=== PATIENT | female | born 1945 | race Caucasian/White ===

== ENCOUNTER → 2016-05-30 | Outpatient (CLI) | payer MEDICARE ==
[2016-05-30 12:15] LABS: Cholesterol 173 mg/dL (<200); HDL Cholesterol 32 mg/dL (40-60); Triglycerides 313 mg/dL (<150)
[2016-06-01 04:10] LABS: Microalbum/Creatinine Ratio,Ur 63 (<30)
[2016-06-03 07:50] LABS: Cortisol, Urine Free by LC-MS 6.3 ug/L
== END | disposition home or self-care (01) ==
LOC: LABWHC1 09:55
PROVIDERS: ATTEND Internal Medicine Endocrinology, Diabetes & Metabolism
DX: E11.65 Type 2 diabetes mellitus with hyperglycemia (principal); E24.0 Pituitary-dependent Cushing's disease; D35.2 Benign neoplasm of pituitary gland
CPT/HCPCS: 36415; 80061; 82043; 82530

== ENCOUNTER 2016-06-26 17:05 | Emergency (ER) | payer MEDICARE ==
[2016-06-26] MEDS ORDERED: SODIUM CHLORIDE 0.9% 500 ML IV STA (17:32)
[2016-06-26] MEDS ORDERED: RX INFO: IV CONTRAST WAS GIVEN 1 EACH MISC MISCELLANE PRN (17:32)
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
[2016-06-26 18:13] LABS: Basophils # (A) 0.1 k/uL (0-0.2); Basophils % (A) 1 %; CH 28.8; CHCM 31.9; Eosinophils # (A) 0.1 k/uL (0-0.7); Eosinophils % (A) 1 %; HCT 40.1 % (34.0-46.0); HDW 2.84; HGB 12.9 gm/dL (11.4-16.0); Luc # (Auto) 0.17; Luc % (Auto) 3; Lymphocytes # (A) 1.4 k/uL (1.0-4.8); Lymphocytes % (A) 23 %; MCH 29.3 pg (25.0-35.0); MCHC 32.2 g/dL (31.0-37.0); MCV 90.8 fL (80.0-100.0); Mean Platelet Volume 8.2; Monocytes # (A) 0.5 k/uL (0-1.0); Monocytes % (A) 7 %; Neutrophils # (A) 4.1 k/uL (1.3-7.7); Neutrophils % (A) 65 %; RBC 4.41 m/uL (3.80-5.40); RDW 15.2 % (11.5-15.5); WBC 6.2 k/uL (3.8-10.6); WBC (Perox) 6.14
[2016-06-26 18:21] LABS: Partial Thromboplastin Time 25.3 sec (22.0-30.0); Prothrombin Time 10.2 sec (9.0-12.0)
[2016-06-26 18:36] LABS: ALT 28 U/L (9-52); AST 20 U/L (14-36); Alkaline Phosphatase 116 U/L (38-126); Amylase <30 U/L (30-110); Anion Gap 12 mmol/L; Blood Urea Nitrogen 22 mg/dL (7-17); Calcium 9.6 mg/dL (8.4-10.2); Carbon Dioxide 23 mmol/L (22-30); Chloride 104 mmol/L (98-107); Glucose 201 mg/dL (74-99); Non-African American GFR(MDRD) >60 (>60 ml/min/1.73 sqM); Potassium 4.6 mmol/L (3.5-5.1); Sodium 139 mmol/L (137-145); Total Bilirubin 0.4 mg/dL (0.2-1.3); Total Protein 7.1 g/dL (6.3-8.2)
[2016-06-26 19:08] LABS: Appearance,Urine Clear (Clear); Bilirubin,Urine Negative (Negative); Glucose,Urine (UA) Negative (Negative); Ketones,Urine Negative (Negative); Leukocyte Esterase,Urine Negative (Negative); Nitrite,Urine Negative (Negative); PH, Urine 5.5 (5.0-8.0); Protein,Urine Negative (Negative); Specific Gravity,Urine 1.008 (1.001-1.035); UA Billing (MACRO vs. MICRO) CHEM; Urobilinogen,Urine <2.0 mg/dL (<2.0)
--- NOTE | 2016-06-26 19:23 | CT ---
EXAMINATION TYPE: CT abdomen pelvis w con DATE OF EXAM: 06/26/2016 7:15 PM COMPARISON: NONE HISTORY: Pt states of abdominal pain near umbilical area. Hx of umbilical hernia. CT DLP: 1667.3 mGycm Automated exposure control for dose reduction was used. TECHNIQUE: Helical acquisition of images was performed from the lung bases through the pelvis. CONTRAST: Performed without Oral Contrast and with IV Contrast, patient injected with 100 mL of Omnipaque 300. FINDINGS: There is mild linear density at the left lung base consistent with subsegmental atelectasis. There is no pleural effusion. Liver spleen pancreas appear normal. Bile ducts are not dilated. Cholecystectomy is noted. There is a 2 cm soft tissue density on the left adrenal gland. The right adrenal gland appears normal . Kidneys show satisfactory contrast opacification. There is no hydronephrosis. There is no retroperi toneal adenopathy. There is no ascites. There is some mild subcutaneous density on the anterior mid a bdominal wall consistent with previous surgery. I see no hernia. There is no intestinal wall thickeni ng. There are no dilated loops. Bladder distends smoothly. There is no sign of a pelvic mass. Appendi x is not seen. Abdominal aorta is atheromatous. I see no bony destructive process. IMPRESSION: MILD SCARRING AND SUBSEGMENTAL ATELECTASIS AT THE POSTERIOR LATERAL LEFT LUNG BASE. THERE IS CLEARING OF THE SOFT TISSUE AIR OUTSIDE OF THE BONY THORAX ON THE LEFT SIDE COMPARED TO OLD CT SCAN. NO SIGN OF ACUTE ABDOMEN AND PELVIS. POSTSURGICAL CHANGES AT THE UMBILICUS ARE STABLE COMPARED TO OLD CT SCAN . NO EVIDENCE OF RECURRENT HERNIA. HIATAL HERNIA IS NOTED. THIS IS UNCHANGED COMPARED TO OLD EXAM.
[2016-06-26 20:02] VITALS: BP 168/72; PULSE 58; RESP 20; TEMP 99.2
== END 2016-06-26 20:00 | disposition home or self-care (01) ==
LOC: EC 17:05
DX: R10.9 Unspecified abdominal pain (principal); I48.91 Unspecified atrial fibrillation; E11.9 Type 2 diabetes mellitus without complications; K21.9 Gastro-esophageal reflux disease without esophagitis; I10 Essential (primary) hypertension; G35 Multiple sclerosis; E07.9 Disorder of thyroid, unspecified; E11.319 Type 2 diabetes mellitus with unspecified diabetic retinopathy without macular edema; E11.29 Type 2 diabetes mellitus with other diabetic kidney complication; N28.9 Disorder of kidney and ureter, unspecified; Z98.61 Coronary angioplasty status; Z79.899 Other long term (current) drug therapy; Z91.048 Other nonmedicinal substance allergy status; Z79.4 Long term (current) use of insulin; Z88.5 Allergy status to narcotic agent; Z92.3 Personal history of irradiation; Z88.8 Allergy status to other drugs, medicaments and biological substances; H40.9 Unspecified glaucoma; Z85.42 Personal history of malignant neoplasm of other parts of uterus; Z85.118 Personal history of other malignant neoplasm of bronchus and lung
CPT/HCPCS: 36415; 80053; 82150; 83605; 83690; 85025; 85610; 85730; 81003; 74177; 99284; Q9967

== ENCOUNTER → 2016-08-18 | Outpatient (CLI) | payer MEDICARE ==
[2016-08-18 16:09] LABS: % Iron Saturation 22.8 % (20-50)
[2016-08-18 16:32] LABS: Appearance,Urine Clear (Clear); Bilirubin,Urine Negative (Negative); Glucose,Urine (UA) Negative (Negative); Ketones,Urine Negative (Negative); Leukocyte Esterase,Urine Negative (Negative); Nitrite,Urine Negative (Negative); Protein,Urine Negative (Negative); Specific Gravity,Urine 1.008 (1.001-1.035); UA Billing (MACRO vs. MICRO) CHEM; Urobilinogen,Urine <2.0 mg/dL (<2.0)
== END | disposition home or self-care (01) ==
LOC: LABWHC1 15:17
PROVIDERS: ATTEND Nurse Practitioner Family
DX: N18.2 Chronic kidney disease, stage 2 (mild) (principal); E61.1 Iron deficiency
CPT/HCPCS: 36415; 81003; 82728; 83540; 83550

== ENCOUNTER → 2016-08-19 | Outpatient (CLI) | payer MEDICARE ==
--- NOTE | 2016-08-19 11:08 | US ---
EXAMINATION TYPE: US kidneys/renal and bladder DATE OF EXAM: 08/19/2016 10:53 AM COMPARISON: November 07, 2013 CLINICAL HISTORY: N18.2 Chronic Kidney Disease Stage 2. CKD stage 2, elevated creatinine, obese eugenio ent EXAM MEASUREMENTS: Right Kidney: 12.1 x 5.7 x 6.0 cm Left Kidney: 12.0 x 6.6 x 5.6 cm Technically difficult and limited study due to patient's body habitus Right Kidney: visualized portions wnl, inferior pole limited by overlying bowel gas Left Kidney: visualized portions wnl, limited by rib shadowing and overlying bowel gas Bladder: wnl Bilateral Jets seen: left jet not seen There is no evidence for hydronephrosis at this point in time. No nephrolithiasis is seen. No williams s are identified. The urinary bladder is anechoic. Bilateral ureteral jets are seen. IMPRESSION: Limited examination on physical no distinct abnormality is seen.
== END | disposition home or self-care (01) ==
LOC: RADUSWWP 10:28
PROVIDERS: ATTEND Internal Medicine Nephrology
DX: N18.2 Chronic kidney disease, stage 2 (mild) (principal)
CPT/HCPCS: 76770

== ENCOUNTER 2017-02-22 02:01 | Observation (INO) | payer MEDICARE ==
[2017-02-22] MEDS ORDERED: IPRATROPIUM 0.5 MG/2.5 ML NEBU INHALATION STA (02:22)
[2017-02-22] MEDS ORDERED: ALBUTEROL NEBULIZED 2.5 MG/3 ML INHALATION STA ×2 (02:22→02:53)
[2017-02-22] MEDS ORDERED: SODIUM CHLORIDE 0.9% 1,000 ML IV STA (02:22)
[2017-02-22] MEDS ORDERED: EPINEPHrine 1 MG/ML 1 ML AMP SQ STA (02:22)
[2017-02-22] MEDS ORDERED: DEXAMETHASONE SOD PHOSPHATE 10 MG/ML 1 ML VIAL IV STA (02:24)
[2017-02-22] MEDS ORDERED: EPINEPHrine (Auto Inject) 0.3 MG/0.3 ML SYRINGE IM STA (02:27)
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
[2017-02-22] MEDS ORDERED: KETAMINE 10 MG/ML 20 ML VIAL IV ONE (02:33)
[2017-02-22] MEDS ORDERED: RACEPINEPHRINE 2.25% NEB 0.5 ML NEBU INHALATION STA (02:34)
[2017-02-22] MEDS ORDERED: EPINEPHrine 1 MG/ML 1 ML AMP IM STA (02:39)
[2017-02-22] MEDS ORDERED: IPRATROPIUM-ALBUTEROL 3 ML NEB INHALATION STA (02:53)
[2017-02-22 02:54] LABS: Basophils # (A) 0.1 k/uL (0-0.2); Basophils % (A) 1 %; CH 30.8; CHCM 32.3; Eosinophils # (A) 0.1 k/uL (0-0.7); Eosinophils % (A) 2 %; HCT 40.2 % (34.0-46.0); HDW 2.81; HGB 12.6 gm/dL (11.4-16.0); Luc % (Auto) 1; Lymphocytes # (A) 1.9 k/uL (1.0-4.8); Lymphocytes % (A) 26 %; MCH 29.9 pg (25.0-35.0); MCHC 31.3 g/dL (31.0-37.0); MCV 95.6 fL (80.0-100.0); Mean Platelet Volume 8.3; Monocytes # (A) 0.6 k/uL (0-1.0); Monocytes % (A) 9 %; Neutrophils # (A) 4.4 k/uL (1.3-7.7); Neutrophils % (A) 61 %; RDW 13.9 % (11.5-15.5); WBC 7.2 k/uL (3.8-10.6); WBC (Perox) 6.57
[2017-02-22 03:07] LABS: Calcium 9.6 mg/dL (8.4-10.2); Potassium 4.4 mmol/L (3.5-5.1); Total Bilirubin 0.3 mg/dL (0.2-1.3); Total Protein 7.2 g/dL (6.3-8.2)
[2017-02-22 03:12] LABS: INR 1.3 (<1.2); Partial Thromboplastin Time 30.7 sec (22.0-30.0); Prothrombin Time 13.2 sec (9.0-12.0)
[2017-02-22 03:16] LABS: VBG PH 7.28 (7.31-7.41)
[2017-02-22 03:25] LABS: Creatine Kinase 68 U/L (30-135)
[2017-02-22 03:39] LABS: Creatine Kinase MB 1.3 ng/mL (0.0-2.4); Troponin I <0.012 ng/mL (0.000-0.034)
--- NOTE | 2017-02-22 04:47 | XR ---
EXAM: XR Chest, 2 Views CLINICAL HISTORY: Reason: difficulty breathing TECHNIQUE: Frontal and lateral views of the chest. COMPARISON: 10/28/15. FINDINGS: Lungs: Mild basilar opacities, possible atelectasis. Pleural space: Unremarkable. No pneumothorax. Heart: Stable cardiomediastinal silhouette. Mediastinum: See above. Bones/joints: Postsurgical changes in the left proximal humerus again noted. IMPRESSION: Mild basilar opacities, possible atelectasis.
--- NOTE | 2017-02-22 04:50 | XR ---
EXAM: XR Soft Tissue Neck CLINICAL HISTORY: Reason: Pain TECHNIQUE: Frontal and lateral views of the soft tissues of the neck. COMPARISON: 10/28/15. FINDINGS: Airway: Unremarkable. Bones/joints: No acute fracture. Soft tissues: Unremarkable epiglottis. Other findings: Similar appearing presumed calcific opacities in the neck. IMPRESSION: No definite acute findings. No significant interval change. If there is persistent concern, CT may be considered.
[2017-02-22] MEDS ORDERED: PROPAFENONE 150 MG TAB PO PRN (05:20)
[2017-02-22] MEDS ORDERED: FUROSEMIDE 40 MG TAB PO PRN (05:20)
[2017-02-22] MEDS ORDERED: POTASSIUM CHLORIDE ER 20 MEQ TAB.ER PO PRN (05:20)
[2017-02-22] MEDS ORDERED: HYDROcodone/APAP 7.5-325MG 1 EACH TAB PO PRN (05:20)
[2017-02-22 05:42] VITALS: TEMP 98
[2017-02-22] MEDS ORDERED: LEVOTHYROXINE 125 MCG TAB PO SCH (06:30)
[2017-02-22 07:54] VITALS: BP 169/70; RESP 16
[2017-02-22] MEDS ORDERED: BUDESONIDE 0.5 MG/2 ML NEBU INHALATION SCH (08:00)
[2017-02-22 08:43] LABS: Glucose,Whole Blood 268 mg/dL (75-99)
[2017-02-22] MEDS: IPRATROPIUM-ALBUTEROL 3 ML NEB INHALATION PRN ×2 (08:46→14:18)
[2017-02-22] MEDS ORDERED: BRIMONIDINE TARTRATE 0.2% DROPS 5 ML BTL BOTH EYES SCH (09:00)
[2017-02-22] MEDS ORDERED: LUBIPROSTONE 8 MCG PO SCH (09:00)
[2017-02-22] MEDS ORDERED: DORZOLAMIDE HCL 2% DROPS 10 ML BTL BOTH EYES SCH (09:00)
[2017-02-22] MEDS ORDERED: ASCORBIC ACID 500 MG TAB PO SCH (09:00)
[2017-02-22] MEDS ORDERED: ATENOLOL 50 MG TAB PO SCH (09:00)
[2017-02-22] MEDS ORDERED: TIMOLOL 0.5% OPHTH DROPS 5 ML BTL BOTH EYES SCH (09:00)
[2017-02-22] MEDS ORDERED: AMOXIC-POT CLAV 500-125 MG 1 EACH TAB PO SCH (09:00)
[2017-02-22] MEDS ORDERED: LISINOPRIL 5 MG TAB PO SCH (09:00)
[2017-02-22] MEDS: METHAZOLAMIDE 25 MG PO SCH ×2 (09:27→13:13)
[2017-02-22] MEDS: ERGOCALCIFEROL 50,000 UNIT CAP PO SCH ×2 (09:28→10:57)
[2017-02-22] MEDS: methylPREDNISolone SOD SUCCI 125 MG/2 ML VIAL IV SCH ×3 (09:29→11:24)
[2017-02-22] MEDS ORDERED: PROPAFENONE 150 MG TAB PO SCH (10:00)
[2017-02-22 10:42] LABS: Hemoglobin A1C 7.1 % (4.2-6.1)
[2017-02-22] MEDS ORDERED: NYSTATIN 100,000 UNIT/GM POWD 15 GM TOPICAL PRN (10:52)
[2017-02-22] MEDS ORDERED: AZITHROMYCIN 500 MG TAB PO STA (10:52)
[2017-02-22] MEDS ORDERED: INSULIN GLARGINE 100 UNIT/ML 10 ML VIAL SQ SCH ×2 (11:02→21:00)
[2017-02-22 11:04] LABS: Glucose,Whole Blood 356 mg/dL (75-99)
[2017-02-22] MEDS ORDERED: INSULIN LISPRO (humaLOG) 300 UNIT/3 ML VIAL SQ SCH ×2 (12:30)
--- NOTE | 2017-02-22 13:53 | P.CNPUL ---
History of Present Illness Consult date: 02/22/17 Reason for consult: dyspnea, cough, hypoxemia Chief complaint: Shortness of breath History of present illness: Consult dated 02/22/2017 72-year-old female who presented to the emergency department with difficulty breathing. The patient states that she develops frequent episodes of tracheitis or tracheobronchitis. She apparently states that this was told that he was a croup infection. Anyway the patient drove herself in to the hospital from [place]. About 7 minutes here. Apparently when she got here she was improved profound distress in the axillary even considering it and consider intubating the patient. They decided to treat her with steroids and racemic epinephrine and they did not have to intubate her. She's almost feeling back to baseline and does feel back to baseline and would like to be discharged home. I told her she could be discharged home with some oral prednisone. To me, it sounds like she's got adult croup. This is typically a viral infection typically caused by parainfluenza virus. It behaves as a laryngeal tracheal bronchitis or LTB. It is usually treated with breathing treatment steroids racemic epinephrine aerosolized lidocaine. Occasionally, patients have to be intubated and mechanically ventilated. Another treatment option for these patients would be heliox, 70% helium and 30% oxygen. Review of Systems A 12 point review of system is positive for profound shortness of breath high- pitched cough. Although his complaints have completely gone away she feels pretty much back to baseline at this time. Past Medical History Past Medical History: Atrial Fibrillation, Asthma, Cancer, Heart Failure, Diabetes Mellitus, Deep Vein Thrombosis (DVT), Eye Disorder, GERD/Reflux, Hyperlipidemia, Hypertension, Memory Impairment, Musculoskeletal Disorder, Osteoarthritis (OA), Renal Disease, Thyroid Disorder Additional Past Medical History / Comment(s): Uterine cancer with mets to vagina , L breast, and L lung-all tx surgically, some also with radiation/ brachitherapy and pt is on chemotherapy, IDDM type II, bilateral retinalopathy, bilateral glaucoma with surgery, gastroparesis, hiatal hernia, gastritis, dysphagia at times, neuropathy bilateral hands/feet, chronic low back pain, limited ROM to L arm r/t trauma/fractures, cushings, hypothyroid, multiple sclerosis, memory issues with MS flare-ups, bilateral tinnitis, chronic renal disease stage II, anemia, CHF once after brain surgery, DVT in leg after childbirth. History of Any Multi-Drug Resistant Organisms: MRSA Date of last positivie culture/infection: 4-5 months ago-treated by Dr. Evelyn KINSEY Source:: R forearm Past Surgical History: Appendectomy, Cholecystectomy, Heart Catheterization, Hernia Repair, Hysterectomy, Joint Replacement, Orthopedic Surgery, Tonsillectomy Additional Past Surgical History / Comment(s): brain surgery for benign pituary gland tumors, lt lung resection-2011, total hysterectomy/lymph node removals, LT ELIZABETH, ESOPHAGEAL NODULES REMOVED, multiple breast LIPOMA'S removed with biopsies, LT VITRECTOMY, laser surgery for glaucoma, bilateral cataract removals , several hernia surgeries, L ANKLE repair SX, PLATE & SCREWS TO LT HUMERUS, EGD/colonoscopies with benign polypectomies. Past Anesthesia/Blood Transfusion Reactions: Motion Sickness, Postoperative Nausea & Vomiting (PONV) Smoking Status: Never smoker - Past Family History Father Family Medical History: COPD, Myocardial Infarction ([place]) Additional Family Medical History / Comment(s): Father at the age of 63 yrs from a massive [place]. He had emphysema and was a smoker. Mother Family Medical History: Cancer, Congestive Heart Failure (CHF) Additional Family Medical History / Comment(s): Skin and oral cancer. Mother of CHF at the age of 74yrs. Sister(s) Family Medical History: Cancer Additional Family Medical History / Comment(s): Breast cancer. Medications and Allergies Home Medications Medication Instructions Recorded Confirmed Type Atenolol [Tenormin] 50 mg PO QAM 09/13/13 02/22/17 History Insulin Glargine [Lantus] 49 units SQ BID 09/13/13 02/22/17 History Latanoprost Ophth [Xalatan 0.005%] 1 drops BOTH EYES HS 09/13/13 02/22/17 History Rivaroxaban [Xarelto] 20 mg PO AC-SUPPER 09/13/13 02/22/17 History Methazolamide [Neptazane] 25 mg PO DAILY 10/25/13 02/22/17 History Propafenone [Rythmol] 150 mg PO DAILY PRN 10/25/13 02/22/17 History Betaxolol HCl [Betoptic S 0.5% 1 drop BOTH EYES BID 05/28/14 02/22/17 History Ophth Soln] Ergocalciferol (Vitamin D2) 50,000 units PO MOWEFR 05/28/14 02/22/17 History [Drisdol] Lubiprostone [Amitiza] 8 mcg PO BID 10/28/15 02/22/17 History Albuterol Nebulized [Ventolin 2.5 mg INHALATION RT-Q4H PRN 06/26/16 02/22/17 History Nebulized] Brimonidine Tartrate [Alphagan P 1 drops BOTH EYES TID 06/26/16 02/22/17 History 0.2% Ophth Soln] HYDROcodone/APAP 7.5-325MG [[place] 1 tab PO TID PRN 06/26/16 02/22/17 History 7.5-325] Levothyroxine Sodium [Synthroid] 125 mcg PO DAILY 06/26/16 02/22/17 History Lisinopril [Prinivil] 5 mg PO DAILY 06/26/16 02/22/17 History Brinzolamide [Azopt 1% Ophth Susp] 1 drop BOTH EYES TID 08/19/16 02/22/17 History Acetaminophen Tab [Tylenol Tab] 500 mg PO Q6H PRN 02/22/17 02/22/17 History Atenolol [Tenormin] 25 mg PO DAILY PRN 02/22/17 02/22/17 History Insulin Aspart [NovoLOG] 11 unit SQ AC-TID 02/22/17 02/22/17 History Lansoprazole [Lansoprazole] 30 mg PO PC-SUPPER 02/22/17 02/22/17 History Nystatin [Nystop] 1 applic TOPICAL BID PRN 02/22/17 02/22/17 History Propafenone [Rythmol] 150 mg PO BID 02/22/17 02/22/17 History Allergies Allergy/AdvReac Type Severity Reaction Status Date / Time adhesive Allergy Rash/Hives Verified 02/22/17 07:33 diltiazem HCl [From Cardizem] Allergy Rash/Hives Verified 02/22/17 07:33 diphenhydramine HCl Allergy Unknown Verified 02/22/17 07:33 [From Benadryl] Echinacea Allergy Rapid Verified 02/22/17 07:33 Heart Rate codeine AdvReac Nausea & Verified 02/22/17 07:33 Vomiting guaifenesin AdvReac Nausea & Verified 02/22/17 07:33 Vomiting meperidine AdvReac Nausea & Verified 02/22/17 07:33 Vomiting morphine AdvReac Nausea & Verified 02/22/17 07:33 Vomiting opiates AdvReac Nausea & Uncoded 02/22/17 07:33 Vomiting stadol AdvReac Hallucinati Uncoded 02/12/17 15:07 ons Physical Exam Osteopathic Statement: *. No significant issues noted on an osteopathic structural exam other than those noted in the History and Physical/Consult. Vitals: Vital Signs Temp Pulse Pulse Resp BP BP Pulse Ox 02/22/17 09:00 72 02/22/17 08:47 68 02/22/17 08:00 66 16 02/22/17 07:00 98.0 F 66 16 169/70 95 02/22/17 05:41 98.0 F 67 18 179/73 97 02/22/17 03:52 67 18 171/72 98 02/22/17 03:21 76 02/22/17 03:01 66 18 100 02/22/17 03:00 64 28 H 02/22/17 02:50 64 02/22/17 02:35 76 02/22/17 02:02 99.2 F 68 30 H 204/91 96 Intake and Output 02/21/17 02/22/17 02/22/17 22:59 06:59 14:59 Intake Total 1680 Balance 1680 Intake: Intake, IV Titration 600 Amount Sodium Chloride 0.9% 1, 600 000 ml @ 100 mls/hr IV . Q10H STA Rx#:[id number] Oral 1080 Other: Voiding Method Toilet # Voids 4 Weight 98.883 kg No acute distress, oriented 3. HEENT examination is grossly unremarkable. Mucous membranes are moist. No oral lesions. Neck supple. Full range of motion. No adenopathy or thyromegaly. Neck veins are flat. No obvious stridor noted. Cardiovascular examination reveals regular rhythm rate. S1-S2 normal. No S3- S4 or murmur. Lungs reveal clear breath sounds. No wheezes rhonchi or crackles. Abdomen soft bowel sounds are heard. No masses or tenderness. Extremities are intact no cyanosis clubbing or edema. Skin without rash. Neurologic examination is nonfocal. Results - Laboratory Findings CBC and BMP: 02/22/17 02:33 02/22/17 02:33 PT/INR, D-dimer PT 13.2 sec (9.0-12.0) H 02/22/17 02:33 INR 1.3 (<1.2) H 02/22/17 02:33 Abnormal lab findings: Abnormal Labs 02/22/17 02/22/17 02/22/17 02:33 02:33 02:33 PT 13.2 H INR 1.3 H APTT 30.7 H VBG pH 7.28 L VBG pCO2 54 H BUN 20 H Creatinine 1.20 H Glucose 182 H POC Glucose (mg/dL) Hemoglobin A1c 02/22/17 02/22/17 02/22/17 02:33 08:40 11:02 PT INR APTT VBG pH VBG pCO2 BUN Creatinine Glucose POC Glucose (mg/dL) 268 H 356 H Hemoglobin A1c 7.1 H - Diagnostic Findings Chest x-ray: image reviewed (X-rays labs medications and soft tissue of the neck revealed) Assessment and Plan (1) Epiglottitis Current Visit: Yes Status: Acute Code(s): J05.10 - ACUTE EPIGLOTTITIS WITHOUT OBSTRUCTION SNOMED Code(s): 37102410 (2) Croup due to viral infection Current Visit: Yes Status: Acute Code(s): J05.0 - ACUTE OBSTRUCTIVE LARYNGITIS [CROUP]; B97.89 - OTH VIRAL AGENTS THE CAUSE OF DISEASES [facility] SNOMED Code(s): 92796529 (3) Signs and symptoms of severe respiratory distress Current Visit: Yes Status: Acute Code(s): R06.00 - DYSPNEA, UNSPECIFIED SNOMED Code(s): 421898631 Plan: Plan dated 02/22/2017 The patient could be discharged home. We discharged her home on some oral prednisone AB 30 mg for 4 days 20 for 4 days 10 for 4 days and stop. She really does not need any oral antibiotic. This is likely not a bacterial infection. Additional recommendations and suggestions are forthcoming. I be happy to see in the office if you feel that would be important. Time with Patient: Greater than 30
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
[2017-02-22 15:42] VITALS: PULSE 66
[2017-02-22] MEDS ORDERED: PANTOPRAZOLE 40 MG TABLET PO SCH ×2 (17:30→18:30)
[2017-02-22] MEDS ORDERED: RIVAROXABAN 15 MG TAB PO SCH (17:30)
[2017-02-22] MEDS ORDERED: RIVAROXABAN 10 MG TAB PO SCH (17:30)
[2017-02-22] MEDS ORDERED: LATANOPROST 0.005% OPHTH DROPS 2.5 ML BTL BOTH EYES SCH (21:00)
[2017-02-23] MEDS ORDERED: AZITHROMYCIN 250 MG TAB PO SCH (09:00)
== END 2017-02-22 16:00 | disposition home or self-care (01) ==
LOC: EC 02:01 → 5MS5E 05:09
PROVIDERS: ADMIT Family Medicine; ATTEND Family Medicine
DX: J05.10 Acute epiglottitis without obstruction (principal); R06.03 Acute respiratory distress; J05.0 Acute obstructive laryngitis [croup]; B34.9 Viral infection, unspecified; J45.30 Mild persistent asthma, uncomplicated; I48.0 Paroxysmal atrial fibrillation; I13.0 Hypertensive heart and chronic kidney disease with heart failure and stage 1 through stage 4 chronic kidney disease, or unspecified chronic kidney disease; I50.9 Heart failure, unspecified; N18.2 Chronic kidney disease, stage 2 (mild); E03.9 Hypothyroidism, unspecified; K21.9 Gastro-esophageal reflux disease without esophagitis; E78.5 Hyperlipidemia, unspecified; G35 Multiple sclerosis; H40.9 Unspecified glaucoma; M54.5 Low back pain; G89.29 Other chronic pain; R09.02 Hypoxemia; R63.4 Abnormal weight loss; E24.9 Cushing's syndrome, unspecified; E11.319 Type 2 diabetes mellitus with unspecified diabetic retinopathy without macular edema; E11.43 Type 2 diabetes mellitus with diabetic autonomic (poly)neuropathy; E11.22 Type 2 diabetes mellitus with diabetic chronic kidney disease; K31.84 Gastroparesis; M19.90 Unspecified osteoarthritis, unspecified site; E66.01 Morbid (severe) obesity due to excess calories; Z68.39 Body mass index [BMI] 39.0-39.9, adult; Z91.048 Other nonmedicinal substance allergy status; Z79.899 Other long term (current) drug therapy; Z88.5 Allergy status to narcotic agent; Z79.4 Long term (current) use of insulin; Z79.02 Long term (current) use of antithrombotics/antiplatelets; Z86.14 Personal history of Methicillin resistant Staphylococcus aureus infection; Z85.42 Personal history of malignant neoplasm of other parts of uterus; Z85.118 Personal history of other malignant neoplasm of bronchus and lung; Z92.3 Personal history of irradiation; Z85.3 Personal history of malignant neoplasm of breast; Z92.21 Personal history of antineoplastic chemotherapy; Z86.718 Personal history of other venous thrombosis and embolism
CPT/HCPCS: 99291; 96372; 96374; 96361 ×4; 96375; 36415; 94640 ×2; 93005; 80053; 83036; 82550; 82553; 82803; 84484; 85025; 85610; 85730; 70360; 71020; G0378; J0171; J1100; J2930

== ENCOUNTER 2017-05-16 15:47 | Emergency (ER) | payer MEDICARE ==
[2017-05-16] MEDS ORDERED: methylPREDNISolone SOD SUCCI 125 MG/2 ML VIAL IV STA (16:12)
[2017-05-16] MEDS ORDERED: IPRATROPIUM-ALBUTEROL 3 ML NEB INHALATION STA (16:12)
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
[2017-05-16 16:45] LABS: Basophils # (A) 0.1 k/uL (0-0.2); Basophils % (A) 1 %; Eosinophils # (A) 0.1 k/uL (0-0.7); Eosinophils % (A) 2 %; HCT 39.1 % (34.0-46.0); HGB 12.6 gm/dL (11.4-16.0); Lymphocytes # (A) 1.5 k/uL (1.0-4.8); Lymphocytes % (A) 31 %; MCH 30.1 pg (25.0-35.0); MCHC 32.3 g/dL (31.0-37.0); MCV 93.1 fL (80.0-100.0); Mean Platelet Volume 8.6; Monocytes # (A) 0.4 k/uL (0-1.0); Monocytes % (A) 9 %; Neutrophils # (A) 2.6 k/uL (1.3-7.7); Neutrophils % (A) 54 %; Platelet Count 248 k/uL (150-450); RBC 4.21 m/uL (3.80-5.40); RDW 15.2 % (11.5-15.5); WBC 4.9 k/uL (3.8-10.6)
[2017-05-16 16:53] LABS: Partial Thromboplastin Time 26.1 sec (22.0-30.0); Prothrombin Time 10.1 sec (9.0-12.0)
[2017-05-16 17:08] LABS: Creatine Kinase 61 U/L (30-135)
--- NOTE | 2017-05-16 17:09 | XR ---
EXAMINATION TYPE: XR chest 2V DATE OF EXAM: 05/16/2017 COMPARISON: 04/17/2017 HISTORY: Shortness of breath, cough and wheezing. TECHNIQUE: Frontal and lateral views of the chest are obtained. FINDINGS: There is no focal air space opacity, pleural effusion, or pneumothorax seen. The cardiac silhouette size is upper limits of normal. The osseous structures are intact. Chronic linear scarri ng is seen within the left midlung fixation plate of the left proximal humerus is noted IMPRESSION: No acute cardiopulmonary process.
[2017-05-16 17:10] LABS: ALT 31 U/L (9-52); AST 18 U/L (14-36); Albumin 3.6 g/dL (3.5-5.0); Alkaline Phosphatase 108 U/L (38-126); Anion Gap 11 mmol/L; Blood Urea Nitrogen 23 mg/dL (7-17); Calcium 9.8 mg/dL (8.4-10.2); Carbon Dioxide 23 mmol/L (22-30); Chloride 106 mmol/L (98-107); Glucose 255 mg/dL (74-99); Potassium 4.1 mmol/L (3.5-5.1); Sodium 140 mmol/L (137-145); Total Bilirubin 0.3 mg/dL (0.2-1.3); Total Protein 6.6 g/dL (6.3-8.2)
[2017-05-16 17:20] LABS: Creatine Kinase MB 0.9 ng/mL (0.0-2.4); Troponin I <0.012 ng/mL (0.000-0.034)
[2017-05-16 18:24] VITALS: BP 140/65; PULSE 66; RESP 18; TEMP 97.8
== END 2017-05-16 18:35 | disposition home or self-care (01) ==
LOC: EC 15:47
DX: J06.9 Acute upper respiratory infection, unspecified (principal); I44.7 Left bundle-branch block, unspecified; J45.909 Unspecified asthma, uncomplicated; K21.9 Gastro-esophageal reflux disease without esophagitis; E07.9 Disorder of thyroid, unspecified; I48.91 Unspecified atrial fibrillation; E11.22 Type 2 diabetes mellitus with diabetic chronic kidney disease; I12.9 Hypertensive chronic kidney disease with stage 1 through stage 4 chronic kidney disease, or unspecified chronic kidney disease; N18.2 Chronic kidney disease, stage 2 (mild); E11.319 Type 2 diabetes mellitus with unspecified diabetic retinopathy without macular edema; Z85.42 Personal history of malignant neoplasm of other parts of uterus; Z85.118 Personal history of other malignant neoplasm of bronchus and lung; Z86.14 Personal history of Methicillin resistant Staphylococcus aureus infection; Z85.3 Personal history of malignant neoplasm of breast; Z88.5 Allergy status to narcotic agent; Z88.8 Allergy status to other drugs, medicaments and biological substances; Z91.048 Other nonmedicinal substance allergy status; Z79.4 Long term (current) use of insulin; Z79.01 Long term (current) use of anticoagulants; Z79.899 Other long term (current) drug therapy
CPT/HCPCS: 36415; 94640; 93005; 83880; 80053; 82550; 82553; 84484; 85025; 85610; 85730; 87502; 71046; 99284; 96374; J2930

== ENCOUNTER → 2017-05-21 | Outpatient (CLI) | payer MEDICARE ==
[2017-05-21 16:22] LABS: Basophils # (A) 0.1 k/uL (0-0.2); Basophils % (A) 0 %; Eosinophils % (A) 0 %; HCT 39.7 % (34.0-46.0); HGB 12.8 gm/dL (11.4-16.0); Lymphocytes # (A) 2.4 k/uL (1.0-4.8); Lymphocytes % (A) 18 %; MCH 30.2 pg (25.0-35.0); MCHC 32.3 g/dL (31.0-37.0); MCV 93.3 fL (80.0-100.0); Mean Platelet Volume 9.2; Monocytes # (A) 0.9 k/uL (0-1.0); Monocytes % (A) 7 %; Neutrophils # (A) 9.8 k/uL (1.3-7.7); Neutrophils % (A) 73 %; Platelet Count 279 k/uL (150-450); RBC 4.26 m/uL (3.80-5.40); RDW 15.3 % (11.5-15.5); WBC 13.4 k/uL (3.8-10.6)
[2017-05-21 16:36] LABS: Appearance,Urine Clear (Clear); Bilirubin,Urine Negative (Negative); Blood,Urine Negative (Negative); Color,Urine Light Yellow; Glucose,Urine (UA) Negative (Negative); Ketones,Urine Negative (Negative); Leukocyte Esterase,Urine Negative (Negative); Nitrite,Urine Negative (Negative); PH, Urine 6.5 (5.0-8.0); Protein,Urine Negative (Negative); Specific Gravity,Urine 1.015 (1.001-1.035); Urobilinogen,Urine <2.0 mg/dL (<2.0)
[2017-05-21 16:51] LABS: Anion Gap 11 mmol/L; Blood Urea Nitrogen 30 mg/dL (7-17); Calcium 10.3 mg/dL (8.4-10.2); Carbon Dioxide 26 mmol/L (22-30); Chloride 104 mmol/L (98-107); Glucose 138 mg/dL (74-99); Magnesium 2.3 mg/dL (1.6-2.3); Phosphorous 3.8 mg/dL (2.5-4.5); Potassium 4.6 mmol/L (3.5-5.1); Sodium 141 mmol/L (137-145); Uric Acid 5.9 mg/dL (3.7-7.4)
[2017-05-22 00:32] LABS: Iron Saturation 23.69 (12.00-45.00)
[2017-05-22 00:41] LABS: Vitamin D 25 Hydroxy 36.4 ng/mL (30.0-100.0)
[2017-05-22 00:49] LABS: Parathyroid Hormone Intact 93.3 pg/mL (14.0-72.0)
== END | disposition home or self-care (01) ==
LOC: LABWHC1 15:58
PROVIDERS: ATTEND Internal Medicine Nephrology
DX: E55.9 Vitamin D deficiency, unspecified (principal); D63.1 Anemia in chronic kidney disease; M10.9 Gout, unspecified; N39.0 Urinary tract infection, site not specified; N18.2 Chronic kidney disease, stage 2 (mild)
CPT/HCPCS: 36415; 80048; 81003; 82306; 82728; 83540; 83550; 83735; 83970; 84100; 84550; 85025

== ENCOUNTER → 2017-05-31 | Outpatient (CLI) | payer MEDICARE ==
--- NOTE | 2017-05-31 20:02 | NM ---
EXAMINATION TYPE: NM parathyroid DATE OF EXAM: 05/31/2017 COMPARISON: CT soft tissue neck dated 11/13/2015 HISTORY: Hyperparathyroidism, E 21.3 TECHNIQUE: Following administration of 26.2 mCi Tc99m Sestamibi. Anterior projection images of the neck and ches t were obtained 10 minutes and 3.25 hours post injection FINDINGS: Thyroid tracer washout: Delayed images demonstrate near-complete tracer washout from the thyroid. Parathyroid uptake: None. The two-hour delayed images do not demonstrate any focal abnormal persisten t uptake in the region of the parathyroid glands to suggest parathyroid adenoma. Normal uptake: There is physiological tracer uptake in the salivary glands and thyroid gland. IMPRESSION: Normal parathyroid imaging study. No evidence for mediastinal uptake to suggest mediastinal parathyro id adenoma
== END | disposition home or self-care (01) ==
LOC: RADNMMAIN 11:40
PROVIDERS: ATTEND Family Medicine
DX: E21.3 Hyperparathyroidism, unspecified (principal)
CPT/HCPCS: 78070; A9500

== ENCOUNTER → 2017-06-02 | Outpatient (CLI) | payer MEDICARE ==
--- NOTE | 2017-06-02 16:23 | BD ---
EXAMINATION TYPE: MG DEXA axial skeleton. DATE OF EXAM: 06/02/2017 COMPARISON: NONE CLINICAL HISTORY: 72-year-old female disorder of bone Height: 5 FT 2 1/2 IN Weight: 225 FRAX RISK QUESTIONS: Alcohol (3 or more units per day): NO Family History (Parent hip fracture): NO Glucocorticoids (More than 3mos): NO (Ex: prednisone, prednisolone, methylprednisolone, dexamethasone, and hydrocortisone). History of Fracture in Adulthood: YES Secondary Osteoporosis: 1. Type 1 Diabetes: NO 2. Hyperthyroidism: NO 3. Menopause before 45: NO 4. Malnutrition: NO 5. Chronic liver disease: FATTY Rheumatoid Arthritis: NO Current Tobacco Use: NO RISK FACTORS HISTORY OF: Surgery to Spine/Hip(right/left)/Wrist (right/left): LT HIP REPLACEMENT When: AGE 61 Family History of Osteoporosis: YES Active: YES Postmenopausal woman: AGE 48 TOTAL HYST AGE 61 Lost more than 2 inches in height since high school: YES MEDICATIONS: Thyroid Medications: YES Which medication: LEVOTHYROXINE How Lon YEARS Additional Medications: ARIMEDEX, HEART MEDS, ATTENOLOL, LANTUS, NOVALOG, PRAPAFENONE, LISINOPRIL, NE PTAZONE, AMITIZCO, VIT D 2, XARELTO, LANSAPRAZOLE, ALBUTEROL NEEDED, CARAFATE, DILVADINE, LASIX, L EVOTHYROXINE Additional History: EXAM MEASUREMENTS: Bone mineral densitometry was performed using the [employer] System. Bone mineral density as measured about the Lumbar spine is: ----- L1-L4(G/cm2): 1.276 T Score Values are as follows: ----- L2: 1.1 ----- L3: 1.4 ----- L4: 0.0 ----- L1-L4: 0.8 BASELINE Bone mineral density about the R hip (g/cm2): 0.906 T Score values are as follows: -----R Neck: -1.8 -----R Total: -0.8 BASELINE IMPRESSION: Osteopenia (T Score between -2.5 and -1 as noted by T score values There is slightly increased risk of fracture and the patient may be considered for treatment. Re-Screen 2-5 years. NOTE: T-SCORE=SD OF THE YOUNG ADULT MEAN.
== END | disposition home or self-care (01) ==
LOC: RADBDWWP 09:56
PROVIDERS: ATTEND Internal Medicine Medical Oncology
DX: M85.80 Other specified disorders of bone density and structure, unspecified site (principal); D05.11 Intraductal carcinoma in situ of right breast
CPT/HCPCS: 77080

== ENCOUNTER → 2017-06-10 | Outpatient (CLI) | payer MEDICARE ==
[2017-06-10 17:10] LABS: Basophils % (A) 1 %; Eosinophils # (A) 0.1 k/uL (0-0.7); Eosinophils % (A) 1 %; HGB 11.9 gm/dL (11.4-16.0); Hypochromasia Slight; Lymphocytes # (A) 1.5 k/uL (1.0-4.8); Lymphocytes % (A) 27 %; MCH 30.5 pg (25.0-35.0); MCHC 32.1 g/dL (31.0-37.0); Mean Platelet Volume 8.1; Monocytes # (A) 0.5 k/uL (0-1.0); Monocytes % (A) 9 %; Neutrophils # (A) 3.4 k/uL (1.3-7.7); Neutrophils % (A) 60 %; Platelet Count 254 k/uL (150-450); RBC 3.89 m/uL (3.80-5.40); RDW 14.2 % (11.5-15.5); WBC 5.6 k/uL (3.8-10.6)
[2017-06-10 17:56] LABS: ALT 25 U/L (9-52); AST 19 U/L (14-36); Albumin 3.7 g/dL (3.5-5.0); Alkaline Phosphatase 79 U/L (38-126); Amylase 35 U/L (30-110); Anion Gap 10 mmol/L; Blood Urea Nitrogen 15 mg/dL (7-17); Calcium 9.6 mg/dL (8.4-10.2); Carbon Dioxide 27 mmol/L (22-30); Chloride 106 mmol/L (98-107); Glucose 133 mg/dL (74-99); Lipase 13 U/L (23-300); Potassium 4.8 mmol/L (3.5-5.1); Sodium 143 mmol/L (137-145); Total Bilirubin 0.3 mg/dL (0.2-1.3); Total Protein 6.3 g/dL (6.3-8.2)
[2017-06-11 01:19] LABS: Alpha Fetoprotein, Tumor Mkr <1.3 ng/mL (0.0-7.9)
== END | disposition home or self-care (01) ==
LOC: LABWHC1 16:01
PROVIDERS: ATTEND Family Medicine
DX: R14.0 Abdominal distension (gaseous) (principal); N18.3 Chronic kidney disease, stage 3 (moderate)
CPT/HCPCS: 36415; 80053; 82105; 82150; 82378; 83630; 83690; 85025; 87045; 87046; 87324; 87328; 87329; 89055

== ENCOUNTER → 2017-07-01 | Outpatient (CLI) | payer MEDICARE ==
--- NOTE | 2017-07-01 14:33 | CT ---
EXAMINATION TYPE: CT sinus wo con DATE OF EXAM: 07/01/2017 COMPARISON: NONE HISTORY: Facial pressure and pain for 2-[address] DLP: 570.[address] of the paranasal sinuses was performed in the axial and coronal planes. Bone and soft tissue settings are submitted. The paranasal sinuses demonstrate normal aeration and development. There is mucosal thickening of the sphenoid sinus on the left. The maxillary, ethmoidal and frontal s inuses are well-aerated. The osteal meatal units are patent bilaterally. The nasal septum is midline. No bony destructive changes are seen within the field of view. IMPRESSION: Chronic sinusitis of sphenoid sinus.
== END | disposition home or self-care (01) ==
LOC: RADCTMAIN 13:49
PROVIDERS: ATTEND Family Medicine
DX: J32.3 Chronic sphenoidal sinusitis (principal)
CPT/HCPCS: 70486

== ENCOUNTER → 2017-07-03 | Outpatient (CLI) | payer MEDICARE ==
[2017-07-03 10:16] LABS: Basophils # (A) 0.1 k/uL (0-0.2); Basophils % (A) 1 %; Eosinophils # (A) 0.2 k/uL (0-0.7); Eosinophils % (A) 3 %; HCT 41.4 % (34.0-46.0); HGB 13.1 gm/dL (11.4-16.0); Lymphocytes # (A) 1.6 k/uL (1.0-4.8); Lymphocytes % (A) 29 %; MCH 29.5 pg (25.0-35.0); MCHC 31.7 g/dL (31.0-37.0); Mean Platelet Volume 8.3; Monocytes # (A) 0.6 k/uL (0-1.0); Monocytes % (A) 10 %; Neutrophils # (A) 3.2 k/uL (1.3-7.7); Neutrophils % (A) 55 %; Platelet Count 212 k/uL (150-450); RBC 4.45 m/uL (3.80-5.40); RDW 14.4 % (11.5-15.5); WBC 5.7 k/uL (3.8-10.6)
[2017-07-03 11:14] LABS: ALT 28 U/L (9-52); AST 21 U/L (14-36); Albumin 3.9 g/dL (3.5-5.0); Alkaline Phosphatase 89 U/L (38-126); Anion Gap 8 mmol/L; Blood Urea Nitrogen 19 mg/dL (7-17); C Reactive Protein 13.6 mg/L (<10.0); Carbon Dioxide 28 mmol/L (22-30); Chloride 105 mmol/L (98-107); Glucose 170 mg/dL (74-99); Potassium 4.2 mmol/L (3.5-5.1); Sodium 141 mmol/L (137-145); Total Bilirubin 0.4 mg/dL (0.2-1.3); Total Protein 6.8 g/dL (6.3-8.2); Triglycerides 269 mg/dL (<150); Uric Acid 6.8 mg/dL (3.7-7.4)
[2017-07-03 11:28] LABS: T4, Free (Free Thyroxine) 1.28 ng/dL (0.78-2.19)
[2017-07-03 12:24] LABS: Erythrocyte Sedimentation Rate 28 mm/hr (0-20)
[2017-07-03 17:21] LABS: LDL Cholesterol, Direct 125.7 mg/dL (0.0-129.0)
[2017-07-04 12:51] LABS: Anti-DNA, DS unit <1.0 IU/mL; Cyclic Citrullinated Pep IgG NEGATIVE (NEGATIVE); DNA Double-Stranded NEGATIVE (NEGATIVE)
[2017-07-05 05:34] LABS: Angiotensin-1 Converting Enz. 6 U/L (8-52)
[2017-07-05 15:11] LABS: C-ANCA <1:20 Titer (<1:20); P-ANCA <1:20 Titer (<1:20)
[2017-07-06 12:02] LABS: Albumin 3.78 g/dL (3.80-4.90); Protein, Total 6.6 g/dL (6.2-8.2)
== END | disposition home or self-care (01) ==
LOC: LABWHC1 07-02 12:06
PROVIDERS: ATTEND Family Medicine
DX: E11.43 Type 2 diabetes mellitus with diabetic autonomic (poly)neuropathy (principal); I10 Essential (primary) hypertension; E03.9 Hypothyroidism, unspecified; R63.4 Abnormal weight loss
CPT/HCPCS: 36415; 80053; 82164; 82607; 82784; 82785; 83036; 83721; 84134; 84165; 84439; 84443; 84478; 84550; 85025; 85652; 86038; 86140; 86200; 86225; 86255; 86480

== ENCOUNTER → 2017-07-12 | Outpatient (CLI) | payer MEDICARE | END | disposition home or self-care (01) | LOC: LABWHC1 15:23 | PROVIDERS: ATTEND Internal Medicine Infectious Disease | DX: B99.9 Unspecified infectious disease (principal); R91.8 Other nonspecific abnormal finding of lung field | CPT/HCPCS: 36415; 82533 ==

== ENCOUNTER → 2017-07-19 | Outpatient (CLI) | payer MEDICARE ==
--- NOTE | 2017-07-19 13:47 | FL ---
EXAMINATION TYPE: FL barium swallow w video DATE OF EXAM: 07/19/2017 COMPARISON: NONE HISTORY: Dysphagia. The patient was evaluated in the lateral projection during real-time fluoroscopy, during ingestion of barium mixed with solids and liquids. No aspiration or laryngeal penetration. See report from ronal pathology. 1 minute 7 seconds fluoroscopy time, 0 intraoperative images
== END | disposition home or self-care (01) ==
LOC: RADFLMAIN 11:07
PROVIDERS: ATTEND Family Medicine
DX: R13.10 Dysphagia, unspecified (principal)
CPT/HCPCS: 74230

== ENCOUNTER 2017-08-09 02:51 | Emergency (ER) | payer MEDICARE ==
[2017-08-09] MEDS ORDERED: METOCLOPRAMIDE 5 MG/ML 2 ML VIAL IVP STA ×2 (03:15→05:21)
[2017-08-09] MEDS ORDERED: SODIUM CHLORIDE 0.9% 1,000 ML IV STA (03:15)
[2017-08-09] MEDS ORDERED: ACETAMINOPHEN TAB 325 MG TAB PO STA (03:24)
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
[2017-08-09 03:39] LABS: Basophils % (A) 0 %; Eosinophils # (A) 0.1 k/uL (0-0.7); Eosinophils % (A) 2 %; HCT 42.4 % (34.0-46.0); HGB 13.9 gm/dL (11.4-16.0); Lymphocytes # (A) 0.5 k/uL (1.0-4.8); Lymphocytes % (A) 7 %; MCH 29.3 pg (25.0-35.0); MCHC 32.8 g/dL (31.0-37.0); MCV 89.2 fL (80.0-100.0); Mean Platelet Volume 8.7; Monocytes # (A) 0.5 k/uL (0-1.0); Monocytes % (A) 7 %; Neutrophils # (A) 6.5 k/uL (1.3-7.7); Neutrophils % (A) 84 %; Platelet Count 212 k/uL (150-450); RBC 4.75 m/uL (3.80-5.40); RDW 14.7 % (11.5-15.5); WBC 7.7 k/uL (3.8-10.6)
[2017-08-09 03:59] LABS: Calcium 10.2 mg/dL (8.4-10.2); Potassium 4.4 mmol/L (3.5-5.1); Total Bilirubin 0.5 mg/dL (0.2-1.3); Total Protein 7.4 g/dL (6.3-8.2)
--- NOTE | 2017-08-09 04:04 | XR ---
EXAM: XR Abdomen, 1 View CLINICAL HISTORY: ITS.REASON XR Reason: pain TECHNIQUE: Frontal supine view of the abdomen. COMPARISON: No relevant prior studies available. FINDINGS: Limitations: Please note the pelvis is not included in the field-of- view. Gastrointestinal tract: Nonspecific bowel gas pattern. Bones/joints:. Osseous degenerative changes. IMPRESSION: Nonspecific bowel gas pattern.
[2017-08-09 04:07] LABS: Appearance,Urine Clear (Clear); Bacteria,Urine Many /hpf; Bilirubin,Urine Negative (Negative); Blood,Urine Negative (Negative); Color,Urine Yellow; Glucose,Urine (UA) Negative (Negative); Ketones,Urine Negative (Negative); Leukocyte Esterase,Urine Small (Negative); Nitrite,Urine Positive (Negative); PH, Urine 5.5 (5.0-8.0); Protein,Urine Negative (Negative); Specific Gravity,Urine 1.016 (1.001-1.035); Urobilinogen,Urine <2.0 mg/dL (<2.0); WBC,Urine 8 /hpf (0-5)
--- NOTE | 2017-08-09 04:07 | XR ---
EXAM: XR Chest, 2 Views CLINICAL HISTORY: ITS.REASON XR Reason: pain TECHNIQUE: Frontal and lateral views of the chest. COMPARISON: 05/16/17. FINDINGS: Lungs: Mild lower lung opacities, possible atelectasis. Pleural space: Unremarkable. No pneumothorax. Heart: Stable cardiomediastinal silhouette. Mediastinum: See above. Bones/joints: Stable. IMPRESSION: No evidence of acute cardiopulmonary disease.
[2017-08-09] MEDS ORDERED: SODIUM CHLORIDE 0.9% 500 ML IV STA (05:21)
[2017-08-09 06:55] LABS: Glucose,Whole Blood 152 mg/dL (75-99)
[2017-08-09 07:40] VITALS: BP 154/78; PULSE 82; RESP 17; TEMP 99.3
== END 2017-08-09 07:39 | disposition home or self-care (01) ==
LOC: EC 02:51
DX: R11.2 Nausea with vomiting, unspecified (principal); I48.91 Unspecified atrial fibrillation; K21.9 Gastro-esophageal reflux disease without esophagitis; E78.5 Hyperlipidemia, unspecified; E07.9 Disorder of thyroid, unspecified; G35 Multiple sclerosis; E11.22 Type 2 diabetes mellitus with diabetic chronic kidney disease; I12.9 Hypertensive chronic kidney disease with stage 1 through stage 4 chronic kidney disease, or unspecified chronic kidney disease; N18.2 Chronic kidney disease, stage 2 (mild); Z86.14 Personal history of Methicillin resistant Staphylococcus aureus infection; Z85.41 Personal history of malignant neoplasm of cervix uteri; Z85.3 Personal history of malignant neoplasm of breast; Z85.118 Personal history of other malignant neoplasm of bronchus and lung; Z98.890 Other specified postprocedural states; Z79.01 Long term (current) use of anticoagulants; Z79.4 Long term (current) use of insulin; Z79.899 Other long term (current) drug therapy; Z88.5 Allergy status to narcotic agent; Z88.8 Allergy status to other drugs, medicaments and biological substances; Z91.048 Other nonmedicinal substance allergy status
CPT/HCPCS: 36415; 93005; 80053; 82150; 83605; 83690; 85025; 81001; 87040; 87502; 71046; 74018; 99284; 96374; 96376; 96361 ×4; J2765

== ENCOUNTER → 2017-08-11 | Outpatient (CLI) | payer MEDICARE ==
[2017-08-11 17:54] LABS: Basophils % (A) 0 %; Eosinophils # (A) 0.2 k/uL (0-0.7); Eosinophils % (A) 4 %; HCT 35.1 % (34.0-46.0); HGB 11.9 gm/dL (11.4-16.0); Lymphocytes # (A) 1.4 k/uL (1.0-4.8); Lymphocytes % (A) 27 %; MCH 30.2 pg (25.0-35.0); MCHC 33.8 g/dL (31.0-37.0); MCV 89.3 fL (80.0-100.0); Mean Platelet Volume 8.5; Monocytes # (A) 0.4 k/uL (0-1.0); Monocytes % (A) 9 %; Neutrophils # (A) 2.9 k/uL (1.3-7.7); Neutrophils % (A) 56 %; Platelet Count 198 k/uL (150-450); RBC 3.93 m/uL (3.80-5.40); RDW 14.3 % (11.5-15.5); WBC 5.1 k/uL (3.8-10.6)
[2017-08-11 18:20] LABS: Albumin 3.4 g/dL (3.5-5.0); C Reactive Protein 36.5 mg/L (<10.0); Calcium 9.4 mg/dL (8.4-10.2); Potassium 4.1 mmol/L (3.5-5.1); Total Bilirubin 0.2 mg/dL (0.2-1.3); Total Protein 6.3 g/dL (6.3-8.2)
[2017-08-11 21:53] LABS: Erythrocyte Sedimentation Rate 20 mm/hr (0-20)
[2017-08-12 01:15] LABS: Gliadin AB IgA, Unit 0.3 U/mL
== END | disposition home or self-care (01) ==
LOC: LABWHC1 17:02
PROVIDERS: ATTEND Family Medicine
DX: R50.9 Fever, unspecified (principal); R14.0 Abdominal distension (gaseous)
CPT/HCPCS: 36415; 80053; 83516; 83615; 85025; 85652; 86038; 86140

== ENCOUNTER 2017-11-21 15:33 | Emergency (ER) | payer MEDICARE ==
[2017-11-21 15:46] VITALS: RESP 18; TEMP 99.6
[2017-11-21] MEDS ORDERED: SODIUM CHLORIDE 0.9% 500 ML IV STA (16:04)
[2017-11-21] MEDS ORDERED: ONDANSETRON 4 MG/2 ML VIAL IVP STA (16:04)
[2017-11-21 16:33] LABS: Basophils % (A) 0 %; Eosinophils # (A) 0.1 k/uL (0-0.7); Eosinophils % (A) 1 %; HCT 40.1 % (34.0-46.0); HGB 13.1 gm/dL (11.4-16.0); Lymphocytes # (A) 1.8 k/uL (1.0-4.8); Lymphocytes % (A) 30 %; MCH 29.7 pg (25.0-35.0); MCHC 32.6 g/dL (31.0-37.0); MCV 91.2 fL (80.0-100.0); Mean Platelet Volume 7.6; Monocytes # (A) 0.5 k/uL (0-1.0); Monocytes % (A) 9 %; Neutrophils # (A) 3.6 k/uL (1.3-7.7); Neutrophils % (A) 58 %; Platelet Count 212 k/uL (150-450); RDW 15.1 % (11.5-15.5); WBC 6.2 k/uL (3.8-10.6)
[2017-11-21 16:43] LABS: INR 1.1 (<1.2); Partial Thromboplastin Time 24.9 sec (22.0-30.0); Prothrombin Time 10.3 sec (9.0-12.0)
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
[2017-11-21 16:57] LABS: ALT 29 U/L (9-52); AST 23 U/L (14-36); Albumin 4.1 g/dL (3.5-5.0); Alkaline Phosphatase 95 U/L (38-126); Amylase 37 U/L (30-110); Anion Gap 8 mmol/L; Blood Urea Nitrogen 20 mg/dL (7-17); Calcium 9.4 mg/dL (8.4-10.2); Carbon Dioxide 23 mmol/L (22-30); Chloride 105 mmol/L (98-107); Glucose 137 mg/dL (74-99); Lipase <10 U/L (23-300); Potassium 4.4 mmol/L (3.5-5.1); Sodium 136 mmol/L (137-145); Total Bilirubin 0.6 mg/dL (0.2-1.3); Total Protein 6.9 g/dL (6.3-8.2)
[2017-11-21 16:59] LABS: Appearance,Urine Clear (Clear); Bilirubin,Urine Negative (Negative); Blood,Urine Negative (Negative); Color,Urine Yellow; Glucose,Urine (UA) Negative (Negative); Ketones,Urine Negative (Negative); Leukocyte Esterase,Urine Negative (Negative); Nitrite,Urine Negative (Negative); PH, Urine 7.5 (5.0-8.0); Protein,Urine Negative (Negative); Specific Gravity,Urine 1.014 (1.001-1.035); Urobilinogen,Urine <2.0 mg/dL (<2.0)
[2017-11-21 17:12] LABS: Creatine Kinase 45 U/L (30-135)
[2017-11-21 17:24] LABS: Creatine Kinase MB 0.5 ng/mL (0.0-2.4); Troponin I <0.012 ng/mL (0.000-0.034)
[2017-11-21] MEDS ORDERED: SODIUM CHLORIDE 0.9% 500 ML IV ONE (17:43)
--- NOTE | 2017-11-21 18:21 | CT ---
EXAMINATION TYPE: CT brain wo con DATE OF EXAM: 11/21/2017 COMPARISON: 07/23/2015 HISTORY: Patient complains of headache and nausea. CT DLP: 808.9 mGycm Automated exposure control for dose reduction was used. FINDINGS: Ventricles have normal size. There is no mass effect nor midline shift. There is no sign of intracran ial hemorrhage. The calvarium is intact. IMPRESSION: NEGATIVE CT SCAN OF THE BRAIN. NO CHANGE.
[2017-11-21] MEDS ORDERED: KETOROLAC 30 MG/ML 1 ML VIAL IVP STA (18:23)
[2017-11-21 18:42] VITALS: BP 174/74; PULSE 68
[2017-11-21] MEDS ORDERED: traMADol 50 MG STARTER PACK 3 TAB BTL PO STA (19:23)
== END 2017-11-21 19:57 | disposition home or self-care (01) ==
LOC: EC 15:33
DX: R51 Headache (principal); R11.0 Nausea; R53.81 Other malaise; I48.91 Unspecified atrial fibrillation; J45.909 Unspecified asthma, uncomplicated; K21.9 Gastro-esophageal reflux disease without esophagitis; E07.9 Disorder of thyroid, unspecified; E11.319 Type 2 diabetes mellitus with unspecified diabetic retinopathy without macular edema; E11.22 Type 2 diabetes mellitus with diabetic chronic kidney disease; I12.9 Hypertensive chronic kidney disease with stage 1 through stage 4 chronic kidney disease, or unspecified chronic kidney disease; N18.2 Chronic kidney disease, stage 2 (mild); H40.9 Unspecified glaucoma; Z85.42 Personal history of malignant neoplasm of other parts of uterus; Z85.3 Personal history of malignant neoplasm of breast; Z86.14 Personal history of Methicillin resistant Staphylococcus aureus infection; Z79.4 Long term (current) use of insulin; Z79.01 Long term (current) use of anticoagulants; Z79.899 Other long term (current) drug therapy; Z91.048 Other nonmedicinal substance allergy status; Z88.8 Allergy status to other drugs, medicaments and biological substances; Z88.5 Allergy status to narcotic agent; Z95.818 Presence of other cardiac implants and grafts
CPT/HCPCS: 36415; 93005; 80053; 82150; 82550; 82553; 83605; 83690; 84484; 85025; 85610; 85730; 81003; 87040; 87086; 70450; 99284; 96374; 96375; 96361 ×2; J2405; J1885

== ENCOUNTER 2017-11-22 03:29 | Emergency (ER) | payer MEDICARE ==
[2017-11-22 03:36] VITALS: PULSE 68; TEMP 99.6
[2017-11-22] MEDS ORDERED: ONDANSETRON 4 MG/2 ML VIAL IVP STA (04:07)
[2017-11-22] MEDS ORDERED: SODIUM CHLORIDE 0.9% 1,000 ML IV STA (04:07)
[2017-11-22] MEDS ORDERED: SODIUM CHLORIDE 0.9% 500 ML IV STA (04:07)
[2017-11-22] MEDS ORDERED: FAMOTIDINE 20 MG/2 ML VIAL IV STA (04:10)
[2017-11-22 04:42] LABS: Basophils % (A) 0 %; Eosinophils # (A) 0.1 k/uL (0-0.7); Eosinophils % (A) 1 %; HCT 40.1 % (34.0-46.0); HGB 13.1 gm/dL (11.4-16.0); Lymphocytes # (A) 1.8 k/uL (1.0-4.8); Lymphocytes % (A) 25 %; MCH 29.8 pg (25.0-35.0); MCHC 32.6 g/dL (31.0-37.0); MCV 91.3 fL (80.0-100.0); Mean Platelet Volume 7.6; Monocytes # (A) 0.6 k/uL (0-1.0); Monocytes % (A) 9 %; Neutrophils # (A) 4.4 k/uL (1.3-7.7); Neutrophils % (A) 62 %; Platelet Count 222 k/uL (150-450); RBC 4.39 m/uL (3.80-5.40); WBC 7.1 k/uL (3.8-10.6)
[2017-11-22 04:51] LABS: Albumin 3.9 g/dL (3.5-5.0); Calcium 9.2 mg/dL (8.4-10.2); Potassium 4.6 mmol/L (3.5-5.1); Total Bilirubin 0.4 mg/dL (0.2-1.3); Total Protein 6.7 g/dL (6.3-8.2)
--- NOTE | 2017-11-22 05:09 | XR ---
EXAMINATION TYPE: XR sinus DATE OF EXAM: 11/22/2017 COMPARISON: NONE HISTORY: Nausea TECHNIQUE: 3 views FINDINGS: Orbital margins are intact. Maxilla is intact. There is normal aeration of the paranasal si nuses. Sella turcica appears normal. IMPRESSION: Negative paranasal sinuses exam.
--- NOTE | 2017-11-22 05:11 | XR ---
EXAMINATION TYPE: XR KUB DATE OF EXAM: 11/22/2017 COMPARISON: 08/09/2017 HISTORY: Nausea. TECHNIQUE: 2 supine views FINDINGS: There is no sign of intestinal obstruction or pneumoperitoneum. There are surgical clips ov er the pelvis. There is no evidence of a mass. There are no pathologic calcifications over the kidney s. Fecal pattern is normal. IMPRESSION: Nonacute abdomen. There is clearing of the distended loops of bowel in the left side of t he abdomen compared to old exam.
[2017-11-22] MEDS ORDERED: METOCLOPRAMIDE 5 MG/ML 2 ML VIAL IVP STA (05:26)
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
[2017-11-22 06:10] VITALS: BP 180/79; RESP 16
== END 2017-11-22 06:35 | disposition home or self-care (01) ==
LOC: EC 03:29
DX: R11.2 Nausea with vomiting, unspecified (principal); R51 Headache; R19.7 Diarrhea, unspecified; I48.91 Unspecified atrial fibrillation; K21.9 Gastro-esophageal reflux disease without esophagitis; J45.909 Unspecified asthma, uncomplicated; E11.319 Type 2 diabetes mellitus with unspecified diabetic retinopathy without macular edema; I10 Essential (primary) hypertension; M19.90 Unspecified osteoarthritis, unspecified site; H40.9 Unspecified glaucoma; Z79.4 Long term (current) use of insulin; Z79.01 Long term (current) use of anticoagulants; Z79.899 Other long term (current) drug therapy; Z91.048 Other nonmedicinal substance allergy status; Z88.5 Allergy status to narcotic agent; Z88.8 Allergy status to other drugs, medicaments and biological substances; Z85.3 Personal history of malignant neoplasm of breast; Z85.42 Personal history of malignant neoplasm of other parts of uterus; Z95.5 Presence of coronary angioplasty implant and graft
CPT/HCPCS: 99284; 96374; 96375 ×2; 36415; 93005; 80053; 82150; 83690; 84484; 85025; 70220; 74018; J2765; J2405

== ENCOUNTER → 2017-12-04 | Outpatient (CLI) | payer MEDICARE ==
[2017-12-04 11:11] LABS: Basophils # (A) 0.1 k/uL (0-0.2); Basophils % (A) 1 %; Eosinophils # (A) 0.1 k/uL (0-0.7); Eosinophils % (A) 1 %; HCT 37.2 % (34.0-46.0); HGB 11.5 gm/dL (11.4-16.0); Hypochromasia Slight; Lymphocytes # (A) 1.4 k/uL (1.0-4.8); Lymphocytes % (A) 25 %; MCH 28.7 pg (25.0-35.0); MCHC 30.8 g/dL (31.0-37.0); MCV 93.1 fL (80.0-100.0); Mean Platelet Volume 7.8; Monocytes # (A) 0.4 k/uL (0-1.0); Monocytes % (A) 8 %; Neutrophils # (A) 3.5 k/uL (1.3-7.7); Neutrophils % (A) 63 %; Platelet Count 246 k/uL (150-450); RBC 3.99 m/uL (3.80-5.40); RDW 14.9 % (11.5-15.5); WBC 5.5 k/uL (3.8-10.6)
[2017-12-04 11:24] LABS: Calcium 9.4 mg/dL (8.4-10.2); Magnesium 1.8 mg/dL (1.6-2.3); Phosphorus 3.5 mg/dL (2.5-4.5); Potassium 4.1 mmol/L (3.5-5.1); Uric Acid 6.7 mg/dL (3.7-7.4)
[2017-12-04 16:38] LABS: Parathyroid Hormone Intact 56.2 pg/mL (14.0-72.0)
[2017-12-04 16:48] LABS: Iron Saturation 28.06 (12.00-45.00)
== END | disposition home or self-care (01) ==
LOC: LABWHC1 10:14
PROVIDERS: ATTEND Nurse Practitioner Family
DX: E55.9 Vitamin D deficiency, unspecified (principal); E11.22 Type 2 diabetes mellitus with diabetic chronic kidney disease; N18.2 Chronic kidney disease, stage 2 (mild); E21.3 Hyperparathyroidism, unspecified
CPT/HCPCS: 36415; 80048; 82164; 82306; 82728; 83036; 83540; 83550; 83735; 83883; 83970; 84100; 84550; 85025; 86334

== ENCOUNTER → 2017-12-24 | Outpatient (CLI) | payer MEDICARE ==
--- NOTE | 2017-12-24 14:33 | XR ---
Lumbar spine HISTORY: Back pain 3 views of the lumbar spine There is a dextroscoliosis centered at L2. Bone mineralization is reduced. Lumbar vertebral bodies sh ow preserved height. Minimal anterolisthesis grade 1 L4-5. Loss of disc height present at the interve rtebral levels. There are vascular calcifications. Multiple surgical clips noted incidentally. Multil evel spondylosis is present. Lumbar vertebral bodies show preserved height. Patient is post hip arthr oplasty. IMPRESSION: Degenerative disc disease, osteopenia, scoliosis, facet arthropathy and additional findin gs above.
== END | disposition home or self-care (01) ==
LOC: RADXRMAIN 11:20
PROVIDERS: ATTEND Family Medicine
DX: M43.16 Spondylolisthesis, lumbar region (principal); M51.36 Other intervertebral disc degeneration, lumbar region; M47.816 Spondylosis without myelopathy or radiculopathy, lumbar region; M46.96 Unspecified inflammatory spondylopathy, lumbar region; M41.86 Other forms of scoliosis, lumbar region; M85.88 Other specified disorders of bone density and structure, other site
CPT/HCPCS: 72100

== ENCOUNTER 2018-03-08 03:22 | Inpatient (IN) | payer MEDICARE ==
[2018-03-08] MEDS ORDERED: ONDANSETRON 4 MG/2 ML VIAL IVP STA ×2 (03:41→06:54)
[2018-03-08] MEDS ORDERED: SODIUM CHLORIDE 0.9% 500 ML 500 ML IV STA (03:41)
[2018-03-08 03:55] LABS: Basophils # (A) 0.1 k/uL (0-0.2); Basophils % (A) 0 %; Eosinophils # (A) 0.1 k/uL (0-0.7); Eosinophils % (A) 1 %; HCT 39.3 % (34.0-46.0); HGB 12.7 gm/dL (11.4-16.0); Lymphocytes # (A) 0.9 k/uL (1.0-4.8); Lymphocytes % (A) 6 %; MCH 29.6 pg (25.0-35.0); MCHC 32.3 g/dL (31.0-37.0); MCV 91.8 fL (80.0-100.0); Mean Platelet Volume 7.7; Monocytes # (A) 1.1 k/uL (0-1.0); Monocytes % (A) 7 %; Neutrophils # (A) 12.9 k/uL (1.3-7.7); Neutrophils % (A) 84 %; Platelet Count 222 k/uL (150-450); RBC 4.28 m/uL (3.80-5.40); RDW 15.2 % (11.5-15.5); WBC 15.3 k/uL (3.8-10.6)
[2018-03-08 04:04] LABS: Calcium 9.6 mg/dL (8.4-10.2); Potassium 4.3 mmol/L (3.5-5.1); Total Bilirubin 0.5 mg/dL (0.2-1.3); Total Protein 7.2 g/dL (6.3-8.2)
--- NOTE | 2018-03-08 04:23 | XR ---
EXAMINATION TYPE: XR KUB DATE OF EXAM: 03/08/2018 COMPARISON: 11/22/2017 HISTORY: Abdominal pain TECHNIQUE: 2 views FINDINGS: There is no sign of intestinal obstruction or pneumoperitoneum. Fecal pattern is normal. Th ere are no pathologic calcifications over the kidneys. There is left hip prosthesis. There are surgic al clips in the pelvis. Lung bases are clear of consolidation. There is probably some atelectasis in the left lower lobe. IMPRESSION: Nonacute abdomen. There is probably some atelectasis at the left lung base.
[2018-03-08 05:11] LABS: Appearance,Urine Cloudy (Clear); Bacteria,Urine Moderate /hpf; Bilirubin,Urine Negative (Negative); Blood,Urine Small (Negative); Color,Urine Yellow; Glucose,Urine (UA) Negative (Negative); Ketones,Urine Negative (Negative); Leukocyte Esterase,Urine Moderate (Negative); Mucus,Urine Rare /hpf; Nitrite,Urine Positive (Negative); PH, Urine 5.5 (5.0-8.0); Protein,Urine Trace (Negative); RBC,Urine 14 /hpf (0-5); Specific Gravity,Urine 1.013 (1.001-1.035); Squamous Epithelial Cell,Urine 2 /hpf (0-4); Urobilinogen,Urine <2.0 mg/dL (<2.0); WBC,Urine 44 /hpf (0-5)
[2018-03-08] MEDS ORDERED: LEVOFLOXACIN 750MG-D5W PMX 750 MG in DEXTROSE/WATER 1 150ML.BAG IVPB STA ×2 (07:13→09:30)
[2018-03-08] MEDS ORDERED: ACETAMINOPHEN TAB 325 MG TAB PO STA (07:20)
[2018-03-08 07:25] VITALS: RESP 18
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
--- NOTE | 2018-03-08 08:08 | CT ---
EXAMINATION TYPE: CT abdomen pelvis wo con DATE OF EXAM: 03/08/2018 HISTORY: Pt complaining of vomiting, abdomen pain. CT DLP: 909.3 mGycm. Automated Exposure Control for Dose Reduction was Utilized. TECHNIQUE: CT scan of the abdomen and pelvis is performed without oral or IV contrast. COMPARISON: CT abdomen and pelvis June 26, 2016 and older CTs. FINDINGS: Within the limitations of a non-contrast study, the following observations are made. LUNG BASES: Calcification at level of aortic root and mitral valve is redemonstrated. There is persis tent posterior lateral left basilar scarring. Dystrophic calcifications in the right breast are noted . LIVER/GB: Liver is heterogeneously hypodense relative to spleen consistent with diffuse fatty infiltr ation. Gallbladder is not seen and presumed surgically absent. PANCREAS: Mild to moderate fat replaced atrophy of pancreas is redemonstrated. SPLEEN: No significant abnormality is seen. ADRENALS: Redemonstration of 2.1 x 2.0 cm left adrenal mass has Hounsfield units averaging 27. Overal l stable in size from prior study. Lesion not significantly changed in size from 2010 CT. Lesion pres umed benign given interval stability KIDNEYS: Some cortical thinning is present bilaterally. No renal calculi or hydronephrosis is seen BOWEL: No significant abnormality is seen. GENITAL ORGANS: Uterus is surgically absent. LYMPH NODES: No greater than 1cm abdominal or pelvic lymph nodes are appreciated. OSSEOUS STRUCTURES: Metallic hardware from left hip arthroplasty is redemonstrated causing streak art ifact limiting evaluation of pelvic structures. Moderate degenerative change right hip with joint spa ce loss and spurring is present. Vacuum disc phenomenon with mild disc space narrowing L2-L3 and L3-L 4 levels is seen. OTHER: Vertical scar overlies anterior abdominal wall from umbilicus extending into pelvis. Numerous coils ventral wall hernia repair surgery are seen over the anterior abdomen. No definitive recurrent ventral wall hernia is present. IMPRESSION: No bowel obstruction. No suspicious new or acute finding seen to account for patient's sy mptoms.
--- NOTE | 2018-03-08 08:20 | XR ---
EXAMINATION TYPE: XR chest 2V DATE OF EXAM: 03/08/2018 COMPARISON: Prior chest x-ray 08/09/[address] abdomen pelvis 06/26/2016, 03/08/2018. HISTORY: Fever TECHNIQUE: Frontal and lateral views of the chest are obtained. FINDINGS: There is no focal air space opacity, pleural effusion, or pneumothorax seen. Minimal basil ar scarring on the left is noted. The cardiac silhouette size is stable. The osseous structures are intact. Postop change noted to the proximal left humerus. IMPRESSION: No acute cardiopulmonary process. Left lower lobe scarring.
[2018-03-08] MEDS ORDERED: SODIUM CHLORIDE 0.9% 500 ML 500 ML IV ONE (08:32)
[2018-03-08] MEDS ORDERED: SODIUM CHLORIDE 0.9% 1,000 ML IV SCH (09:30)
[2018-03-08] MEDS ORDERED: NALOXONE 0.4 MG/ML 1 ML VIAL IV PRN (09:31)
[2018-03-08] MEDS ORDERED: ACETAMINOPHEN TAB 325 MG TAB PO PRN (09:31)
[2018-03-08] MEDS ORDERED: PROPAFENONE 150 MG TAB PO SCH (10:45)
[2018-03-08] MEDS ORDERED: ATENOLOL 50 MG TAB PO SCH ×2 (10:45→21:00)
[2018-03-08] MEDS ORDERED: Acetaminophen-Codeine 300-30mg TAB PO PRN (11:37)
[2018-03-08] MEDS ORDERED: ONDANSETRON 4 MG TAB PO PRN (11:37)
[2018-03-08] MEDS ORDERED: CYCLOBENZAPRINE 10 MG TAB PO PRN (11:37)
[2018-03-08] MEDS ORDERED: traMADol 50 MG TAB PO PRN (11:37)
[2018-03-08] MEDS ORDERED: ONDANSETRON 4 MG/2 ML VIAL IVP PRN (11:43)
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
[2018-03-08] MEDS ORDERED: cefTRIAXone 2,000 MG in SODIUM CHLORIDE 0.9% 100 ML IVPB SCH (12:00)
[2018-03-08] MEDS: INSULIN ASPART 100 UNIT/ML 1 ML 10 ML VIAL SQ SCH ×2 (12:30→17:27)
[2018-03-08] MEDS: PROPAFENONE 150 MG TAB PO SCH ×2 (15:03→15:12)
[2018-03-08] MEDS ORDERED: LEVOTHYROXINE 125 MCG TAB PO SCH (16:00)
[2018-03-08] MEDS ORDERED: ANASTROZOLE 1 MG TAB PO SCH (16:00)
[2018-03-08] MEDS ORDERED: METHAZOLAMIDE 25 MG PO SCH (16:00)
[2018-03-08] MEDS ORDERED: BRIMONIDINE TARTRATE 0.2% DROPS 5 ML BTL BOTH EYES SCH (16:00)
[2018-03-08] MEDS ORDERED: DORZOLAMIDE HCL 2% DROPS 10 ML BTL BOTH EYES SCH (16:00)
[2018-03-08] MEDS ORDERED: LISINOPRIL 5 MG TAB PO SCH (16:00)
[2018-03-08 17:18] LABS: Glucose,Whole Blood 101 mg/dL (75-99)
[2018-03-08] MEDS ORDERED: RIVAROXABAN 20 MG TAB PO SCH (17:30)
[2018-03-08 17:46] VITALS: BP 116/55; PULSE 76; TEMP 98
[2018-03-08] MEDS ORDERED: PANTOPRAZOLE 40 MG TABLET PO SCH (18:30)
[2018-03-08] MEDS ORDERED: LATANOPROST 0.005% OPHTH DROPS 2.5 ML BTL BOTH EYES SCH (21:00)
[2018-03-08] MEDS ORDERED: INSULIN DETEMIR 100 UNIT/ML 10 ML VIAL SQ SCH (21:00)
[2018-03-08] MEDS ORDERED: MONTELUKAST 10 MG TAB PO SCH (21:00)
[2018-03-08] MEDS ORDERED: TIMOLOL 0.5% OPHTH DROPS 5 ML BTL BOTH EYES SCH (21:00)
[2018-03-08 22:46] LABS: Hemoglobin A1C 7.4 % (4.0-6.0)
[2018-03-09] MEDS ORDERED: FLUTICASONE 50MCG/SPRAY NASAL 16GM EA NOSTRIL SCH (09:00)
[2018-03-09] MEDS ORDERED: METHAZOLAMIDE 25 MG PO SCH (09:00)
[2018-03-09] MEDS ORDERED: ERGOCALCIFEROL 50,000 UNIT CAP PO SCH (09:00)
== END 2018-03-08 19:53 | disposition left against medical advice (07) | DRG 872 ==
LOC: EC 03:22 → 4SSUR 09:31 → 4MS4W 13:06
PROVIDERS: ADMIT Internal Medicine Geriatric Medicine; ATTEND Internal Medicine Geriatric Medicine
DX: A41.9 Sepsis, unspecified organism (principal); N39.0 Urinary tract infection, site not specified; C78.02 Secondary malignant neoplasm of left lung; E86.0 Dehydration; E03.9 Hypothyroidism, unspecified; J45.30 Mild persistent asthma, uncomplicated; E11.319 Type 2 diabetes mellitus with unspecified diabetic retinopathy without macular edema; E11.40 Type 2 diabetes mellitus with diabetic neuropathy, unspecified; I48.0 Paroxysmal atrial fibrillation; H40.9 Unspecified glaucoma; G35 Multiple sclerosis; I12.9 Hypertensive chronic kidney disease with stage 1 through stage 4 chronic kidney disease, or unspecified chronic kidney disease; E11.22 Type 2 diabetes mellitus with diabetic chronic kidney disease; N18.2 Chronic kidney disease, stage 2 (mild); M54.5 Low back pain; G89.29 Other chronic pain; E78.5 Hyperlipidemia, unspecified; K21.9 Gastro-esophageal reflux disease without esophagitis; Z79.4 Long term (current) use of insulin; Z79.01 Long term (current) use of anticoagulants; Z79.899 Other long term (current) drug therapy; Z79.890 Hormone replacement therapy; Z85.42 Personal history of malignant neoplasm of other parts of uterus; Z92.3 Personal history of irradiation; Z86.14 Personal history of Methicillin resistant Staphylococcus aureus infection; Z79.811 Long term (current) use of aromatase inhibitors; Z82.49 Family history of ischemic heart disease and other diseases of the circulatory system; Z80.3 Family history of malignant neoplasm of breast; Z82.5 Family history of asthma and other chronic lower respiratory diseases; Z85.3 Personal history of malignant neoplasm of breast; Z90.710 Acquired absence of both cervix and uterus; Z98.42 Cataract extraction status, left eye; Z98.41 Cataract extraction status, right eye
CPT/HCPCS: 36415; 71046; 74018; 74176; 80053; 81001; 82150; 83036; 83605; 83690; 85025; 87040; 87077; 87086; 87186; 87324; 96361; 96365; 96367; 96375; 96376; 99285

== ENCOUNTER → 2018-03-25 | Outpatient (CLI) | payer MEDICARE ==
--- NOTE | 2018-03-25 09:43 | CT ---
EXAMINATION TYPE: CT sinus wo con DATE OF EXAM: 03/25/2018 COMPARISON: 07/01/2017 HISTORY: Patient complains of sinus drainage. CT DLP: 662.9 mGycm. Automated Exposure Control for Dose Reduction was Utilized. TECHNIQUE: CT scan of the sinuses is performed without contrast, axial images are obtained, coronal r eformatted images are also reviewed. FINDINGS: There is an acute on chronic moderate mucoperiosteal thickening involving the sphenoid sinu s. Degree of mucosal thickening is similar to the prior of 07/01/2017 Minimal mucosal thickening is see n within the ethmoid sinuses. The maxillary sinuses and frontal sinuses are well aerated as are the m astoid air cells. No middle ear cavity fluid is seen. Cerumen is incidentally noted within the statue maker al auditory canals. The ostiomeatal complexes are patent bilaterally. No Marciano cells or margaret bullosa. No significant m ucosal hypertrophy of the nasal turbinates. There is very mild leftward nasal septal deviation with a small leftward nasal septal spur. Exam is not optimized for evaluation of intracranial structures however mild age-related volume loss is present. Optic lenses appear surgically absent. Globes and extraocular muscles are symmetric. IMPRESSION: Similar degree of acute on chronic sinusitis within the sphenoid sinus in comparison to and mild mucosal thickening of the ethmoid sinuses.
== END ==
LOC: RADCTMAIN 08:23
PROVIDERS: ATTEND Otolaryngology
DX: J01.90 Acute sinusitis, unspecified (principal)
CPT/HCPCS: 70486

== ENCOUNTER → 2018-05-06 | Outpatient (CLI) | payer MEDICARE ==
[2018-05-06 16:10] LABS: Albumin 3.9 g/dL (3.80-4.90); Albumin/Globulin Ratio 1.95 (1.20-2.10); Anion Gap 7.7 mmol/L (4.00-12.00); Calcium 9.1 mg/dL (8.7-10.3); Carbon Dioxide 25.3 mmol/L (21.6-31.8); LDL Cholesterol,Calculated 83.8 mg/dL (0.0-131.0); Potassium 4.5 mmol/L (3.5-5.5); Total Bilirubin 0.3 mg/dL (0.3-1.2); Total Protein 5.9 g/dL (6.2-8.2); VLDL Calculation 75.2 mg/dL (5.00-40.00)
[2018-05-06 18:45] LABS: Hemoglobin A1C 8.2 % (4.0-6.0)
== END | disposition home or self-care (01) ==
LOC: LABWHC1 09:43
PROVIDERS: ATTEND Internal Medicine Endocrinology, Diabetes & Metabolism
DX: E55.9 Vitamin D deficiency, unspecified (principal); E21.3 Hyperparathyroidism, unspecified; E11.65 Type 2 diabetes mellitus with hyperglycemia; E11.22 Type 2 diabetes mellitus with diabetic chronic kidney disease; N18.2 Chronic kidney disease, stage 2 (mild); D63.1 Anemia in chronic kidney disease; M10.9 Gout, unspecified; N39.0 Urinary tract infection, site not specified
CPT/HCPCS: 36415; 80053; 80061; 83036

== ENCOUNTER → 2018-05-13 | Outpatient (CLI) | payer MEDICARE ==
[2018-05-13 11:35] LABS: Basophils % (A) 1 %; Eosinophils # (A) 0.1 k/uL (0-0.7); Eosinophils % (A) 2 %; HGB 11.7 gm/dL (11.4-16.0); Lymphocytes # (A) 1.5 k/uL (1.0-4.8); Lymphocytes % (A) 25 %; MCH 30.3 pg (25.0-35.0); MCHC 33.5 g/dL (31.0-37.0); MCV 90.4 fL (80.0-100.0); Mean Platelet Volume 8.3; Monocytes # (A) 0.4 k/uL (0-1.0); Monocytes % (A) 7 %; Neutrophils # (A) 3.8 k/uL (1.3-7.7); Neutrophils % (A) 63 %; Platelet Count 202 k/uL (150-450); RBC 3.87 m/uL (3.80-5.40); WBC 6.1 k/uL (3.8-10.6)
[2018-05-13 11:48] LABS: Appearance,Urine Cloudy (Clear); Bacteria,Urine Moderate /hpf; Bilirubin,Urine Negative (Negative); Blood,Urine Negative (Negative); Color,Urine Yellow; Glucose,Urine (UA) Negative (Negative); Ketones,Urine Negative (Negative); Leukocyte Esterase,Urine Large (Negative); Mucus,Urine Rare /hpf; Nitrite,Urine Positive (Negative); PH, Urine 5.5 (5.0-8.0); Protein,Urine Negative (Negative); RBC,Urine 2 /hpf (0-5); Specific Gravity,Urine 1.015 (1.001-1.035); Urobilinogen,Urine <2.0 mg/dL (<2.0); WBC,Urine >182 /hpf (0-5)
[2018-05-13 17:00] LABS: Iron Saturation 18.84 (12.00-45.00)
[2018-05-13 17:08] LABS: Vitamin D 25 Hydroxy 78.2 ng/mL (30.0-100.0)
[2018-05-13 17:26] LABS: Parathyroid Hormone Intact 59.9 pg/mL (14.0-72.0)
[2018-05-13 17:55] LABS: Albumin/Globulin Ratio 2.11 (1.20-2.10); Globulin 1.9 g/dL (1.6-3.3); LDL Cholesterol,Calculated 77.4 mg/dL (0.0-131.0); Phosphorus 3.6 mg/dL (2.4-5.1); Potassium 4.4 mmol/L (3.5-5.5); Total Bilirubin 0.3 mg/dL (0.3-1.2); Total Protein 5.9 g/dL (6.2-8.2); Uric Acid 6.8 mg/dL (2.9-7.7); VLDL Calculation 63.6 mg/dL (5.00-40.00)
[2018-05-13 18:31] LABS: Calcium 24 Hour,Urine 117.3 mg/24Hr (100.0-250.0)
[2018-05-13 18:37] LABS: Creatinine 24 Hour,Urine 1.05 g/24Hr (0.80-1.80)
[2018-05-14 05:28] LABS: Angiotensin-1 Converting Enz. 11 U/L (8-52)
[2018-05-16 11:14] LABS: Hemoglobin A1C 8.3 % (4.0-6.0)
== END | disposition home or self-care (01) ==
LOC: LABWHC1 10:26
PROVIDERS: ATTEND Internal Medicine Endocrinology, Diabetes & Metabolism
DX: E11.65 Type 2 diabetes mellitus with hyperglycemia (principal); E53.8 Deficiency of other specified B group vitamins; K59.01 Slow transit constipation; D75.1 Secondary polycythemia; E55.9 Vitamin D deficiency, unspecified; E11.22 Type 2 diabetes mellitus with diabetic chronic kidney disease; N18.2 Chronic kidney disease, stage 2 (mild); D63.1 Anemia in chronic kidney disease; M10.9 Gout, unspecified; N39.0 Urinary tract infection, site not specified
CPT/HCPCS: 36415; 80053; 80061; 81001; 81050; 82043; 82164; 82306; 82340; 82570; 82607; 82728; 82747; 83036; 83540; 83550; 83690; 83735; 83883; 83970; 84100; 84166; 84439; 84443; 84550; 85025; 86334

== ENCOUNTER → 2018-05-25 | Outpatient (CLI) | payer MEDICARE ==
--- NOTE | 2018-06-01 08:22 | MM ---
Reason for exam: additional evaluation requested from prior study. Last mammogram was performed 2 years and 2 months ago. History: Patient is postmenopausal, has history of breast cancer at age 70, has history of high-risk lesion on a previous biopsy at age 67, and history of other cancer. Family history of breast cancer in sister at age 50. Excisional biopsy of the right breast, 2015. Lumpectomy of the right breast, 2015. Radiation therapy of the left breast, 2015. Took antineoplastic for 1 year 6 months beginning at age 70. Physical Findings: Nurse did not find any significant physical abnormalities on exam. MG 3D Diag Mammo W/Cad CHAMP Bilateral CC and MLO view(s) were taken. Prior study comparison: March 30, 2016, bilateral MG 3d diag mammo w/cad CHAMP. August 21, 2015, mammogram. April 09, 2015, mammogram. September 11, 2014, mammogram. October 24, 2012, mammogram. The breast tissue is heterogeneously dense. This may lower the sensitivity of mammography. Finding #1: There are clips and skin thickening in the right breast. Architectural distortion in the right breast consistent with known lumpectomy changes. Finding #2: There are typically benign round calcifications in both breasts. There is no discrete abnormality. These results were verbally communicated with the patient on 05/31/18. ASSESSMENT: Benign, BI-RAD 2 RECOMMENDATION: Follow-up diagnostic mammogram of both breasts in 1 year.
== END | disposition home or self-care (01) ==
LOC: RADMAMWWP 12:55
PROVIDERS: ATTEND Internal Medicine Medical Oncology
DX: C50.911 Malignant neoplasm of unspecified site of right female breast (principal); Z17.0 Estrogen receptor positive status [ER+]
CPT/HCPCS: 77066; G0279; 77062

== ENCOUNTER → 2018-06-10 | Outpatient (CLI) | payer MEDICARE ==
--- NOTE | 2018-06-13 09:23 | BD ---
EXAMINATION TYPE: Axial Bone Density DATE OF EXAM: 06/10/2018 COMPARISON: 06/02/2017 CLINICAL HISTORY: Height: 62 IN Weight: 213 LBS RISK FACTORS HISTORY OF: Surgery to Hip(left): YES When: AGE 61 Family History of Osteoporosis: YES Active: MODERATE Diet low in dairy products/other sources of calcium: YES Postmenopausal woman: AGE 52 Lost more than 2 inches in height since high school: YES 62" Adrenal Insufficiency: YES HAD MILD ADRENAL PROBLEMS 7 YEARS AGO MEDICATIONS: Thyroid Medications: Which medication: Synthroid How Lon+ YEARS Additional Medications: ARIMIDEX, VIT D, SYNTHROID, HEART MEDS, ATENOLOL, SINGULAIR, LISINOPRIL, FLON ASE Additional History: BREAST CANCER WITH RADIATION EXAM MEASUREMENTS: Bone mineral densitometry was performed using the Showpad System. Bone mineral density as measured about the Lumbar spine is: ----- L1-L4(G/cm2): 1.294 T Score Values are as follows: ----- L2: 1.6 ----- L3: 1.2 ----- L4: 0.5 ----- L1-L4: 1.0 Bone mineral density has: Increased 2.2% since study of: 06/02/2017 Bone mineral density about the R hip (g/cm2): 0.856 T Score values are as follows: -----R Neck: -1.3 -----R Total: -1.0 Bone mineral density has: Decreased -1.4% since study of: 06/02/2017 IMPRESSION: Osteopenia (T Score between -2.5 and -1). There is slightly increased risk of fracture and the patient may be considered for treatment. Re-Screen 2-5 years. NOTE: T-SCORE=SD OF THE YOUNG ADULT MEAN.
== END | disposition home or self-care (01) ==
LOC: RADBDWWP 14:10
PROVIDERS: ATTEND Internal Medicine Medical Oncology
DX: M85.80 Other specified disorders of bone density and structure, unspecified site (principal); D05.11 Intraductal carcinoma in situ of right breast
CPT/HCPCS: 77080

== ENCOUNTER → 2018-10-31 | Outpatient (CLI) | payer MEDICARE ==
[~2018-10-31] MED LIST: REGADENOSON 0.4 MG/5 ML SYRINGE IV ONE
--- NOTE | 2018-10-31 13:00 | EST ---
EXERCISE STRESS INDICATIONS: Chest pain. BASELINE HEART RATE: 72 BASELINE BLOOD PRESSURE: 178/78 MAXIMUM HEART RATE: 70 MAXIMUM BLOOD PRESSURE: 147/63 CLINICAL INFORMATION: Lexiscan nuclear study was performed. Peak heart rate of 70, was achieved. Maximum blood pressure of 147/63 mmHg was noted. Resting EKG shows normal sinus rhythm with a QRS morphology suggestive for left bundle branch block pattern was noted. No significant change from the baseline was noted. FINAL IMPRESSION: This EKG is inconclusive to diagnose ischemia because of the underlying left bundle branch block. The results of the nuclear study will follow. 1. MMODL / IJN: [id number] /
--- NOTE | 2018-10-31 14:42 | NM ---
EXAMINATION TYPE: NM stress lexiscan cardiolite DATE OF EXAM: 10/31/2018 COMPARISON: NONE HISTORY: Chest pain TECHNIQUE: After the intravenous administration of 10.1 mCi Tc 99m Sestamibi - Cardiolite resting SP ECT images acquired 57 minutes post injection. The patient received 0.4mg Lexiscan, 25.3 mCi Tc 99m Sestamibi - Stress images obtained [address] injection FINDINGS: Review of stress and rest SPECT images demonstrates decreased uptake along the anteroseptal left vent ricle towards the cardiac apex on stress and rest images however along the anteroseptal left ventricl e towards the base of the heart there is decreased uptake on stress as compared to rest images. Montverde d analysis shows normal wall motion with an estimated left ventricular ejection fraction of 58 %. 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 Report relayed to the office of Dr. Grewal telephonically at the time of interpre tation.
== END | disposition home or self-care (01) ==
LOC: RADNMMAIN 08:05
PROVIDERS: ATTEND Internal Medicine Cardiovascular Disease
DX: R07.9 Chest pain, unspecified (principal)
CPT/HCPCS: 93017; 78452; A9500; J2785

== ENCOUNTER 2018-12-28 13:40 | Emergency (ER) | payer MEDICARE ==
[2018-12-28 13:49] VITALS: TEMP 98.2
[2018-12-28] MEDS ORDERED: SODIUM CHLORIDE 0.9% 1,000 ML IV STA ×2 (14:21→15:14)
--- NOTE | 2018-12-28 14:23 | ED ---
Weakness HPI - General Chief complaint: Headache Stated complaint: weakness, head pain Time Seen by Provider: 12/28/18 13:54 Source: patient, RN notes reviewed, old records reviewed Mode of arrival: ambulatory Limitations: no limitations - History of Present Illness Initial comments: This is a 73-year-old female the ER for evaluation not feeling well. She did have headache a few days ago and is now resolved. She was having some blood pressure issues and changing multiple different blood pressure medications as of late, patient also been battling urinary tract infection is on now recurrent third antibiotic. Patient admits to normal appetite eating and drinking appropriately. Taking medications as prescribed. Denies chest pain with this does feel weak, no shortness of breath. No recent travel history or sick contacts does admit to some chills but no direct fever. MD Complaint: generalized weakness, lack of energy -: week(s) Location: generalized Severity: moderate Severity scale (1-10): 4 Quality: other (Not feeling well) Consistency: constant Improves with: none Worsens with: none Context: new medication, recent illness, history of similar Associated Symptoms: dysuria, fever/chills, headaches, loss of appetite - Related Data Home Medications Medication Instructions Recorded Confirmed Insulin Glargine [Lantus] 50 units SQ BID 09/13/13 12/28/18 Rivaroxaban [Xarelto] 20 mg PO AC-SUPPER 09/13/13 12/28/18 Methazolamide [Neptazane] 25 mg PO DAILY 10/25/13 12/28/18 Levothyroxine Sodium [Synthroid] 125 mcg PO DAILY 06/26/16 12/28/18 Anastrozole [Arimidex] 1 mg PO DAILY 04/17/17 12/28/18 INSULIN ASPART (NovoLOG) [NovoLOG See Protocol SQ AC-TID PRN 04/17/17 12/28/18 (formulary)] Propafenone [Rythmol] 150 mg PO BID 05/16/17 12/28/18 Acetaminophen-Codeine 300-30mg 1 tab PO Q6H PRN 03/08/18 12/28/18 [Tylenol w/codeine #3] Montelukast [Singulair] 10 mg PO HS 03/08/18 12/28/18 Ondansetron HCl [Zofran] 4 mg PO BID 03/08/18 12/28/18 Amoxic-Pot Clav 500-125 mg 1 tab PO Q12HR 12/28/18 12/28/18 [Augmentin 500-125 mg] Atenolol [Tenormin] 12.5 mg PO BID 12/28/18 12/28/18 Benzonatate [Tessalon Perles] 100 mg PO TID PRN 12/28/18 12/28/18 Isosorbide Mononitrate ER [Imdur] 30 mg PO DAILY 12/28/18 12/28/18 Lisinopril [Zestril] 10 mg PO BID 12/28/18 12/28/18 Allergies Allergy/AdvReac Type Severity Reaction Status Date / Time adhesive Allergy Rash/Hives Verified 12/28/18 14:13 diltiazem HCl [From Cardizem] Allergy Rash/Hives Verified 12/28/18 14:13 diphenhydramine HCl Allergy Unknown Verified 12/28/18 14:13 [From Benadryl] Echinacea Allergy Rapid Verified 12/28/18 14:13 Heart Rate codeine AdvReac Nausea & Verified 12/28/18 14:13 Vomiting guaifenesin AdvReac Nausea & Verified 12/28/18 14:13 Vomiting meperidine AdvReac Nausea & Verified 12/28/18 14:13 Vomiting morphine AdvReac Nausea & Verified 12/28/18 14:13 Vomiting opiates AdvReac Nausea & Uncoded 12/28/18 13:50 Vomiting stadol AdvReac Hallucinati Uncoded 12/28/18 13:50 ons Review of Systems ROS Statement: Those systems with pertinent positive or pertinent negative responses have been documented in the HPI. ROS Other: All systems not noted in ROS Statement are negative. Past Medical History Past Medical History: Atrial Fibrillation, Asthma, Cancer, Diabetes Mellitus, Eye Disorder, GERD/Reflux, Hyperlipidemia, Hypertension, Memory Impairment, Musculoskeletal Disorder, Osteoarthritis (OA), Renal Disease, Thyroid Disorder Additional Past Medical History / Comment(s): hx of multiple sclerosis , tinnitus alyssa ears/[place]. uterine cancer-2006 WITH RADIATION. METS TO LT LUNG 2010 glaucoma. glaucoma. Breast Cancer. DIABETIC RETINOPATHY. STAGE 2 KIDNEY DISEASE. CHRONIC LOWER BACK PAIN, ddd. sciatic nerve pain, tinnitus. History of Any Multi-Drug Resistant Organisms: MRSA Date of last positivie culture/infection: 2016 MDRO Source:: R forearm Past Surgical History: Appendectomy, Cholecystectomy, Heart Catheterization, Hernia Repair, Hysterectomy, Joint Replacement, Orthopedic Surgery Additional Past Surgical History / Comment(s): brain surgery for pituary gland tumors, benign growth removed chest. lt lung resection-2010 left eye cataracts removed -lens implants. LT ELIZABETH. ESOPHAGEAL NODULES REMOVED. LIPOMA'S REMOVED. LT VITRECTOMY. MULTIPLE BREAST BIOPSIES. LT ANKLE SX. PLATE & SCREWS TO LT HUMEROUS. BILAT CATARACTS REMOVED. LASER SURGERY ON EYES FOR GLAUCOMA Past Anesthesia/Blood Transfusion Reactions: Motion Sickness, Postoperative Nausea & Vomiting (PONV) Additional Past Anesthesia/Blood Transfusion Reaction / Comment(s): "has never recieved any blood" Past Psychological History: No Psychological Hx Reported Smoking Status: Never smoker Past Alcohol Use History: None Reported Past Drug Use History: None Reported - Past Family History Father Family Medical History: COPD, Myocardial Infarction ([place]) Additional Family Medical History / Comment(s): Father at the age of 63 yrs from a massive [place]. He had emphysema and was a smoker. Son(s) Additional Family Medical History / Comment(s): Patient has 2 sons and one has history of asthma. Patient is one daughter with kidney problems. Mother Family Medical History: Cancer Additional Family Medical History / Comment(s): Mother at age 74 from heart failure with history of melanoma. Sister(s) Family Medical History: Cancer Additional Family Medical History / Comment(s): Patient has one sister with history of coronary artery disease and a rare form of breast cancer. Patient does not have any brothers. General Exam Limitations: no limitations General appearance: alert, in no apparent distress Head exam: Present: atraumatic, normocephalic, normal inspection Eye exam: Present: normal appearance, PERRL, EOMI. Absent: scleral icterus, conjunctival injection, periorbital swelling ENT exam: Present: normal exam, mucous membranes moist Neck exam: Present: normal inspection. Absent: tenderness, meningismus, lymphad enopathy Respiratory exam: Present: normal lung sounds bilaterally. Absent: respiratory distress, wheezes, rales, rhonchi, stridor Cardiovascular Exam: Present: regular rate, normal rhythm, normal heart sounds. Absent: systolic murmur, diastolic murmur, rubs, gallop, clicks GI/Abdominal exam: Present: soft, normal bowel sounds. Absent: distended, tenderness, guarding, rebound, rigid Extremities exam: Present: normal inspection, full ROM, normal capillary refill. Absent: tenderness, pedal edema, joint swelling, calf tenderness Back exam: Present: normal inspection Neurological exam: Present: alert, oriented X3, CN II-XII intact Psychiatric exam: Present: normal affect, normal mood Skin exam: Present: warm, dry, intact, normal color. Absent: rash Course Vital Signs 12/28/18 13:45 Temperature 98.2 F Pulse Rate 66 Respiratory 18 Rate Blood Pressure 169/74 O2 Sat by Pulse 100 Oximetry - Reevaluation(s) Reevaluation #1: 12/28/18 14:23 Medical records reviewed Reevaluation #2: 12/28/18 15:44 Patient still feels same as arrival, mildly improved with hydration. 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 Multiple nonspecific complaints, occasional headache, not feeling well. Weakness and chills. Patient's symptoms are nonspecific vital signs are normal and stable here in the ER, labwork is normal. X-rays CT brain negative for acute disease. Patient can be discharged home - Lab Data Result diagrams: 12/28/18 14:40 12/28/18 14:40 Lab Results 12/28/18 12/28/18 12/28/18 Range/Units 14:40 14:40 14:40 WBC 6.5 (3.8-10.6) k/uL RBC 4.27 (3.80-5.40) m/uL Hgb 12.8 (11.4-16.0) gm/dL Hct 39.6 (34.0-46.0) % MCV 92.7 (80.0-100.0) fL MCH 29.8 (25.0-35.0) pg MCHC 32.2 (31.0-37.0) g/dL RDW 15.7 H (11.5-15.5) % Plt Count 237 (150-450) k/uL Neutrophils % 58 % Lymphocytes % 27 % Monocytes % 9 % Eosinophils % 3 % Basophils % 1 % Neutrophils # 3.8 (1.3-7.7) k/uL Lymphocytes # 1.7 (1.0-4.8) k/uL Monocytes # 0.6 (0-1.0) k/uL Eosinophils # 0.2 (0-0.7) k/uL Basophils # 0.1 (0-0.2) k/uL PT (9.0-12.0) sec INR (<1.2) APTT (22.0-30.0) sec Sodium 138 (137-145) mmol/L Potassium 4.6 (3.5-5.1) mmol/L Chloride 103 (98-107) mmol/L Carbon Dioxide 26 (22-30) mmol/L Anion Gap 9 mmol/L BUN 20 H (7-17) mg/dL Creatinine 0.95 (0.52-1.04) mg/dL Est GFR (CKD-EPI)AfAm 69 (>60 ml/min/1.73 sqM) Est GFR (CKD-EPI)NonAf 60 (>60 ml/min/1.73 sqM) Glucose 324 H (74-99) mg/dL Calcium 9.5 (8.4-10.2) mg/dL Phosphorus 4.0 (2.5-4.5) mg/dL Magnesium 2.0 (1.6-2.3) mg/dL Total Bilirubin 0.3 (0.2-1.3) mg/dL AST 23 (14-36) U/L ALT 29 (9-52) U/L Alkaline Phosphatase 127 H (38-126) U/L Creatine Kinase 53 (30-135) U/L Troponin I (0.000-0.034) ng/mL NT-Pro-B Natriuret Pep 215 pg/mL Total Protein 7.2 (6.3-8.2) g/dL Albumin 4.0 (3.5-5.0) g/dL Urine Color Urine Appearance (Clear) Urine pH (5.0-8.0) Ur Specific [place] (1.001-1.035) Urine Protein (Negative) Urine Glucose (UA) (Negative) Urine Ketones (Negative) Urine Blood (Negative) Urine Nitrite (Negative) Urine Bilirubin (Negative) Urine Urobilinogen (<2.0) mg/dL Ur Leukocyte Esterase (Negative) Urine RBC (0-5) /hpf Urine WBC (0-5) /hpf Ur Squamous Epith Cells (0-4) /hpf 12/28/18 12/28/18 12/28/18 Range/Units 14:40 14:40 14:40 WBC (3.8-10.6) k/uL RBC (3.80-5.40) m/uL Hgb (11.4-16.0) gm/dL Hct (34.0-46.0) % MCV (80.0-100.0) fL MCH (25.0-35.0) pg MCHC (31.0-37.0) g/dL RDW (11.5-15.5) % Plt Count (150-450) k/uL Neutrophils % % Lymphocytes % % Monocytes % % Eosinophils % % Basophils % % Neutrophils # (1.3-7.7) k/uL Lymphocytes # (1.0-4.8) k/uL Monocytes # (0-1.0) k/uL Eosinophils # (0-0.7) k/uL Basophils # (0-0.2) k/uL PT 10.4 (9.0-12.0) sec INR 1.0 (<1.2) APTT 27.1 (22.0-30.0) sec Sodium (137-145) mmol/L Potassium (3.5-5.1) mmol/L Chloride (98-107) mmol/L Carbon Dioxide (22-30) mmol/L Anion Gap mmol/L BUN (7-17) mg/dL Creatinine (0.52-1.04) mg/dL Est GFR (CKD-EPI)AfAm (>60 ml/min/1.73 sqM) Est GFR (CKD-EPI)NonAf (>60 ml/min/1.73 sqM) Glucose (74-99) mg/dL Calcium (8.4-10.2) mg/dL Phosphorus (2.5-4.5) mg/dL Magnesium (1.6-2.3) mg/dL Total Bilirubin (0.2-1.3) mg/dL AST (14-36) U/L ALT (9-52) U/L Alkaline Phosphatase (38-126) U/L Creatine Kinase (30-135) U/L Troponin I <0.012 (0.000-0.034) ng/mL NT-Pro-B Natriuret Pep pg/mL Total Protein (6.3-8.2) g/dL Albumin (3.5-5.0) g/dL Urine Color Light Yellow Urine Appearance Clear (Clear) Urine pH 6.5 (5.0-8.0) Ur Specific [place] 1.012 (1.001-1.035) Urine Protein Negative (Negative) Urine Glucose (UA) 4+ H (Negative) Urine Ketones Negative (Negative) Urine Blood Small H (Negative) Urine Nitrite Negative (Negative) Urine Bilirubin Negative (Negative) Urine Urobilinogen <2.0 (<2.0) mg/dL Ur Leukocyte Esterase Negative (Negative) Urine RBC 18 H (0-5) /hpf Urine WBC 2 (0-5) /hpf Ur Squamous Epith Cells <1 (0-4) /hpf - Radiology Data Radiology results: report reviewed (CT brain chest x-rays negative for acute disease), image reviewed Disposition Clinical Impression: Dehydration, Weakness, Hypertension Disposition: HOME SELF-CARE Condition: Good Instructions (If sedation given, give patient instructions): Weakness (ED), Hypertension (ED) Is patient prescribed a controlled substance at d/c from ED?: No Referrals: Sj Duran MD [Primary Care Provider] - 1-2 days
[2018-12-28 15:04] LABS: Appearance,Urine Clear (Clear); Bilirubin,Urine Negative (Negative); Blood,Urine Small (Negative); Color,Urine Light Yellow; Glucose,Urine (UA) 4+ (Negative); Ketones,Urine Negative (Negative); Leukocyte Esterase,Urine Negative (Negative); Nitrite,Urine Negative (Negative); PH, Urine 6.5 (5.0-8.0); Protein,Urine Negative (Negative); RBC,Urine 18 /hpf (0-5); Specific Gravity,Urine 1.012 (1.001-1.035); Squamous Epithelial Cell,Urine <1 /hpf (0-4); Urobilinogen,Urine <2.0 mg/dL (<2.0); WBC,Urine 2 /hpf (0-5)
[2018-12-28 15:05] LABS: Basophils # (A) 0.1 k/uL (0-0.2); Basophils % (A) 1 %; Eosinophils # (A) 0.2 k/uL (0-0.7); Eosinophils % (A) 3 %; HCT 39.6 % (34.0-46.0); HGB 12.8 gm/dL (11.4-16.0); Lymphocytes # (A) 1.7 k/uL (1.0-4.8); Lymphocytes % (A) 27 %; MCH 29.8 pg (25.0-35.0); MCHC 32.2 g/dL (31.0-37.0); MCV 92.7 fL (80.0-100.0); Mean Platelet Volume 8.9; Monocytes # (A) 0.6 k/uL (0-1.0); Monocytes % (A) 9 %; Neutrophils # (A) 3.8 k/uL (1.3-7.7); Neutrophils % (A) 58 %; Platelet Count 237 k/uL (150-450); RBC 4.27 m/uL (3.80-5.40); RDW 15.7 % (11.5-15.5); WBC 6.5 k/uL (3.8-10.6)
--- NOTE | 2018-12-28 15:05 | XR ---
EXAMINATION TYPE: XR chest 2V DATE OF EXAM: 12/28/2018 COMPARISON: NONE TECHNIQUE: PA and lateral views submitted. HISTORY: Weakness FINDINGS: The lungs are clear and there is no pneumothorax, pleural effusion, or focal pneumonia. Postsurgica l change left humerus. No overt failure. Hypertrophic and degenerative change of the spine. Hyperinfl ation suggests COPD. IMPRESSION: 1. No acute process.
[2018-12-28 15:09] LABS: Partial Thromboplastin Time 27.1 sec (22.0-30.0); Prothrombin Time 10.4 sec (9.0-12.0)
[2018-12-28 15:20] LABS: Calcium 9.5 mg/dL (8.4-10.2); Potassium 4.6 mmol/L (3.5-5.1); Total Bilirubin 0.3 mg/dL (0.2-1.3); Total Protein 7.2 g/dL (6.3-8.2)
--- NOTE | 2018-12-28 15:20 | CT ---
EXAMINATION TYPE: CT brain wo con DATE OF EXAM: 12/28/2018 COMPARISON: 11/21/2017 HISTORY: 73-year-old female Weakness of whole body TECHNIQUE: Examination was done in axial plane without intravenous contrast. Coronal and sagittal r econstructions performed. CT DLP: 1078.4 mGycm Automated exposure control for dose reduction was used. FINDINGS: There is no evidence of acute intracranial hemorrhage, acute ischemic changes, mass, mass-effect, or extra-axial fluid collection. There is no effacement of cerebral sulci or basal subarachnoid cister ns. There is no hydrocephalus. There is no midline shift. Lee-white matter distinction is preserv ed. Mild to moderate cerebral cortical atrophy. Mild atherosclerotic calcifications within the carotid si phons. Paranasal sinuses and mastoid air cells well pneumatized. Orbits and globes are intact. IMPRESSION: Mild to moderate atrophy. No acute intracranial abnormality seen.
[2018-12-28 16:34] VITALS: BP 180/75; PULSE 60; RESP 16
== END 2018-12-28 16:51 | disposition home or self-care (01) ==
LOC: EC 13:40
DX: I12.9 Hypertensive chronic kidney disease with stage 1 through stage 4 chronic kidney disease, or unspecified chronic kidney disease (principal); E86.0 Dehydration; R53.1 Weakness; R30.0 Dysuria; R50.9 Fever, unspecified; R51 Headache; R63.0 Anorexia; N18.2 Chronic kidney disease, stage 2 (mild); E11.22 Type 2 diabetes mellitus with diabetic chronic kidney disease; I48.91 Unspecified atrial fibrillation; J45.909 Unspecified asthma, uncomplicated; M19.90 Unspecified osteoarthritis, unspecified site; E07.9 Disorder of thyroid, unspecified; Z86.14 Personal history of Methicillin resistant Staphylococcus aureus infection; Z85.42 Personal history of malignant neoplasm of other parts of uterus; Z85.3 Personal history of malignant neoplasm of breast; Z96.642 Presence of left artificial hip joint; Z95.818 Presence of other cardiac implants and grafts; Z79.4 Long term (current) use of insulin; Z79.01 Long term (current) use of anticoagulants; Z79.890 Hormone replacement therapy; Z79.899 Other long term (current) drug therapy; Z91.048 Other nonmedicinal substance allergy status; Z88.8 Allergy status to other drugs, medicaments and biological substances; Z88.5 Allergy status to narcotic agent; Z53.29 Procedure and treatment not carried out because of patient's decision for other reasons; Z53.8 Procedure and treatment not carried out for other reasons
CPT/HCPCS: 36415; 70450; 71046; 80053; 81001; 82550; 83735; 83880; 84100; 84484; 85025; 85610; 85730; 87086; 93005; 96360; 99285

== ENCOUNTER → 2019-09-29 | Outpatient (CLI) | payer MEDICARE ==
--- NOTE | 2019-09-29 15:40 | CT ---
EXAMINATION TYPE: CT abdomen pelvis wo con DATE OF EXAM: 09/29/2019 COMPARISON: 03/08/2018 HISTORY: Urinary tract infection, coccygeal fistula CT DLP: 1070.9 mGycm Automated exposure control for dose reduction was used. TECHNIQUE: Helical acquisition of images was performed from the lung bases through the pelvis. FINDINGS: LUNG BASES: Calcifications involving the mitral valve are again noted. Subsegmental consolidation mos t typical of atelectasis and there is a small hiatal hernia. LIVER/GB: Liver is slightly low in attenuation correlate for hepatic steatosis. PANCREAS: Atrophic changes and fatty replacement of the pancreas noted. Single pancreatic calcificati on noted. SPLEEN: No significant abnormality is seen. ADRENALS: There is a nodule in the left adrenal gland measuring 2.1 cm measuring 12 Hounsfield unit i ndeterminate but stable. KIDNEYS: No significant abnormality is seen. ADENOPATHY: None visualized. OSSEOUS STRUCTURES: Hypertrophic and degenerative changes of the spine. Postsurgical change involvin g the hip results in artifact which limits assessment of the pelvis. BOWEL: Bowel gas pattern nonspecific. No evidence of obstruction. Diverticulosis of the colon noted. OTHER: Soft tissue calcifications are noted. Atherosclerotic change aorta and its side branches. No a neurysm. Evidence of previous anterior abdominal wall surgery noted. Mild subcutaneous edema noted. C alcifications in the right breast noted. Soft tissue edema is also noted posteriorly. There is no bony destruction. Edema is adjacent to the c occyx. No diagnostic evidence of fistula. IMPRESSION: #1 subcutaneous edema could been the basis of mild anasarca. Posteriorly near the coccyx and could be postinflammatory or postinfectious. No diagnostic evidence of fistula. 2. Stable left adrenal nodule likely related to incidental adenoma. 3. Hiatal hernia. 4. Left lower lobe atelectasis favored over pneumonia
== END | disposition home or self-care (01) ==
LOC: RADCTMAIN 12:59
PROVIDERS: ATTEND Internal Medicine Infectious Disease
DX: K44.9 Diaphragmatic hernia without obstruction or gangrene (principal); E27.8 Other specified disorders of adrenal gland; Z88.5 Allergy status to narcotic agent; Z88.8 Allergy status to other drugs, medicaments and biological substances; Z91.09 Other allergy status, other than to drugs and biological substances
CPT/HCPCS: 74176

== ENCOUNTER → 2020-10-07 | Outpatient (CLI) | payer MEDICARE ==
[2020-10-07 15:09] LABS: Basophils # (A) 0.1 k/uL (0-0.2); Basophils % (A) 1 %; Eosinophils # (A) 0.1 k/uL (0-0.7); Eosinophils % (A) 2 %; HCT 36.9 % (34.0-46.0); HGB 11.6 gm/dL (11.4-16.0); Hypochromasia Slight; Lymphocytes # (A) 2.2 k/uL (1.0-4.8); Lymphocytes % (A) 34 %; MCH 28.4 pg (25.0-35.0); MCHC 31.4 g/dL (31.0-37.0); MCV 90.3 fL (80.0-100.0); Mean Platelet Volume 8.8; Monocytes # (A) 0.5 k/uL (0-1.0); Monocytes % (A) 7 %; Neutrophils # (A) 3.6 k/uL (1.3-7.7); Neutrophils % (A) 54 %; Platelet Count 196 k/uL (150-450); RBC 4.08 m/uL (3.80-5.40); RDW 15.5 % (11.5-15.5); WBC 6.6 k/uL (3.8-10.6)
[2020-10-07 15:16] LABS: Calcium 9.6 mg/dL (8.4-10.2); Potassium 4.6 mmol/L (3.5-5.1)
== END | disposition home or self-care (01) ==
LOC: LABPAT 14:32
PROVIDERS: ATTEND Urology
DX: Z01.812 Encounter for preprocedural laboratory examination (principal); R31.0 Gross hematuria
CPT/HCPCS: 36415; 80048; 85025

== ENCOUNTER → 2020-10-09 | Day surgery (SDC) | payer MEDICARE | LOC: CATHCVL 12:54 | PROVIDERS: ATTEND Internal Medicine | DX: N39.0 Urinary tract infection, site not specified (principal); Z88.8 Allergy status to other drugs, medicaments and biological substances | CPT/HCPCS: 36410; 76937; C1751 ==

== ENCOUNTER 2020-10-14 07:57 | Day surgery (SDC) | payer MEDICARE ==
[2020-10-11 12:45] VITALS: BMI 34.0
[~2020-10-14 07:57] MED LIST changes: +DEXAMETHASONE SOD PHOSPHATE 4 MG/ML 1 ML VIAL IV ONE; +ERTAPENEM 1 GM in SODIUM CHLORIDE 0.9% 50 ML IVPB PRN; +HYDROmorphone 0.5 MG/0.5 ML SYRINGE IVP PRN; +LACTATED RINGERS 1,000 ML IV SCH; +LIDOCAINE 1% (10MG/ML) FOR IV START INTRADERMA PRN; +ONDANSETRON 4 MG/2 ML VIAL IVP ONE; -REGADENOSON 0.4 MG/5 ML SYRINGE IV ONE
--- NOTE | 2020-10-14 08:30 | P.HPIHPCON ---
History of Present Illness H&P Date: 10/14/20 Chief Complaint: Gross hematuria, recurrent UTIs This is a 75-year-old female with history of cervical cancer, treated with radiation in the past. She has been having issues with recurrent gross hematuria and recurrent UTI. Discussed with her given her return hematuria r ecommend doing a cystoscopy, she refused office cystoscopy due to concern of pain. Discussed with her the option of doing a cystoscopy in the operating room. Discussed we will also plan on doing bilateral retrogrades to evaluate upper tracts. Discussed the potential of doing a bladder biopsy abnormalities visualized. Of note she is currently on IV antibiotics for her UTIs. Discussed the risk which includes but not limited to bleeding, infection, injury to the bladder and ureters. She understood all the risk and agreed to proceed with cystoscopy and bilateral retrogrades Consent for Procedure: I have explained the operation/procedure to the patient, including the risks, benefits, side effects, alternative therapies (including not receiving the proposed treatment or service), the likelihood of the patient achieving his/her goals, and potential recuperation problems for the procedure/sedation/analgesia, as well as any blood products, if indicated. I also explained to the patient the risks, benefits and side effects of the alternatives, as well as the risks related to not receiving the proposed procedure, care, treatment, or services. - Constitutional Constitutional: Denies chills, Denies fever - Cardiovascular Cardiovascular: Denies chest pain, Denies shortness of breath - Respiratory Respiratory: Denies cough, Denies 7 Past Medical History Past Medical History: Atrial Fibrillation, Asthma, Cancer, Diabetes Mellitus, Deep Vein Thrombosis (DVT), Eye Disorder, Fibromyalgia, GERD/Reflux, Hyperlipidemia, Hypertension, Memory Impairment, Musculoskeletal Disorder, Osteoarthritis (OA), Renal Disease, Thyroid Disorder Additional Past Medical History / Comment(s): ?hx of multiple sclerosis , tinnitus alyssa ears/[place],DVT years ago after ,. uterine cancer-2006 WITH RADIATION. METS TO LT LUNG 2011, glaucoma,. Breast Cancer. DIABETIC RETINOPATHY. STAGE 2 KIDNEY DISEASE. CHRONIC LOWER BACK PAIN, ddd. sciatic nerve pain, current daily antibiotic infusion for UTI History of Any Multi-Drug Resistant Organisms: MRSA Date of last positivie culture/infection: 2016 MDRO Source:: R forearm Past Surgical History: Appendectomy, Cholecystectomy, Heart Catheterization, Hernia Repair, Hysterectomy, Joint Replacement, Orthopedic Surgery Additional Past Surgical History / Comment(s): brain surgery for pituary gland tumors, benign growth removed from esophagus,. lt lung resection-2011, left hip replaced,. LIPOMA'S REMOVED. LT VITRECTOMY. MULTIPLE BREAST BIOPSIES. LT ANKLE SX. PLATE & SCREWS TO LT HUMEROUS. BILAT CATARACTS REMOVED. LASER SURGERY ON EYES FOR GLAUCOMA Past Anesthesia/Blood Transfusion Reactions: Motion Sickness, Postoperative Nausea & Vomiting (PONV) Additional Past Anesthesia/Blood Transfusion Reaction / Comment(s): "has never recieved any blood" Smoking Status: Never smoker - Past Family History Father Family Medical History: COPD, Myocardial Infarction ([place]) Additional Family Medical History / Comment(s): Father at the age of 63 yrs from a massive [place]. He had emphysema and was a smoker. Son(s) Additional Family Medical History / Comment(s): Patient has 2 sons and one has history of asthma. Patient is one daughter with kidney problems. Mother Family Medical History: Cancer Additional Family Medical History / Comment(s): Mother at age 74 from heart failure with history of melanoma. Sister(s) Family Medical History: Cancer Additional Family Medical History / Comment(s): Patient has one sister with history of coronary artery disease and a rare form of breast cancer. Patient does not have any brothers. Medications and Allergies Home Medications Medication Instructions Recorded Confirmed Type Insulin Glargine [Lantus] 38 units SQ BID 09/13/13 10/13/20 History Rivaroxaban [Xarelto] 20 mg PO AC-SUPPER 09/13/13 10/13/20 History methazolAMIDE [Neptazane] 25 mg PO DAILY 10/25/13 10/13/20 History Anastrozole [Arimidex] 1 mg PO DAILY 04/17/17 10/13/20 History INSULIN ASPART (NovoLOG) [NovoLOG See Protocol SQ AC-TID PRN 04/17/17 10/13/20 History (formulary)] Propafenone [Rythmol] 150 mg PO BID 05/16/17 10/13/20 History Montelukast [Singulair] 10 mg PO HS 03/08/18 10/13/20 History Ondansetron HCl [Zofran] 4 mg PO BID PRN 03/08/18 10/13/20 History Benzonatate [Tessalon Perles] 100 mg PO TID PRN 12/28/18 10/13/20 History Isosorbide Mononitrate ER [Imdur] 30 mg PO DAILY 12/28/18 10/13/20 History lisinopriL [Zestril] 5 - 20 mg PO BID PRN 12/28/18 10/13/20 History Acetaminophen [Tylenol] 325 mg PO Q4H PRN 10/11/20 10/13/20 History Budesonide [Pulmicort] 0.5 mg INHALATION BID 10/11/20 10/13/20 History Ertapenem [INVanz] 1 gm IVPB Q24H 10/11/20 10/13/20 History Fluticasone Nasal [place] [Flonase 2 spr EA NOSTRIL BID 10/11/20 10/13/20 History Nasal [place]] Furosemide [Lasix] 20 - 40 mg PO DAILY PRN 10/11/20 10/13/20 History Lactulose 10 gm PO DAILY PRN 10/11/20 10/13/20 History Mag Hydrox/Aluminum Hyd/Simeth 0 ml PO DIRECTED PRN 10/11/20 10/13/20 History [Mylanta Maximum Strength Liq] Metoprolol Tartrate [Lopressor] 12.5 mg PO BID 10/11/20 10/13/20 History Omeprazole 20 mg PO DAILY PRN 10/11/20 10/13/20 History Potassium Chloride [Klor-Con 10] 10 meq PO DIRECTED PRN 10/11/20 10/13/20 History Sucralfate [Carafate] 1 gm PO BID PRN 10/11/20 10/13/20 History polyethylene glycoL 3350 [Miralax] 17 gm PO DAILY PRN 10/11/20 10/13/20 History traZODone HCL 50 mg PO HS PRN 10/11/20 10/13/20 History Allergies Allergy/AdvReac Type Severity Reaction Status Date / Time adhesive Allergy Rash/Hives Verified 10/13/20 13:58 diltiazem HCl [From Cardizem] Allergy Rash/Hives Verified 10/13/20 13:58 diphenhydramine HCl Allergy dizzy,light Verified 10/13/20 13:58 [From Benadryl] headed,vomi ting Echinacea Allergy Rapid Verified 10/13/20 13:58 Heart Rate codeine AdvReac Nausea & Verified 10/13/20 13:58 Vomiting guaifenesin AdvReac Nausea & Verified 10/13/20 13:58 Vomiting lorazepam [From Ativan] AdvReac "out of Verified 10/13/20 13:58 it", drowsy meperidine AdvReac Nausea & Verified 10/13/20 13:58 Vomiting morphine AdvReac Nausea & Verified 10/13/20 13:58 Vomiting opiates AdvReac Nausea & Uncoded 10/13/20 13:58 Vomiting stadol AdvReac Hallucinati Uncoded 10/13/20 13:58 ons Surgical - Exam - General no distress, no pain - Eyes PERRL, normal ocular movement - Abdomen Abdomen: soft, non tender - Psychiatric oriented to time, oriented to person, oriented to place Assessment and Plan Assessment: 75-year-old female history of gross hematuria -Or for cystoscopy and bilateral retrogrades
[2020-10-14 08:57] VITALS: TEMP 97.5
[2020-10-14 09:21] LABS: Glucose,Whole Blood 156 mg/dL (75-99)
[2020-10-14] MEDS ORDERED: LIDOCAINE 1% INJ 10MG/ML (20 ML MDV) ONE (09:29)
[2020-10-14] MEDS ORDERED: PROPOFOL 10 MG/ML 20 ML VIAL IV ONE (09:29)
[2020-10-14] MEDS ORDERED: fentaNYL (PF) 50 MCG/ML 2 ML AMP ONE (09:29)
[2020-10-14] MEDS ORDERED: MIDAZOLAM 2 MG/2 ML VIAL ONE (09:29)
[2020-10-14] MEDS ORDERED: IOPAMIDOL-370 50ML BTL MISCELLANE ONE ×3 (09:58)
[2020-10-14 10:17] VITALS: RESP 16
--- NOTE | 2020-10-14 10:42 | P.OP ---
Date of Procedure: 10/14/20 Preoperative Diagnosis: Gross hematuria, recurrent UTIs Postoperative Diagnosis: Same Procedure(s) Performed: Cystoscopy, bilateral retrograde pyelograms Implants: none Anesthesia: other (sedation) Surgeon: Panchito Hernández Estimated Blood Loss (ml): 1 Pathology: none sent Condition: stable Disposition: PACU Indications for Procedure: This is a 75-year-old female with history of cervical cancer, treated with radiation in the past. She has been having issues with recurrent gross hematuria and recurrent UTI. Discussed with her given her return hematuria recommend doing a cystoscopy, she refused office cystoscopy due to concern of pain. Discussed with her the option of doing a cystoscopy in the operating room. Discussed we will also plan on doing bilateral retrogrades to evaluate upper tracts. Discussed the potential of doing a bladder biopsy abnormalities visualized. Of note she is currently on IV antibiotics for her UTIs. Discussed the risk which includes but not limited to bleeding, infection, injury to the bladder and ureters. She understood all the risk and agreed to proceed with cystoscopy and bilateral retrogrades Operative Findings: No tumors or suspicious lesions within the bladder, evidence of radiation cystitis. Bilateral retrograde pyelogram showed no abnormality within the upper tract Description of Procedure: She was brought to the operating room, sedation was induced. She was prepped and draped in sterile fashion and placed in dorsal lithotomy position. A cystoscopy fitted with a 22-German sheath was inserted per urethra, cystoscopy was performed which showed no tumors or suspicious lesion within the bladder, of note there was evidence of radiation cystitis. Attention was then carried to the left ureteral orifice, which was intubated with an open-ended catheter, retrograde Polygram was performed on the left which showed no filling defect or hydronephrosis. Delayed imaging showed adequate drainage of contrast. Attention was then carried to the right ureteral orifice which was intubated with an open-ended catheter, retrograde Polygram was performed on that side which showed no filling defect or hydronephrosis, adequate drainage of contrast was seen on that site to. The bladder was emptied and the case, patient tolerated the procedure well was taken to PACU in stable condition
[2020-10-14] MEDS ORDERED: SODIUM CHLORIDE 0.9% 500 ML 500 ML IV ONE (10:45)
[2020-10-14 10:55] VITALS: BP 136/64; PULSE 65
--- NOTE | 2020-10-14 11:06 | FL ---
EXAMINATION TYPE: FL urography retrograde DATE OF EXAM: 10/14/2020 COMPARISON: NONE HISTORY: Fluoroscopy TECHNIQUE: Fluoroscopy. FINDINGS: Fluoroscopic guidance was provided during procedure of 49 seconds. IMPRESSION: As Above.
[2020-10-14] MEDS ORDERED: ACETAMINOPHEN TAB 500 MG TAB ONE (11:17)
[2020-10-14] MEDS ORDERED: ACETAMINOPHEN TAB 500 MG TAB PO ONE (11:20)
== END 2020-10-14 11:50 | disposition home or self-care (01) ==
LOC: OR 07:57
PROVIDERS: ATTEND Urology
DX: N30.41 Irradiation cystitis with hematuria (principal); Z85.41 Personal history of malignant neoplasm of cervix uteri; Z92.3 Personal history of irradiation; J45.909 Unspecified asthma, uncomplicated; E11.9 Type 2 diabetes mellitus without complications; Z86.718 Personal history of other venous thrombosis and embolism; Z79.01 Long term (current) use of anticoagulants; K21.9 Gastro-esophageal reflux disease without esophagitis; I10 Essential (primary) hypertension; E78.5 Hyperlipidemia, unspecified; R41.3 Other amnesia; E07.9 Disorder of thyroid, unspecified; M19.90 Unspecified osteoarthritis, unspecified site; G89.29 Other chronic pain; Z85.3 Personal history of malignant neoplasm of breast; M79.7 Fibromyalgia; H40.9 Unspecified glaucoma; Z88.5 Allergy status to narcotic agent; Z88.8 Allergy status to other drugs, medicaments and biological substances; Z79.4 Long term (current) use of insulin
CPT/HCPCS: 52005; 74420; C1758; C1769; J2250; J1100; J2405; J2001; J3010; J1335; J2704; Q9967

== ENCOUNTER 2020-11-05 12:33 | Day surgery (SDC) | payer MEDICARE ==
[2020-11-05 13:44] VITALS: BP 178/76; PULSE 64; RESP 16; TEMP 99
== END 2020-11-05 13:37 | disposition home or self-care (01) ==
LOC: CATHCVL 12:33
PROVIDERS: ATTEND Internal Medicine
DX: N39.0 Urinary tract infection, site not specified (principal); I10 Essential (primary) hypertension; E78.2 Mixed hyperlipidemia; I48.0 Paroxysmal atrial fibrillation; K59.00 Constipation, unspecified
CPT/HCPCS: 36410; 76937; C1751

== ENCOUNTER → 2021-08-30 | Outpatient (CLI) | payer MEDICARE ==
--- NOTE | 2021-08-31 22:19 | PE ---
EXAMINATION TYPE: PET CT fusion skull to thigh DATE OF EXAM: 08/30/2021 COMPARISON: CT abdomen and pelvis September 29, 2019 and older CTs HISTORY: Uterine cancer diagnosed 2006 . History of left lung cancer and bilateral breast cancer. TECHNIQUE: Following the intravenous administration of 11.09 mCi of F-18 FDG, whole body images are performed from the skull base to the midthigh. Images are reviewed on the computer in the coronal, a xial, and sagittal planes. Reconstructed rotating images are created on independent workstation and reviewed on the computer. A localization and attenuation correction CT is performed in conjunction with the PET scan. Blood glucose level equals 193. SCAN: Initial Scan FINDINGS: SKULL BASE AND NECK: No areas of abnormal hypermetabolic uptake. CHEST, MEDIASTINUM, AND HILAR REGION: No areas of abnormal hypermetabolic uptake. ABDOMEN AND PELVIS: Normal excretion is present. No adrenal masses are seen. Urine leak inferiorly is noted. OSSEOUS STRUCTURES: No abnormal hypermetabolic uptake. OTHER CT: Moderate calcified plaque bilateral carotid bulb level. Significant surgical change to the left humerus. Cardiomegaly with moderate to severe three-vessel coronary artery calcification. Additional calcifica tion level of the mitral and aortic valves. Focal parenchymal scarring left lung base redemonstrated. Some cortical thinning both kidneys. Coils from ventral hernia repair anterior abdominal wall are not ed. Metallic hardware from left hip arthroplasty causes streak artifact limiting evaluation of pelvic structures. Significant air fluid level in the urinary bladder raises concern for underlying fistula , correlate clinically. Surgical clips in the bilateral pelvis are redemonstrated. Uterus is surgical ly absent. IMPRESSION: No suspicious hypermetabolic uptake to suggest active neoplastic recurrence. Possible fis arturo to bladder, correlate clinically.
== END | disposition home or self-care (01) ==
LOC: RADPETMAIN 11:19
PROVIDERS: ATTEND Internal Medicine Hematology & Oncology
DX: C54.9 Malignant neoplasm of corpus uteri, unspecified (principal)
CPT/HCPCS: 78815; A9552

== ENCOUNTER 2021-09-04 12:43 | Day surgery (SDC) | payer MEDICARE ==
[2021-09-04 17:42] VITALS: BP 146/66; PULSE 72; RESP 16; TEMP 97.8
== END 2021-09-04 14:36 | disposition home or self-care (01) ==
LOC: CATHCVL 12:43
PROVIDERS: ATTEND Internal Medicine
DX: N39.0 Urinary tract infection, site not specified (principal); E78.2 Mixed hyperlipidemia; I48.0 Paroxysmal atrial fibrillation; I25.118 Atherosclerotic heart disease of native coronary artery with other forms of angina pectoris; G35 Multiple sclerosis; E03.9 Hypothyroidism, unspecified; K21.9 Gastro-esophageal reflux disease without esophagitis; E11.22 Type 2 diabetes mellitus with diabetic chronic kidney disease; I12.9 Hypertensive chronic kidney disease with stage 1 through stage 4 chronic kidney disease, or unspecified chronic kidney disease; N18.2 Chronic kidney disease, stage 2 (mild); E11.51 Type 2 diabetes mellitus with diabetic peripheral angiopathy without gangrene; Z90.49 Acquired absence of other specified parts of digestive tract; Z90.710 Acquired absence of both cervix and uterus; Z96.642 Presence of left artificial hip joint; Z98.890 Other specified postprocedural states; Z79.899 Other long term (current) drug therapy; Z79.01 Long term (current) use of anticoagulants; Z88.5 Allergy status to narcotic agent; Z88.8 Allergy status to other drugs, medicaments and biological substances; Z98.42 Cataract extraction status, left eye; Z98.41 Cataract extraction status, right eye; Z83.3 Family history of diabetes mellitus; Z82.49 Family history of ischemic heart disease and other diseases of the circulatory system; Z80.3 Family history of malignant neoplasm of breast; Z82.5 Family history of asthma and other chronic lower respiratory diseases
CPT/HCPCS: 36410; 76937; C1751

== ENCOUNTER 2021-09-05 14:05 | Day surgery (SDC) | payer MEDICARE ==
[2021-09-05 13:14] VITALS: BP 171/70; PULSE 64; RESP 16; TEMP 98.8
== END 2021-09-05 15:36 | disposition home or self-care (01) ==
LOC: CATHCVL 14:05
PROVIDERS: ATTEND Internal Medicine
DX: T82.52 Displacement of other cardiac and vascular devices and implants (principal)

== ENCOUNTER 2021-09-27 21:44 | Inpatient (IN) | payer MEDICARE ==
--- NOTE | 2021-09-27 22:19 | ED ---
Female Urogenital HPI - General Chief complaint: Urogenital Stated complaint: Abd pain/Cant urinate Time Seen by Provider: 09/27/21 22:12 Source: patient, RN notes reviewed, old records reviewed Mode of arrival: ambulatory Limitations: no limitations - History of Present Illness Initial comments: This is a 76-year-old female severe abdominal pain. Patient is presenting today for evaluation regards to severe abdominal pain. Patient has history of hematuria history of uterine cancer she is also on blood thinners. Patient has been unable to urinate for about a day and is having severe abdominal pain currently. Patient did have Bell placed and removed just yesterday. Mild nausea no vomiting no other complaints MD Complaint: dysuria, pelvic pain, other (Hematuria and urinary retention) -: days(s) Location: suprapubic Radiation: suprapubic Severity: severe Severity scale (1-10): 10 Quality: sharp, stabbing Consistency: constant Improves with: none Worsens with: none Patient : No Associated Symptoms: abdominal pain, nausea/vomiting, dysuria, hematuria - Related Data Home Medications Medication Instructions Recorded Confirmed Insulin Glargine [Lantus Vial] 38 units SQ BID 09/13/13 11/13/20 Rivaroxaban [Xarelto] 20 mg PO AC-SUPPER 09/13/13 11/13/20 methazolAMIDE [Neptazane] 25 mg PO DAILY 10/25/13 11/13/20 Anastrozole [Arimidex] 1 mg PO DAILY 04/17/17 11/13/20 INSULIN ASPART (NovoLOG) [NovoLOG See Protocol SQ AC-TID PRN 04/17/17 11/13/20 (formulary)] Propafenone [Rythmol] 150 mg PO BID 05/16/17 11/13/20 Montelukast [Singulair] 10 mg PO HS 03/08/18 11/13/20 ondansetron HCL [Zofran] 4 mg PO BID PRN 03/08/18 11/13/20 Benzonatate [Tessalon Perles] 100 mg PO TID PRN 12/28/18 11/13/20 Isosorbide Mononitrate ER [Imdur] 30 mg PO DAILY 12/28/18 11/13/20 lisinopriL [Zestril] 5 - 20 mg PO BID PRN 12/28/18 11/13/20 Acetaminophen [Tylenol] 325 mg PO Q4H PRN 10/11/20 11/13/20 Budesonide [Pulmicort] 0.5 mg INHALATION BID 10/11/20 11/13/20 Ertapenem [INVanz] 1 gm IVPB Q24H 10/11/20 11/13/20 Fluticasone Nasal [place] [Flonase 2 spr EA NOSTRIL BID 10/11/20 11/13/20 Nasal [place]] Furosemide [Lasix] 20 - 40 mg PO DAILY PRN 10/11/20 11/13/20 Lactulose 10 gm PO DAILY PRN 10/11/20 11/13/20 Mag Hydrox/Aluminum Hyd/Simeth 0 ml PO DIRECTED PRN 10/11/20 11/13/20 [Mylanta Maximum Strength Liq] Metoprolol Tartrate [Lopressor] 12.5 mg PO BID 10/11/20 11/13/20 Omeprazole 20 mg PO DAILY PRN 10/11/20 11/13/20 Potassium Chloride [Klor-Con 10] 10 meq PO DIRECTED PRN 10/11/20 11/13/20 Sucralfate [Carafate] 1 gm PO BID PRN 10/11/20 11/13/20 polyethylene glycoL 3350 [Miralax] 17 gm PO DAILY PRN 10/11/20 11/13/20 traZODone HCL 50 mg PO HS PRN 10/11/20 11/13/20 amLODIPine [Norvasc] 5 mg PO BID 11/06/20 11/13/20 Previous Rx's Medication Instructions Recorded Ibuprofen 600 mg PO Q8H PRN #20 tab 10/14/20 Phenazopyridine HCl [Pyridium] 100 mg PO TID #9 tab 10/14/20 Allergies Allergy/AdvReac Type Severity Reaction Status Date / Time adhesive Allergy Rash/Hives Verified 09/04/21 17:43 diltiazem HCl [From Cardizem] Allergy Rash/Hives Verified 09/04/21 17:43 diphenhydramine HCl Allergy dizzy,light Verified 09/04/21 17:43 [From Benadryl] headed,vomi ting Echinacea Allergy Rapid Verified 09/04/21 17:43 Heart Rate hydromorphone [From Dilaudid] Allergy Unknown Verified 09/27/21 22:01 codeine AdvReac Nausea & Verified 09/04/21 17:43 Vomiting guaifenesin AdvReac Nausea & Verified 09/04/21 17:43 Vomiting lorazepam [From Ativan] AdvReac "out of Verified 09/04/21 17:43 it", drowsy meperidine AdvReac Nausea & Verified 09/04/21 17:43 Vomiting morphine AdvReac Nausea & Verified 09/04/21 17:43 Vomiting opiates AdvReac Nausea & Uncoded 09/04/21 17:43 Vomiting stadol AdvReac Hallucinati Uncoded 09/04/21 17:43 ons Review of Systems ROS Statement: Those systems with pertinent positive or pertinent negative responses have been documented in the HPI. ROS Other: All systems not noted in ROS Statement are negative. Past Medical History Past Medical History: Atrial Fibrillation, Asthma, Cancer, Diabetes Mellitus, Eye Disorder, GERD/Reflux, Hyperlipidemia, Hypertension, Memory Impairment, Musculoskeletal Disorder, Osteoarthritis (OA), Renal Disease, Thyroid Disorder Additional Past Medical History / Comment(s): hx of multiple sclerosis , tinn itus alyssa ears/tanana. uterine cancer-2006 WITH RADIATION. METS TO LT LUNG 2010 glaucoma. glaucoma. Breast Cancer. DIABETIC RETINOPATHY. STAGE 2 KIDNEY DISEASE. CHRONIC LOWER BACK PAIN, ddd. sciatic nerve pain, tinnitus. uti. History of Any Multi-Drug Resistant Organisms: MRSA Date of last positivie culture/infection: 2016 MDRO Source:: R forearm Past Surgical History: Appendectomy, Cholecystectomy, Heart Catheterization, Hernia Repair, Hysterectomy, Joint Replacement, Orthopedic Surgery Additional Past Surgical History / Comment(s): brain surgery for pituary gland tumors, benign growth removed chest. lt lung resection-2010 left eye cataracts removed -lens implants. LT ELIZABETH. ESOPHAGEAL NODULES REMOVED. LIPOMA'S REMOVED. LT VITRECTOMY. MULTIPLE BREAST BIOPSIES. LT ANKLE SX. PLATE & SCREWS TO LT HUMEROUS. BILAT CATARACTS REMOVED. LASER SURGERY ON EYES FOR GLAUCOMA Past Anesthesia/Blood Transfusion Reactions: Motion Sickness, Postoperative Nausea & Vomiting (PONV) Additional Past Anesthesia/Blood Transfusion Reaction / Comment(s): "has never recieved any blood" Past Psychological History: No Psychological Hx Reported Smoking Status: Never smoker Past Alcohol Use History: None Reported Past Drug Use History: None Reported - Past Family History Father Family Medical History: COPD, Myocardial Infarction (PR) Additional Family Medical History / Comment(s): Father at the age of 63 yrs from a massive PR. He had emphysema and was a smoker. Son(s) History Unknown: Yes Additional Family Medical History / Comment(s): Patient has 2 sons and one has history of asthma. Patient is one daughter with kidney problems. Mother Family Medical History: Cancer Additional Family Medical History / Comment(s): Mother at age 74 from heart failure with history of melanoma. Sister(s) Family Medical History: Cancer Additional Family Medical History / Comment(s): Patient has one sister with history of coronary artery disease and a rare form of breast cancer. Patient does not have any brothers. General Exam Limitations: no limitations General appearance: alert, in no apparent distress, anxious Head exam: Present: atraumatic, normocephalic, normal inspection Eye exam: Present: normal appearance, PERRL, EOMI. Absent: scleral icterus, conjunctival injection, periorbital swelling ENT exam: Present: normal exam, mucous membranes moist Neck exam: Present: normal inspection. Absent: tenderness, meningismus, lymphadenopathy Respiratory exam: Present: normal lung sounds bilaterally. Absent: respiratory distress, wheezes, rales, rhonchi, stridor Cardiovascular Exam: Present: regular rate, normal rhythm, normal heart sounds. Absent: systolic murmur, diastolic murmur, rubs, gallop, clicks GI/Abdominal exam: Present: soft, distended, tenderness, guarding, normal bowel sounds. Absent: rebound, rigid Extremities exam: Present: normal inspection, full ROM, normal capillary refill. Absent: tenderness, pedal edema, joint swelling, calf tenderness Back exam: Present: normal inspection Neurological exam: Present: alert, oriented X3, CN II-XII intact Psychiatric exam: Present: normal affect, normal mood Skin exam: Present: warm, dry, intact, normal color. Absent: rash Course Vital Signs 09/27/21 21:59 Temperature 98.6 F Pulse Rate 78 Respiratory 18 Rate Blood Pressure 196/80 O2 Sat by Pulse 100 Oximetry - Reevaluation(s) Reevaluation #1: 09/27/21 23:48 Medical record is reviewed Reevaluation #2: 09/27/21 23:48 Patient does have released with with Bell catheter placement Reevaluation #3: 09/27/21 23:48 Patient informed results and questions answered - Consultations Consultation #1: Spoke with Dr. Corrigan who will admit this patient Consultation #2: Spoke with Dr. Pino who is aware this patient is being consult Medical Decision Making - Medical Decision Making 76 female significant abdominal pain coming in with hematuria and urinary retention. Patient will be admitted for urology to evaluate and treat and further evaluation management Disposition Clinical Impression: UTI (urinary tract infection), Dehydration, Urinary retention, Hematuria Disposition: ADMITTED IP TO THIS HOSP Condition: Good Is patient prescribed a controlled substance at d/c from ED?: No Referrals: Rush Corrigan MD [Primary Care Provider] - 1-2 days
[2021-09-27] MEDS ORDERED: SODIUM CHLORIDE 0.9% 1,000 ML IV STA (22:38)
[2021-09-27] MEDS ORDERED: KETOROLAC 15 MG/ML 1 ML VIAL IVP STA (22:40)
[2021-09-27] MEDS ORDERED: fentaNYL (PF) 50 MCG/ML 2 ML AMP IVP STA (22:40)
[2021-09-27] MEDS ORDERED: NALOXONE 0.4 MG/ML 1 ML VIAL IV PRN (23:46)
[2021-09-27 23:51] LABS: Basophils # (A) 0.1 k/uL (0-0.2); Basophils % (A) 1 %; Eosinophils # (A) 0.2 k/uL (0-0.7); Eosinophils % (A) 3 %; HCT 38.3 % (34.0-46.0); Lymphocytes # (A) 2.1 k/uL (1.0-4.8); Lymphocytes % (A) 30 %; MCH 28.2 pg (25.0-35.0); MCHC 31.3 g/dL (31.0-37.0); Mean Platelet Volume 8.5; Monocytes # (A) 0.6 k/uL (0-1.0); Monocytes % (A) 9 %; Neutrophils # (A) 3.8 k/uL (1.3-7.7); Neutrophils % (A) 55 %; Platelet Count 227 k/uL (150-450); RBC 4.25 m/uL (3.80-5.40); RDW 15.2 % (11.5-15.5); WBC 6.9 k/uL (3.8-10.6)
[2021-09-28 00:02] LABS: Albumin 3.6 g/dL (3.5-5.0); Calcium 9.1 mg/dL (8.4-10.2); Potassium 4.1 mmol/L (3.5-5.1); Total Bilirubin 0.3 mg/dL (0.2-1.3); Total Protein 6.5 g/dL (6.3-8.2)
[2021-09-28 00:17] LABS: Bacteria,Urine Rare /hpf; Mucus,Urine Rare /hpf; RBC,Urine >182 /hpf (0-5); WBC,Urine 45 /hpf (0-5)
[2021-09-28 00:19] LABS: Appearance,Urine Slightly Cloudy (Clear)
[2021-09-28 00:20] LABS: Color,Urine Dark Red
[2021-09-28] MEDS: SODIUM CHLORIDE 0.9% 1,000 ML IV SCH ×2 (01:49→13:33)
[2021-09-28 04:46] VITALS: BP 117/65; PULSE 57; RESP 18; TEMP 98.1
[2021-09-28] MEDS ORDERED: KETOROLAC 15 MG/ML 1 ML VIAL IVP PRN (06:09)
--- NOTE | 2021-09-28 11:19 | P.GSCN ---
History of Present Illness Consult date: 09/28/21 Reason for Consult: Hematuria, urinary retention Requesting physician: Rush Corrigan History of present illness: The patient is a 76-year-old white female well known to Dr. Hernández. She has a history of cervical cancer, treated with radiation therapy. She underwent cystoscopy with retrograde pyelograms in October 2020 for evaluation of gross hematuria, revealing radiation cystitis. She saw Dr. Hernández in the office late last week, experiencing hematuria and difficulty voiding. She was straight catheterized with return of 550 mL, and felt some relief. A urine culture was sent and was negative. However, she experienced increased hematuria and difficulty voiding yesterday and thus presented to the ER. Precipitating factors may have been physically exertional work outside as well as straining to have a bowel movement. A Bell catheter was placed in the ER with return of 800 mL of urine. She currently feels better. Incidentally, she has been treated for recurrent E. coli UTIs. Review of Systems - Constitutional Reports chills, Denies fever - Genitourinary Genitourinary: Reports hematuria Past Medical History Past Medical History: Atrial Fibrillation, Asthma, Cancer, Diabetes Mellitus, Eye Disorder, Fibromyalgia, GERD/Reflux, Hyperlipidemia, Hypertension, Memory Impairment, Musculoskeletal Disorder, Osteoarthritis (OA), Renal Disease, Thyroid Disorder Additional Past Medical History / Comment(s): tinnitus alyssa ears/nikolski. uterine cancer-2006 WITH RADIATION. METS TO LT LUNG 2010. glaucoma. Breast Cancer. DIABETIC RETINOPATHY. STAGE 2 KIDNEY DISEASE. CHRONIC LOWER BACK PAIN, ddd. sciatic nerve pain, tinnitus. uti. History of Any Multi-Drug Resistant Organisms: MRSA Year Discovered:: 2017 MDRO Source:: R forearm Past Surgical History: Appendectomy, Cholecystectomy, Heart Catheterization, Hernia Repair, Hysterectomy, Joint Replacement, Orthopedic Surgery Additional Past Surgical History / Comment(s): brain surgery for pituary gland tumors, benign growth removed chest. lt lung resection-2010 left eye cataracts removed -lens implants. LT ELIZABETH. ESOPHAGEAL NODULES REMOVED. LIPOMA'S REMOVED. LT VITRECTOMY. MULTIPLE BREAST BIOPSIES. LT ANKLE SX. PLATE & SCREWS TO LT HUMEROUS. BILAT CATARACTS REMOVED. LASER SURGERY ON EYES FOR GLAUCOMA Past Anesthesia/Blood Transfusion Reactions: Motion Sickness, Postoperative Nausea & Vomiting (PONV) Additional Past Anesthesia/Blood Transfusion Reaction / Comm: "has never recieved any blood" Past Psychological History: No Psychological Hx Reported Additional Psychological History / Comment(s): Pt resides with her spouse. She ambulates with a rolling/seated walker,bsc, toilet riser,shower chair, nebulizer. She drives. Her home is handicap accessible. She has [employer] assist with house work and has meals on wheels. . Smoking Status: Never smoker Past Alcohol Use History: None Reported Past Drug Use History: None Reported - Past Family History Father Family Medical History: COPD, Myocardial Infarction ([place]) Additional Family Medical History / Comment(s): Father at the age of 63 yrs from a massive DE. He had emphysema and was a smoker. Son(s) History Unknown: Yes Additional Family Medical History / Comment(s): Patient has 2 sons and one has history of asthma. Patient is one daughter with kidney problems. Mother Family Medical History: Cancer Additional Family Medical History / Comment(s): Mother at age 74 from heart failure with history of melanoma. Sister(s) Family Medical History: Cancer Additional Family Medical History / Comment(s): Patient has one sister with history of coronary artery disease and a rare form of breast cancer. Patient does not have any brothers. Medications and Allergies Home Medications Medication Instructions Recorded Confirmed Type Insulin Glargine [Lantus Vial] 38 units SQ BID 09/13/13 11/13/20 History Rivaroxaban [Xarelto] 20 mg PO AC-SUPPER 09/13/13 11/13/20 History methazolAMIDE [Neptazane] 25 mg PO DAILY 10/25/13 11/13/20 History Anastrozole [Arimidex] 1 mg PO DAILY 04/17/17 11/13/20 History INSULIN ASPART (NovoLOG) [NovoLOG See Protocol SQ AC-TID PRN 04/17/17 11/13/20 History (formulary)] Propafenone [Rythmol] 150 mg PO BID 05/16/17 11/13/20 History Montelukast [Singulair] 10 mg PO HS 03/08/18 11/13/20 History ondansetron HCL [Zofran] 4 mg PO BID PRN 03/08/18 11/13/20 History Benzonatate [Tessalon Perles] 100 mg PO TID PRN 12/28/18 11/13/20 History Isosorbide Mononitrate ER [Imdur] 30 mg PO DAILY 12/28/18 11/13/20 History lisinopriL [Zestril] 5 - 20 mg PO BID PRN 12/28/18 11/13/20 History Acetaminophen [Tylenol] 325 mg PO Q4H PRN 10/11/20 11/13/20 History Budesonide [Pulmicort] 0.5 mg INHALATION BID 10/11/20 11/13/20 History Ertapenem [INVanz] 1 gm IVPB Q24H 10/11/20 11/13/20 History Fluticasone Nasal [place] [Flonase 2 spr EA NOSTRIL BID 10/11/20 11/13/20 History Nasal [place]] Furosemide [Lasix] 20 - 40 mg PO DAILY PRN 10/11/20 11/13/20 History Lactulose 10 gm PO DAILY PRN 10/11/20 11/13/20 History Mag Hydrox/Aluminum Hyd/Simeth 0 ml PO DIRECTED PRN 10/11/20 11/13/20 History [Mylanta Maximum Strength Liq] Metoprolol Tartrate [Lopressor] 12.5 mg PO BID 10/11/20 11/13/20 History Omeprazole 20 mg PO DAILY PRN 10/11/20 11/13/20 History Potassium Chloride [Klor-Con 10] 10 meq PO DIRECTED PRN 10/11/20 11/13/20 History Sucralfate [Carafate] 1 gm PO BID PRN 10/11/20 11/13/20 History polyethylene glycoL 3350 [Miralax] 17 gm PO DAILY PRN 10/11/20 11/13/20 History traZODone HCL 50 mg PO HS PRN 10/11/20 11/13/20 History Ibuprofen 600 mg PO Q8H PRN #20 tab 10/14/20 11/13/20 Rx Phenazopyridine HCl [Pyridium] 100 mg PO TID #9 tab 10/14/20 11/13/20 Rx amLODIPine [Norvasc] 5 mg PO BID 11/06/20 11/13/20 History Allergies Allergy/AdvReac Type Severity Reaction Status Date / Time adhesive Allergy Rash/Hives Verified 09/04/21 17:43 diltiazem HCl [From Cardizem] Allergy Rash/Hives Verified 09/04/21 17:43 diphenhydramine HCl Allergy dizzy,light Verified 09/04/21 17:43 [From Benadryl] headed,vomi ting Echinacea Allergy Rapid Verified 09/04/21 17:43 Heart Rate hydromorphone [From Dilaudid] Allergy Unknown Verified 09/27/21 22:01 codeine AdvReac Nausea & Verified 09/04/21 17:43 Vomiting guaifenesin AdvReac Nausea & Verified 09/04/21 17:43 Vomiting lorazepam [From Ativan] AdvReac "out of Verified 09/04/21 17:43 it", drowsy meperidine AdvReac Nausea & Verified 09/04/21 17:43 Vomiting morphine AdvReac Nausea & Verified 09/04/21 17:43 Vomiting opiates AdvReac Nausea & Uncoded 09/04/21 17:43 Vomiting stadol AdvReac Hallucinati Uncoded 09/04/21 17:43 ons Surgical - Exam Vital Signs Temp Pulse Resp BP Pulse Ox 98.6 F 78 18 196/80 100 09/27/21 21:59 09/27/21 21:59 09/27/21 21:59 09/27/21 21:59 09/27/21 21:59 - General well developed, well nourished, no distress - Respiratory normal respiratory effort - Abdomen Abdomen: soft, non tender, no guarding, no rigid, no rebound - Psychiatric oriented to time, oriented to person, oriented to place, speech is normal, memory intact Results - Labs 09/27/21 22:38 09/27/21 22:38 Abnormal Lab Results - Last 24 Hours (Table) 09/27/21 09/27/21 Range/Units 22:38 22:38 Sodium 136 L (137-145) mmol/L Chloride 108 H (98-107) mmol/L Carbon Dioxide 20 L (22-30) mmol/L BUN 26 H (7-17) mg/dL Glucose 150 H (74-99) mg/dL Lipase 14 L (23-300) U/L Urine Appearance Slightly Cloudy H (Clear) Urine RBC >182 H (0-5) /hpf Urine WBC 45 H (0-5) /hpf Urine WBC Clumps Occasional H (None) /hpf Urine Bacteria Rare H (None) /hpf Urine Mucus Rare H (None) /hpf Diabetes panel 09/27/21 Range/Units 22:38 Sodium 136 L (137-145) mmol/L Potassium 4.1 (3.5-5.1) mmol/L Chloride 108 H (98-107) mmol/L Carbon Dioxide 20 L (22-30) mmol/L BUN 26 H (7-17) mg/dL Creatinine 1.03 (0.52-1.04) mg/dL Glucose 150 H (74-99) mg/dL Calcium 9.1 (8.4-10.2) mg/dL AST 22 (14-36) U/L ALT 13 (4-34) U/L Alkaline Phosphatase 97 (38-126) U/L Total Protein 6.5 (6.3-8.2) g/dL Albumin 3.6 (3.5-5.0) g/dL Calcium panel 09/27/21 Range/Units 22:38 Calcium 9.1 (8.4-10.2) mg/dL Albumin 3.6 (3.5-5.0) g/dL Pituitary panel 09/27/21 Range/Units 22:38 Sodium 136 L (137-145) mmol/L Potassium 4.1 (3.5-5.1) mmol/L Chloride 108 H (98-107) mmol/L Carbon Dioxide 20 L (22-30) mmol/L BUN 26 H (7-17) mg/dL Creatinine 1.03 (0.52-1.04) mg/dL Glucose 150 H (74-99) mg/dL Calcium 9.1 (8.4-10.2) mg/dL Adrenal panel 09/27/21 Range/Units 22:38 Sodium 136 L (137-145) mmol/L Potassium 4.1 (3.5-5.1) mmol/L Chloride 108 H (98-107) mmol/L Carbon Dioxide 20 L (22-30) mmol/L BUN 26 H (7-17) mg/dL Creatinine 1.03 (0.52-1.04) mg/dL Glucose 150 H (74-99) mg/dL Calcium 9.1 (8.4-10.2) mg/dL Total Bilirubin 0.3 (0.2-1.3) mg/dL AST 22 (14-36) U/L ALT 13 (4-34) U/L Alkaline Phosphatase 97 (38-126) U/L Total Protein 6.5 (6.3-8.2) g/dL Albumin 3.6 (3.5-5.0) g/dL Assessment and Plan (1) Urinary retention Current Visit: Yes Status: Acute Code(s): R33.9 - RETENTION OF URINE, UNSPECIFIED SNOMED Code(s): 669304159 (2) Gross hematuria Current Visit: Yes Status: Acute Code(s): R31.0 - GROSS HEMATURIA SNOMED Code(s): 972080755 (3) Radiation cystitis Current Visit: Yes Status: Acute Code(s): N30.40 - IRRADIATION CYSTITIS WITHOUT HEMATURIA SNOMED Code(s): 05778754 Plan: The patient was admitted with gross hematuria and urinary retention. A recent urine culture was negative, and the hematuria is likely the result of her known radiation cystitis. I would suggest she be discharged home with the Bell catheter. She reports some bladder discomfort, so I have prescribed Pyridium. She has an appointment to see Dr. Hernández in the office 09/30/2021. Please notify me if I can be of any further assistance. Time with Patient: Greater than 30
[2021-09-28] MEDS ORDERED: POTASSIUM CHLORIDE ER 10 MEQ TAB.ER.PRT PO PRN (11:22)
[2021-09-28] MEDS ORDERED: LACTULOSE 20 GM/30 ML CUP PO PRN (11:22)
[2021-09-28] MEDS ORDERED: IBUPROFEN 600 MG TAB PO PRN (11:22)
[2021-09-28] MEDS ORDERED: ONDANSETRON 4 MG TAB PO PRN (11:22)
[2021-09-28] MEDS ORDERED: lisinopriL 5 MG TAB PO PRN (11:22)
[2021-09-28] MEDS ORDERED: traZODone HCL 50 MG TAB PO PRN (11:22)
[2021-09-28] MEDS ORDERED: BENZONATATE 100 MG CAP PO PRN (11:22)
[2021-09-28] MEDS ORDERED: polyethylene glycoL 3350 17 GM POWD.PACK PO PRN (11:22)
[2021-09-28] MEDS ORDERED: SUCRALFATE 1 GM TAB PO PRN (11:22)
[2021-09-28] MEDS ORDERED: PANTOPRAZOLE 40 MG TABLET PO PRN (11:22)
[2021-09-28] MEDS ORDERED: ACETAMINOPHEN TAB 325 MG TAB PO PRN (11:22)
[2021-09-28] MEDS ORDERED: MAG HYDROX/AL HYDROX/SIMETH 30 ML CUP PO PRN (11:22)
[2021-09-28] MEDS ORDERED: ANASTROZOLE 1 MG TAB PO SCH (11:30)
[2021-09-28] MEDS ORDERED: FUROSEMIDE 20 MG TAB PO SCH (11:30)
[2021-09-28] MEDS ORDERED: FLUTICASONE 50MCG/SPRAY NASAL 16GM EA NOSTRIL SCH (11:30)
[2021-09-28 11:52] LABS: Glucose,Whole Blood 177 mg/dL (75-99)
[2021-09-28] MEDS ORDERED: INSULIN ASPART (NovoLOG) 100 UNIT/ML VIAL SQ SCH (12:30)
--- NOTE | 2021-09-28 14:08 | P.HPIM ---
History of Present Illness H&P Date: 09/28/21 Chief Complaint: Recurrent hematuria This is a history of physical as well as discharge summary. HISTORY OF PRESENT ILLNESS: This is a 76-year-old white female with a previous medical history significant for hypertension and hypertensive cardio vascular disease, hyperlipidemia, diabetes mellitus type 2 with diabetic polyneuropathy, history of paroxysmal atrial fibrillation, coronary artery disease status post PCI and stent placement, history of uterine cancer in the past status post hysterectomy as well as radiation therapy, patient also had suffered from significant constipation and recurrent urinary tract infection associated with micro-and microscopic hematuria, patient has been under the care of from urology and she was recently started on oral antibiotic for a UTI that she has finished, patient initially had a catheter put in and that was since removed patient came to the emergency department [facility] yesterday because of increased abdominal pressure associated with significant hematuria, patient has been struggling with this issue for quite sometimes, she went to [facility] who recommended bladder resection with urostomy placement, and the patient did not want to go for these Procedures and patient ended up coming to the ER for evaluation and she was found to have significant urinary retention up to 750 mL of urine, she had a Bell catheter placed and wishes to retry quite a bit of a bloody urine patient was admitted she was started on IV fluid she was seen in consultation by Dr. Jones who recommended for the patient to be started on Pyridium 200 mg orally 3 times every day, no IV antibiotic needed at this point in time and the patient will be discharged home to follow-up with Dr. Reina and Wednesday she is also will follow-up with me on Wednesday of this coming week. REVIEW OF SYSTEMS: Constitutional: No documented fever, no chills, no night sweats. No weight change. No weakness, fatigue or lethargy. No daytime sleepiness. HEENT: No headache. No blurred vision or double vision, no loss of vision. No loss of Hearing, no ringing in the ears, no dizziness. No nasal drainage or congestion. No epistaxis. No sore throat. Lungs: No shortness of breath, no cough, no sputum production. No wheezing. Reports dyspnea with activity. Cardiovascular: No chest pain, no lower extremity edema. No palpitations. No paroxysmal nocturnal dyspnea. No orthopnea. No lightheadedness or dizziness. No syncopal episodes. Abdominal: Reports abdominal pain. No nausea, vomiting. No diarrhea. No const ipation. No bloody or tarry stools reports loss of appetite. Genitourinary: No dysuria, increased frequency, urgency. No urinary retention. Musculoskeletal: No myalgias. No muscle weakness, no gait dysfunction, no frequent falls. No back pain. No neck pain. Integumentary: No wounds, no lesions. No rash or pruritus. No unusual bruising. No change in hair or nails. Neurologic: No aphasia. No facial droop. No change in mentation. No head injury. No headache. No paralysis. No paresthesia. Psychiatric: No depression. No anxiety. No mood swings. Endocrine: No abnormal blood sugars. No weight change. PAST MEDICAL HISTORY: Hypertension and hypertensive cardiovascular disease. Hyperlipidemia. Diabetes mellitus type 2. Diabetic polyneuropathy. Constipation. Uterine cancer status post hysterectomy with radiation therapy back in 2006 Breast cancer CAD post-PCI. Paroxysmal atrial fibrillation. Hypothyroidism. Fibromyalgia. Spondylosis of the cervical spine and lumbar spine. Osteoarthritis. Pituitary adenoma status post surgery. Depression. Chronic kidney disease stage II. PAST SURGICAL HISTORY: Total hysterectomy secondary to uterine cancer 2006 with radiation therapy. Left lobectomy 2010 Pituitary tumor resection. Cholecystectomy. Appendectomy. Left total hip arthroplasty. Left cataract surgery with lens implant. EGD with esophageal biopsies. Multiple lipoma resections. Hernia repair. Left heart catheterization with stent placement. Anoscopy. SOCIAL HISTORY: Patient is a lifelong nonsmoker, she denies any alcohol ingestion, she ambulates using a walker, she lives with her , she had limited resources. FAMILY HISTORY: Father at age of 61 from massive LA he had a history of COPD/emphysema due to heavy tobacco use, mother at age of 74 from heart failure and had a history of melanoma, patient has 2 sons one of them with asthma, patient has one daughter with kidney disease, patient has one sister with coronary artery disease and rare form of breast cancer, patient has no brothers. PHYSICAL EXAMINATION: General: 76-year-old female laying on the bed in no distress. HEENT: Head is atraumatic, normocephalic, pupils were equal round reactive to light and recommendation, extraocular muscle movement were intact, sclera no nicteric, conjunctivae were pale, mucous membranes of the mouth are somewhat dry. Neck: Supple, no JVP, normal carotid upstroke bilaterally, no lymphadenopathy. Chest: Decreased breath sounds at the bases, few rhonchi, no expiratory wheezes, no chest wall tenderness, no intercostal retractions. Heart: First heart sound is normal, second heart sound is normal there is systolic ejection murmur 2/6 located in the left sternal border. Abdomen: Soft, nondistended, positive bowel sounds, multiple surgical scars, mild tenderness to the suprapubic area. Extremities: There is no edema no calf tenderness DP +2 bilaterally. Neurologic examination: Patient is awake alert and oriented X3 , cranial nerves II-12 appear grossly intact, muscle power were 5 out of 5 in upper extremities and 5 out of 5 in bilateral lower extremities, deep tendon reflexes normal bilaterally. ASSESSMENT AND PLAN: 1. 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 Patient has been under the care of urology for quite some time now patient did suffer from significant multi drug resistant organism urinary tract infection in the past she has been using [id number] Cystex to try to help with the spasm without any relief, patient was seen in consultation by urology he was recommended for the patient to hold Xarelto for the next 48 hours, continue Pyridium 200 mg orally times every day, and follow- up with urology as an outpatient. Hemoglobin at this time appears to be stable, noted for blood procedure. 2. Hypertension and hypertensive cardiovascular disease. Continue lisinopril 5 mg orally twice every day, continue metoprolol 12.5 mg orally twice every day, continue amlodipine 5 minute gram orally twice every day. Monitor the patient blood pressure very closely. 3. Hyperlipidemia. Patient has tried different statins at this point and she could not tolerate it due to the risk of myopathy and significant weakness in both lower extremities, she was able to try Pitavastatin 2 mg orally once every day. 4. Diabetes mellitus type 2 insulin requiring. Continue patient on Levemir 38 units subcutaneously twice every day, continue with a sliding scale insulin, patient also was started on Ozempic 0.5 mg subcutaneously once every week. 5. Paroxysmal atrial fibrillation currently in sinus rhythm. Hold Xarelto for the next 48 hours then resume, continue Rythmol 150 mg orally twice every day, continue metoprolol 12.5 mg orally twice every day. 6. GERD with esophagitis. Continue patient on pantoprazole 40 mg every day, continue Carafate 1 mg orally twice every day. 7. Mild persistent asthma. Continue beside nebulization twice every day. 8. Severe constipation. Patient had tried MiraLAX, lactulose, Senokot, and Metamucil without any relief, we will start the patient on Linzess 290 MCG orally once every day. 9. CAD post-PCI. Continue patient on metoprolol 12.5 mg twice every day, continue patient on isosorbide mononitrate 15 mg orally once every day. 10. History of breast cancer status post lumpectomy. Continue Arimidex 1 mg orally once every day. 11. History of uterine cancer status post hysterectomy along with radiation therapy. Currently in remission. 12. History of pituitary adenoma status post resection. 13. Insomnia. Continue trazodone 50 mg at bedtime. 14. Observation. 15. Medically stable for discharge 16. Follow-up with on Wednesday. 17. Follow-up with me on Wednesday. 18. Stay off Xarelto for 48 hours. 19. Please keep Bell catheter in place. 20. If developed to have a significant abdominal pain with the Elizabeth being clogged return to the ER for irrigation. Past Medical History Past Medical History: Atrial Fibrillation, Asthma, Cancer, Diabetes Mellitus, Eye Disorder, Fibromyalgia, GERD/Reflux, Hyperlipidemia, Hypertension, Memory Impairment, Musculoskeletal Disorder, Osteoarthritis (OA), Renal Disease, Thyroi d Disorder Additional Past Medical History / Comment(s): tinnitus alyssa ears/[place]. uterine cancer-2006 WITH RADIATION. METS TO LT LUNG 2010. glaucoma. Breast Cancer. DIABETIC RETINOPATHY. STAGE 2 KIDNEY DISEASE. CHRONIC LOWER BACK PAIN, ddd. sciatic nerve pain, tinnitus. uti. History of Any Multi-Drug Resistant Organisms: MRSA Date of last positivie culture/infection: 2016 MDRO Source:: R forearm Past Surgical History: Appendectomy, Cholecystectomy, Heart Catheterization, Hernia Repair, Hysterectomy, Joint Replacement, Orthopedic Surgery Additional Past Surgical History / Comment(s): brain surgery for pituary gland tumors, benign growth removed chest. lt lung resection-2010 left eye cataracts removed -lens implants. LT ELIZABETH. ESOPHAGEAL NODULES REMOVED. LIPOMA'S REMOVED. LT VITRECTOMY. MULTIPLE BREAST BIOPSIES. LT ANKLE SX. PLATE & SCREWS TO LT HUMEROUS. BILAT CATARACTS REMOVED. LASER SURGERY ON EYES FOR GLAUCOMA Past Anesthesia/Blood Transfusion Reactions: Motion Sickness, Postoperative Nausea & Vomiting (PONV) Additional Past Anesthesia/Blood Transfusion Reaction / Comment(s): "has never recieved any blood" Past Psychological History: No Psychological Hx Reported Additional Psychological History / Comment(s): Pt resides with her spouse. She ambulates with a rolling/seated walker,bsc, toilet riser,shower chair, ne bulizer. She drives. Her home is handicap accessible. She has [place] on Aging assist with house work and has meals on wheels. . Smoking Status: Never smoker Past Alcohol Use History: None Reported Past Drug Use History: None Reported - Past Family History Father Family Medical History: COPD, Myocardial Infarction (LA) Additional Family Medical History / Comment(s): Father at the age of 63 yrs from a massive LA. He had emphysema and was a smoker. Son(s) History Unknown: Yes Additional Family Medical History / Comment(s): Patient has 2 sons and one has history of asthma. Patient is one daughter with kidney problems. Mother Family Medical History: Cancer Additional Family Medical History / Comment(s): Mother at age 74 from heart failure with history of melanoma. Sister(s) Family Medical History: Cancer Additional Family Medical History / Comment(s): Patient has one sister with history of coronary artery disease and a rare form of breast cancer. Patient does not have any brothers. Medications and Allergies Home Medications Medication Instructions Recorded Confirmed Type Rivaroxaban [Xarelto] 20 mg PO HS 09/13/13 09/28/21 History methazolAMIDE [Neptazane] 25 mg PO DAILY 10/25/13 09/28/21 History Propafenone [Rythmol] 150 mg PO BID 05/16/17 09/28/21 History Montelukast [Singulair] 10 mg PO HS 03/08/18 09/28/21 History ondansetron HCL [Zofran] 4 mg PO TID PRN 03/08/18 09/28/21 History Isosorbide Mononitrate ER [Imdur] 30 mg PO DAILY 12/28/18 09/28/21 History Budesonide [Pulmicort] 0.5 mg INHALATION RT-BID 10/11/20 09/28/21 History Fluticasone Nasal [place] [Flonase 1 spr EA NOSTRIL BID 10/11/20 09/28/21 History Nasal [place]] Potassium Chloride [Klor-Con 10] 10 meq PO DAILY PRN 10/11/20 09/28/21 History Sucralfate [Carafate] 1 gm PO BID PRN 10/11/20 09/28/21 History polyethylene glycoL 3350 [Miralax] 17 gm PO HS 10/11/20 09/28/21 History Albuterol Nebulized [Ventolin 2.5 mg INHALATION RT-QID PRN 09/28/21 09/28/21 History Nebulized] Ascorbic Acid [Vitamin C] 500 mg PO BID 09/28/21 09/28/21 History Betaxolol HCl [Betaxolol HCl 0.5% 1 drop BOTH EYES BID 09/28/21 09/28/21 History Ophth Soln] Brimonidine Tartrate [Alphagan P 1 drop BOTH EYES TID 09/28/21 09/28/21 History 0.15% Ophth Soln] Brinzolamide [Brinzolamide 1% 1 drop BOTH EYES TID 09/28/21 09/28/21 History Ophth Susp] Cholecalciferol [Vitamin D3 (125 125 mcg PO DAILY 09/28/21 09/28/21 History Mcg = 5000 Iu)] Dapagliflozin Propanediol [Farxiga] 10 mg PO DAILY 09/28/21 09/28/21 History Dorzolamide 2% [Trusopt 2%] 1 drop BOTH EYES TID 09/28/21 09/28/21 History Furosemide [Lasix] 40 mg PO DAILY PRN 09/28/21 09/28/21 History Insulin Aspart [NovoLOG Flexpen] See Protocol SQ AC-TID 09/28/21 09/28/21 History Insulin Glargine,Hum.rec.anlog 30 unit SQ BID 09/28/21 09/28/21 History [Lantus Solostar Pen] Lactulose 20 gm PO DAILY 09/28/21 09/28/21 History Latanoprost [Xalatan 0.005%] 1 drop BOTH EYES HS 09/28/21 09/28/21 History Metoprolol Succinate [Toprol XL] 25 mg PO HS 09/28/21 09/28/21 History Mirabegron [Myrbetriq] 25 mg PO DAILY 09/28/21 09/28/21 History Psyllium Husk (with Sugar) 6 gm PO HS 09/28/21 09/28/21 History [Metamucil Powder] lisinopriL [Zestril] 10 mg PO BID PRN 09/28/21 09/28/21 History Allergies Allergy/AdvReac Type Severity Reaction Status Date / Time adhesive Allergy Rash/Hives Verified 09/28/21 13:05 diltiazem HCl [From Cardizem] Allergy Rash/Hives Verified 09/28/21 13:05 hydromorphone [From Dilaudid] Allergy Unknown Verified 09/28/21 13:05 codeine AdvReac Nausea & Verified 09/28/21 13:05 Vomiting diphenhydramine HCl AdvReac dizzy,light Verified 09/28/21 13:05 [From Benadryl] headed,vomi ting Echinacea AdvReac Rapid Verified 09/28/21 13:05 Heart Rate guaifenesin AdvReac Nausea & Verified 09/28/21 13:05 Vomiting lorazepam [From Ativan] AdvReac "out of Verified 09/28/21 13:05 it", drowsy meperidine AdvReac Nausea & Verified 09/28/21 13:05 Vomiting morphine AdvReac Nausea & Verified 09/28/21 13:05 Vomiting opiates AdvReac Nausea & Uncoded 09/04/21 17:43 Vomiting stadol AdvReac Hallucinati Uncoded 09/28/21 13:05 ons Physical Exam Vitals: Vital Signs Temp Pulse Pulse Resp BP BP Pulse Ox 09/28/21 04:38 98.1 F 57 L 18 117/65 97 09/28/21 01:08 97.8 F 60 16 119/68 98 09/28/21 01:00 16 09/28/21 00:23 97.3 F L 67 20 135/66 95 09/27/21 21:59 98.6 F 78 18 196/80 100 Intake and Output 09/27/21 09/28/21 09/28/21 22:59 06:59 14:59 Intake Total 1200 Output Total 200 Balance 1000 Intake: Oral 1200 Output: Urine 200 Uretheral (Bell) 200 Other: Voiding Method Indwelling Catheter Indwelling Catheter Indwelling Catheter Weight 82.554 kg 82.554 kg Results CBC & Chem 7: 09/27/21 22:38 09/27/21 22:38 Labs: Abnormal Lab Results - Last 24 Hours (Table) 09/27/21 09/27/21 09/28/21 Range/Units 22:38 22:38 11:50 Sodium 136 L (137-145) mmol/L Chloride 108 H (98-107) mmol/L Carbon Dioxide 20 L (22-30) mmol/L BUN 26 H (7-17) mg/dL Glucose 150 H (74-99) mg/dL POC Glucose (mg/dL) 177 H (75-99) mg/dL Lipase 14 L (23-300) U/L Urine Appearance Slightly Cloudy H (Clear) Urine RBC >182 H (0-5) /hpf Urine WBC 45 H (0-5) /hpf Urine WBC Clumps Occasional H (None) /hpf Urine Bacteria Rare H (None) /hpf Urine Mucus Rare H (None) /hpf Thrombosis Risk Factor Assmnt - Choose All That Apply Any of the Below Risk Factors Present?: Yes Each Factor Represents 1 point: Obesity (BMI >25), Swollen legs (current) Other Risk Factors: Yes Each Risk Factor Represents 3 Points: Age 75 years or older Other congenital or acquired thrombophilia - If yes, enter type in comment: No Thrombosis Risk Factor Assessment Total Risk Factor Score: 5 Thrombosis Risk Factor Assessment Level: High Risk
[2021-09-28] MEDS ORDERED: RIVAROXABAN 20 MG TAB PO SCH (17:30)
[2021-09-28] MEDS ORDERED: BUDESONIDE 0.5 MG/2 ML NEBU INHALATION SCH (20:00)
[2021-09-28] MEDS ORDERED: METOPROLOL TARTRATE 12.5 MG TAB PO SCH (21:00)
[2021-09-28] MEDS ORDERED: amLODIPine 5 MG TAB PO SCH (21:00)
[2021-09-28] MEDS ORDERED: INSULIN DETEMIR (LEVEMIR) 100 UNIT/ML SYR SQ SCH (21:00)
[2021-09-28] MEDS ORDERED: PROPAFENONE 150 MG TAB PO SCH (21:00)
[2021-09-29] MEDS ORDERED: ISOSORBIDE MONONITRATE ER 30 MG TAB.ER.24H PO SCH (09:00)
== END 2021-09-28 14:53 | disposition home or self-care (01) | DRG 699 ==
LOC: EC 21:44 → 5NMEDONC 23:46
PROVIDERS: ADMIT Internal Medicine; ATTEND Internal Medicine
DX: N30.41 Irradiation cystitis with hematuria (principal); C78.02 Secondary malignant neoplasm of left lung; E11.319 Type 2 diabetes mellitus with unspecified diabetic retinopathy without macular edema; E11.22 Type 2 diabetes mellitus with diabetic chronic kidney disease; E11.42 Type 2 diabetes mellitus with diabetic polyneuropathy; E86.0 Dehydration; G35 Multiple sclerosis; I48.0 Paroxysmal atrial fibrillation; Z79.4 Long term (current) use of insulin; I13.10 Hypertensive heart and chronic kidney disease without heart failure, with stage 1 through stage 4 chronic kidney disease, or unspecified chronic kidney disease; N18.2 Chronic kidney disease, stage 2 (mild); R33.9 Retention of urine, unspecified; E78.5 Hyperlipidemia, unspecified; K21.00 Gastro-esophageal reflux disease with esophagitis, without bleeding; J45.30 Mild persistent asthma, uncomplicated; F32.A Depression, unspecified; I25.10 Atherosclerotic heart disease of native coronary artery without angina pectoris; E03.9 Hypothyroidism, unspecified; K59.00 Constipation, unspecified; H40.9 Unspecified glaucoma; M79.7 Fibromyalgia; H93.13 Tinnitus, bilateral; H91.93 Unspecified hearing loss, bilateral; G89.29 Other chronic pain; M47.812 Spondylosis without myelopathy or radiculopathy, cervical region; M47.816 Spondylosis without myelopathy or radiculopathy, lumbar region; M54.40 Lumbago with sciatica, unspecified side; M19.90 Unspecified osteoarthritis, unspecified site; G47.00 Insomnia, unspecified; E66.9 Obesity, unspecified; Z68.31 Body mass index [BMI] 31.0-31.9, adult; Z79.51 Long term (current) use of inhaled steroids; Z79.01 Long term (current) use of anticoagulants; Z79.811 Long term (current) use of aromatase inhibitors; Z79.84 Long term (current) use of oral hypoglycemic drugs; Z79.899 Other long term (current) drug therapy; Z92.3 Personal history of irradiation; Z87.440 Personal history of urinary (tract) infections; Z90.710 Acquired absence of both cervix and uterus; Z85.3 Personal history of malignant neoplasm of breast; Z85.41 Personal history of malignant neoplasm of cervix uteri; Z85.42 Personal history of malignant neoplasm of other parts of uterus; Z86.14 Personal history of Methicillin resistant Staphylococcus aureus infection; Z90.49 Acquired absence of other specified parts of digestive tract; Z87.19 Personal history of other diseases of the digestive system; Z96.642 Presence of left artificial hip joint; Z86.018 Personal history of other benign neoplasm; Z98.42 Cataract extraction status, left eye; Z98.41 Cataract extraction status, right eye; Z96.1 Presence of intraocular lens; Z95.5 Presence of coronary angioplasty implant and graft; Z98.890 Other specified postprocedural states; Y84.2 Radiological procedure and radiotherapy as the cause of abnormal reaction of the patient, or of later complication, without mention of misadventure at the time of the procedure; Z88.5 Allergy status to narcotic agent; Z88.8 Allergy status to other drugs, medicaments and biological substances; Z91.048 Other nonmedicinal substance allergy status; Z82.5 Family history of asthma and other chronic lower respiratory diseases; Z82.49 Family history of ischemic heart disease and other diseases of the circulatory system; Z81.2 Family history of tobacco abuse and dependence; Z80.3 Family history of malignant neoplasm of breast; Z80.8 Family history of malignant neoplasm of other organs or systems
CPT/HCPCS: 36415; 51702; 80053; 81001; 82150; 83690; 85025; 87086; 96361; 96374; 99285

== ENCOUNTER 2021-10-21 11:17 | Inpatient (IN) | payer MEDICARE ==
[2021-10-21] MEDS ORDERED: ACETAMINOPHEN TAB 500 MG TAB PO STA (11:28)
--- NOTE | 2021-10-21 11:28 | ED ---
General Adult HPI - General Stated complaint: UTI Time Seen by Provider: 10/21/21 11:22 Source: patient, EMS, RN notes reviewed Mode of arrival: EMS Limitations: no limitations - History of Present Illness Initial comments: This a 76-year-old female presents emergency Department via EMS from local office for evaluation of possible urosepsis. Patient was recently in the hospital for urinary tract infection states she is discharged on Macrobid. Patient states she's feeling worse, increasing weakness noted have a fever. Patient states she has a chronic indwelling Bell catheter. denies any increasing cough congestion headache dizziness described mild abdominal disco mfort. Patient denies any diarrhea she has meant to mild constipation no sick contacts. - Related Data Home Medications Medication Instructions Recorded Confirmed Propafenone [Rythmol] 150 mg PO BID 05/16/17 10/21/21 Montelukast [Singulair] 10 mg PO HS 03/08/18 10/21/21 ondansetron HCL [Zofran] 4 mg PO Q8H PRN 03/08/18 10/21/21 Isosorbide Mononitrate ER [Imdur] 30 mg PO DAILY 12/28/18 10/21/21 Fluticasone Nasal [place] [Flonase 1 spr EA NOSTRIL DAILY 10/11/20 10/21/21 Nasal [place]] Sucralfate [Carafate] 1 gm PO BID 10/11/20 10/21/21 Albuterol Nebulized [Ventolin 2.5 mg INHALATION RT-Q6H PRN 09/28/21 10/21/21 Nebulized] Betaxolol HCl [Betaxolol HCl 0.5% 1 drop BOTH EYES BID 09/28/21 10/21/21 Ophth Soln] Brimonidine Tartrate [Alphagan P 1 drop BOTH EYES TID 09/28/21 10/21/21 0.15% Ophth Soln] Brinzolamide [Brinzolamide 1% 1 drop BOTH EYES TID 09/28/21 10/21/21 Ophth Susp] Cholecalciferol [Vitamin D3 (125 125 mcg PO DAILY 09/28/21 10/21/21 Mcg = 5000 Iu)] Dapagliflozin Propanediol [Farxiga] 10 mg PO DAILY 09/28/21 10/21/21 Dorzolamide 2% [Trusopt 2%] 1 drop BOTH EYES TID 09/28/21 10/21/21 Furosemide [Lasix] 40 mg PO DAILY PRN 09/28/21 10/21/21 Insulin Aspart [NovoLOG Flexpen] See Protocol SQ AC-TID 09/28/21 10/21/21 Insulin Glargine,Hum.rec.anlog 20 unit SQ BID 09/28/21 10/21/21 [Lantus Solostar Pen] Latanoprost [Xalatan 0.005%] 1 drop BOTH EYES HS 09/28/21 10/21/21 Metoprolol Succinate [Toprol XL] 25 mg PO HS 09/28/21 10/21/21 Psyllium Husk (with Sugar) 6 gm PO BID PRN 09/28/21 10/21/21 [Metamucil Powder] Levothyroxine Sodium [Synthroid] 125 mcg PO DAILY 10/21/21 10/21/21 Methenamine Hippurate 1 gm PO BID 10/21/21 10/21/21 Nitrofurantoin Monohyd/M-Cryst 100 mg PO Q12HR 10/21/21 10/21/21 [Macrobid] Nystatin 100,000Unit/gm Cream 1 applic TOPICAL BID 10/21/21 10/21/21 [Mycostatin Cream] Omeprazole 20 mg PO DAILY 10/21/21 10/21/21 Sennosides/Docusate Sodium [Senna 2 tab PO HS 10/21/21 10/21/21 Plus 8.6-50 mg Tablet] Zinc 50 mg PO DAILY 10/21/21 10/21/21 lisinopriL [Zestril] 5 mg PO DAILY 10/21/21 10/21/21 methazolAMIDE [Neptazane] 50 mg PO BID 10/21/21 10/21/21 Previous Rx's Medication Instructions Recorded Linaclotide [Linzess] 290 mcg PO DAILY #30 capsule 09/28/21 Rivaroxaban [Xarelto] 20 mg PO HS #0 09/28/21 traZODone HCL [Desyrel] 50 mg PO HS PRN tab 09/28/21 Allergies Allergy/AdvReac Type Severity Reaction Status Date / Time adhesive Allergy Rash/Hives Verified 10/21/21 11:39 diltiazem HCl [From Cardizem] Allergy Rash/Hives Verified 10/21/21 11:39 hydromorphone [From Dilaudid] Allergy Unknown Verified 10/21/21 11:39 codeine AdvReac Nausea & Verified 10/21/21 11:39 Vomiting diphenhydramine HCl AdvReac dizzy,light Verified 10/21/21 11:39 [From Benadryl] headed,vomi ting Echinacea AdvReac Rapid Verified 10/21/21 11:39 Heart Rate guaifenesin AdvReac Nausea & Verified 10/21/21 11:39 Vomiting lorazepam [From Ativan] AdvReac "out of Verified 10/21/21 11:39 it", drowsy meperidine AdvReac Nausea & Verified 10/21/21 11:39 Vomiting morphine AdvReac Nausea & Verified 10/21/21 11:39 Vomiting opiates AdvReac Nausea & Uncoded 09/04/21 17:43 Vomiting stadol AdvReac Hallucinati Uncoded 09/28/21 13:05 ons Review of Systems ROS Statement: Those systems with pertinent positive or pertinent negative responses have been documented in the HPI. ROS Other: All systems not noted in ROS Statement are negative. Past Medical History Past Medical History: Atrial Fibrillation, Asthma, Cancer, Diabetes Mellitus, Eye Disorder, Fibromyalgia, GERD/Reflux, Hyperlipidemia, Hypertension, Memory Impairment, Musculoskeletal Disorder, Osteoarthritis (OA), Renal Disease, Thyroid Disorder Additional Past Medical History / Comment(s): tinnitus [place]a ears/[place]. uterine cancer-2006 WITH RADIATION. METS TO LT LUNG 2010. glaucoma. Breast Cancer. DIABETIC RETINOPATHY. STAGE 2 KIDNEY DISEASE. CHRONIC LOWER BACK PAIN, ddd. sciatic nerve pain, tinnitus. uti. History of Any Multi-Drug Resistant Organisms: MRSA Date of last positivie culture/infection: 2016 MDRO Source:: R forearm Past Surgical History: Appendectomy, Cholecystectomy, Heart Catheterization, Hernia Repair, Hysterectomy, Joint Replacement, Orthopedic Surgery Additional Past Surgical History / Comment(s): brain surgery for pituary gland tumors, benign growth removed chest. lt lung resection-2010 left eye cataracts removed -lens implants. LT ELIZABETH. ESOPHAGEAL NODULES REMOVED. LIPOMA'S REMOVED. LT VITRECTOMY. MULTIPLE BREAST BIOPSIES. LT ANKLE SX. PLATE & SCREWS TO LT HUMEROUS. BILAT CATARACTS REMOVED. LASER SURGERY ON EYES FOR GLAUCOMA Past Anesthesia/Blood Transfusion Reactions: Motion Sickness, Postoperative Nausea & Vomiting (PONV) Additional Past Anesthesia/Blood Transfusion Reaction / Comment(s): "has never recieved any blood" Past Psychological History: No Psychological Hx Reported Additional Psychological History / Comment(s): Pt resides with her spouse. She ambulates with a rolling/seated walker,bsc, toilet riser,shower chair, nebulizer. She drives. Her home is handicap accessible. She has [employer] assist with house work and has meals on wheels. . Smoking Status: Never smoker Past Alcohol Use History: None Reported Past Drug Use History: None Reported - Past Family History Father Family Medical History: COPD, Myocardial Infarction (AR) Additional Family Medical History / Comment(s): Father at the age of 63 yrs from a massive AR. He had emphysema and was a smoker. Son(s) History Unknown: Yes Additional Family Medical History / Comment(s): Patient has 2 sons and one has history of asthma. Patient is one daughter with kidney problems. Mother Family Medical History: Cancer Additional Family Medical History / Comment(s): Mother at age 74 from heart failure with history of melanoma. Sister(s) Family Medical History: Cancer Additional Family Medical History / Comment(s): Patient has one sister with history of coronary artery disease and a rare form of breast cancer. Patient does not have any brothers. General Exam General appearance: alert, in no apparent distress Head exam: Present: atraumatic, normocephalic, normal inspection Eye exam: Present: normal appearance, PERRL, EOMI. Absent: scleral icterus, conjunctival injection, periorbital swelling ENT exam: Present: normal exam, normal oropharynx, mucous membranes moist Neck exam: Present: normal inspection, full ROM. Absent: tenderness, meningismus, lymphadenopathy Respiratory exam: Present: normal lung sounds bilaterally. Absent: respiratory distress, wheezes, rales, rhonchi, stridor Cardiovascular Exam: Present: regular rate, normal rhythm, normal heart sounds. Absent: systolic murmur, diastolic murmur, rubs, gallop, clicks GI/Abdominal exam: Present: soft, tenderness, normal bowel sounds. Absent: distended, guarding, rebound, rigid Back exam: Absent: CVA tenderness (R), CVA tenderness (L) Course Vital Signs 10/21/21 10/21/21 11:26 12:56 Temperature 102.8 F H 99.4 F Pulse Rate 85 71 Respiratory 18 18 Rate Blood Pressure 142/49 114/43 O2 Sat by Pulse 98 97 Oximetry Medical Decision Making - Medical Decision Making Sensation presented for fever. Patient had complete workup including labs x- rays CT, swallows patient has evidence of significant leukocytosis at 22,000, energy urinary tract infection. Patient was placed on cefepime as recommended by PCP with consult to infectious disease - Lab Data Result diagrams: 10/21/21 11:41 10/21/21 11:41 Lab Results 10/21/21 10/21/21 10/21/21 Range/Units 11:41 11:41 11:41 WBC 21.9 H (3.8-10.6) k/uL RBC 3.46 L (3.80-5.40) m/uL Hgb 9.6 L D (11.4-16.0) gm/dL Hct 30.8 L (34.0-46.0) % MCV 88.9 (80.0-100.0) fL MCH 27.8 (25.0-35.0) pg MCHC 31.2 (31.0-37.0) g/dL RDW 15.6 H (11.5-15.5) % Plt Count 356 (150-450) k/uL MPV 8.2 Neutrophils % 88 % Lymphocytes % 6 % Monocytes % 5 % Eosinophils % 0 % Basophils % 0 % Neutrophils # 19.2 H (1.3-7.7) k/uL Lymphocytes # 1.2 (1.0-4.8) k/uL Monocytes # 1.2 H (0-1.0) k/uL Eosinophils # 0.1 (0-0.7) k/uL Basophils # 0.0 (0-0.2) k/uL Hypochromasia Moderate Sodium 125 L (137-145) mmol/L Potassium 4.5 (3.5-5.1) mmol/L Chloride 97 L (98-107) mmol/L Carbon Dioxide 22 (22-30) mmol/L Anion Gap 6 mmol/L BUN 16 (7-17) mg/dL Creatinine 0.70 (0.52-1.04) mg/dL Est GFR (CKD-EPI)AfAm >90 (>60 ml/min/1.73 sqM) Est GFR (CKD-EPI)NonAf 84 (>60 ml/min/1.73 sqM) Glucose 166 H (74-99) mg/dL Plasma Lactic Acid Eh (0.7-2.0) mmol/L Calcium 7.8 L (8.4-10.2) mg/dL Total Bilirubin 0.5 (0.2-1.3) mg/dL AST 20 (14-36) U/L ALT 13 (4-34) U/L Alkaline Phosphatase 118 (38-126) U/L Total Protein 5.6 L (6.3-8.2) g/dL Albumin 2.7 L (3.5-5.0) g/dL Urine Color Yellow Urine Appearance Cloudy H (Clear) Urine pH 6.5 (5.0-8.0) Ur Specific [place] 1.024 (1.001-1.035) Urine Protein Trace H (Negative) Urine Glucose (UA) 4+ H (Negative) Urine Ketones 1+ H (Negative) Urine Blood Trace H (Negative) Urine Nitrite Negative (Negative) Urine Bilirubin Negative (Negative) Urine Urobilinogen 2.0 (<2.0) mg/dL Ur Leukocyte Esterase Large H (Negative) Urine RBC 9 H (0-5) /hpf Urine WBC 113 H (0-5) /hpf Urine WBC Clumps Few H (None) /hpf Urine Bacteria Rare H (None) /hpf Urine Mucus Rare H (None) /hpf Coronavirus (PCR) (Not Detectd) Influenza Type A RNA (Not Detectd) Influenza Type B (PCR) (Not Detectd) 10/21/21 10/21/21 10/21/21 Range/Units 11:41 11:41 11:41 WBC (3.8-10.6) k/uL RBC (3.80-5.40) m/uL Hgb (11.4-16.0) gm/dL Hct (34.0-46.0) % MCV (80.0-100.0) fL MCH (25.0-35.0) pg MCHC (31.0-37.0) g/dL RDW (11.5-15.5) % Plt Count (150-450) k/uL MPV Neutrophils % % Lymphocytes % % Monocytes % % Eosinophils % % Basophils % % Neutrophils # (1.3-7.7) k/uL Lymphocytes # (1.0-4.8) k/uL Monocytes # (0-1.0) k/uL Eosinophils # (0-0.7) k/uL Basophils # (0-0.2) k/uL Hypochromasia Sodium (137-145) mmol/L Potassium (3.5-5.1) mmol/L Chloride (98-107) mmol/L Carbon Dioxide (22-30) mmol/L Anion Gap mmol/L BUN (7-17) mg/dL Creatinine (0.52-1.04) mg/dL Est GFR (CKD-EPI)AfAm (>60 ml/min/1.73 sqM) Est GFR (CKD-EPI)NonAf (>60 ml/min/1.73 sqM) Glucose (74-99) mg/dL Plasma Lactic Acid Eh 0.9 (0.7-2.0) mmol/L Calcium (8.4-10.2) mg/dL Total Bilirubin (0.2-1.3) mg/dL AST (14-36) U/L ALT (4-34) U/L Alkaline Phosphatase (38-126) U/L Total Protein (6.3-8.2) g/dL Albumin (3.5-5.0) g/dL Urine Color Urine Appearance (Clear) Urine pH (5.0-8.0) Ur Specific [place] (1.001-1.035) Urine Protein (Negative) Urine Glucose (UA) (Negative) Urine Ketones (Negative) Urine Blood (Negative) Urine Nitrite (Negative) Urine Bilirubin (Negative) Urine Urobilinogen (<2.0) mg/dL Ur Leukocyte Esterase (Negative) Urine RBC (0-5) /hpf Urine WBC (0-5) /hpf Urine WBC Clumps (None) /hpf Urine Bacteria (None) /hpf Urine Mucus (None) /hpf Coronavirus (PCR) Not Detected (Not Detectd) Influenza Type A RNA Not Detected (Not Detectd) Influenza Type B (PCR) Not Detected (Not Detectd) Disposition Clinical Impression: UTI (urinary tract infection), Sepsis Disposition: ADMITTED IP TO THIS HOSP Condition: Fair Referrals: Rush Corrigan MD [Primary Care Provider] - 1-2 days Time of Disposition: 14:16
[2021-10-21] MEDS ORDERED: IBUPROFEN 600 MG TAB PO STA (11:29)
[2021-10-21] MEDS ORDERED: SODIUM CHLORIDE 0.9% 500 ML 500 ML IV ONE (12:00)
[2021-10-21 12:15] LABS: Appearance,Urine Cloudy (Clear); Bacteria,Urine Rare /hpf; Bilirubin,Urine Negative (Negative); Blood,Urine Trace (Negative); Color,Urine Yellow; Glucose,Urine (UA) 4+ (Negative); Ketones,Urine 1+ (Negative); Leukocyte Esterase,Urine Large (Negative); Mucus,Urine Rare /hpf; Nitrite,Urine Negative (Negative); PH, Urine 6.5 (5.0-8.0); Protein,Urine Trace (Negative); RBC,Urine 9 /hpf (0-5); Specific Gravity,Urine 1.024 (1.001-1.035); WBC,Urine 113 /hpf (0-5)
[2021-10-21 12:16] LABS: Basophils % (A) 0 %; Eosinophils # (A) 0.1 k/uL (0-0.7); Eosinophils % (A) 0 %; HCT 30.8 % (34.0-46.0); Hypochromasia Moderate; Lymphocytes # (A) 1.2 k/uL (1.0-4.8); Lymphocytes % (A) 6 %; MCH 27.8 pg (25.0-35.0); MCHC 31.2 g/dL (31.0-37.0); MCV 88.9 fL (80.0-100.0); Mean Platelet Volume 8.2; Monocytes # (A) 1.2 k/uL (0-1.0); Monocytes % (A) 5 %; Neutrophils # (A) 19.2 k/uL (1.3-7.7); Neutrophils % (A) 88 %; Platelet Count 356 k/uL (150-450); RBC 3.46 m/uL (3.80-5.40); RDW 15.6 % (11.5-15.5); WBC 21.9 k/uL (3.8-10.6)
[2021-10-21 12:19] LABS: HGB 9.6 gm/dL (11.4-16.0)
[2021-10-21 12:36] LABS: ALT 13 U/L (4-34); AST 20 U/L (14-36); African American GFR (CKD) >90 (>60 ml/min/1.73 sqM); Albumin 2.7 g/dL (3.5-5.0); Alkaline Phosphatase 118 U/L (38-126); Anion Gap 6 mmol/L; Blood Urea Nitrogen 16 mg/dL (7-17); Calcium 7.8 mg/dL (8.4-10.2); Carbon Dioxide 22 mmol/L (22-30); Chloride 97 mmol/L (98-107); Glucose 166 mg/dL (74-99); Non-African American GFR(CKD) 84 (>60 ml/min/1.73 sqM); Potassium 4.5 mmol/L (3.5-5.1); Sodium 125 mmol/L (137-145); Total Bilirubin 0.5 mg/dL (0.2-1.3); Total Protein 5.6 g/dL (6.3-8.2)
--- NOTE | 2021-10-21 13:53 | XR ---
EXAMINATION TYPE: XR chest 2V DATE OF EXAM: 10/21/2021 COMPARISON: Chest x-ray 12/28/2018, 07/05/2019 HISTORY: Fever, weakness TECHNIQUE: Frontal and lateral views of the chest are obtained. FINDINGS: Technique is somewhat apical lordotic and rotated. There is no focal air space opacity, ple ural effusion, or pneumothorax seen. The cardiac silhouette size is stable. The osseous structures are stable, postop change noted to the proximal left humerus, arthropathy is present in the left shou lder, chromic clavicular joint bilaterally shows arthropathy, there is a distal acromial spur on the left. There is eventration right hemidiaphragm as on prior. Coronary artery calcification suspected. IMPRESSION: No acute cardiopulmonary process.
--- NOTE | 2021-10-21 13:56 | CT ---
EXAMINATION TYPE: CT abdomen pelvis wo con DATE OF EXAM: 10/21/2021 COMPARISON: CT dated 08/08/2021 HISTORY: Fever, Pain CT DLP: 837.3 mGycm Automated exposure control for dose reduction was used. TECHNIQUE: Helical acquisition of images was performed from the lung bases through the pelvis. FINDINGS: LUNG BASES: Newly seen focal lung herniation between the axillary portions of the left eighth and jamar th ribs. Bilateral basal pulmonary atelectasis and mild fibrotic changes more on the left side, appre ciated previously. Left pleural-based tiny calcification is noted. LIVER/GB: Previous cholecystectomy. No definite hepatic focal lesion. PANCREAS: Markedly atrophic. SPLEEN: No significant abnormality is seen. ADRENALS: Stable left adrenal nodule measuring 2.3 cm. Unremarkable right adrenal. KIDNEYS: No significant abnormality is seen. FREE AIR: No free air is visualized RETROPERITONEAL ADENOPATHY: None visualized REPRODUCTIVE ORGANS: Previous hysterectomy. No gross adnexal mass. URINARY BLADDER: Obscured by artifacts with Bell catheter within. PELVIC ADENOPATHY: No pathologically enlarged pelvic lymph nodes OSSEOUS STRUCTURES: Left hip total arthroplasty. Osteopenia. BOWEL: Scattered uncomplicated chronic diverticulosis with fecal loading of the colon. Scattered seg ments of mild nonspecific colonic wall thickening. OTHER: Scattered arterial atherosclerotic calcifications. Small amount of presacral fluid. Suspected pelvic adhesions. Anterior abdominal wall surgical clips likely related to previous hernia repair. IMPRESSION: Suboptimal assessment of the urinary bladder due to artifacts from hip prosthesis. Cystitis or urinar y tract infection cannot be excluded by this CT scan. Interval changes and incidental findings as kasia cribed above.
[2021-10-21] MEDS ORDERED: NALOXONE 0.4 MG/ML 1 ML VIAL IV PRN (14:17)
[2021-10-21 14:27] LABS: Glucose,Whole Blood 131 mg/dL (70-110)
[2021-10-21] MEDS: CEFEPIME 2 GM in SODIUM CHLORIDE 0.9% 100 ML IVPB SCH (16:40)
[2021-10-21] MEDS ORDERED: BRINZOLAMIDE BOTH EYES SCH (22:45)
[2021-10-21] MEDS ORDERED: DORZOLAMIDE HCL 2% DROPS 10 ML BTL BOTH EYES SCH (22:45)
[2021-10-21] MEDS ORDERED: BETAXOLOL HCL BOTH EYES SCH (22:45)
[2021-10-21] MEDS ORDERED: NON FORMULARY DRUG (Brimonidine Tartrate 15 DROPS/ML Ml) BOTH EYES SCH (22:45)
[2021-10-21 22:56] LABS: Glucose,Whole Blood 233 mg/dL (70-110)
--- NOTE | 2021-10-21 23:01 | P.CONS ---
History of Present Illness - Reason for Consult Consult date: 10/21/21 Recurrent urinary tract infection Requesting physician: Reynaldo Canales - Chief Complaint Fever and not feeling well x few days - History of Present Illness Patient is a 76-year-old female who was recently admitted at [facility] with sepsis secondary to catheter associated UTI urine culture did grew drug-resistant E. coli and the patient was started on cefepime however the next day the patient was insisting on going home and the patient was subsequently discharged patient mentions since she went home she has not been feeling better and has been running a fever complaining of some headache but no nausea no vomiting no chest pain or shortness of breath or cough has been complaining of pain to the lower abdominal area more of a dull aching 4 to 5-10 no radiation has complaining of some constipation and no diarrhea patient did have a chronic indwelling Bell catheter that was last changed at [facility] patient on presentation to this hospital did have a fever of 102.8 F patient is currently 99% on room air, and no need for supplemental oxygen patient did have white count 21.9 with a left shift kidney function has been normal her urine has been positive coronary influenza PCR was negative patient did have a chest x-ray no active cardiopulmonary disease CT abdominal pelvis scattered uncomplicated diverticuli with fecal loading of the colon no definite colitis patient was started on cefepime has been admitted to the [facility]al infectious disease was consulted for further management Review of Systems Positive point has been mentioned in the HPI rest of the systems are negative Past Medical History Past Medical History: Atrial Fibrillation, Asthma, Cancer, Diabetes Mellitus, Eye Disorder, Fibromyalgia, GERD/Reflux, Hyperlipidemia, Hypertension, Memory Impairment, Musculoskeletal Disorder, Osteoarthritis (OA), Renal Disease, Thyroid Disorder Additional Past Medical History / Comment(s): tinnitus alyssa ears/alt[place]. uterine cancer-2006 WITH RADIATION. METS TO LT LUNG 2010. glaucoma. Breast Cancer. DIABETIC RETINOPATHY. STAGE 2 KIDNEY DISEASE. CHRONIC LOWER BACK PAIN, ddd. sciatic nerve pain, tinnitus. uti. History of Any Multi-Drug Resistant Organisms: MRSA Year Discovered:: 2017 MDRO Source:: R forearm Past Surgical History: Appendectomy, Cholecystectomy, Heart Catheterization, Hernia Repair, Hysterectomy, Joint Replacement, Orthopedic Surgery Additional Past Surgical History / Comment(s): brain surgery for pituary gland tumors, benign growth removed chest. lt lung resection-2010 left eye cataracts removed -lens implants. LT ELIZABETH. ESOPHAGEAL NODULES REMOVED. LIPOMA'S REMOVED. LT VITRECTOMY. MULTIPLE BREAST BIOPSIES. LT ANKLE SX. PLATE & SCREWS TO LT HUMEROUS. BILAT CATARACTS REMOVED. LASER SURGERY ON EYES FOR GLAUCOMA Past Anesthesia/Blood Transfusion Reactions: Motion Sickness, Postoperative Nausea & Vomiting (PONV) Additional Past Anesthesia/Blood Transfusion Reaction / Comm: "has never recieved any blood" Past Psychological History: No Psychological Hx Reported Additional Psychological History / Comment(s): Pt resides with her spouse. She ambulates with a rolling/seated walker,bsc, toilet riser,shower chair, nebulizer. She drives. Her home is handicap accessible. She has [place] on Aging assist with house work and has meals on wheels. . Smoking Status: Never smoker Past Alcohol Use History: None Reported Past Drug Use History: None Reported - Past Family History Father Family Medical History: COPD, Myocardial Infarction (IA) Additional Family Medical History / Comment(s): Father at the age of 63 yrs from a massive IA. He had emphysema and was a smoker. Son(s) History Unknown: Yes Additional Family Medical History / Comment(s): Patient has 2 sons and one has history of asthma. Patient is one daughter with kidney problems. Mother Family Medical History: Cancer Additional Family Medical History / Comment(s): Mother at age 74 from heart failure with history of melanoma. Sister(s) Family Medical History: Cancer Additional Family Medical History / Comment(s): Patient has one sister with history of coronary artery disease and a rare form of breast cancer. Patient does not have any brothers. Medications and Allergies Home Medications Medication Instructions Recorded Confirmed Type Propafenone [Rythmol] 150 mg PO BID 05/16/17 10/21/21 History Montelukast [Singulair] 10 mg PO HS 03/08/18 10/21/21 History ondansetron HCL [Zofran] 4 mg PO Q8H PRN 03/08/18 10/21/21 History Isosorbide Mononitrate ER [Imdur] 30 mg PO DAILY 12/28/18 10/21/21 History Fluticasone Nasal [place] [Flonase 1 spr EA NOSTRIL DAILY 10/11/20 10/21/21 History Nasal [place]] Sucralfate [Carafate] 1 gm PO BID 10/11/20 10/21/21 History Albuterol Nebulized [Ventolin 2.5 mg INHALATION RT-Q6H PRN 09/28/21 10/21/21 History Nebulized] Betaxolol HCl [Betaxolol HCl 0.5% 1 drop BOTH EYES BID 09/28/21 10/21/21 History Ophth Soln] Brimonidine Tartrate [Alphagan P 1 drop BOTH EYES TID 09/28/21 10/21/21 History 0.15% Ophth Soln] Brinzolamide [Brinzolamide 1% 1 drop BOTH EYES TID 09/28/21 10/21/21 History Ophth Susp] Cholecalciferol [Vitamin D3 (125 125 mcg PO DAILY 09/28/21 10/21/21 History Mcg = 5000 Iu)] Dapagliflozin Propanediol [Farxiga] 10 mg PO DAILY 09/28/21 10/21/21 History Dorzolamide 2% [Trusopt 2%] 1 drop BOTH EYES TID 09/28/21 10/21/21 History Furosemide [Lasix] 40 mg PO DAILY PRN 09/28/21 10/21/21 History Insulin Aspart [NovoLOG Flexpen] See Protocol SQ AC-TID 09/28/21 10/21/21 History Insulin Glargine,Hum.rec.anlog 20 unit SQ BID 09/28/21 10/21/21 History [Lantus Solostar Pen] Latanoprost [Xalatan 0.005%] 1 drop BOTH EYES HS 09/28/21 10/21/21 History Linaclotide [Linzess] 290 mcg PO DAILY #30 capsule 09/28/21 10/21/21 Rx Metoprolol Succinate [Toprol XL] 25 mg PO HS 09/28/21 10/21/21 History Psyllium Husk (with Sugar) 6 gm PO BID PRN 09/28/21 10/21/21 History [Metamucil Powder] Rivaroxaban [Xarelto] 20 mg PO HS #0 09/28/21 10/21/21 Rx traZODone HCL [Desyrel] 50 mg PO HS PRN tab 09/28/21 10/21/21 Rx Levothyroxine Sodium [Synthroid] 125 mcg PO DAILY 10/21/21 10/21/21 History Methenamine Hippurate 1 gm PO BID 10/21/21 10/21/21 History Nitrofurantoin Monohyd/M-Cryst 100 mg PO Q12HR 10/21/21 10/21/21 History [Macrobid] Nystatin 100,000Unit/gm Cream 1 applic TOPICAL BID 10/21/21 10/21/21 History [Mycostatin Cream] Omeprazole 20 mg PO DAILY 10/21/21 10/21/21 History Sennosides/Docusate Sodium [Senna 2 tab PO HS 10/21/21 10/21/21 History Plus 8.6-50 mg Tablet] Zinc 50 mg PO DAILY 10/21/21 10/21/21 History lisinopriL [Zestril] 5 mg PO DAILY 10/21/21 10/21/21 History methazolAMIDE [Neptazane] 50 mg PO BID 10/21/21 10/21/21 History Allergies Allergy/AdvReac Type Severity Reaction Status Date / Time adhesive Allergy Rash/Hives Verified 10/21/21 11:39 diltiazem HCl [From Cardizem] Allergy Rash/Hives Verified 10/21/21 11:39 hydromorphone [From Dilaudid] Allergy Unknown Verified 10/21/21 11:39 codeine AdvReac Nausea & Verified 10/21/21 11:39 Vomiting diphenhydramine HCl AdvReac dizzy,light Verified 10/21/21 11:39 [From Benadryl] headed,vomi ting Echinacea AdvReac Rapid Verified 10/21/21 11:39 Heart Rate guaifenesin AdvReac Nausea & Verified 10/21/21 11:39 Vomiting lorazepam [From Ativan] AdvReac "out of Verified 10/21/21 11:39 it", drowsy meperidine AdvReac Nausea & Verified 10/21/21 11:39 Vomiting morphine AdvReac Nausea & Verified 10/21/21 11:39 Vomiting opiates AdvReac Nausea & Uncoded 09/04/21 17:43 Vomiting stadol AdvReac Hallucinati Uncoded 09/28/21 13:05 ons Physical Exam Vitals: Vital Signs Temp Pulse Resp BP Pulse Ox 10/21/21 16:44 98.1 F 65 18 106/52 99 10/21/21 15:00 65 18 124/49 99 10/21/21 14:00 65 18 111/48 99 10/21/21 12:56 99.4 F 71 18 114/43 97 10/21/21 11:26 102.8 F H 85 18 142/49 98 Intake and Output 10/21/21 10/21/21 10/21/21 06:59 14:59 22:59 Output Total 800 Balance -800 Output: Urine 800 Other: Weight 82.554 kg GENERAL DESCRIPTION: Elderly female lying in bed, no distress. No tachypnea or accessory muscle of respiration use. HEENT: Shows Pallor , no scleral icterus. Oral mucous membrane is dry. No pharyngeal erythema or thrush NECK: Trachea central, no thyromegaly. LUNGS: Unlabored breathing. Clear to auscultation anteriorly. No wheeze or crackle. HEART: S1, S2, regular rate and rhythm. No loud murmur ABDOMEN: Soft, mild lower abdominal distention and tenderness EXTREMITIES: No edema of feet. SKIN: No rash, no masses palpable. NEUROLOGICAL: The patient is awake, alert, oriented x3, mood and affect normal. Results CBC & Chem 7: 10/21/21 11:41 10/21/21 11:41 Labs: Abnormal Lab Results - Last 24 Hours (Table) 10/21/21 10/21/21 10/21/21 Range/Units 11:41 11:41 11:41 WBC 21.9 H (3.8-10.6) k/uL RBC 3.46 L (3.80-5.40) m/uL Hgb 9.6 L D (11.4-16.0) gm/dL Hct 30.8 L (34.0-46.0) % RDW 15.6 H (11.5-15.5) % Neutrophils # 19.2 H (1.3-7.7) k/uL Monocytes # 1.2 H (0-1.0) k/uL Sodium 125 L (137-145) mmol/L Chloride 97 L (98-107) mmol/L Glucose 166 H (74-99) mg/dL POC Glucose (mg/dL) (70-110) mg/dL Calcium 7.8 L (8.4-10.2) mg/dL Total Protein 5.6 L (6.3-8.2) g/dL Albumin 2.7 L (3.5-5.0) g/dL Urine Appearance Cloudy H (Clear) Urine Protein Trace H (Negative) Urine Glucose (UA) 4+ H (Negative) Urine Ketones 1+ H (Negative) Urine Blood Trace H (Negative) Ur Leukocyte Esterase Large H (Negative) Urine RBC 9 H (0-5) /hpf Urine WBC 113 H (0-5) /hpf Urine WBC Clumps Few H (None) /hpf Urine Bacteria Rare H (None) /hpf Urine Mucus Rare H (None) /hpf 10/21/21 Range/Units 14:26 WBC (3.8-10.6) k/uL RBC (3.80-5.40) m/uL Hgb (11.4-16.0) gm/dL Hct (34.0-46.0) % RDW (11.5-15.5) % Neutrophils # (1.3-7.7) k/uL Monocytes # (0-1.0) k/uL Sodium (137-145) mmol/L Chloride (98-107) mmol/L Glucose (74-99) mg/dL POC Glucose (mg/dL) 131 H (70-110) mg/dL Calcium (8.4-10.2) mg/dL Total Protein (6.3-8.2) g/dL Albumin (3.5-5.0) g/dL Urine Appearance (Clear) Urine Protein (Negative) Urine Glucose (UA) (Negative) Urine Ketones (Negative) Urine Blood (Negative) Ur Leukocyte Esterase (Negative) Urine RBC (0-5) /hpf Urine WBC (0-5) /hpf Urine WBC Clumps (None) /hpf Urine Bacteria (None) /hpf Urine Mucus (None) /hpf Microbiology - Last 24 Hours (Table) 10/21/21 11:41 Urine Culture - Preliminary Urine,Catheterized Assessment and Plan (1) Sepsis Current Visit: Yes Status: Acute Code(s): A41.9 - SEPSIS, UNSPECIFIED ORGANISM SNOMED Code(s): 56794140 (2) UTI (urinary tract infection) Current Visit: Yes Status: Acute Code(s): N39.0 - URINARY TRACT INFECTION, SITE NOT SPECIFIED SNOMED Code(s): 26017821 Plan: 1patient presented to hospital with sepsis and this will have fever elevated white count has been complaining of some lower abdominal pain however CT abdominal pelvis did not show any colitis and there was component of constipation and stool burden patient did have a positive UA and likely concern for catheter associated UTI. 2patient to continue cefepime 2 g every 8 hours on the basis of sensitivity at the [facility] while waiting for the culture to finalize here. 3gentle IV fluid. We will follow on clinical condition and cultures to further adjust medication if needed Thank you for this consultation will follow this patient along with you Time with Patient: Greater than 30
[2021-10-21] MEDS: ACETAMINOPHEN TAB 325 MG TAB PO PRN (23:12)
[2021-10-21] MEDS: METOPROLOL SUCCINATE (ER) 25 MG TAB.ER.24H PO SCH (23:12)
[2021-10-21] MEDS: traZODone HCL 50 MG TAB PO PRN (23:13)
[2021-10-21] MEDS: RIVAROXABAN 20 MG TAB PO SCH (23:14)
[2021-10-21] MEDS: MONTELUKAST 10 MG TAB PO SCH (23:14)
[2021-10-21] MEDS: SENNOSIDES-DOCUSATE SODIUM 1 EACH TAB PO SCH (23:18)
[2021-10-21] MEDS: PROPAFENONE 150 MG TAB PO SCH (23:46)
[2021-10-21] MEDS: INSULIN DETEMIR (LEVEMIR) 100 UNIT/ML SYR SQ SCH (23:47)
[2021-10-22] MEDS: LATANOPROST 0.005% OPHTH DROPS 2.5 ML BTL BOTH EYES SCH ×2 (02:01→20:58)
[2021-10-22] MEDS: SUCRALFATE 1 GM TAB PO SCH ×3 (02:02→20:47)
[2021-10-22] MEDS: CEFEPIME 2 GM in SODIUM CHLORIDE 0.9% 100 ML IVPB SCH ×3 (02:12→17:16)
[2021-10-22] MEDS: IBUPROFEN 400 MG TAB PO PRN ×2 (02:17→12:54)
[2021-10-22] MEDS: ACETAMINOPHEN TAB 325 MG TAB PO PRN ×3 (05:09→21:36)
[2021-10-22] MEDS: CHOLECALCIFEROL 125 MCG (5000 IU) TABLET PO SCH ×3 (05:37→08:25)
[2021-10-22] MEDS: ZINC SULFATE 220 MG CAP PO SCH ×2 (05:37→08:25)
[2021-10-22 07:16] LABS: Glucose,Whole Blood 138 mg/dL (70-110)
[2021-10-22] MEDS: LEVOTHYROXINE 125 MCG TAB PO SCH (07:58)
[2021-10-22] MEDS: ISOSORBIDE MONONITRATE ER 30 MG TAB.ER.24H PO SCH (08:03)
[2021-10-22] MEDS: lisinopriL 5 MG TAB PO SCH (08:04)
[2021-10-22] MEDS: PANTOPRAZOLE 40 MG TABLET PO SCH (08:25)
[2021-10-22] MEDS: NYSTATIN 100,000UNIT/GM CREAM 30 GM TUBE TOPICAL SCH ×2 (08:25→21:06)
[2021-10-22] MEDS: DORZOLAMIDE HCL 2% DROPS 10 ML BTL BOTH EYES SCH ×3 (08:26→20:56)
[2021-10-22] MEDS: BRIMONIDINE TARTRATE 0.2% DROPS 5 ML BTL BOTH EYES SCH ×3 (08:26→20:56)
[2021-10-22] MEDS: FLUTICASONE 50MCG/SPRAY NASAL 16GM EA NOSTRIL SCH (08:27)
[2021-10-22] MEDS: NON FORMULARY DRUG (Methenamine Hippurate [Methenamine Hippurate] 1 GM Tablet) PO SCH ×2 (08:32→23:18)
[2021-10-22] MEDS: NON FORMULARY DRUG (Dapagliflozin Propanediol [Farxiga] 10 MG Tablet) PO SCH (08:32)
[2021-10-22] MEDS: TIMOLOL 0.5% OPHTH DROPS 5 ML BTL BOTH EYES SCH ×2 (08:33→21:23)
[2021-10-22] MEDS ORDERED: PSYLLIUM HUSK 100% 6 GM PACKET PO PRN (09:00)
[2021-10-22] MEDS ORDERED: FUROSEMIDE 40 MG TAB PO PRN (09:00)
[2021-10-22 10:40] LABS: Glucose,Whole Blood 112 mg/dL (70-110)
[2021-10-22] MEDS: INSULIN DETEMIR (LEVEMIR) 100 UNIT/ML SYR SQ SCH (11:00)
[2021-10-22] MEDS: PROPAFENONE 150 MG TAB PO SCH ×2 (11:00→21:23)
[2021-10-22 12:09] LABS: Glucose,Whole Blood 109 mg/dL (70-110)
[2021-10-22 14:46] LABS: HCT 27.9 % (34.0-46.0); HGB 8.6 gm/dL (11.4-16.0); Hypochromasia Marked; MCH 27.7 pg (25.0-35.0); MCV 89.5 fL (80.0-100.0); Mean Platelet Volume 8.8; Platelet Count 303 k/uL (150-450); RBC 3.12 m/uL (3.80-5.40); RDW 15.4 % (11.5-15.5); WBC 27.9 k/uL (3.8-10.6)
[2021-10-22 14:59] LABS: ALT 13 U/L (4-34); AST 20 U/L (14-36); African American GFR (CKD) 83 (>60 ml/min/1.73 sqM); Albumin 2.2 g/dL (3.5-5.0); Albumin/Globulin Ratio 0.8; Alkaline Phosphatase 97 U/L (38-126); Anion Gap 5 mmol/L; Blood Urea Nitrogen 17 mg/dL (7-17); Calcium 7.6 mg/dL (8.4-10.2); Carbon Dioxide 18 mmol/L (22-30); Chloride 102 mmol/L (98-107); Globulin 2.6 g/dL; Glucose 78 mg/dL (74-99); Non-African American GFR(CKD) 72 (>60 ml/min/1.73 sqM); Sodium 125 mmol/L (137-145); Total Bilirubin 0.4 mg/dL (0.2-1.3); Total Protein 4.8 g/dL (6.3-8.2)
[2021-10-22 15:43] LABS: Band Neutrophils % 1 %; Monocytes # (M) 2.23 k/uL (0-1.0); Neutrophils % (M) 86 %; Nucleated Red Blood Cells 0 /100 WBC (0-0); Total Cells Counted 100
--- NOTE | 2021-10-22 16:06 | P.HPIM ---
History of Present Illness H&P Date: 10/22/21 Chief Complaint: UTI with sepsis HISTORY OF PRESENT ILLNESS: This is a 76-year-old white female with a previous medical history significant for hypertension and hypertensive cardiovascular disease, hyperlipidemia, diabetes mellitus type 2 with diabetic polyneuropathy, history of paroxysmal atrial fibrillation, coronary artery disease status post PCI and stent placement, history of uterine cancer in the past status post hysterectomy as well as radiation therapy, patient also had suffered from significant constipation and recurrent urinary tract infection associated with macro-and microscopic hematuria, patient has been under the care of from urology, she was recently discharged form [facility] after she was admitted for E.Coli UTI that was sensitive to Cefepime and had IV treatment that was switched to oral Macrobid 100 mg po bid for 1 week and she went home last Wednesday, then she developed to have fever and chills and was seen in off ice yesterday for what appears to be a UTI with sepsis, she was sent to [facility] and had CT scan of the abdomen and pelvis that was negative and she was started ON IV Antibiotics in the form of Cefepime 2 gr IVPB Q 8 hours and sent urine and blood cultures and was admitted to the hospital with ID consult. REVIEW OF SYSTEMS: Constitutional: No documented fever, no chills, no night sweats. No weight change. No weakness, fatigue or lethargy. No daytime sleepiness. HEENT: No headache. No blurred vision or double vision, no loss of vision. No loss of Hearing, no ringing in the ears, no dizziness. No nasal drainage or congestion. No epistaxis. No sore throat. Lungs: No shortness of breath, no cough, no sputum production. No wheezing. Reports dyspnea with activity. Cardiovascular: No chest pain, no lower extremity edema. No palpitations. No paroxysmal nocturnal dyspnea. No orthopnea. No lightheadedness or dizziness. No syncopal episodes. Abdominal: Reports abdominal pain. No nausea, vomiting. No diarrhea. No constipation. No bloody or tarry stools reports loss of appetite. Genitourinary: positive for dysuria, increased frequency, urgency. positive for urinary retention. Musculoskeletal: No myalgias. No muscle weakness, no gait dysfunction, no frequent falls. No back pain. No neck pain. Integumentary: No wounds, no lesions. No rash or pruritus. No unusual bruising. No change in hair or nails. Neurologic: No aphasia. No facial droop. No change in mentation. No head injury. No headache. No paralysis. No paresthesia. Psychiatric: No depression. No anxiety. No mood swings. Endocrine: No abnormal blood sugars. No weight change. PAST MEDICAL HISTORY: Hypertension and hypertensive cardiovascular disease. Hyperlipidemia. Diabetes mellitus type 2. Diabetic polyneuropathy. Constipation. Uterine cancer status post hysterectomy with radiation therapy back in 2006 Breast cancer CAD post-PCI. Paroxysmal atrial fibrillation. Hypothyroidism. Fibromyalgia. Spondylosis of the cervical spine and lumbar spine. Osteoarthritis. Pituitary adenoma status post surgery. Depression. Chronic kidney disease stage II. PAST SURGICAL HISTORY: Total hysterectomy secondary to uterine cancer 2006 with radiation therapy. Left lobectomy 2010 Pituitary tumor resection. Cholecystectomy. Appendectomy. Left total hip arthroplasty. Left cataract surgery with lens implant. EGD with esophageal biopsies. Multiple lipoma resections. Hernia repair. Left heart catheterization with stent placement. Anoscopy. SOCIAL HISTORY: Patient is a lifelong nonsmoker, she denies any alcohol ingestion, she ambulates using a walker, she lives with her , she had limited resources. FAMILY HISTORY: Father at age of 61 from massive NM he had a history of COPD/emphysema due to heavy tobacco use, mother at age of 74 from heart failure and had a history of melanoma, patient has 2 sons one of them with asthma, patient has one daughter with kidney disease, patient has one sister with coronary artery disease and rare form of breast cancer, patient has no brothers. PHYSICAL EXAMINATION: General: 76-year-old female laying on the bed in mild distress. HEENT: Head is atraumatic, normocephalic, pupils were equal round reactive to l ight and recommendation, extraocular muscle movement were intact, sclera nonicteric, conjunctivae were pale, mucous membranes of the mouth are somewhat dry. Neck: Supple, no JVP, normal carotid upstroke bilaterally, no lymphadenopathy. Chest: Decreased breath sounds at the bases, few rhonchi, no expiratory wheezes, no chest wall tenderness, no intercostal retractions. Heart: First heart sound is normal, second heart sound is normal there is systolic ejection murmur 2/6 located in the left sternal border. Abdomen: Soft, nondistended, positive bowel sounds, multiple surgical scars, mild tenderness to the suprapubic area. Extremities: There is no edema no calf tenderness DP +2 bilaterally. Neurologic examination: Patient is awake alert and oriented X3 , cranial nerves II-12 appear grossly intact, muscle power were 5 out of 5 in upper extremities and 5 out of 5 in bilateral lower extremities, deep tendon reflexes normal bilaterally. ASSESSMENT AND PLAN: 1. Recurrent UTI with sepsis. we will continue with IVF and Cefepime 2 gr IVPB Q 8 hours, urine culture, blood cultures, and ID consult with . 2. Hypertension and hypertensive cardiovascular disease. Continue lisinopril 5 mg orally once every day, continue metoprolol 12.5 mg orally twice every day, continue amlodipine 5 minute gram orally twice every day. Monitor the patient blood pressure very closely. 3. Hyperlipidemia. Patient has tried different statins at this point and she could not tolerate it due to the risk of myopathy and significant weakness in both lower extremities, she was able to try Pitavastatin 2 mg orally once every day. 4. Diabetes mellitus type 2 insulin requiring. Continue patient on Levemir 20 units subcutaneously twice every day, continue with a sliding scale insulin. 5. Paroxysmal atrial fibrillation currently in sinus rhythm. continue Rythmol 150 mg orally twice every day, continue metoprolol 12.5 mg orally twice every day and Xarelto 20 mg orally daily 6. GERD with esophagitis. Continue patient on pantoprazole 40 mg every day, continue Carafate 1 mg orally twice every day. 7. Mild persistent asthma. Continue beside nebulization twice every day. 8. Severe constipation. Patient had tried MiraLAX, lactulose, Senokot, and Metamucil without any relief, we will start the patient on Linzess 290 MCG orally once every day. 9. CAD post-PCI. Continue patient on metoprolol 12.5 mg twice every day, continue patient on isosorbide mononitrate 15 mg orally once every day. 10. History of breast cancer status post lumpectomy. Continue Arimidex 1 mg orally once every day. 11. History of uterine cancer status post hysterectomy along with radiation therapy. Currently in remission. 12. History of pituitary adenoma status post resection. 13. Insomnia. Continue trazodone 50 mg at bedtime. 14. DVT Prophylaxis. we will continue with Xarelto 20 mg po daily. 15. GI Prophylaxis. we will continue with PPI. 16. Admits to inpatient. estimated length of stay 2 midnights. 17. Patient is full code. Past Medical History Past Medical History: Atrial Fibrillation, Asthma, Cancer, Diabetes Mellitus, Eye Disorder, Fibromyalgia, GERD/Reflux, Hyperlipidemia, Hypertension, Memory Impairment, Musculoskeletal Disorder, Osteoarthritis (OA), Renal Disease, Thyroid Disorder Additional Past Medical History / Comment(s): tinnitus alyssa ears/[place]. uterine cancer-2006 WITH RADIATION. METS TO LT LUNG 2010. glaucoma. Breast Cancer. DIABETIC RETINOPATHY. STAGE 2 KIDNEY DISEASE. CHRONIC LOWER BACK PAIN, ddd. sciatic nerve pain, tinnitus. uti. History of Any Multi-Drug Resistant Organisms: MRSA Date of last positivie culture/infection: 2016 MDRO Source:: R forearm Past Surgical History: Appendectomy, Cholecystectomy, Heart Catheterization, Hernia Repair, Hysterectomy, Joint Replacement, Orthopedic Surgery Additional Past Surgical History / Comment(s): brain surgery for pituary gland tumors, benign growth removed chest. lt lung resection-2010 left eye cataracts removed -lens implants. LT ELIZABETH. ESOPHAGEAL NODULES REMOVED. LIPOMA'S REMOVED. LT VITRECTOMY. MULTIPLE BREAST BIOPSIES. LT ANKLE SX. PLATE & SCREWS TO LT HUMEROUS. BILAT CATARACTS REMOVED. LASER SURGERY ON EYES FOR GLAUCOMA Past Anesthesia/Blood Transfusion Reactions: Motion Sickness, Postoperative Nausea & Vomiting (PONV) Additional Past Anesthesia/Blood Transfusion Reaction / Comment(s): "has never recieved any blood" Past Psychological History: No Psychological Hx Reported Additional Psychological History / Comment(s): Pt resides with her spouse. She ambulates with a rolling/seated walker,bsc, toilet riser,shower chair, nebulizer. She drives. Her home is handicap accessible. She has [employer] Aging assist with house work and has meals on wheels. . Smoking Status: Never smoker Past Alcohol Use History: None Reported Past Drug Use History: None Reported - Past Family History Father Family Medical History: COPD, Myocardial Infarction (NM) Additional Family Medical History / Comment(s): Father at the age of 63 yrs from a massive NM. He had emphysema and was a smoker. Son(s) History Unknown: Yes Additional Family Medical History / Comment(s): Patient has 2 sons and one has history of asthma. Patient is one daughter with kidney problems. Mother Family Medical History: Cancer Additional Family Medical History / Comment(s): Mother at age 74 from heart failure with history of melanoma. Sister(s) Family Medical History: Cancer Additional Family Medical History / Comment(s): Patient has one sister with history of coronary artery disease and a rare form of breast cancer. Patient does not have any brothers. Medications and Allergies Home Medications Medication Instructions Recorded Confirmed Type Propafenone [Rythmol] 150 mg PO BID 05/16/17 10/21/21 History Montelukast [Singulair] 10 mg PO HS 03/08/18 10/21/21 History ondansetron HCL [Zofran] 4 mg PO Q8H PRN 03/08/18 10/21/21 History Isosorbide Mononitrate ER [Imdur] 30 mg PO DAILY 12/28/18 10/21/21 History Fluticasone Nasal [place] [Flonase 1 spr EA NOSTRIL DAILY 10/11/20 10/21/21 History Nasal Irvona] Sucralfate [Carafate] 1 gm PO BID 10/11/20 10/21/21 History Albuterol Nebulized [Ventolin 2.5 mg INHALATION RT-Q6H PRN 09/28/21 10/21/21 History Nebulized] Betaxolol HCl [Betaxolol HCl 0.5% 1 drop BOTH EYES BID 09/28/21 10/21/21 History Ophth Soln] Brimonidine Tartrate [Alphagan P 1 drop BOTH EYES TID 09/28/21 10/21/21 History 0.15% Ophth Soln] Brinzolamide [Brinzolamide 1% 1 drop BOTH EYES TID 09/28/21 10/21/21 History Ophth Susp] Cholecalciferol [Vitamin D3 (125 125 mcg PO DAILY 09/28/21 10/21/21 History Mcg = 5000 Iu)] Dapagliflozin Propanediol [Farxiga] 10 mg PO DAILY 09/28/21 10/21/21 History Dorzolamide 2% [Trusopt 2%] 1 drop BOTH EYES TID 09/28/21 10/21/21 History Furosemide [Lasix] 40 mg PO DAILY PRN 09/28/21 10/21/21 History Insulin Aspart [NovoLOG Flexpen] See Protocol SQ AC-TID 09/28/21 10/21/21 History Insulin Glargine,Hum.rec.anlog 20 unit SQ BID 09/28/21 10/21/21 History [Lantus Solostar Pen] Latanoprost [Xalatan 0.005%] 1 drop BOTH EYES HS 09/28/21 10/21/21 History Linaclotide [Linzess] 290 mcg PO DAILY #30 capsule 09/28/21 10/21/21 Rx Metoprolol Succinate [Toprol XL] 25 mg PO HS 09/28/21 10/21/21 History Psyllium Husk (with Sugar) 6 gm PO BID PRN 09/28/21 10/21/21 History [Metamucil Powder] Rivaroxaban [Xarelto] 20 mg PO HS #0 09/28/21 10/21/21 Rx traZODone HCL [Desyrel] 50 mg PO HS PRN tab 09/28/21 10/21/21 Rx Levothyroxine Sodium [Synthroid] 125 mcg PO DAILY 10/21/21 10/21/21 History Methenamine Hippurate 1 gm PO BID 10/21/21 10/21/21 History Nitrofurantoin Monohyd/M-Cryst 100 mg PO Q12HR 10/21/21 10/21/21 History [Macrobid] Nystatin 100,000Unit/gm Cream 1 applic TOPICAL BID 10/21/21 10/21/21 History [Mycostatin Cream] Omeprazole 20 mg PO DAILY 10/21/21 10/21/21 History Sennosides/Docusate Sodium [Senna 2 tab PO HS 10/21/21 10/21/21 History Plus 8.6-50 mg Tablet] Zinc 50 mg PO DAILY 10/21/21 10/21/21 History lisinopriL [Zestril] 5 mg PO DAILY 10/21/21 10/21/21 History methazolAMIDE [Neptazane] 50 mg PO BID 10/21/21 10/21/21 History Allergies Allergy/AdvReac Type Severity Reaction Status Date / Time adhesive Allergy Rash/Hives Verified 10/21/21 11:39 diltiazem HCl [From Cardizem] Allergy Rash/Hives Verified 10/21/21 11:39 hydromorphone [From Dilaudid] Allergy Unknown Verified 10/21/21 11:39 codeine AdvReac Nausea & Verified 10/21/21 11:39 Vomiting diphenhydramine HCl AdvReac dizzy,light Verified 10/21/21 11:39 [From Benadryl] headed,vomi ting Echinacea AdvReac Rapid Verified 10/21/21 11:39 Heart Rate guaifenesin AdvReac Nausea & Verified 10/21/21 11:39 Vomiting lorazepam [From Ativan] AdvReac "out of Verified 10/21/21 11:39 it", drowsy meperidine AdvReac Nausea & Verified 10/21/21 11:39 Vomiting morphine AdvReac Nausea & Verified 10/21/21 11:39 Vomiting opiates AdvReac Nausea & Uncoded 09/04/21 17:43 Vomiting stadol AdvReac Hallucinati Uncoded 09/28/21 13:05 ons Physical Exam Vitals: Vital Signs Temp Pulse Pulse Resp BP BP Pulse Ox 10/22/21 14:04 99.9 F H 10/22/21 13:00 102.9 F H 84 18 129/87 96 10/22/21 10:19 98.9 F 10/22/21 07:00 98.1 F 61 16 98/45 98 10/22/21 05:51 99.0 F 10/22/21 05:00 78 117/54 10/22/21 02:00 85 133/56 10/21/21 23:48 100.9 F H 80 141/56 10/21/21 21:00 123/50 10/21/21 20:00 98.7 F 16 131/49 98 10/21/21 19:00 98.2 F 75 18 117/43 99 10/21/21 18:00 75 18 124/61 99 10/21/21 17:00 75 18 99 10/21/21 16:44 98.1 F 65 18 106/52 99 10/21/21 15:00 65 18 124/49 99 Intake and Output 10/21/21 10/22/21 10/22/21 22:59 06:59 14:59 Intake Total 118 Output Total 800 300 Balance -800 -182 Intake: Oral 118 Output: Urine 800 300 Other: # Bowel Movements 1 Weight 82.554 kg Results CBC & Chem 7: 10/22/21 14:35 10/22/21 14:35 Labs: Abnormal Lab Results - Last 24 Hours (Table) 10/21/21 10/21/21 10/22/21 Range/Units 14:26 22:54 07:15 POC Glucose (mg/dL) 131 H 233 H 138 H (70-110) mg/dL 10/22/21 Range/Units 10:38 POC Glucose (mg/dL) 112 H (70-110) mg/dL Microbiology - Last 24 Hours (Table) 10/21/21 11:30 Blood Culture - Preliminary Blood No Growth after 24 hours 10/21/21 11:45 Blood Culture - Preliminary Blood No Growth after 24 hours 10/21/21 11:41 Urine Culture - Final Urine,Catheterized
[2021-10-22 16:32] LABS: Glucose,Whole Blood 46 mg/dL (70-110)
[2021-10-22] MEDS ORDERED: DEXTROSE 50% SYRINGE 50 ML IVP ONE (16:37)
[2021-10-22 16:45] LABS: Glucose,Whole Blood 52 mg/dL (70-110)
[2021-10-22] MEDS: SODIUM CHLORIDE 0.9% 1,000 ML IV SCH (16:46)
[2021-10-22 17:09] LABS: Glucose,Whole Blood 252 mg/dL (70-110)
[2021-10-22 18:10] LABS: Glucose,Whole Blood 145 mg/dL (70-110)
[2021-10-22] MEDS: MONTELUKAST 10 MG TAB PO SCH (20:44)
[2021-10-22] MEDS: METOPROLOL SUCCINATE (ER) 25 MG TAB.ER.24H PO SCH (20:45)
[2021-10-22] MEDS: traMADol 50 MG TAB PO SCH (20:45)
[2021-10-22] MEDS: SENNOSIDES-DOCUSATE SODIUM 1 EACH TAB PO SCH (20:50)
[2021-10-22 21:16] LABS: Glucose,Whole Blood 282 mg/dL (70-110)
[2021-10-22] MEDS: CLOTRIMAZOLE/BETAMETH 1-0.05% CREAM 45 GM TUBE TOPICAL SCH (21:22)
[2021-10-22] MEDS: RIVAROXABAN 20 MG TAB PO SCH (21:35)
[2021-10-23] MEDS: CEFEPIME 2 GM in SODIUM CHLORIDE 0.9% 100 ML IVPB SCH ×3 (00:55→21:17)
[2021-10-23] MEDS: SODIUM CHLORIDE 0.9% 1,000 ML IV SCH ×3 (00:56→21:30)
[2021-10-23 02:19] LABS: Glucose,Whole Blood 206 mg/dL (70-110)
[2021-10-23] MEDS: IBUPROFEN 400 MG TAB PO PRN (02:22)
[2021-10-23] MEDS: ACETAMINOPHEN TAB 325 MG TAB PO PRN ×2 (03:22→16:25)
[2021-10-23] MEDS: LEVOTHYROXINE 125 MCG TAB PO SCH (06:22)
[2021-10-23 07:28] LABS: Glucose,Whole Blood 132 mg/dL (70-110)
[2021-10-23] MEDS: ALBUTEROL NEBULIZED 2.5 MG/3 ML INHALATION PRN (07:53)
[2021-10-23] MEDS: SUCRALFATE 1 GM TAB PO SCH ×2 (09:35→21:20)
[2021-10-23] MEDS: ISOSORBIDE MONONITRATE ER 30 MG TAB.ER.24H PO SCH (09:35)
[2021-10-23] MEDS: PANTOPRAZOLE 40 MG TABLET PO SCH (09:35)
[2021-10-23] MEDS: CHOLECALCIFEROL 125 MCG (5000 IU) TABLET PO SCH (09:35)
[2021-10-23] MEDS: PROPAFENONE 150 MG TAB PO SCH ×2 (09:36→21:23)
[2021-10-23] MEDS: ZINC SULFATE 220 MG CAP PO SCH (09:36)
[2021-10-23] MEDS: NON FORMULARY DRUG (Methenamine Hippurate [Methenamine Hippurate] 1 GM Tablet) PO SCH ×2 (09:36→21:39)
[2021-10-23] MEDS: lisinopriL 5 MG TAB PO SCH (09:36)
[2021-10-23] MEDS: traMADol 50 MG TAB PO SCH ×3 (09:37→21:37)
[2021-10-23] MEDS: ONDANSETRON 4 MG TAB PO PRN (09:43)
[2021-10-23] MEDS: INSULIN DETEMIR (LEVEMIR) 100 UNIT/ML SYR SQ SCH (09:45)
[2021-10-23 09:46] LABS: HCT 24.6 % (37.2-46.3); HGB 7.4 g/dL (12.0-15.0); MCH 26.7 pg (27.0-32.0); MCHC 30.1 g/dL (32.0-37.0); MCV 88.8 fL (80.0-97.0); Mean Platelet Volume 10.4 fL (9.5-12.2); NRBC Per 100 WBC 0 /100 WBCS (0.0-0.0); Platelet Count 278 X 10*3/uL (140-440); RBC 2.77 X 10*6/uL (4.10-5.20); RDW 16.3 % (11.5-14.5); WBC 31.95 X 10*3/uL (4.50-10.00)
[2021-10-23] MEDS: FLUTICASONE 50MCG/SPRAY NASAL 16GM EA NOSTRIL SCH (09:46)
[2021-10-23] MEDS: TIMOLOL 0.5% OPHTH DROPS 5 ML BTL BOTH EYES SCH ×2 (09:48→21:27)
[2021-10-23] MEDS: DORZOLAMIDE HCL 2% DROPS 10 ML BTL BOTH EYES SCH ×3 (09:48→21:27)
[2021-10-23] MEDS: BRIMONIDINE TARTRATE 0.2% DROPS 5 ML BTL BOTH EYES SCH ×3 (09:49→21:27)
[2021-10-23] MEDS: CLOTRIMAZOLE/BETAMETH 1-0.05% CREAM 45 GM TUBE TOPICAL SCH ×2 (09:49→21:19)
[2021-10-23] MEDS: NON FORMULARY DRUG (Dapagliflozin Propanediol [Farxiga] 10 MG Tablet) PO SCH (09:49)
[2021-10-23 10:02] LABS: Albumin 2.2 g/dL (3.8-4.9); BUN/Creat Ratio 17.56 Ratio (12.00-20.00); Blood Urea Nitrogen 15.8 mg/dL (9.0-27.0); Calcium 7.5 mg/dL (8.7-10.3); Globulin 2.2 g/dL (1.6-3.3); Non-African American GFR(CKD) 62.1 (60.0-200.0); Total Bilirubin 0.3 mg/dL (0.30-1.20); Total Protein 4.4 g/dL (6.2-8.2)
[2021-10-23 10:55] LABS: Basophils # (A) 0.08 X 10*3/uL (0.00-0.10); Basophils % (A) 0.3 %; Eosinophils # (A) 0.08 X 10*3/uL (0.04-0.35); Eosinophils % (A) 0.3 %; Immature Grans, Automated 4.8 %; Lymphocytes # (A) 1.35 X 10*3/uL (0.90-5.00); Lymphocytes % (A) 4.2 %; Monocytes % (A) 8.5 %; Neutrophils % (A) 81.9 %
[2021-10-23 10:56] LABS: Acanthocytes 2+
[2021-10-23 11:56] LABS: Glucose,Whole Blood 139 mg/dL (70-110)
[2021-10-23] MEDS ORDERED: VANCOMYCIN IV PER PHARMACY 1 EACH MISC MISCELLANE PRN (14:30)
[2021-10-23] MEDS: IOPAMIDOL CONTRAST (ORAL USE) VIAL PO PRN ×2 (15:08→16:25)
[2021-10-23] MEDS: NYSTATIN 100,000UNIT/GM CREAM 30 GM TUBE TOPICAL SCH ×2 (15:33→21:28)
[2021-10-23] MEDS: VANCOMYCIN 1,500 MG in SODIUM CHLORIDE 0.9% 250 ML IVPB SCH (16:25)
[2021-10-23 16:30] LABS: Glucose,Whole Blood 171 mg/dL (70-110)
--- NOTE | 2021-10-23 17:55 | CT ---
EXAMINATION TYPE: CT pelvis w con CT DLP: 589 mGycm, Automated exposure control for dose reduction was used. DATE OF EXAM: 10/23/2021 5:14 PM COMPARISON: CT abdomen pelvis 10/21/2021 CLINICAL INDICATION:Female, 76 years old with history of labial abscess; labial abscess TECHNIQUE: Standard CT of the pelvis following the administration of 70 cc of Isovue 300 IV contras t material. Coronal and sagittal reformats were performed. FINDINGS: PELVIS BLADDER: Nondistended with Bell catheter in place. REPRODUCTIVE: No definitive organizing fluid collection seen within the labia majora. The uterus is s urgically absent. ABDOMEN & PELVIS STOMACH AND BOWEL: Scattered diverticula are noted throughout the colon. No evidence of bowel obstruc tion. PERITONEUM: No evidence of pneumoperitoneum or free fluid. VASCULATURE: Moderate atherosclerotic calcifications are present throughout the abdominal aorta and i ts branches. MUSCULOSKELETAL: No acute osseous abnormalities. Left hip arthroplasty changes. Hardware appears inta ct. Multilevel disc degeneration changes throughout the spine. LYMPH NODES: No gross evidence for lymphadenopathy. SOFT TISSUE/ABDOMINAL WALL: Postsurgical changes to the anterior abdominal wall with multiple anchors in place. IMPRESSION: 1. Question of fixated No definite evidence for organizing fluid collection within the labia. 2. Bell catheter in place. 3. Limited evaluation of the pelvis secondary to streak artifact from the patient's hip prosthesis.
[2021-10-23] MEDS ORDERED: SODIUM CHLORIDE 0.9% 500 ML 500 ML IV ONE (19:40)
[2021-10-23] MEDS ORDERED: SODIUM FERRIC GLUCONAT-SUCROSE 125 MG in SODIUM CHLORIDE 0.9% 100 ML IVPB ONE (20:00)
[2021-10-23 20:41] LABS: Glucose,Whole Blood 231 mg/dL (70-110)
[2021-10-23] MEDS: KETOROLAC 15 MG/ML 1 ML VIAL IVP PRN (21:11)
[2021-10-23] MEDS: RIVAROXABAN 20 MG TAB PO SCH (21:23)
[2021-10-23] MEDS: MONTELUKAST 10 MG TAB PO SCH (21:23)
[2021-10-23] MEDS: METOPROLOL SUCCINATE (ER) 25 MG TAB.ER.24H PO SCH (21:24)
[2021-10-23] MEDS: LATANOPROST 0.005% OPHTH DROPS 2.5 ML BTL BOTH EYES SCH (21:26)
[2021-10-23] MEDS: SENNOSIDES-DOCUSATE SODIUM 1 EACH TAB PO SCH (21:36)
--- NOTE | 2021-10-23 22:09 | P.PN ---
Subjective Progress Note Date: 10/22/21 Principal diagnosis: Sepsis and UTI Patient is a 76-year-old female presented to hospital with fever and not feeling well some lower abdominal pain. CT Abdominal pelvis didn't show acute abnormality did have a positive UA concerning for catheter associated urinary tract infection. On today's evaluation that is 10/22/2021, the patient fever has resolved, the patient is feeling slightly better his breathing comfortably denies any chest pain or shortness of breath or cough no abdominal discomfort and no diarrhea Objective - Vital Signs Vital signs: Vital Signs Temp 98.9 F 10/22/21 10:19 Pulse 61 10/22/21 07:00 Resp 16 10/22/21 07:00 BP 98/45 10/22/21 07:00 Pulse Ox 98 10/22/21 07:00 FiO2 Intake & Output 10/21/21 10/22/21 10/22/21 18:59 06:59 18:59 Intake Total 118 Output Total 800 Balance -800 118 Weight 82.554 kg Intake: Oral 118 Output: Urine 800 - Exam GENERAL DESCRIPTION: An elderly female lying in bed in no distress RESPIRATORY SYSTEM: Unlabored breathing , decreased breath sounds at bases HEART: S1 S2 regular rate and rhythm , ABDOMEN: Soft , no tenderness EXTREMITIES: No edema feet - Labs CBC & Chem 7: 10/23/21 06:50 10/23/21 06:50 Labs: Abnormal Lab Results - Last 24 Hours (Table) 10/21/21 10/21/21 10/21/21 Range/Units 11:41 14:26 22:54 Sodium 125 L (137-145) mmol/L Chloride 97 L (98-107) mmol/L Glucose 166 H (74-99) mg/dL POC Glucose (mg/dL) 131 H 233 H (70-110) mg/dL Calcium 7.8 L (8.4-10.2) mg/dL Total Protein 5.6 L (6.3-8.2) g/dL Albumin 2.7 L (3.5-5.0) g/dL 10/22/21 10/22/21 Range/Units 07:15 10:38 Sodium (137-145) mmol/L Chloride (98-107) mmol/L Glucose (74-99) mg/dL POC Glucose (mg/dL) 138 H 112 H (70-110) mg/dL Calcium (8.4-10.2) mg/dL Total Protein (6.3-8.2) g/dL Albumin (3.5-5.0) g/dL Microbiology - Last 24 Hours (Table) 10/21/21 11:41 Urine Culture - Final Urine,Catheterized Assessment and Plan (1) Sepsis Current Visit: Yes Status: Acute Code(s): A41.9 - SEPSIS, UNSPECIFIED ORGANISM SNOMED Code(s): 81994471 (2) UTI (urinary tract infection) Current Visit: Yes Status: Acute Code(s): N39.0 - URINARY TRACT INFECTION, SITE NOT SPECIFIED SNOMED Code(s): 16810555 Plan: 1patient presented to hospital with sepsis and this will have fever elevated white count has been complaining of some lower abdominal pain however CT abdominal pelvis did not show any colitis and there was component of constipation and stool burden patient did have a positive UA and likely concern for catheter associated UTI. 2patient to continue cefepime 2 g every 8 hours while waiting for the culture to finalize here. 3gentle IV fluid. Time with Patient: Less than 30
--- NOTE | 2021-10-23 22:11 | P.PN ---
Subjective Progress Note Date: 10/23/21 Principal diagnosis: Sepsis and UTI Patient is a 76-year-old female presented to hospital with fever and not feeling well some lower abdominal pain. CT Abdominal pelvis didn't show acute abnormality did have a positive UA concerning for catheter associated urinary tract infection. On today's evaluation that is 10/23/2021, the patient remains to be afebrile, the patient is severe pain to the labia area, the patient did not complain of yesterday, the patient is breathing comfortably on room air, denies any chest pain or shortness of breath or cough no abdominal discomfort and no diarrhea Objective - Vital Signs Vital signs: Vital Signs Temp 98.2 F 10/23/21 05:00 Pulse 64 10/23/21 05:00 Resp 16 10/23/21 05:00 BP 97/58 10/23/21 05:00 Pulse Ox 97 10/23/21 05:00 FiO2 Intake & Output 10/22/21 10/23/21 10/23/21 18:59 06:59 18:59 Intake Total 346 Output Total 300 1300 Balance 46 -1300 Weight 82.554 kg Intake: Oral 346 Output: Urine 300 1300 Other: Voiding Method Indwelling Catheter Indwelling Catheter # Bowel Movements 1 - Exam GENERAL DESCRIPTION: An elderly female lying in bed in no distress RESPIRATORY SYSTEM: Unlabored breathing , decreased breath sounds at bases HEART: S1 S2 regular rate and rhythm , ABDOMEN: Soft , no tenderness EXTREMITIES: No edema feet - Labs CBC & Chem 7: 10/23/21 06:50 10/23/21 06:50 Labs: Abnormal Lab Results - Last 24 Hours (Table) 10/22/21 10/22/21 10/22/21 Range/Units 14:35 14:35 16:20 WBC 27.9 H (3.8-10.6) k/uL RBC 3.12 L (3.80-5.40) m/uL Hgb 8.6 L (11.4-16.0) gm/dL Hct 27.9 L (34.0-46.0) % MCH (27.0-32.0) pg MCHC (32.0-37.0) g/dL RDW (11.5-14.5) % Neutrophils # (Manual) 24.20 H (1.3-7.7) k/uL Monocytes # (Manual) 2.23 H (0-1.0) k/uL Sodium 125 L (137-145) mmol/L Carbon Dioxide 18 L (22-30) mmol/L Anion Gap (10.00-18.00) mmol/L Glucose (74-99) mg/dL POC Glucose (mg/dL) 46 L (70-110) mg/dL Calcium 7.6 L (8.4-10.2) mg/dL Total Protein 4.8 L (6.3-8.2) g/dL Albumin 2.2 L (3.5-5.0) g/dL Albumin/Globulin Ratio (1.60-3.17) g/dL 10/22/21 10/22/21 10/22/21 Range/Units 16:34 16:43 16:49 WBC (3.8-10.6) k/uL RBC (3.80-5.40) m/uL Hgb (11.4-16.0) gm/dL Hct (34.0-46.0) % MCH (27.0-32.0) pg MCHC (32.0-37.0) g/dL RDW (11.5-14.5) % Neutrophils # (Manual) (1.3-7.7) k/uL Monocytes # (Manual) (0-1.0) k/uL Sodium (137-145) mmol/L Carbon Dioxide (22-30) mmol/L Anion Gap (10.00-18.00) mmol/L Glucose 222 H (74-99) mg/dL POC Glucose (mg/dL) 52 L 252 H (70-110) mg/dL Calcium (8.4-10.2) mg/dL Total Protein (6.3-8.2) g/dL Albumin (3.5-5.0) g/dL Albumin/Globulin Ratio (1.60-3.17) g/dL 10/22/21 10/22/21 10/23/21 Range/Units 18:08 21:04 02:18 WBC (3.8-10.6) k/uL RBC (3.80-5.40) m/uL Hgb (11.4-16.0) gm/dL Hct (34.0-46.0) % MCH (27.0-32.0) pg MCHC (32.0-37.0) g/dL RDW (11.5-14.5) % Neutrophils # (Manual) (1.3-7.7) k/uL Monocytes # (Manual) (0-1.0) k/uL Sodium (137-145) mmol/L Carbon Dioxide (22-30) mmol/L Anion Gap (10.00-18.00) mmol/L Glucose (74-99) mg/dL POC Glucose (mg/dL) 145 H 282 H 206 H (70-110) mg/dL Calcium (8.4-10.2) mg/dL Total Protein (6.3-8.2) g/dL Albumin (3.5-5.0) g/dL Albumin/Globulin Ratio (1.60-3.17) g/dL 10/23/21 10/23/21 10/23/21 Range/Units 06:50 06:50 07:27 WBC 31.95 H (3.8-10.6) k/uL RBC 2.77 L (3.80-5.40) m/uL Hgb 7.4 L (11.4-16.0) gm/dL Hct 24.6 L (34.0-46.0) % MCH 26.7 L (27.0-32.0) pg MCHC 30.1 L (32.0-37.0) g/dL RDW 16.3 H (11.5-14.5) % Neutrophils # (Manual) (1.3-7.7) k/uL Monocytes # (Manual) (0-1.0) k/uL Sodium 126 L (137-145) mmol/L Carbon Dioxide 18.0 L (22-30) mmol/L Anion Gap 8.00 L (10.00-18.00) mmol/L Glucose 121 H (74-99) mg/dL POC Glucose (mg/dL) 132 H (70-110) mg/dL Calcium 7.5 L (8.4-10.2) mg/dL Total Protein 4.4 L (6.3-8.2) g/dL Albumin 2.2 L (3.5-5.0) g/dL Albumin/Globulin Ratio 1.00 L (1.60-3.17) g/dL Microbiology - Last 24 Hours (Table) 10/21/21 11:30 Blood Culture - Preliminary Blood No Growth after 24 hours 10/21/21 11:45 Blood Culture - Preliminary Blood No Growth after 24 hours 10/21/21 11:41 Urine Culture - Final Urine,Catheterized Assessment and Plan (1) Sepsis Current Visit: Yes Status: Acute Code(s): A41.9 - SEPSIS, UNSPECIFIED ORGANISM SNOMED Code(s): 91593950 (2) UTI (urinary tract infection) Current Visit: Yes Status: Acute Code(s): N39.0 - URINARY TRACT INFECTION, SITE NOT SPECIFIED SNOMED Code(s): 41941089 Plan: 1patient presented to hospital with sepsis and this will have fever elevated white count has been complaining of some lower abdominal pain however CT abdominal pelvis did not show any colitis and there was component of constipation and stool burden patient did have a positive UA and likely concern for catheter associated UTI. 2patient did have significant worsening of her white count and has been complaining of pain in the labia area swelling was noticed but no induration or redness we will obtain a CT of the pelvic area to make sure no evidence of any labial abscess that may need to be drained continue with cefepime however will add vancomycin while waiting for the CT to be finalize Time with Patient: Less than 30
[2021-10-24] MEDS: ONDANSETRON 4 MG TAB PO PRN ×2 (00:47→18:43)
[2021-10-24] MEDS: ACETAMINOPHEN TAB 325 MG TAB PO PRN (02:30)
[2021-10-24] MEDS: traZODone HCL 50 MG TAB PO PRN ×2 (02:36→22:06)
[2021-10-24 02:39] LABS: Glucose,Whole Blood 225 mg/dL (70-110)
[2021-10-24] MEDS: SODIUM CHLORIDE 0.9% 1,000 ML IV SCH ×3 (04:38→19:43)
[2021-10-24 07:10] LABS: Glucose,Whole Blood 199 mg/dL (70-110)
[2021-10-24] MEDS: CEFEPIME 2 GM in SODIUM CHLORIDE 0.9% 100 ML IVPB SCH (07:39)
[2021-10-24] MEDS: LEVOTHYROXINE 125 MCG TAB PO SCH (07:39)
[2021-10-24] MEDS: BRIMONIDINE TARTRATE 0.2% DROPS 5 ML BTL BOTH EYES SCH ×3 (07:42→22:19)
[2021-10-24] MEDS: TIMOLOL 0.5% OPHTH DROPS 5 ML BTL BOTH EYES SCH ×2 (07:44→22:18)
[2021-10-24] MEDS: ALBUTEROL NEBULIZED 2.5 MG/3 ML INHALATION PRN (07:45)
[2021-10-24 08:37] LABS: Appearance,Urine Cloudy (Clear); Bacteria,Urine Rare /hpf; Bilirubin,Urine Negative (Negative); Blood,Urine Small (Negative); Budding Yeast,Urine Many /hpf; Color,Urine Yellow; Glucose,Urine (UA) 3+ (Negative); Ketones,Urine Negative (Negative); Leukocyte Esterase,Urine Large (Negative); Mucus,Urine Rare /hpf; Nitrite,Urine Negative (Negative); PH, Urine 5.5 (5.0-8.0); Protein,Urine 1+ (Negative); RBC,Urine 7 /hpf (0-5); Specific Gravity,Urine 1.014 (1.001-1.035); Urobilinogen,Urine <2.0 mg/dL (<2.0); WBC,Urine 154 /hpf (0-5)
[2021-10-24] MEDS: NON FORMULARY DRUG (Dapagliflozin Propanediol [Farxiga] 10 MG Tablet) PO SCH (09:14)
[2021-10-24] MEDS: NON FORMULARY DRUG (Methenamine Hippurate [Methenamine Hippurate] 1 GM Tablet) PO SCH ×2 (09:15→20:49)
[2021-10-24] MEDS: CHOLECALCIFEROL 125 MCG (5000 IU) TABLET PO SCH (09:16)
[2021-10-24] MEDS: INSULIN DETEMIR (LEVEMIR) 100 UNIT/ML SYR SQ SCH (09:16)
[2021-10-24] MEDS: ZINC SULFATE 220 MG CAP PO SCH (09:16)
[2021-10-24] MEDS: SUCRALFATE 1 GM TAB PO SCH ×2 (09:17→22:01)
[2021-10-24] MEDS: PANTOPRAZOLE 40 MG TABLET PO SCH (09:17)
[2021-10-24] MEDS: traMADol 50 MG TAB PO SCH ×3 (09:18→22:06)
[2021-10-24] MEDS: lisinopriL 5 MG TAB PO SCH (09:18)
[2021-10-24] MEDS: ISOSORBIDE MONONITRATE ER 30 MG TAB.ER.24H PO SCH (09:19)
[2021-10-24] MEDS: FLUTICASONE 50MCG/SPRAY NASAL 16GM EA NOSTRIL SCH (09:19)
[2021-10-24] MEDS: CLOTRIMAZOLE/BETAMETH 1-0.05% CREAM 45 GM TUBE TOPICAL SCH ×2 (09:20→22:03)
[2021-10-24] MEDS: NYSTATIN 100,000UNIT/GM CREAM 30 GM TUBE TOPICAL SCH ×2 (09:21→22:03)
[2021-10-24] MEDS: DORZOLAMIDE HCL 2% DROPS 10 ML BTL BOTH EYES SCH ×3 (09:21→22:18)
[2021-10-24] MEDS: PROPAFENONE 150 MG TAB PO SCH ×2 (09:22→22:02)
[2021-10-24] MEDS: VANCOMYCIN 1,500 MG in SODIUM CHLORIDE 0.9% 250 ML IVPB SCH (09:23)
[2021-10-24 10:46] LABS: HCT 26.3 % (37.2-46.3); HGB 7.9 g/dL (12.0-15.0); MCH 26.5 pg (27.0-32.0); MCV 88.3 fL (80.0-97.0); Mean Platelet Volume 10.4 fL (9.5-12.2); NRBC Per 100 WBC 0 /100 WBCS (0.0-0.0); Platelet Count 292 X 10*3/uL (140-440); RBC 2.98 X 10*6/uL (4.10-5.20); RDW 16.5 % (11.5-14.5); WBC 35.43 X 10*3/uL (4.50-10.00)
[2021-10-24 10:59] LABS: C Reactive Protein 23.4 mg/dL (0.00-0.80)
[2021-10-24 11:08] LABS: Glucose,Whole Blood 239 mg/dL (70-110)
[2021-10-24 11:20] LABS: Albumin 2.2 g/dL (3.8-4.9); Albumin/Globulin Ratio 0.92 (1.60-3.17); Anion Gap 8.9 mmol/L (10.00-18.00); BUN/Creat Ratio 14.11 Ratio (12.00-20.00); Basophils # (M) 0 X 10*3/uL (0.00-0.10); Blood Urea Nitrogen 12.7 mg/dL (9.0-27.0); Calcium 7.7 mg/dL (8.7-10.3); Carbon Dioxide 16.1 mmol/L (20.0-27.5); Eosinophils # (M) 0 X 10*3/uL (0.04-0.35); Globulin 2.4 g/dL (1.6-3.3); Lymphocytes # (M) 0.71 X 10*3/uL (0.90-5.00); Monocytes # (M) 2.13 X 10*3/uL (0.20-1.00); Neutrophils % (M) 92 %; Non-African American GFR(CKD) 62.1 (60.0-200.0); Potassium 4.7 mmol/L (3.5-5.5); Total Bilirubin 0.4 mg/dL (0.30-1.20); Total Protein 4.6 g/dL (6.2-8.2)
[2021-10-24] MEDS: PIPERACILLIN-TAZOBACTAM 3.375 GM in SODIUM CHLORIDE 0.9% 100 ML IVPB SCH ×2 (12:59→19:43)
--- NOTE | 2021-10-24 14:42 | P.PN ---
Subjective Progress Note Date: 10/23/21 HISTORY OF PRESENT ILLNESS: This is a 76-year-old white female with a previous medical history significant for hypertension and hypertensive cardiovascular disease, hyperlipidemia, diabetes mellitus type 2 with diabetic polyneuropathy, history of paroxysmal atrial fibrillation, coronary artery disease status post PCI and stent placement, history of uterine cancer in the past status post hysterectomy as well as radiation therapy, patient also had suffered from significant constipation and recurrent urinary tract infection associated with macro-and microscopic hematuria, patient has been under the care of from urology, she was recently discharged form [facility] after she w as admitted for E.Coli UTI that was sensitive to Cefepime and had IV treatment that was switched to oral Macrobid 100 mg po bid for 1 week and she went home last Wednesday, then she developed to have fever and chills and was seen in my office yesterday for what appears to be a UTI with sepsis, she was sent to [facility] ER [facility] and had CT scan of the abdomen and pelvis that was negative and she was started ON IV Antibiotics in the form of Cefepime 2 gr IVPB Q 8 hours and sent urine and blood cultures and was admitted to the hospital with ID consult. 10/23: Patient is laying down in bed she continues to have significant pain in the lower abdomen and she is complaining of increased swelling and tenderness of bilateral labia, she was seen earlier by ID, computed tomography scan of the pelvis were done did not show evidence of any drainable abscess at this time, patient was started on vancomycin along with cefepime, we will continue to monitor the patient very closely she appears to be somewhat hypotensive I spoke with the nursing staff about giving her a bolus of normal saline 500 mL followed by increasing her IV fluid 250 mL an hour, monitor the patient very closely repeat her CBC tomorrow morning, if the patient is not improving or her blood pressure does not normalize she will need to be transferred to the ICU. REVIEW OF SYSTEMS: Constitutional: positive for fever, positive for chills, no night sweats. No weight change. positive for weakness, fatigue or lethargy. No daytime sleepiness. HEENT: No headache. No blurred vision or double vision, no loss of vision. No loss of Hearing, no ringing in the ears, no dizziness. No nasal drainage or congestion. No epistaxis. No sore throat. Lungs: No shortness of breath, no cough, no sputum production. No wheezing. Reports dyspnea with activity. Cardiovascular: No chest pain, no lower extremity edema. No palpitations. No paroxysmal nocturnal dyspnea. No orthopnea. No lightheadedness or dizziness. No syncopal episodes. Abdominal: Reports abdominal pain. positive fpr nausea, vomiting. No diarrhea. positive for constipation. No bloody or tarry stools reports loss of appetite. Genitourinary: positive for dysuria, increased frequency, urgency. positive for urinary retention. Musculoskeletal: No myalgias. positive for muscle weakness, no gait dysfunction, no frequent falls. positive for back pain and neck pain. Integumentary: No wounds, no lesions. No rash or pruritus. No unusual bruising. No change in hair or nails. Neurologic: No aphasia. No facial droop. No change in mentation. No head injury. No headache. No paralysis. No paresthesia. Psychiatric: No depression. No anxiety. No mood swings. Endocrine: No abnormal blood sugars. No weight change. PHYSICAL EXAMINATION: General: 76-year-old female laying on the bed in mild distress. HEENT: Head is atraumatic, normocephalic, pupils were equal round reactive to light and recommendation, extraocular muscle movement were intact, sclera nonicteric, conjunctivae were pale, mucous membranes of the mouth are somewhat dry. Neck: Supple, no JVP, normal carotid upstroke bilaterally, no lymphadenopathy. Chest: Decreased breath sounds at the bases, few rhonchi, no expiratory wheezes, no chest wall tenderness, no intercostal retractions. Heart: First heart sound is normal, second heart sound is normal there is systolic ejection murmur 2/6 located in the left sternal border. Abdomen: Soft, nondistended, positive bowel sounds, multiple surgical scars, mild tenderness to the suprapubic area. Extremities: There is no edema no calf tenderness DP +2 bilaterally. Neurologic examination: Patient is awake alert and oriented X3 , cranial nerves II-12 appear grossly intact, muscle power were 5 out of 5 in upper extremities and 5 out of 5 in bilateral lower extremities, deep tendon reflexes normal bilaterally. VEST BUSHELER: with [place] in the room , there is siginificant swelling to both labia with tenserness, no evidence of drainable abscess. ASSESSMENT AND PLAN: 1. Recurrent UTI with sepsis. we will continue IV fluid normal saline 150 mL an hour, patient was started on Zosyn 3.375 g IV piggyback every 6 hours, start the patient on vancomycin pharmacy to dose, infectious disease is following. 2. Hypertension and hypertensive cardiovascular disease. Continue lisinopril 5 mg orally once every day, continue metoprolol 12.5 mg orally twice every day, continue amlodipine 5 mg orally twice every day. Monitor the patient blood pressure very closely. 3. Hyperlipidemia. Patient has tried different statins at this point and she could not tolerate it due to the risk of myopathy and significant weakness in both lower extremities, she was able to try Pitavastatin 2 mg orally once every day. 4. Diabetes mellitus type 2 insulin requiring. Continue patient on Levemir 16 units subcutaneously twice every day, continue with a sliding scale insulin. Discontinue Farxiga 5. Paroxysmal atrial fibrillation currently in sinus rhythm. continue Rythmol 150 mg orally twice every day, continue metoprolol 12.5 mg orally twice every day and Xarelto 20 mg orally daily 6. GERD with esophagitis. Continue patient on pantoprazole 40 mg every day, continue Carafate 1 mg orally twice every day. 7. Mild persistent asthma. Continue beside nebulization twice every day. 8. Severe constipation. Patient had tried MiraLAX, lactulose, Senokot, and Metamucil without any relief, we will start the patient on Linzess 290 MCG o rally once every day. 9. CAD post-PCI. Continue patient on metoprolol 12.5 mg twice every day, co ntinue patient on isosorbide mononitrate 30 mg orally once every day. 10. History of breast cancer status post lumpectomy. Continue Arimidex 1 mg orally once every day. 11. History of uterine cancer status post hysterectomy along with radiation therapy. Currently in remission. 12. History of pituitary adenoma status post resection. 13. Insomnia. Continue trazodone 50 mg at bedtime. 14. DVT Prophylaxis. we will continue with Xarelto 20 mg po daily. 15. GI Prophylaxis. we will continue with PPI. 16. Very guarded prognosis. Objective - Vital Signs Vital signs: Vital Signs Temp 99 F 10/24/21 13:00 Pulse 77 10/24/21 13:00 Resp 14 10/24/21 13:00 BP 111/52 10/24/21 13:00 Pulse Ox 97 10/24/21 13:00 FiO2 Intake & Output 10/23/21 10/24/21 10/24/21 18:59 06:59 18:59 Intake Total 1300 400 Output Total 700 1000 800 Balance 600 -600 -800 Intake: Intake, IV Titration 1300 Amount Cefepime 2 gm In Sodium 100 Chloride 0.9% 100 ml @ 25 mls/hr IVPB Q12HR [facility] Rx #:[id number] Sodium Chloride 0.9% 1, 1200 000 ml @ 150 mls/hr IV . Q6H40M [facility] Rx#:[id number] Oral 400 Output: Urine 700 1000 800 Other: Voiding Method Indwelling Catheter Indwelling Catheter Indwelling Catheter - Labs CBC & Chem 7: 10/24/21 07:01 10/24/21 07:01 Labs: Abnormal Lab Results - Last 24 Hours (Table) 10/23/21 10/23/21 10/24/21 Range/Units 16:29 20:38 02:29 WBC (4.50-10.00) X 10*3/uL RBC (4.10-5.20) X 10*6/uL Hgb (12.0-15.0) g/dL Hct (37.2-46.3) % MCH (27.0-32.0) pg MCHC (32.0-37.0) g/dL RDW (11.5-14.5) % Neutrophils # (Manual) (2.00-8.90) X 10*3/uL Lymphocytes # (Manual) (0.90-5.00) X 10*3/uL Monocytes # (Manual) (0.20-1.00) X 10*3/uL Eosinophils # (Manual) (0.04-0.35) X 10*3/uL Sodium (135-145) mmol/L Carbon Dioxide (20.0-27.5) mmol/L Anion Gap (10.00-18.00) mmol/L Glucose (70-110) mg/dL POC Glucose (mg/dL) 171 H 231 H 225 H (70-110) mg/dL Calcium (8.7-10.3) mg/dL Alkaline Phosphatase (41-126) U/L C-Reactive Protein (0.00-0.80) mg/dL Total Protein (6.2-8.2) g/dL Albumin (3.8-4.9) g/dL Albumin/Globulin Ratio (1.60-3.17) g/dL Urine Appearance (Clear) Urine Protein (Negative) Urine Glucose (UA) (Negative) Urine Blood (Negative) Ur Leukocyte Esterase (Negative) Urine RBC (0-5) /hpf Urine WBC (0-5) /hpf Urine WBC Clumps (None) /hpf Urine Bacteria (None) /hpf Urine Mucus (None) /hpf Urine Yeast (Budding) (None) /hpf 10/24/21 10/24/21 10/24/21 Range/Units 07:01 07:01 07:09 WBC 35.43 H (4.50-10.00) X 10*3/uL RBC 2.98 L (4.10-5.20) X 10*6/uL Hgb 7.9 L (12.0-15.0) g/dL Hct 26.3 L (37.2-46.3) % MCH 26.5 L (27.0-32.0) pg MCHC 30.0 L (32.0-37.0) g/dL RDW 16.5 H (11.5-14.5) % Neutrophils # (Manual) 32.60 H (2.00-8.90) X 10*3/uL Lymphocytes # (Manual) 0.71 L (0.90-5.00) X 10*3/uL Monocytes # (Manual) 2.13 H (0.20-1.00) X 10*3/uL Eosinophils # (Manual) 0 L (0.04-0.35) X 10*3/uL Sodium 123 L (135-145) mmol/L Carbon Dioxide 16.1 L (20.0-27.5) mmol/L Anion Gap 8.90 L (10.00-18.00) mmol/L Glucose 154 H (70-110) mg/dL POC Glucose (mg/dL) 199 H (70-110) mg/dL Calcium 7.7 L (8.7-10.3) mg/dL Alkaline Phosphatase 145 H (41-126) U/L C-Reactive Protein 23.40 H (0.00-0.80) mg/dL Total Protein 4.6 L (6.2-8.2) g/dL Albumin 2.2 L (3.8-4.9) g/dL Albumin/Globulin Ratio 0.92 L (1.60-3.17) g/dL Urine Appearance (Clear) Urine Protein (Negative) Urine Glucose (UA) (Negative) Urine Blood (Negative) Ur Leukocyte Esterase (Negative) Urine RBC (0-5) /hpf Urine WBC (0-5) /hpf Urine WBC Clumps (None) /hpf Urine Bacteria (None) /hpf Urine Mucus (None) /hpf Urine Yeast (Budding) (None) /hpf 10/24/21 10/24/21 Range/Units 07:10 11:06 WBC (4.50-10.00) X 10*3/uL RBC (4.10-5.20) X 10*6/uL Hgb (12.0-15.0) g/dL Hct (37.2-46.3) % MCH (27.0-32.0) pg MCHC (32.0-37.0) g/dL RDW (11.5-14.5) % Neutrophils # (Manual) (2.00-8.90) X 10*3/uL Lymphocytes # (Manual) (0.90-5.00) X 10*3/uL Monocytes # (Manual) (0.20-1.00) X 10*3/uL Eosinophils # (Manual) (0.04-0.35) X 10*3/uL Sodium (135-145) mmol/L Carbon Dioxide (20.0-27.5) mmol/L Anion Gap (10.00-18.00) mmol/L Glucose (70-110) mg/dL POC Glucose (mg/dL) 239 H (70-110) mg/dL Calcium (8.7-10.3) mg/dL Alkaline Phosphatase (41-126) U/L C-Reactive Protein (0.00-0.80) mg/dL Total Protein (6.2-8.2) g/dL Albumin (3.8-4.9) g/dL Albumin/Globulin Ratio (1.60-3.17) g/dL Urine Appearance Cloudy H (Clear) Urine Protein 1+ H (Negative) Urine Glucose (UA) 3+ H (Negative) Urine Blood Small H (Negative) Ur Leukocyte Esterase Large H (Negative) Urine RBC 7 H (0-5) /hpf Urine WBC 154 H (0-5) /hpf Urine WBC Clumps Occasional H (None) /hpf Urine Bacteria Rare H (None) /hpf Urine Mucus Rare H (None) /hpf Urine Yeast (Budding) Many H (None) /hpf Microbiology - Last 24 Hours (Table) 10/21/21 11:30 Blood Culture - Preliminary Blood No Growth after 72 hours 10/21/21 11:45 Blood Culture - Preliminary Blood No Growth after 72 hours 10/24/21 07:10 Urine Culture - Preliminary Urine,Voided
--- NOTE | 2021-10-24 17:11 | P.GSCN ---
History of Present Illness Consult date: 10/24/21 Reason for Consult: Urinary retention, recurrent UTI Requesting physician: Rush Corrigan History of present illness: The patient is a 76-year-old white female well known to Dr. Hernández. She has a history of cervical cancer, treated with radiation therapy. She underwent cystoscopy with retrograde pyelograms in October 2020 for evaluation of gross hematuria, revealing radiation cystitis. She was hospitalized several weeks ago with gross hematuria and urinary retention. She has been treated for recurrent E. coli UTIs. She was recently hospitalized at [facility] and treated for an E. coli UTI. She was discharged home on Macrobid, but is now readmitted with a febrile UTI. Review of Systems - Constitutional Reports fever, Reports sweats - Gastrointestinal Reports abdominal pain - Genitourinary Genitourinary: Reports as per HPI Past Medical History Past Medical History: Atrial Fibrillation, Asthma, Cancer, Diabetes Mellitus, Eye Disorder, Fibromyalgia, GERD/Reflux, Hyperlipidemia, Hypertension, Memory Impairment, Musculoskeletal Disorder, Osteoarthritis (OA), Renal Disease, Thyroid Disorder Additional Past Medical History / Comment(s): tinnitus alyssa ears/mentasta. uterine cancer-2006 WITH RADIATION. METS TO LT LUNG 2010. glaucoma. Breast Cancer. DIABETIC RETINOPATHY. STAGE 2 KIDNEY DISEASE. CHRONIC LOWER BACK PAIN, ddd. sciatic nerve pain, tinnitus. uti. History of Any Multi-Drug Resistant Organisms: MRSA Year Discovered:: 2017 MDRO Source:: R forearm Past Surgical History: Appendectomy, Cholecystectomy, Heart Catheterization, Hernia Repair, Hysterectomy, Joint Replacement, Orthopedic Surgery Additional Past Surgical History / Comment(s): brain surgery for pituary gland tumors, benign growth removed chest. lt lung resection-2010 left eye cataracts removed -lens implants. LT ELIZABETH. ESOPHAGEAL NODULES REMOVED. LIPOMA'S REMOVED. LT VITRECTOMY. MULTIPLE BREAST BIOPSIES. LT ANKLE SX. PLATE & SCREWS TO LT HUMEROUS. BILAT CATARACTS REMOVED. LASER SURGERY ON EYES FOR GLAUCOMA Past Anesthesia/Blood Transfusion Reactions: Motion Sickness, Postoperative Nausea & Vomiting (PONV) Additional Past Anesthesia/Blood Transfusion Reaction / Comm: "has never recieved any blood" Past Psychological History: No Psychological Hx Reported Additional Psychological History / Comment(s): Pt resides with her spouse. She ambulates with a rolling/seated walker,bsc, toilet riser,shower chair, nebulizer. She drives. Her home is handicap accessible. She has [place] on Aging assist with house work and has meals on wheels. . Smoking Status: Never smoker Past Alcohol Use History: None Reported Past Drug Use History: None Reported - Past Family History Father Family Medical History: COPD, Myocardial Infarction (VT) Additional Family Medical History / Comment(s): Father at the age of 63 yrs from a massive VT. He had emphysema and was a smoker. Son(s) History Unknown: Yes Additional Family Medical History / Comment(s): Patient has 2 sons and one has history of asthma. Patient is one daughter with kidney problems. Mother Family Medical History: Cancer Additional Family Medical History / Comment(s): Mother at age 74 from heart failure with history of melanoma. Sister(s) Family Medical History: Cancer Additional Family Medical History / Comment(s): Patient has one sister with history of coronary artery disease and a rare form of breast cancer. Patient does not have any brothers. Medications and Allergies Home Medications Medication Instructions Recorded Confirmed Type Propafenone [Rythmol] 150 mg PO BID 05/16/17 10/21/21 History Montelukast [Singulair] 10 mg PO HS 03/08/18 10/21/21 History ondansetron HCL [Zofran] 4 mg PO Q8H PRN 03/08/18 10/21/21 History Isosorbide Mononitrate ER [Imdur] 30 mg PO DAILY 12/28/18 10/21/21 History Fluticasone Nasal [place] [Flonase 1 spr EA NOSTRIL DAILY 10/11/20 10/21/21 History Nasal [place]] Sucralfate [Carafate] 1 gm PO BID 10/11/20 10/21/21 History Albuterol Nebulized [Ventolin 2.5 mg INHALATION RT-Q6H PRN 09/28/21 10/21/21 History Nebulized] Betaxolol HCl [Betaxolol HCl 0.5% 1 drop BOTH EYES BID 09/28/21 10/21/21 History Ophth Soln] Brimonidine Tartrate [Alphagan P 1 drop BOTH EYES TID 09/28/21 10/21/21 History 0.15% Ophth Soln] Brinzolamide [Brinzolamide 1% 1 drop BOTH EYES TID 09/28/21 10/21/21 History Ophth Susp] Cholecalciferol [Vitamin D3 (125 125 mcg PO DAILY 09/28/21 10/21/21 History Mcg = 5000 Iu)] Dapagliflozin Propanediol [Farxiga] 10 mg PO DAILY 09/28/21 10/21/21 History Dorzolamide 2% [Trusopt 2%] 1 drop BOTH EYES TID 09/28/21 10/21/21 History Furosemide [Lasix] 40 mg PO DAILY PRN 09/28/21 10/21/21 History Insulin Aspart [NovoLOG Flexpen] See Protocol SQ AC-TID 09/28/21 10/21/21 History Insulin Glargine,Hum.rec.anlog 20 unit SQ BID 09/28/21 10/21/21 History [Lantus Solostar Pen] Latanoprost [Xalatan 0.005%] 1 drop BOTH EYES HS 09/28/21 10/21/21 History Linaclotide [Linzess] 290 mcg PO DAILY #30 capsule 09/28/21 10/21/21 Rx Metoprolol Succinate [Toprol XL] 25 mg PO HS 09/28/21 10/21/21 History Psyllium Husk (with Sugar) 6 gm PO BID PRN 09/28/21 10/21/21 History [Metamucil Powder] Rivaroxaban [Xarelto] 20 mg PO HS #0 09/28/21 10/21/21 Rx traZODone HCL [Desyrel] 50 mg PO HS PRN tab 09/28/21 10/21/21 Rx Levothyroxine Sodium [Synthroid] 125 mcg PO DAILY 10/21/21 10/21/21 History Methenamine Hippurate 1 gm PO BID 10/21/21 10/21/21 History Nitrofurantoin Monohyd/M-Cryst 100 mg PO Q12HR 10/21/21 10/21/21 History [Macrobid] Nystatin 100,000Unit/gm Cream 1 applic TOPICAL BID 10/21/21 10/21/21 History [Mycostatin Cream] Omeprazole 20 mg PO DAILY 10/21/21 10/21/21 History Sennosides/Docusate Sodium [Senna 2 tab PO HS 10/21/21 10/21/21 History Plus 8.6-50 mg Tablet] Zinc 50 mg PO DAILY 10/21/21 10/21/21 History lisinopriL [Zestril] 5 mg PO DAILY 10/21/21 10/21/21 History methazolAMIDE [Neptazane] 50 mg PO BID 10/21/21 10/21/21 History Allergies Allergy/AdvReac Type Severity Reaction Status Date / Time adhesive Allergy Rash/Hives Verified 10/21/21 11:39 diltiazem HCl [From Cardizem] Allergy Rash/Hives Verified 10/21/21 11:39 hydromorphone [From Dilaudid] Allergy Unknown Verified 10/21/21 11:39 codeine AdvReac Nausea & Verified 10/21/21 11:39 Vomiting diphenhydramine HCl AdvReac dizzy,light Verified 10/21/21 11:39 [From Benadryl] headed,vomi ting Echinacea AdvReac Rapid Verified 10/21/21 11:39 Heart Rate guaifenesin AdvReac Nausea & Verified 10/21/21 11:39 Vomiting lorazepam [From Ativan] AdvReac "out of Verified 10/21/21 11:39 it", drowsy meperidine AdvReac Nausea & Verified 10/21/21 11:39 Vomiting morphine AdvReac Nausea & Verified 10/21/21 11:39 Vomiting opiates AdvReac Nausea & Uncoded 09/04/21 17:43 Vomiting stadol AdvReac Hallucinati Uncoded 09/28/21 13:05 ons Surgical - Exam Vital Signs Temp Pulse Resp BP Pulse Ox 102.8 F H 85 18 142/49 98 10/21/21 11:26 10/21/21 11:26 10/21/21 11:26 10/21/21 11:26 10/21/21 11:26 - General well developed, well nourished, no distress - Respiratory normal respiratory effort - Abdomen Soft, non-distended, no mass. Mild diffuse tenderness, no guarding or rebound. - Psychiatric oriented to time, oriented to person, oriented to place, speech is normal, memory intact Results - Labs 10/24/21 07:01 10/24/21 07:01 Abnormal Lab Results - Last 24 Hours (Table) 10/23/21 10/23/21 10/24/21 Range/Units 16:29 20:38 02:29 WBC (4.50-10.00) X 10*3/uL RBC (4.10-5.20) X 10*6/uL Hgb (12.0-15.0) g/dL Hct (37.2-46.3) % MCH (27.0-32.0) pg MCHC (32.0-37.0) g/dL RDW (11.5-14.5) % Neutrophils # (Manual) (2.00-8.90) X 10*3/uL Lymphocytes # (Manual) (0.90-5.00) X 10*3/uL Monocytes # (Manual) (0.20-1.00) X 10*3/uL Eosinophils # (Manual) (0.04-0.35) X 10*3/uL Sodium (135-145) mmol/L Carbon Dioxide (20.0-27.5) mmol/L Anion Gap (10.00-18.00) mmol/L Glucose (70-110) mg/dL POC Glucose (mg/dL) 171 H 231 H 225 H (70-110) mg/dL Calcium (8.7-10.3) mg/dL Alkaline Phosphatase (41-126) U/L C-Reactive Protein (0.00-0.80) mg/dL Total Protein (6.2-8.2) g/dL Albumin (3.8-4.9) g/dL Albumin/Globulin Ratio (1.60-3.17) g/dL Urine Appearance (Clear) Urine Protein (Negative) Urine Glucose (UA) (Negative) Urine Blood (Negative) Ur Leukocyte Esterase (Negative) Urine RBC (0-5) /hpf Urine WBC (0-5) /hpf Urine WBC Clumps (None) /hpf Urine Bacteria (None) /hpf Urine Mucus (None) /hpf Urine Yeast (Budding) (None) /hpf 10/24/21 10/24/21 10/24/21 Range/Units 07:01 07:01 07:09 WBC 35.43 H (4.50-10.00) X 10*3/uL RBC 2.98 L (4.10-5.20) X 10*6/uL Hgb 7.9 L (12.0-15.0) g/dL Hct 26.3 L (37.2-46.3) % MCH 26.5 L (27.0-32.0) pg MCHC 30.0 L (32.0-37.0) g/dL RDW 16.5 H (11.5-14.5) % Neutrophils # (Manual) 32.60 H (2.00-8.90) X 10*3/uL Lymphocytes # (Manual) 0.71 L (0.90-5.00) X 10*3/uL Monocytes # (Manual) 2.13 H (0.20-1.00) X 10*3/uL Eosinophils # (Manual) 0 L (0.04-0.35) X 10*3/uL Sodium 123 L (135-145) mmol/L Carbon Dioxide 16.1 L (20.0-27.5) mmol/L Anion Gap 8.90 L (10.00-18.00) mmol/L Glucose 154 H (70-110) mg/dL POC Glucose (mg/dL) 199 H (70-110) mg/dL Calcium 7.7 L (8.7-10.3) mg/dL Alkaline Phosphatase 145 H (41-126) U/L C-Reactive Protein 23.40 H (0.00-0.80) mg/dL Total Protein 4.6 L (6.2-8.2) g/dL Albumin 2.2 L (3.8-4.9) g/dL Albumin/Globulin Ratio 0.92 L (1.60-3.17) g/dL Urine Appearance (Clear) Urine Protein (Negative) Urine Glucose (UA) (Negative) Urine Blood (Negative) Ur Leukocyte Esterase (Negative) Urine RBC (0-5) /hpf Urine WBC (0-5) /hpf Urine WBC Clumps (None) /hpf Urine Bacteria (None) /hpf Urine Mucus (None) /hpf Urine Yeast (Budding) (None) /hpf 10/24/21 10/24/21 Range/Units 07:10 11:06 WBC (4.50-10.00) X 10*3/uL RBC (4.10-5.20) X 10*6/uL Hgb (12.0-15.0) g/dL Hct (37.2-46.3) % MCH (27.0-32.0) pg MCHC (32.0-37.0) g/dL RDW (11.5-14.5) % Neutrophils # (Manual) (2.00-8.90) X 10*3/uL Lymphocytes # (Manual) (0.90-5.00) X 10*3/uL Monocytes # (Manual) (0.20-1.00) X 10*3/uL Eosinophils # (Manual) (0.04-0.35) X 10*3/uL Sodium (135-145) mmol/L Carbon Dioxide (20.0-27.5) mmol/L Anion Gap (10.00-18.00) mmol/L Glucose (70-110) mg/dL POC Glucose (mg/dL) 239 H (70-110) mg/dL Calcium (8.7-10.3) mg/dL Alkaline Phosphatase (41-126) U/L C-Reactive Protein (0.00-0.80) mg/dL Total Protein (6.2-8.2) g/dL Albumin (3.8-4.9) g/dL Albumin/Globulin Ratio (1.60-3.17) g/dL Urine Appearance Cloudy H (Clear) Urine Protein 1+ H (Negative) Urine Glucose (UA) 3+ H (Negative) Urine Blood Small H (Negative) Ur Leukocyte Esterase Large H (Negative) Urine RBC 7 H (0-5) /hpf Urine WBC 154 H (0-5) /hpf Urine WBC Clumps Occasional H (None) /hpf Urine Bacteria Rare H (None) /hpf Urine Mucus Rare H (None) /hpf Urine Yeast (Budding) Many H (None) /hpf Microbiology - Last 24 Hours (Table) 10/21/21 11:30 Blood Culture - Preliminary Blood No Growth after 72 hours 10/21/21 11:45 Blood Culture - Preliminary Blood No Growth after 72 hours 10/24/21 07:10 Urine Culture - Preliminary Urine,Voided Diabetes panel 10/24/21 Range/Units 07:01 Sodium 123 L (135-145) mmol/L Potassium 4.7 (3.5-5.5) mmol/L Chloride 98 (96-109) mmol/L Carbon Dioxide 16.1 L (20.0-27.5) mmol/L BUN 12.7 (9.0-27.0) mg/dL Creatinine 0.9 (0.6-1.5) mg/dL Glucose 154 H (70-110) mg/dL Calcium 7.7 L (8.7-10.3) mg/dL AST 31 (13-35) U/L ALT 26 (8-44) U/L Alkaline Phosphatase 145 H (41-126) U/L Total Protein 4.6 L (6.2-8.2) g/dL Albumin 2.2 L (3.8-4.9) g/dL Calcium panel 10/24/21 Range/Units 07:01 Calcium 7.7 L (8.7-10.3) mg/dL Albumin 2.2 L (3.8-4.9) g/dL Pituitary panel 10/24/21 Range/Units 07:01 Sodium 123 L (135-145) mmol/L Potassium 4.7 (3.5-5.5) mmol/L Chloride 98 (96-109) mmol/L Carbon Dioxide 16.1 L (20.0-27.5) mmol/L BUN 12.7 (9.0-27.0) mg/dL Creatinine 0.9 (0.6-1.5) mg/dL Glucose 154 H (70-110) mg/dL Calcium 7.7 L (8.7-10.3) mg/dL Adrenal panel 10/24/21 Range/Units 07:01 Sodium 123 L (135-145) mmol/L Potassium 4.7 (3.5-5.5) mmol/L Chloride 98 (96-109) mmol/L Carbon Dioxide 16.1 L (20.0-27.5) mmol/L BUN 12.7 (9.0-27.0) mg/dL Creatinine 0.9 (0.6-1.5) mg/dL Glucose 154 H (70-110) mg/dL Calcium 7.7 L (8.7-10.3) mg/dL Total Bilirubin 0.40 (0.30-1.20) mg/dL AST 31 (13-35) U/L ALT 26 (8-44) U/L Alkaline Phosphatase 145 H (41-126) U/L Total Protein 4.6 L (6.2-8.2) g/dL Albumin 2.2 L (3.8-4.9) g/dL - Imaging CT scan - abdomen: report reviewed, image reviewed Assessment and Plan (1) UTI (urinary tract infection) Current Visit: Yes Status: Acute Code(s): N39.0 - URINARY TRACT INFECTION, SITE NOT SPECIFIED SNOMED Code(s): 14063856 (2) Urinary retention Current Visit: No Status: Acute Code(s): R33.9 - RETENTION OF URINE, UNSPECIFIED SNOMED Code(s): 811752685 Plan: The patient has an indwelling Bell catheter for chronic urinary retention. She states that she failed a voiding trial during her recent hospitalization at [facility], requiring replacement of the catheter. Unfortunately, a chronic indwelling catheter predisposes her to UTIs, and she is unable to perform intermittent self-catheterization. I have reviewed her CT scan of the abdomen and pelvis, which shows no renal abnormalities. The bladder is decompressed and thus no conclusions can be drawn from this. She is currently receiving Zosyn, pending culture results. I will review her office records prior to making any further recommendations. Time with Patient: Greater than 30
[2021-10-24 17:23] LABS: Glucose,Whole Blood 273 mg/dL (70-110)
[2021-10-24] MEDS ORDERED: SODIUM FERRIC GLUCONAT-SUCROSE 125 MG in SODIUM CHLORIDE 0.9% 100 ML IVPB ONE (19:00)
[2021-10-24] MEDS ORDERED: FUROSEMIDE 10 MG/ML 4 ML VIAL IV ONE (19:00)
[2021-10-24] MEDS: KETOROLAC 15 MG/ML 1 ML VIAL IVP PRN (19:22)
[2021-10-24] MEDS ORDERED: METOCLOPRAMIDE 5 MG/ML 2 ML VIAL IVP PRN (20:18)
[2021-10-24] MEDS ORDERED: ENALAPRILAT 1.25 MG/ML 1 ML VIAL IVP PRN (20:18)
[2021-10-24 20:41] LABS: Glucose,Whole Blood 204 mg/dL (70-110)
[2021-10-24] MEDS: METOPROLOL SUCCINATE (ER) 25 MG TAB.ER.24H PO SCH (22:01)
[2021-10-24] MEDS: SENNOSIDES-DOCUSATE SODIUM 1 EACH TAB PO SCH (22:01)
[2021-10-24] MEDS: MONTELUKAST 10 MG TAB PO SCH (22:02)
[2021-10-24] MEDS: RIVAROXABAN 20 MG TAB PO SCH (22:03)
[2021-10-24] MEDS: LATANOPROST 0.005% OPHTH DROPS 2.5 ML BTL BOTH EYES SCH (22:19)
[2021-10-25] MEDS: PIPERACILLIN-TAZOBACTAM 3.375 GM in SODIUM CHLORIDE 0.9% 100 ML IVPB SCH ×3 (03:18→20:04)
[2021-10-25] MEDS: LEVOTHYROXINE 125 MCG TAB PO SCH (04:23)
[2021-10-25] MEDS: SUCRALFATE 1 GM TAB PO SCH ×2 (07:08→20:05)
[2021-10-25] MEDS: TIMOLOL 0.5% OPHTH DROPS 5 ML BTL BOTH EYES SCH ×2 (07:10→21:00)
[2021-10-25] MEDS: traMADol 50 MG TAB PO SCH (07:10)
[2021-10-25] MEDS: NON FORMULARY DRUG (Methenamine Hippurate [Methenamine Hippurate] 1 GM Tablet) PO SCH ×2 (07:11→21:02)
[2021-10-25] MEDS: DORZOLAMIDE HCL 2% DROPS 10 ML BTL BOTH EYES SCH ×3 (07:12→21:02)
[2021-10-25] MEDS: BRIMONIDINE TARTRATE 0.2% DROPS 5 ML BTL BOTH EYES SCH ×3 (07:13→21:01)
[2021-10-25 07:29] LABS: Glucose,Whole Blood 188 mg/dL (70-110)
[2021-10-25] MEDS: INSULIN DETEMIR (LEVEMIR) 100 UNIT/ML SYR SQ SCH (08:42)
[2021-10-25] MEDS: lisinopriL 5 MG TAB PO SCH (08:42)
[2021-10-25] MEDS: ISOSORBIDE MONONITRATE ER 30 MG TAB.ER.24H PO SCH (08:42)
[2021-10-25] MEDS: CHOLECALCIFEROL 125 MCG (5000 IU) TABLET PO SCH (08:42)
[2021-10-25] MEDS: PANTOPRAZOLE 40 MG TABLET PO SCH (08:42)
[2021-10-25] MEDS: ZINC SULFATE 220 MG CAP PO SCH (08:42)
[2021-10-25] MEDS: FLUTICASONE 50MCG/SPRAY NASAL 16GM EA NOSTRIL SCH (08:43)
[2021-10-25] MEDS: PROPAFENONE 150 MG TAB PO SCH ×2 (08:43→20:06)
[2021-10-25] MEDS: CLOTRIMAZOLE/BETAMETH 1-0.05% CREAM 45 GM TUBE TOPICAL SCH ×2 (08:43→20:05)
[2021-10-25] MEDS: NYSTATIN 100,000UNIT/GM CREAM 30 GM TUBE TOPICAL SCH ×2 (08:43→20:07)
[2021-10-25] MEDS: SODIUM CHLORIDE 0.9% 1,000 ML IV SCH (11:09)
[2021-10-25 11:11] LABS: Glucose,Whole Blood 240 mg/dL (70-110)
[2021-10-25] MEDS ORDERED: ANIDULAFUNGIN 200 MG in SODIUM CHLORIDE 0.9% 200 ML IVPB ONE (12:00)
[2021-10-25 13:09] LABS: Albumin/Globulin Ratio 0.83 (1.60-3.17); Anion Gap 11.6 mmol/L (10.00-18.00); BUN/Creat Ratio 17.33 Ratio (12.00-20.00); Blood Urea Nitrogen 15.6 mg/dL (9.0-27.0); Calcium 8.1 mg/dL (8.7-10.3); Carbon Dioxide 14.4 mmol/L (20.0-27.5); Globulin 2.4 g/dL (1.6-3.3); Non-African American GFR(CKD) 62.1 (60.0-200.0); Potassium 4.6 mmol/L (3.5-5.5); Total Bilirubin 0.4 mg/dL (0.30-1.20); Total Protein 4.4 g/dL (6.2-8.2)
[2021-10-25] MEDS ORDERED: FUROSEMIDE 10 MG/ML 4 ML VIAL IV STA ×2 (13:24→20:30)
--- NOTE | 2021-10-25 13:57 | P.PN ---
Subjective Progress Note Date: 10/24/21 HISTORY OF PRESENT ILLNESS: This is a 76-year-old white female with a previous medical history significant for hypertension and hypertensive cardiovascular disease, hyperlipidemia, diabetes mellitus type 2 with diabetic polyneuropathy, history of paroxysmal atrial fibrillation, coronary artery disease status post PCI and stent placement, history of uterine cancer in the past status post hysterectomy as well as radiation therapy, patient also had suffered from significant constipation and recurrent urinary tract infection associated with macro-and microscopic hematuria, patient has been under the care of from urology, she was recently discharged form [facility] after she w as admitted for E.Coli UTI that was sensitive to Cefepime and had IV treatment that was switched to oral Macrobid 100 mg po bid for 1 week and she went home last Wednesday, then she developed to have fever and chills and was seen in my office yesterday for what appears to be a UTI with sepsis, she was sent to [facility] ER Via EMS and had CT scan of the abdomen and pelvis that was negative and she was started ON IV Antibiotics in the form of Cefepime 2 gr IVPB Q 8 hours and sent urine and blood cultures and was admitted to the hospital with ID consult. 10/23: Patient is laying down in bed she continues to have significant pain in the lower abdomen and she is complaining of increased swelling and tenderness of bilateral labia, she was seen earlier by ID, computed tomography scan of the pelvis were done did not show evidence of any drainable abscess at this time, patient was started on vancomycin along with cefepime, we will continue to monitor the patient very closely she appears to be somewhat hypotensive I spoke with the nursing staff about giving her a bolus of normal saline 500 mL followed by increasing her IV fluid 250 mL an hour, monitor the patient very closely repeat her CBC tomorrow morning, if the patient is not improving or her blood pressure does not normalize she will need to be transferred to the ICU. 10/24: Patient is laying down in bed moaning and groaning, she continues to appears very sick, we will reduce her IV fluid to 75 mL an hour patient was given 1 dose of Lasix 40 mg IV push 1, reevaluate the patient next 24 hours, patient also was seen earlier by infectious disease as well as by urology and was recommended to continue with Zosyn at this point in time she was taken off cefepime and vancomycin and the since her urine culture is growing Yudelka glabrata she was started on Anidulafungin 200 mg IVPB daily REVIEW OF SYSTEMS: Constitutional: positive for fever, positive for chills, no night sweats. No weight change. positive for weakness, fatigue or lethargy. No daytime sleepiness. HEENT: positive for headache. No blurred vision or double vision, no loss of vision. No loss of Hearing, no ringing in the ears, no dizziness. No nasal drainage or congestion. No epistaxis. positive for sore throat Lungs: appears with some shortness of breath, occasional cough, no sputum production. positive for wheezing. Reports dyspnea with activity. Cardiovascular: No chest pain, mild lower extremity edema. No palpitations. No paroxysmal nocturnal dyspnea. positive for orthopnea. No lightheadedness or dizziness. No syncopal episodes. Abdominal: Reports abdominal pain. positive for nausea, no vomiting. No diarrhea. positive for constipation. No bloody or tarry stools reports loss of appetite. Genitourinary: positive for dysuria, increased frequency, urgency. positive for urinary retention. Musculoskeletal: No myalgias. positive for muscle weakness, no gait dysfunction, no frequent falls. positive for back pain and neck pain. Integumentary: No wounds, no lesions. No rash or pruritus. No unusual bruising. No change in hair or nails. Neurologic: No aphasia. No facial droop. No change in mentation. No head injury. No headache. No paralysis. No paresthesia. Psychiatric: No depression. No anxiety. No mood swings. Endocrine: No abnormal blood sugars. No weight change. PHYSICAL EXAMINATION: General: 76-year-old female laying on the bed in mild respiratory distress. HEENT: Head is atraumatic, normocephalic, pupils were equal round reactive to light and recommendation, extraocular muscle movement were intact, sclera nonicteric, conjunctivae were pale, mucous membranes of the mouth are somewhat dry, with thrush Neck: Supple, no JVP, decreased carotid upstroke bilaterally, no lymphadenopathy. Chest: Decreased breath sounds at the bases, few rhonchi, positive for expiratory wheezes, no chest wall tenderness, no intercostal retractions. Heart: First heart sound is normal, second heart sound is normal there is systolic ejection murmur 2/6 located in the left sternal border. Abdomen: Soft, nondistended, positive bowel sounds, multiple surgical scars, mild diffuse non specific tenderness Extremities: There is +1 edema no calf tenderness DP +2 bilaterally. Neurologic examination: Patient is awake alert and oriented X3 , cranial nerves II-12 appear grossly intact, muscle power were 4 out of 5 in upper extremities and 3 out of 5 in bilateral lower extremities, deep tendon reflexes normal bilaterally. WEB PRESSMAN: with Chapeon in the room , there is siginificant swelling to both labia with tenserness. ASSESSMENT AND PLAN: 1. Recurrent UTI with sepsis. Decrease IV fluid to KVO, continue patient on Zosyn 3.375 g IV piggyback every 6 hours, continue Anidulafungin 200 mg IV piggyback every day, infectious disease and neurology are following. 2. Acute hypoxemic respiratory insufficiency due to fluid overload. Decrease IV fluids to KVO, start the patient on Lasix 40 mg IV push daily. 3. Hypertension and hypertensive cardiovascular disease. Continue lisinopril 10 mg orally once every day, continue metoprolol 12.5 mg orally twice every day, continue amlodipine 5 mg orally twice every day, Just added Vasotec 1.25 mg IV push every 6 hours as needed for systolic greater than 150. 3. Hyperlipidemia. Stable 4 . Diabetes mellitus type 2 insulin requiring. Continue patient on Levemir 16 units subcutaneously twice every day, continue with a sliding scale insulin. Discontinue Farxiga 5. Paroxysmal atrial fibrillation currently in sinus rhythm. continue Rythmol 150 mg orally twice every day, continue metoprolol 12.5 mg orally twice every day and Xarelto 20 mg orally daily 6. GERD with esophagitis. Continue patient on pantoprazole 40 mg every day, continue Carafate 1 mg orally twice every day. 7. Mild persistent asthma. Continue albuterol 2.5 mg nebulization 4 times every day [id number]. 8. Severe constipation. Patient had tried MiraLAX, lactulose, Senokot, and Metamucil without any relief, we will start the patient on Linzess 290 MCG orally once every day. 9. CAD post-PCI. Continue patient on metoprolol 12.5 mg twice every day, continue patient on isosorbide mononitrate 30 mg orally once every day. 10. History of breast cancer status post lumpectomy. Continue Arimidex 1 mg orally once every day. 11. History of uterine cancer status post hysterectomy along with radiation therapy. Currently in remission. 12. History of pituitary adenoma status post resection. 13. Insomnia. Continue trazodone 50 mg at bedtime. 14. DVT Prophylaxis. we will continue with Xarelto 20 mg po daily. 15. GI Prophylaxis. we will continue with PPI. 16. Medical debility. Physical therapy evaluation. Objective - Vital Signs Vital signs: Vital Signs Temp 99 F 10/24/21 13:00 Pulse 77 10/24/21 13:00 Resp 14 10/24/21 13:00 BP 111/52 10/24/21 13:00 Pulse Ox 97 10/24/21 13:00 FiO2 Intake & Output 10/23/21 10/24/21 10/24/21 18:59 06:59 18:59 Intake Total 1300 400 Output Total 700 1000 800 Balance 600 -600 -800 Intake: Intake, IV Titration 1300 Amount Cefepime 2 gm In Sodium 100 Chloride 0.9% 100 ml @ 25 mls/hr IVPB Q12HR [facility] Rx #:[id number] Sodium Chloride 0.9% 1, 1200 000 ml @ 150 mls/hr IV . [id number] [facility] Rx#:[id number] Oral 400 Output: Urine 700 1000 800 Other: Voiding Method Indwelling Catheter Indwelling Catheter Indwelling Catheter - Labs CBC & Chem 7: 10/24/21 07:01 10/25/21 05:52 Labs: Abnormal Lab Results - Last 24 Hours (Table) 10/23/21 10/23/21 10/24/21 Range/Units 16:29 20:38 02:29 WBC (4.50-10.00) X 10*3/uL RBC (4.10-5.20) X 10*6/uL Hgb (12.0-15.0) g/dL Hct (37.2-46.3) % MCH (27.0-32.0) pg MCHC (32.0-37.0) g/dL RDW (11.5-14.5) % Neutrophils # (Manual) (2.00-8.90) X 10*3/uL Lymphocytes # (Manual) (0.90-5.00) X 10*3/uL Monocytes # (Manual) (0.20-1.00) X 10*3/uL Eosinophils # (Manual) (0.04-0.35) X 10*3/uL Sodium (135-145) mmol/L Carbon Dioxide (20.0-27.5) mmol/L Anion Gap (10.00-18.00) mmol/L Glucose (70-110) mg/dL POC Glucose (mg/dL) 171 H 231 H 225 H (70-110) mg/dL Calcium (8.7-10.3) mg/dL Alkaline Phosphatase (41-126) U/L C-Reactive Protein (0.00-0.80) mg/dL Total Protein (6.2-8.2) g/dL Albumin (3.8-4.9) g/dL Albumin/Globulin Ratio (1.60-3.17) g/dL Urine Appearance (Clear) Urine Protein (Negative) Urine Glucose (UA) (Negative) Urine Blood (Negative) Ur Leukocyte Esterase (Negative) Urine RBC (0-5) /hpf Urine WBC (0-5) /hpf Urine WBC Clumps (None) /hpf Urine Bacteria (None) /hpf Urine Mucus (None) /hpf Urine Yeast (Budding) (None) /hpf 10/24/21 10/24/21 10/24/21 Range/Units 07:01 07:01 07:09 WBC 35.43 H (4.50-10.00) X 10*3/uL RBC 2.98 L (4.10-5.20) X 10*6/uL Hgb 7.9 L (12.0-15.0) g/dL Hct 26.3 L (37.2-46.3) % MCH 26.5 L (27.0-32.0) pg MCHC 30.0 L (32.0-37.0) g/dL RDW 16.5 H (11.5-14.5) % Neutrophils # (Manual) 32.60 H (2.00-8.90) X 10*3/uL Lymphocytes # (Manual) 0.71 L (0.90-5.00) X 10*3/uL Monocytes # (Manual) 2.13 H (0.20-1.00) X 10*3/uL Eosinophils # (Manual) 0 L (0.04-0.35) X 10*3/uL Sodium 123 L (135-145) mmol/L Carbon Dioxide 16.1 L (20.0-27.5) mmol/L Anion Gap 8.90 L (10.00-18.00) mmol/L Glucose 154 H (70-110) mg/dL POC Glucose (mg/dL) 199 H (70-110) mg/dL Calcium 7.7 L (8.7-10.3) mg/dL Alkaline Phosphatase 145 H (41-126) U/L C-Reactive Protein 23.40 H (0.00-0.80) mg/dL Total Protein 4.6 L (6.2-8.2) g/dL Albumin 2.2 L (3.8-4.9) g/dL Albumin/Globulin Ratio 0.92 L (1.60-3.17) g/dL Urine Appearance (Clear) Urine Protein (Negative) Urine Glucose (UA) (Negative) Urine Blood (Negative) Ur Leukocyte Esterase (Negative) Urine RBC (0-5) /hpf Urine WBC (0-5) /hpf Urine WBC Clumps (None) /hpf Urine Bacteria (None) /hpf Urine Mucus (None) /hpf Urine Yeast (Budding) (None) /hpf 10/24/21 10/24/21 Range/Units 07:10 11:06 WBC (4.50-10.00) X 10*3/uL RBC (4.10-5.20) X 10*6/uL Hgb (12.0-15.0) g/dL Hct (37.2-46.3) % MCH (27.0-32.0) pg MCHC (32.0-37.0) g/dL RDW (11.5-14.5) % Neutrophils # (Manual) (2.00-8.90) X 10*3/uL Lymphocytes # (Manual) (0.90-5.00) X 10*3/uL Monocytes # (Manual) (0.20-1.00) X 10*3/uL Eosinophils # (Manual) (0.04-0.35) X 10*3/uL Sodium (135-145) mmol/L Carbon Dioxide (20.0-27.5) mmol/L Anion Gap (10.00-18.00) mmol/L Glucose (70-110) mg/dL POC Glucose (mg/dL) 239 H (70-110) mg/dL Calcium (8.7-10.3) mg/dL Alkaline Phosphatase (41-126) U/L C-Reactive Protein (0.00-0.80) mg/dL Total Protein (6.2-8.2) g/dL Albumin (3.8-4.9) g/dL Albumin/Globulin Ratio (1.60-3.17) g/dL Urine Appearance Cloudy H (Clear) Urine Protein 1+ H (Negative) Urine Glucose (UA) 3+ H (Negative) Urine Blood Small H (Negative) Ur Leukocyte Esterase Large H (Negative) Urine RBC 7 H (0-5) /hpf Urine WBC 154 H (0-5) /hpf Urine WBC Clumps Occasional H (None) /hpf Urine Bacteria Rare H (None) /hpf Urine Mucus Rare H (None) /hpf Urine Yeast (Budding) Many H (None) /hpf Microbiology - Last 24 Hours (Table) 10/21/21 11:30 Blood Culture - Preliminary Blood No Growth after 72 hours 10/21/21 11:45 Blood Culture - Preliminary Blood No Growth after 72 hours 10/24/21 07:10 Urine Culture - Preliminary Urine,Voided
--- NOTE | 2021-10-25 13:59 | P.PN ---
Subjective Progress Note Date: 10/25/21 HISTORY OF PRESENT ILLNESS: This is a 76-year-old white female with a previous medical history significant for hypertension and hypertensive cardiovascular disease, hyperlipidemia, diabetes mellitus type 2 with diabetic polyneuropathy, history of paroxysmal atrial fibrillation, coronary artery disease status post PCI and stent placement, history of uterine cancer in the past status post hysterectomy as well as radiation therapy, patient also had suffered from significant constipation and recurrent urinary tract infection associated with macro-and microscopic hematuria, patient has been under the care of from urology, she was recently discharged form [facility] after she w as admitted for E.Coli UTI that was sensitive to Cefepime and had IV treatment that was switched to oral Macrobid 100 mg po bid for 1 week and she went home last Wednesday, then she developed to have fever and chills and was seen in my office yesterday for what appears to be a UTI with sepsis, she was sent to [facility] ER Via EMS and had CT scan of the abdomen and pelvis that was negative and she was started ON IV Antibiotics in the form of Cefepime 2 gr IVPB Q 8 hours and sent urine and blood cultures and was admitted to the hospital with ID consult. 10/23: Patient is laying down in bed she continues to have significant pain in the lower abdomen and she is complaining of increased swelling and tenderness of bilateral labia, she was seen earlier by ID, computed tomography scan of the pelvis were done did not show evidence of any drainable abscess at this time, patient was started on vancomycin along with cefepime, we will continue to monitor the patient very closely she appears to be somewhat hypotensive I spoke with the nursing staff about giving her a bolus of normal saline 500 mL followed by increasing her IV fluid 250 mL an hour, monitor the patient very closely repeat her CBC tomorrow morning, if the patient is not improving or her blood pressure does not normalize she will need to be transferred to the ICU. 10/24: Patient is laying down in bed moaning and groaning, she continues to appears very sick, we will reduce her IV fluid to 75 mL an hour patient was given 1 dose of Lasix 40 mg IV push 1, reevaluate the patient next 24 hours, patient also was seen earlier by infectious disease as well as by urology and was recommended to continue with Zosyn at this point in time she was taken off cefepime and vancomycin and the since her urine culture is growing Yudelka glabrata she was started on Anidulafungin 200 mg IVPB daily 10/25: Patient is sitting up in bed she appears to be more short of breath today, we decreased her IV fluids all the way to KVO, give the patient another dose of Lasix 40 mg IV push, we'll arrange for chest x-ray stat, nebulized treatment albuterol 2.5 mg every every 6 hours [id number], monitor the patient in the monitor she was presented to she is well, laboratory evaluation reviewed, we'll continue to monitor the patient very closely REVIEW OF SYSTEMS: Constitutional: positive for fever, positive for chills, no night sweats. No we ight change. positive for weakness, fatigue or lethargy. No daytime sleepiness. HEENT: positive for headache. No blurred vision or double vision, no loss of vision. No loss of Hearing, no ringing in the ears, no dizziness. No nasal drainage or congestion. No epistaxis. positive for sore throat Lungs: appears with some shortness of breath, occasional cough, no sputum production. positive for wheezing. Reports dyspnea with activity. Cardiovascular: No chest pain, mild lower extremity edema. No palpitations. No paroxysmal nocturnal dyspnea. positive for orthopnea. No lightheadedness or dizziness. No syncopal episodes. Abdominal: Reports abdominal pain. positive for nausea, no vomiting. No diarrhea. positive for constipation. No bloody or tarry stools reports loss of appetite. Genitourinary: positive for dysuria, increased frequency, urgency. positive for urinary retention. Musculoskeletal: No myalgias. positive for muscle weakness, no gait dysfunction, no frequent falls. positive for back pain and neck pain. Integumentary: No wounds, no lesions. No rash or pruritus. No unusual bruising. No change in hair or nails. Neurologic: No aphasia. No facial droop. No change in mentation. No head injury. No headache. No paralysis. No paresthesia. Psychiatric: No depression. No anxiety. No mood swings. Endocrine: No abnormal blood sugars. No weight change. PHYSICAL EXAMINATION: General: 76-year-old female laying on the bed in mild respiratory di stress. HEENT: Head is atraumatic, normocephalic, pupils were equal round reactive to light and recommendation, extraocular muscle movement were intact, sclera nonicteric, conjunctivae were pale, mucous membranes of the mouth are somewhat dry, with thrush Neck: Supple, no JVP, decreased carotid upstroke bilaterally, no lymphadenopathy. Chest: Decreased breath sounds at the bases, few rhonchi, positive for expiratory wheezes, no chest wall tenderness, no intercostal retractions. Heart: First heart sound is normal, second heart sound is normal there is systolic ejection murmur 2/6 located in the left sternal border. Abdomen: Soft, nondistended, positive bowel sounds, multiple surgical scars, mild diffuse non specific tenderness Extremities: There is +1 edema no calf tenderness DP +2 bilaterally. Neurologic examination: Patient is awake alert and oriented X3 , cranial nerves II-12 appear grossly intact, muscle power were 4 out of 5 in upper extremities and 3 out of 5 in bilateral lower extremities, deep tendon reflexes normal bilaterally. ASSOCIATE FINANCIAL REPRESENTATIVE: with Chapeon in the room , there is siginificant swelling to both labia with tenserness. ASSESSMENT AND PLAN: 1. Recurrent UTI with sepsis. Decrease IV fluid to KVO, continue patient on Zosyn 3.375 g IV piggyback every 6 hours, continue Anidulafungin 200 mg IV piggyback every day, infectious disease and neurology are following. 2. Acute hypoxemic respiratory insufficiency due to fluid overload. Decrease IV fluids to KVO, start the patient on Lasix 40 mg IV push daily. 3. Hypertension and hypertensive cardiovascular disease. Continue lisinopril 10 mg orally once every day, continue metoprolol 12.5 mg orally twice every day , continue amlodipine 5 mg orally twice every day, Just added Vasotec 1.25 mg IV push every 6 hours as needed for systolic greater than 150. 3. Hyperlipidemia. Stable 4 . Diabetes mellitus type 2 insulin requiring. Continue patient on Levemir 16 units subcutaneously twice every day, continue with a sliding scale insulin. Discontinue Farxiga 5. Paroxysmal atrial fibrillation currently in sinus rhythm. continue Rythmol 150 mg orally twice every day, continue metoprolol 12.5 mg orally twice every day and Xarelto 20 mg orally daily 6. GERD with esophagitis. Continue patient on pantoprazole 40 mg every day, continue Carafate 1 mg orally twice every day. 7. Mild persistent asthma. Continue albuterol 2.5 mg nebulization 4 times every day [id number]. 8. Severe constipation. Patient had tried MiraLAX, lactulose, Senokot, and Metamucil without any relief, we will start the patient on Linzess 290 MCG orally once every day. 9. CAD post-PCI. Continue patient on metoprolol 12.5 mg twice every day, continue patient on isosorbide mononitrate 30 mg orally once every day. 10. History of breast cancer status post lumpectomy. Continue Arimidex 1 mg orally once every day. 11. History of uterine cancer status post hysterectomy along with radiation therapy. Currently in remission. 12. History of pituitary adenoma status post resection. 13. Insomnia. Continue trazodone 50 mg at bedtime. 14. DVT Prophylaxis. we will continue with Xarelto 20 mg po daily. 15. GI Prophylaxis. we will continue with PPI. 16. Medical debility. Physical therapy evaluation. Objective - Vital Signs Vital signs: Vital Signs Temp 98.6 F 10/25/21 13:36 Pulse 88 10/25/21 13:36 Resp 24 10/25/21 13:36 BP 166/69 10/25/21 13:36 Pulse Ox 94 L 10/25/21 13:36 FiO2 Intake & Output 10/24/21 10/25/21 10/25/21 18:59 06:59 18:59 Intake Total 1600 240 Output Total 1400 1200 Balance -1400 400 240 Intake: Intake, IV Titration 1000 Amount Piperacillin-Tazobactam 3 100 .375 gm In Sodium Chloride 0.9% 100 ml @ 25 mls/hr IVPB Q8H [facility] Rx#: [id number] Sodium Chloride 0.9% 1, 800 000 ml @ 75 mls/hr IV . [id number] [facility] Rx#:[id number] Sodium Ferric Gluconat- 100 Sucrose 125 mg In Sodium Chloride 0.9% 100 ml @ 100 mls/hr IVPB ONCE [facility] Rx#:[id number] Oral 600 240 Output: Urine 1400 1200 Other: Voiding Method Indwelling Catheter Indwelling Catheter Indwelling Catheter # Bowel Movements 0 - Labs CBC & Chem 7: 10/24/21 07:01 10/25/21 05:52 Labs: Abnormal Lab Results - Last 24 Hours (Table) 10/24/21 10/24/21 10/25/21 Range/Units 17:22 20:40 05:52 Sodium 127 L (135-145) mmol/L Carbon Dioxide 14.4 L (20.0-27.5) mmol/L Glucose 157 H (70-110) mg/dL POC Glucose (mg/dL) 273 H 204 H (70-110) mg/dL Calcium 8.1 L (8.7-10.3) mg/dL Alkaline Phosphatase 162 H (41-126) U/L Total Protein 4.4 L (6.2-8.2) g/dL Albumin 2.0 L (3.8-4.9) g/dL Albumin/Globulin Ratio 0.83 L (1.60-3.17) g/dL 10/25/21 10/25/21 Range/Units 07:27 11:10 Sodium (135-145) mmol/L Carbon Dioxide (20.0-27.5) mmol/L Glucose (70-110) mg/dL POC Glucose (mg/dL) 188 H 240 H (70-110) mg/dL Calcium (8.7-10.3) mg/dL Alkaline Phosphatase (41-126) U/L Total Protein (6.2-8.2) g/dL Albumin (3.8-4.9) g/dL Albumin/Globulin Ratio (1.60-3.17) g/dL Microbiology - Last 24 Hours (Table) 10/24/21 07:10 Urine Culture - Final Urine,Voided Yudelka glabrata 10/21/21 11:30 Blood Culture - Preliminary Blood No Growth after 72 hours 10/21/21 11:45 Blood Culture - Preliminary Blood No Growth after 72 hours
[2021-10-25] MEDS ORDERED: ALBUTEROL NEBULIZED 2.5 MG/3 ML INHALATION SCH (14:00)
--- NOTE | 2021-10-25 14:03 | XR ---
EXAMINATION TYPE: XR chest 1V portable DATE OF EXAM: 10/25/2021 HISTORY: Shortness of breath. COMPARISON: 10/21/2021 TECHNIQUE: Single view of the chest is submitted. FINDINGS: Demonstrated are scattered senescent parenchymal change. Increasing right infrahilar density may reflect developing infiltrate. Correlate clinically and progr ess studies are advised. The heart is stable. Hilar and mediastinal structures are within normal limits. Degenerative changes are seen of the dorsal spine. IMPRESSION: 1. Increasing right infrahilar density may reflect developing infiltrate. Correlate clinically and p rogress studies are advised.
[2021-10-25] MEDS: ALBUTEROL NEBULIZED 2.5 MG/3 ML INHALATION SCH ×2 (15:53→19:44)
[2021-10-25] MEDS: NYSTATIN 100,000 UNIT/ML SUSP 500,000 UNIT/5 ML CUP PO SCH ×2 (17:35→21:03)
[2021-10-25 17:36] LABS: Glucose,Whole Blood 178 mg/dL (70-110)
[2021-10-25] MEDS: ACETAMINOPHEN TAB 325 MG TAB PO PRN (19:17)
--- NOTE | 2021-10-25 19:42 | P.OBCN ---
History of Present Illness Consult date: 10/25/21 Reason for consult: pelvic pain, other (vulvar swelling. bleeding mass on vulva with history of uterine cancer) Chief complaint: urosepsis History of present illness: 76-year-old female with a history of uterine cancer and breast cancer presented to the hospital with urosepsis. She's been treated for the last few days. She is complaining now of severe pain and her vulva and an increase in the swelling. She is also having some vaginal bleeding but does not have a uterus. Review of Systems Constitutional: Reports chronic pain Ears: bilateral: decreased hearing Ears, nose, mouth and throat: Denies bleeding gums, Denies nasal discharge, Denies sinus pain Cardiovascular: Denies chest pain Respiratory: Reports wheezing Gastrointestinal: Reports abdominal pain (Suprapubic) Genitourinary: Reports abnormal vaginal bleeding, Reports dysuria, Reports genital sores Past Medical History Past Medical History: Atrial Fibrillation, Asthma, Cancer, Diabetes Mellitus, Eye Disorder, Fibromyalgia, GERD/Reflux, Hyperlipidemia, Hypertension, Memory Impairment, Musculoskeletal Disorder, Osteoarthritis (OA), Renal Disease, Thyroid Disorder Additional Past Medical History / Comment(s): tinnitus alyssa ears/elem. uterine cancer-2006 WITH RADIATION. METS TO LT LUNG 2010. glaucoma. Breast Cancer. DIABETIC RETINOPATHY. STAGE 2 KIDNEY DISEASE. CHRONIC LOWER BACK PAIN, ddd. sciatic nerve pain, tinnitus. uti. History of Any Multi-Drug Resistant Organisms: MRSA Year Discovered:: 2017 MDRO Source:: R forearm Past Surgical History: Appendectomy, Cholecystectomy, Heart Catheterization, Hernia Repair, Hysterectomy, Joint Replacement, Orthopedic Surgery Additional Past Surgical History / Comment(s): brain surgery for pituary gland tumors, benign growth removed chest. lt lung resection-2010 left eye cataracts removed -lens implants. LT ELIZABETH. ESOPHAGEAL NODULES REMOVED. LIPOMA'S REMOVED. LT VITRECTOMY. MULTIPLE BREAST BIOPSIES. LT ANKLE SX. PLATE & SCREWS TO LT HUMEROUS. BILAT CATARACTS REMOVED. LASER SURGERY ON EYES FOR GLAUCOMA Past Anesthesia/Blood Transfusion Reactions: Motion Sickness, Postoperative Nausea & Vomiting (PONV) Additional Past Anesthesia/Blood Transfusion Reaction / Comm: "has never recieved any blood" Past Psychological History: No Psychological Hx Reported Additional Psychological History / Comment(s): Pt resides with her spouse. She ambulates with a rolling/seated walker,bsc, toilet riser,shower chair, nebulizer. She drives. Her home is handicap accessible. She has [place] on Aging assist with house work and has meals on wheels. . Smoking Status: Never smoker Past Alcohol Use History: None Reported Past Drug Use History: None Reported - Past Family History Father Family Medical History: COPD, Myocardial Infarction ([place]) Additional Family Medical History / Comment(s): Father at the age of 63 yrs from a massive [place]. He had emphysema and was a smoker. Son(s) History Unknown: Yes Additional Family Medical History / Comment(s): Patient has 2 sons and one has history of asthma. Patient is one daughter with kidney problems. Mother Family Medical History: Cancer Additional Family Medical History / Comment(s): Mother at age 74 from heart failure with history of melanoma. Sister(s) Family Medical History: Cancer Additional Family Medical History / Comment(s): Patient has one sister with history of coronary artery disease and a rare form of breast cancer. Patient does not have any brothers. Medications and Allergies Home Medications Medication Instructions Recorded Confirmed Type Propafenone [Rythmol] 150 mg PO BID 05/16/17 10/21/21 History Montelukast [Singulair] 10 mg PO HS 03/08/18 10/21/21 History ondansetron HCL [Zofran] 4 mg PO Q8H PRN 03/08/18 10/21/21 History Isosorbide Mononitrate ER [Imdur] 30 mg PO DAILY 12/28/18 10/21/21 History Fluticasone Nasal [place] [Flonase 1 spr EA NOSTRIL DAILY 10/11/20 10/21/21 History Nasal [place]] Sucralfate [Carafate] 1 gm PO BID 10/11/20 10/21/21 History Albuterol Nebulized [Ventolin 2.5 mg INHALATION RT-Q6H PRN 09/28/21 10/21/21 History Nebulized] Betaxolol HCl [Betaxolol HCl 0.5% 1 drop BOTH EYES BID 09/28/21 10/21/21 History Ophth Soln] Brimonidine Tartrate [Alphagan P 1 drop BOTH EYES TID 09/28/21 10/21/21 History 0.15% Ophth Soln] Brinzolamide [Brinzolamide 1% 1 drop BOTH EYES TID 09/28/21 10/21/21 History Ophth Susp] Cholecalciferol [Vitamin D3 (125 125 mcg PO DAILY 09/28/21 10/21/21 History Mcg = 5000 Iu)] Dapagliflozin Propanediol [Farxiga] 10 mg PO DAILY 09/28/21 10/21/21 History Dorzolamide 2% [Trusopt 2%] 1 drop BOTH EYES TID 09/28/21 10/21/21 History Furosemide [Lasix] 40 mg PO DAILY PRN 09/28/21 10/21/21 History Insulin Aspart [NovoLOG Flexpen] See Protocol SQ AC-TID 09/28/21 10/21/21 History Insulin Glargine,Hum.rec.anlog 20 unit SQ BID 09/28/21 10/21/21 History [Lantus Solostar Pen] Latanoprost [Xalatan 0.005%] 1 drop BOTH EYES HS 09/28/21 10/21/21 History Linaclotide [Linzess] 290 mcg PO DAILY #30 capsule 09/28/21 10/21/21 Rx Metoprolol Succinate [Toprol XL] 25 mg PO HS 09/28/21 10/21/21 History Psyllium Husk (with Sugar) 6 gm PO BID PRN 09/28/21 10/21/21 History [Metamucil Powder] Rivaroxaban [Xarelto] 20 mg PO HS #0 09/28/21 10/21/21 Rx traZODone HCL [Desyrel] 50 mg PO HS PRN tab 09/28/21 10/21/21 Rx Levothyroxine Sodium [Synthroid] 125 mcg PO DAILY 10/21/21 10/21/21 History Methenamine Hippurate 1 gm PO BID 10/21/21 10/21/21 History Nitrofurantoin Monohyd/M-Cryst 100 mg PO Q12HR 10/21/21 10/21/21 History [Macrobid] Nystatin 100,000Unit/gm Cream 1 applic TOPICAL BID 10/21/21 10/21/21 History [Mycostatin Cream] Omeprazole 20 mg PO DAILY 10/21/21 10/21/21 History Sennosides/Docusate Sodium [Senna 2 tab PO HS 10/21/21 10/21/21 History Plus 8.6-50 mg Tablet] Zinc 50 mg PO DAILY 10/21/21 10/21/21 History lisinopriL [Zestril] 5 mg PO DAILY 10/21/21 10/21/21 History methazolAMIDE [Neptazane] 50 mg PO BID 10/21/21 10/21/21 History Allergies Allergy/AdvReac Type Severity Reaction Status Date / Time adhesive Allergy Rash/Hives Verified 10/21/21 11:39 diltiazem HCl [From Cardizem] Allergy Rash/Hives Verified 10/21/21 11:39 hydromorphone [From Dilaudid] Allergy Unknown Verified 10/21/21 11:39 codeine AdvReac Nausea & Verified 10/21/21 11:39 Vomiting diphenhydramine HCl AdvReac dizzy,light Verified 10/21/21 11:39 [From Benadryl] headed,vomi ting Echinacea AdvReac Rapid Verified 10/21/21 11:39 Heart Rate guaifenesin AdvReac Nausea & Verified 10/21/21 11:39 Vomiting lorazepam [From Ativan] AdvReac "out of Verified 10/21/21 11:39 it", drowsy meperidine AdvReac Nausea & Verified 10/21/21 11:39 Vomiting morphine AdvReac Nausea & Verified 10/21/21 11:39 Vomiting opiates AdvReac Nausea & Uncoded 09/04/21 17:43 Vomiting stadol AdvReac Hallucinati Uncoded 09/28/21 13:05 ons Exam Osteopathic Statement: *. No significant issues noted on an osteopathic structural exam other than those noted in the History and Physical/Consult. Vital Signs Temp Pulse Pulse Resp BP Pulse Ox 10/25/21 16:03 88 24 10/25/21 15:54 85 24 10/25/21 13:36 98.6 F 88 24 166/69 94 L 10/25/21 04:27 98.5 F 88 18 139/89 96 10/24/21 21:00 97.6 F 49 L 16 182/77 95 Intake and Output 10/25/21 10/25/21 10/25/21 06:59 14:59 22:59 Intake Total 1360 240 Output Total 1200 2150 Balance 160 240 -2150 Intake: Intake, IV Titration 1000 Amount Piperacillin-Tazobactam 3 100 .375 gm In Sodium Chloride 0.9% 100 ml @ 25 mls/hr IVPB Q8H [facility] Rx#: [id number] Sodium Chloride 0.9% 1, 800 000 ml @ 20 mls/hr IV . Q24H [facility] Rx#:[id number] Sodium Ferric Gluconat- 100 Sucrose 125 mg In Sodium Chloride 0.9% 100 ml @ 100 mls/hr IVPB ONCE ONE Rx#:[id number] Oral 360 240 Output: Urine 1200 2150 Other: Voiding Method Indwelling Catheter # Bowel Movements 0 Patient is seen in her bed morning out in pain. I looked at her vulvar area and the first thing I notices that is severely swollen the suprapubic region and down on both labia. I tried opening the labia and it hurt her excruciating labor. I did talk her through the examining opened her labia again there was some blood clots at the opening and then when I wiped away there was a large friable sore over the introitus up to the urethra. Patient asked me to stop at this time and so I complied. Results Result Diagrams: 10/24/21 07:01 10/25/21 05:52 Abnormal Lab Results - Last 24 Hours (Table) 10/24/21 10/25/21 10/25/21 Range/Units 20:40 05:52 07:27 Sodium 127 L (135-145) mmol/L Carbon Dioxide 14.4 L (20.0-27.5) mmol/L Glucose 157 H (70-110) mg/dL POC Glucose (mg/dL) 204 H 188 H (70-110) mg/dL Calcium 8.1 L (8.7-10.3) mg/dL Alkaline Phosphatase 162 H (41-126) U/L Troponin I (0.000-0.034) ng/mL Total Protein 4.4 L (6.2-8.2) g/dL Albumin 2.0 L (3.8-4.9) g/dL Albumin/Globulin Ratio 0.83 L (1.60-3.17) g/dL 10/25/21 10/25/21 10/25/21 Range/Units 11:10 15:43 17:35 Sodium (135-145) mmol/L Carbon Dioxide (20.0-27.5) mmol/L Glucose (70-110) mg/dL POC Glucose (mg/dL) 240 H 178 H (70-110) mg/dL Calcium (8.7-10.3) mg/dL Alkaline Phosphatase (41-126) U/L Troponin I 0.536 H* (0.000-0.034) ng/mL Total Protein (6.2-8.2) g/dL Albumin (3.8-4.9) g/dL Albumin/Globulin Ratio (1.60-3.17) g/dL Microbiology - Last 24 Hours (Table) 10/21/21 11:30 Blood Culture - Preliminary Blood No Growth after 96 hours 10/21/21 11:45 Blood Culture - Preliminary Blood No Growth after 96 hours 10/24/21 07:10 Urine Culture - Final Urine,Voided Yudelka glabrata Assessment and Plan (1) Vulvar mass Current Visit: Yes Status: Acute Code(s): N90.89 - OTH NONINFLAMMATORY DISORDERS OF VULVA AND PERINEUM SNOMED Code(s): 752454581 Plan: This patient is in some pain from a vulvar mass. This is likely why she has urosepsis in the first place considering she can't empty her bladder or clean appropriately. I recommend transfer to [facility] or [facility] where they can do a biopsy of the vulva and possibly place a suprapubic catheter. I would also recommend increasing her pain medication at this time
[2021-10-25] MEDS: BUDESONIDE 0.5 MG/2 ML NEBU INHALATION SCH (19:44)
[2021-10-25] MEDS ORDERED: HYDROcodone/APAP 5-325MG 1 EACH TAB PO PRN (19:52)
[2021-10-25] MEDS: METOPROLOL SUCCINATE (ER) 25 MG TAB.ER.24H PO SCH (20:05)
[2021-10-25] MEDS: MONTELUKAST 10 MG TAB PO SCH (20:05)
[2021-10-25] MEDS: SENNOSIDES-DOCUSATE SODIUM 1 EACH TAB PO SCH (20:06)
[2021-10-25] MEDS: RIVAROXABAN 20 MG TAB PO SCH (20:07)
[2021-10-25] MEDS: LATANOPROST 0.005% OPHTH DROPS 2.5 ML BTL BOTH EYES SCH (21:00)
[2021-10-25 21:24] LABS: Glucose,Whole Blood 136 mg/dL (70-110)
[2021-10-25 22:19] LABS: Appearance,Urine Cloudy (Clear); Bacteria,Urine Occasional /hpf; Bilirubin,Urine Negative (Negative); Blood,Urine Large (Negative); Color,Urine Red; Glucose,Urine (UA) Negative (Negative); Ketones,Urine Negative (Negative); Leukocyte Esterase,Urine Large (Negative); Mucus,Urine Few /hpf; Nitrite,Urine Negative (Negative); PH, Urine 5.5 (5.0-8.0); Protein,Urine 1+ (Negative); Specific Gravity,Urine 1.015 (1.001-1.035); Squamous Epithelial Cell,Urine 2 /hpf (0-4); Urobilinogen,Urine <2.0 mg/dL (<2.0)
[2021-10-25] MEDS: traZODone HCL 50 MG TAB PO PRN (23:44)
[2021-10-25 23:55] LABS: RBC,Urine >182 /hpf (0-5)
[2021-10-25 23:56] LABS: WBC,Urine 136 /hpf (0-5)
--- NOTE | 2021-10-26 00:38 | P.PN ---
Subjective Progress Note Date: 10/24/21 Principal diagnosis: Sepsis and UTI Patient is a 76-year-old female presented to hospital with fever and not feeling well some lower abdominal pain. CT Abdominal pelvis didn't show acute abnormality did have a positive UA concerning for catheter associated urinary tract infection. On today's evaluation that is 10/24/2021, the patient overall fever pattern has improved, the patient pain to the labia area has decreased in intensity with the patient today,the patient is breathing comfortably on room air, denies any chest pain or shortness of breath or cough no abdominal discomfort and no diarrhea Objective - Vital Signs Vital signs: Vital Signs Temp 98.5 F 10/24/21 05:00 Pulse 82 10/24/21 07:58 Resp 18 10/24/21 05:00 BP 116/52 10/24/21 05:00 Pulse Ox 96 10/24/21 05:00 FiO2 Intake & Output 10/23/21 10/24/21 10/24/21 18:59 06:59 18:59 Intake Total 1300 400 Output Total 700 1000 Balance 600 -600 Intake: Intake, IV Titration 1300 Amount Cefepime 2 gm In Sodium 100 Chloride 0.9% 100 ml @ 25 mls/hr IVPB Q12HR [facility] Rx #:[id number] Sodium Chloride 0.9% 1, 1200 000 ml @ 150 mls/hr IV . Q6H40M [facility] Rx#:[id number] Oral 400 Output: Urine 700 1000 Other: Voiding Method Indwelling Catheter Indwelling Catheter Indwelling Catheter - Exam GENERAL DESCRIPTION: An elderly female lying in bed in no distress RESPIRATORY SYSTEM: Unlabored breathing , decreased breath sounds at bases HEART: S1 S2 regular rate and rhythm , ABDOMEN: Soft , no tenderness EXTREMITIES: No edema feet - Labs CBC & Chem 7: 10/24/21 07:01 10/25/21 05:52 Labs: Abnormal Lab Results - Last 24 Hours (Table) 10/23/21 10/23/21 10/23/21 Range/Units 11:48 16:29 20:38 WBC (4.50-10.00) X 10*3/uL RBC (4.10-5.20) X 10*6/uL Hgb (12.0-15.0) g/dL Hct (37.2-46.3) % MCH (27.0-32.0) pg MCHC (32.0-37.0) g/dL RDW (11.5-14.5) % Neutrophils # (Manual) (2.00-8.90) X 10*3/uL Lymphocytes # (Manual) (0.90-5.00) X 10*3/uL Monocytes # (Manual) (0.20-1.00) X 10*3/uL Eosinophils # (Manual) (0.04-0.35) X 10*3/uL Sodium (135-145) mmol/L Carbon Dioxide (20.0-27.5) mmol/L Anion Gap (10.00-18.00) mmol/L Glucose (70-110) mg/dL POC Glucose (mg/dL) 139 H 171 H 231 H (70-110) mg/dL Calcium (8.7-10.3) mg/dL Alkaline Phosphatase (41-126) U/L C-Reactive Protein (0.00-0.80) mg/dL Total Protein (6.2-8.2) g/dL Albumin (3.8-4.9) g/dL Albumin/Globulin Ratio (1.60-3.17) g/dL Urine Appearance (Clear) Urine Protein (Negative) Urine Glucose (UA) (Negative) Urine Blood (Negative) Ur Leukocyte Esterase (Negative) Urine RBC (0-5) /hpf Urine WBC (0-5) /hpf Urine WBC Clumps (None) /hpf Urine Bacteria (None) /hpf Urine Mucus (None) /hpf Urine Yeast (Budding) (None) /hpf 10/24/21 10/24/21 10/24/21 Range/Units 02:29 07:01 07:01 WBC 35.43 H (4.50-10.00) X 10*3/uL RBC 2.98 L (4.10-5.20) X 10*6/uL Hgb 7.9 L (12.0-15.0) g/dL Hct 26.3 L (37.2-46.3) % MCH 26.5 L (27.0-32.0) pg MCHC 30.0 L (32.0-37.0) g/dL RDW 16.5 H (11.5-14.5) % Neutrophils # (Manual) 32.60 H (2.00-8.90) X 10*3/uL Lymphocytes # (Manual) 0.71 L (0.90-5.00) X 10*3/uL Monocytes # (Manual) 2.13 H (0.20-1.00) X 10*3/uL Eosinophils # (Manual) 0 L (0.04-0.35) X 10*3/uL Sodium 123 L (135-145) mmol/L Carbon Dioxide 16.1 L (20.0-27.5) mmol/L Anion Gap 8.90 L (10.00-18.00) mmol/L Glucose 154 H (70-110) mg/dL POC Glucose (mg/dL) 225 H (70-110) mg/dL Calcium 7.7 L (8.7-10.3) mg/dL Alkaline Phosphatase 145 H (41-126) U/L C-Reactive Protein 23.40 H (0.00-0.80) mg/dL Total Protein 4.6 L (6.2-8.2) g/dL Albumin 2.2 L (3.8-4.9) g/dL Albumin/Globulin Ratio 0.92 L (1.60-3.17) g/dL Urine Appearance (Clear) Urine Protein (Negative) Urine Glucose (UA) (Negative) Urine Blood (Negative) Ur Leukocyte Esterase (Negative) Urine RBC (0-5) /hpf Urine WBC (0-5) /hpf Urine WBC Clumps (None) /hpf Urine Bacteria (None) /hpf Urine Mucus (None) /hpf Urine Yeast (Budding) (None) /hpf 10/24/21 10/24/21 10/24/21 Range/Units 07:09 07:10 11:06 WBC (4.50-10.00) X 10*3/uL RBC (4.10-5.20) X 10*6/uL Hgb (12.0-15.0) g/dL Hct (37.2-46.3) % MCH (27.0-32.0) pg MCHC (32.0-37.0) g/dL RDW (11.5-14.5) % Neutrophils # (Manual) (2.00-8.90) X 10*3/uL Lymphocytes # (Manual) (0.90-5.00) X 10*3/uL Monocytes # (Manual) (0.20-1.00) X 10*3/uL Eosinophils # (Manual) (0.04-0.35) X 10*3/uL Sodium (135-145) mmol/L Carbon Dioxide (20.0-27.5) mmol/L Anion Gap (10.00-18.00) mmol/L Glucose (70-110) mg/dL POC Glucose (mg/dL) 199 H 239 H (70-110) mg/dL Calcium (8.7-10.3) mg/dL Alkaline Phosphatase (41-126) U/L C-Reactive Protein (0.00-0.80) mg/dL Total Protein (6.2-8.2) g/dL Albumin (3.8-4.9) g/dL Albumin/Globulin Ratio (1.60-3.17) g/dL Urine Appearance Cloudy H (Clear) Urine Protein 1+ H (Negative) Urine Glucose (UA) 3+ H (Negative) Urine Blood Small H (Negative) Ur Leukocyte Esterase Large H (Negative) Urine RBC 7 H (0-5) /hpf Urine WBC 154 H (0-5) /hpf Urine WBC Clumps Occasional H (None) /hpf Urine Bacteria Rare H (None) /hpf Urine Mucus Rare H (None) /hpf Urine Yeast (Budding) Many H (None) /hpf Microbiology - Last 24 Hours (Table) 10/24/21 07:10 Urine Culture - Preliminary Urine,Voided 10/21/21 11:30 Blood Culture - Preliminary Blood No Growth after 48 hours 10/21/21 11:45 Blood Culture - Preliminary Blood No Growth after 48 hours Assessment and Plan (1) Sepsis Current Visit: Yes Status: Acute Code(s): A41.9 - SEPSIS, UNSPECIFIED ORGANISM SNOMED Code(s): 64819450 (2) UTI (urinary tract infection) Current Visit: Yes Status: Acute Code(s): N39.0 - URINARY TRACT INFECTION, SITE NOT SPECIFIED SNOMED Code(s): 78471098 Plan: 1patient presented to hospital with sepsis and this will have fever elevated white count has been complaining of some lower abdominal pain however CT abdominal pelvis did not show any colitis and there was component of constipation and stool burden patient did have a positive UA and likely concern for catheter associated UTI. 2patient CT of the pelvic area did not show any labial abscess however did have worsening of the white count despite being on cefepime and vancomycin, there is question of possible diverticulitis hence we will discuss the cefepime and Vanco and start the patient on Zosyn discussed with the admitting physician Time with Patient: Less than 30
--- NOTE | 2021-10-26 00:42 | P.PN ---
Subjective Progress Note Date: 10/25/21 Principal diagnosis: Sepsis and UTI Patient is a 76-year-old female presented to hospital with fever and not feeling well some lower abdominal pain. CT Abdominal pelvis didn't show acute abnormality did have a positive UA concerning for catheter associated urinary tract infection. On today's evaluation that is 10/25/2021, the patient remains to be afebrile, the patient is breathing comfortably on room air, the patient denies any chest pain or shortness of breath or cough no abdominal discomfort and no diarrhea Objective - Vital Signs Vital signs: Vital Signs Temp 98.5 F 10/25/21 04:27 Pulse 88 10/25/21 04:27 Resp 18 10/25/21 04:27 BP 139/89 10/25/21 04:27 Pulse Ox 96 10/25/21 04:27 FiO2 Intake & Output 10/24/21 10/25/21 10/25/21 18:59 06:59 18:59 Intake Total 1600 240 Output Total 1400 1200 Balance -1400 400 240 Intake: Intake, IV Titration 1000 Amount Piperacillin-Tazobactam 3 100 .375 gm In Sodium Chloride 0.9% 100 ml @ 25 mls/hr IVPB Q8H [facility] Rx#: [id number] Sodium Chloride 0.9% 1, 800 000 ml @ 75 mls/hr IV . [id number] [facility] Rx#:[id number] Sodium Ferric Gluconat- 100 Sucrose 125 mg In Sodium Chloride 0.9% 100 ml @ 100 mls/hr IVPB ONCE ONE Rx#:[id number] Oral 600 240 Output: Urine 1400 1200 Other: Voiding Method Indwelling Catheter Indwelling Catheter Indwelling Catheter # Bowel Movements 0 - Exam GENERAL DESCRIPTION: An elderly female lying in bed in no distress RESPIRATORY SYSTEM: Unlabored breathing , decreased breath sounds at bases HEART: S1 S2 regular rate and rhythm , ABDOMEN: Soft , no tenderness EXTREMITIES: No edema feet - Labs CBC & Chem 7: 10/24/21 07:01 10/25/21 05:52 Labs: Abnormal Lab Results - Last 24 Hours (Table) 10/24/21 10/24/21 10/25/21 Range/Units 17:22 20:40 07:27 POC Glucose (mg/dL) 273 H 204 H 188 H (70-110) mg/dL 10/25/21 Range/Units 11:10 POC Glucose (mg/dL) 240 H (70-110) mg/dL Microbiology - Last 24 Hours (Table) 10/24/21 07:10 Urine Culture - Final Urine,Voided Yudelka glabrata 10/21/21 11:30 Blood Culture - Preliminary Blood No Growth after 72 hours 10/21/21 11:45 Blood Culture - Preliminary Blood No Growth after 72 hours Assessment and Plan (1) Sepsis Current Visit: Yes Status: Acute Code(s): A41.9 - SEPSIS, UNSPECIFIED ORGANISM SNOMED Code(s): 65055556 (2) UTI (urinary tract infection) Current Visit: Yes Status: Acute Code(s): N39.0 - URINARY TRACT INFECTION, SITE NOT SPECIFIED SNOMED Code(s): 71526883 Plan: 1patient presented to hospital with sepsis and this will have fever elevated white count has been complaining of some lower abdominal pain however CT abdominal pelvis did not show any colitis and there was component of constipation and stool burden patient did have a positive UA and likely concern for catheter associated UTI. 2patient CT of the pelvic area did not show any labial abscess. 3patient urine culture did grow yudelka glabrata, and has been instructed to change Bell catheter and obtain a urine culture from the new Bell catheter, patient is on multiple medication which is interacting with voriconazole hence cannot be used, will be high risk of nephrotoxicity with amphotericin B, even though Echinochandins do not achieve significant urinary concentration however has been used successfully in cases of urinary tract infection, we will start the patient on Eraxis and monitor clinical course closely Time with Patient: Less than 30
[2021-10-26] MEDS: ACETAMINOPHEN TAB 325 MG TAB PO PRN (01:23)
[2021-10-26] MEDS: PIPERACILLIN-TAZOBACTAM 3.375 GM in SODIUM CHLORIDE 0.9% 100 ML IVPB SCH ×3 (03:56→20:34)
[2021-10-26] MEDS: SODIUM CHLORIDE 0.9% 1,000 ML IV SCH (03:58)
[2021-10-26] MEDS: LEVOTHYROXINE 125 MCG TAB PO SCH (05:14)
[2021-10-26 07:34] LABS: Glucose,Whole Blood 101 mg/dL (70-110)
[2021-10-26] MEDS: ANIDULAFUNGIN 100 MG in SODIUM CHLORIDE 0.9% 100 ML IVPB SCH (07:47)
[2021-10-26] MEDS: ALBUTEROL NEBULIZED 2.5 MG/3 ML INHALATION SCH ×4 (07:48→20:01)
[2021-10-26] MEDS: BUDESONIDE 0.5 MG/2 ML NEBU INHALATION SCH ×2 (07:48→20:01)
[2021-10-26] MEDS: FLUTICASONE 50MCG/SPRAY NASAL 16GM EA NOSTRIL SCH (07:49)
[2021-10-26] MEDS: DORZOLAMIDE HCL 2% DROPS 10 ML BTL BOTH EYES SCH ×3 (07:49→21:14)
[2021-10-26] MEDS: BRIMONIDINE TARTRATE 0.2% DROPS 5 ML BTL BOTH EYES SCH ×3 (07:49→21:14)
[2021-10-26] MEDS: NON FORMULARY DRUG (Methenamine Hippurate [Methenamine Hippurate] 1 GM Tablet) PO SCH ×2 (07:50→21:15)
[2021-10-26] MEDS: NYSTATIN 100,000UNIT/GM CREAM 30 GM TUBE TOPICAL SCH ×2 (07:50→21:16)
[2021-10-26] MEDS: SUCRALFATE 1 GM TAB PO SCH ×2 (07:53→21:19)
[2021-10-26] MEDS: TIMOLOL 0.5% OPHTH DROPS 5 ML BTL BOTH EYES SCH ×2 (07:53→21:14)
[2021-10-26] MEDS: FUROSEMIDE 10 MG/ML 4 ML VIAL IV SCH (07:54)
[2021-10-26] MEDS: CLOTRIMAZOLE/BETAMETH 1-0.05% CREAM 45 GM TUBE TOPICAL SCH ×2 (07:58→21:15)
[2021-10-26] MEDS: NYSTATIN 100,000 UNIT/ML SUSP 500,000 UNIT/5 ML CUP PO SCH ×4 (08:44→22:49)
[2021-10-26] MEDS: INSULIN DETEMIR (LEVEMIR) 100 UNIT/ML SYR SQ SCH (08:44)
[2021-10-26] MEDS: PANTOPRAZOLE 40 MG TABLET PO SCH (08:45)
[2021-10-26] MEDS: CHOLECALCIFEROL 125 MCG (5000 IU) TABLET PO SCH (08:45)
[2021-10-26] MEDS: ISOSORBIDE MONONITRATE ER 30 MG TAB.ER.24H PO SCH (08:45)
[2021-10-26] MEDS: PROPAFENONE 150 MG TAB PO SCH ×2 (08:45→21:16)
[2021-10-26] MEDS: ZINC SULFATE 220 MG CAP PO SCH (08:45)
[2021-10-26] MEDS: lisinopriL 10 MG TAB PO SCH (08:46)
[2021-10-26] MEDS: HYDROcodone/APAP 5-325MG 1 EACH TAB PO PRN ×2 (08:48→15:49)
--- NOTE | 2021-10-26 10:28 | P.PN ---
Progress Note - Text Progress Note Date: 10/26/21 The Bell catheter was removed yesterday, and difficulty was encountered in replacing the catheter. When the catheter was replaced, 2 L of urine drained. It was noted at that time that she had an abnormal appearing gallbladder. Examination performed by myself this morning showed evidence of labial edema and ulceration. My examination was limited by the patient's discomfort, but the findings are suspicious for malignancy. The patient has been seen by Dr. Lopez who recommended referral to a tertiary care center for biopsy and further management.
[2021-10-26 10:59] LABS: Basophils # (A) 0.09 X 10*3/uL (0.00-0.10); Basophils % (A) 0.5 %; Eosinophils # (A) 0.18 X 10*3/uL (0.04-0.35); Eosinophils % (A) 0.9 %; HGB 7.4 g/dL (12.0-15.0); Immature Grans, Automated 3.9 %; Lymphocytes # (A) 1.59 X 10*3/uL (0.90-5.00); Lymphocytes % (A) 8.1 %; MCHC 28.5 g/dL (32.0-37.0); MCV 91.2 fL (80.0-97.0); Mean Platelet Volume 10.6 fL (9.5-12.2); Monocytes # (A) 1.93 X 10*3/uL (0.20-1.00); Monocytes % (A) 9.9 %; NRBC Per 100 WBC 0 /100 WBCS (0.0-0.0); Neutrophils # (A) 14.97 X 10*3/uL (1.80-7.70); Neutrophils % (A) 76.7 %; Platelet Count 298 X 10*3/uL (140-440); RBC 2.85 X 10*6/uL (4.10-5.20); RDW 16.7 % (11.5-14.5); WBC 19.52 X 10*3/uL (4.50-10.00)
--- NOTE | 2021-10-26 11:08 | P.CRDCN ---
History of Present Illness Consult date: 10/26/21 History of present illness: This is a 76-year-old female with history of hypertension, hyperlipidemia, diabetes, neuropathy, and paroxysmal atrial fibrillation and also known coronary artery disease is admitted to the hospital for treatment of urinary tract infection. Patient is being followed by urology. Apparently patient was having fever and chills. Yesterday patient became agitated and thrashing around and appeared to be in respiratory distress. Several blood tests were ordered including BNP and troponin values. BNP was 10,000. Troponin values were mildly elevated. Patient is shouting and crying that she is having significant pain in the pelvic area and abdominal area. There is some history of chest pain, but I cannot get good information. No EKGs available. At this point we will get an EKG. We'll get an echocardiogram. However, patient apparently has extensive ulcerations in the pubic area and needs evaluation for cancer treatment. May need to be transferred to intensive care unit. Not a good candidate for any acute cardiac intervention. Chest x-ray did not show any significant findings of CHF. Patient is getting IV Lasix. We'll continue current management. Further recommendation will depend on the clinical course and findings and about this. Prognosis is guarded Review of Systems Not obtained Past Medical History Past Medical History: Atrial Fibrillation, Asthma, Cancer, Diabetes Mellitus, Eye Disorder, Fibromyalgia, GERD/Reflux, Hyperlipidemia, Hypertension, Memory Impairment, Musculoskeletal Disorder, Osteoarthritis (OA), Renal Disease, Thyroid Disorder Additional Past Medical History / Comment(s): tinnitus alyssa ears/[place]. uterine cancer-2006 WITH RADIATION. METS TO LT LUNG 2010. glaucoma. Breast Cancer. DIABETIC RETINOPATHY. STAGE 2 KIDNEY DISEASE. CHRONIC LOWER BACK PAIN, ddd. sciatic nerve pain, tinnitus. uti. History of Any Multi-Drug Resistant Organisms: MRSA Date of last positivie culture/infection: 2016 MDRO Source:: R forearm Past Surgical History: Appendectomy, Cholecystectomy, Heart Catheterization, Hernia Repair, Hysterectomy, Joint Replacement, Orthopedic Surgery Additional Past Surgical History / Comment(s): brain surgery for pituary gland tumors, benign growth removed chest. lt lung resection-2010 left eye cataracts removed -lens implants. LT ELIZABETH. ESOPHAGEAL NODULES REMOVED. LIPOMA'S REMOVED. LT VITRECTOMY. MULTIPLE BREAST BIOPSIES. LT ANKLE SX. PLATE & SCREWS TO LT HUMEROUS. BILAT CATARACTS REMOVED. LASER SURGERY ON EYES FOR GLAUCOMA Past Anesthesia/Blood Transfusion Reactions: Motion Sickness, Postoperative Nausea & Vomiting (PONV) Additional Past Anesthesia/Blood Transfusion Reaction / Comment(s): "has never recieved any blood" Past Psychological History: No Psychological Hx Reported Additional Psychological History / Comment(s): Pt resides with her spouse. She ambulates with a rolling/seated walker,bsc, toilet riser,shower chair, nebulize r. She drives. Her home is handicap accessible. She has [place] on Aging assist with house work and has meals on wheels. . Smoking Status: Never smoker Past Alcohol Use History: None Reported Past Drug Use History: None Reported - Past Family History Father Family Medical History: COPD, Myocardial Infarction ([place]) Additional Family Medical History / Comment(s): Father at the age of 63 yrs from a massive [place]. He had emphysema and was a smoker. Son(s) History Unknown: Yes Additional Family Medical History / Comment(s): Patient has 2 sons and one has history of asthma. Patient is one daughter with kidney problems. Mother Family Medical History: Cancer Additional Family Medical History / Comment(s): Mother at age 74 from heart failure with history of melanoma. Sister(s) Family Medical History: Cancer Additional Family Medical History / Comment(s): Patient has one sister with history of coronary artery disease and a rare form of breast cancer. Patient d oes not have any brothers. Medications and Allergies Home Medications Medication Instructions Recorded Confirmed Type Propafenone [Rythmol] 150 mg PO BID 05/16/17 10/21/21 History Montelukast [Singulair] 10 mg PO HS 03/08/18 10/21/21 History ondansetron HCL [Zofran] 4 mg PO Q8H PRN 03/08/18 10/21/21 History Isosorbide Mononitrate ER [Imdur] 30 mg PO DAILY 12/28/18 10/21/21 History Fluticasone Nasal [place] [Flonase 1 spr EA NOSTRIL DAILY 10/11/20 10/21/21 History Nasal [place]] Sucralfate [Carafate] 1 gm PO BID 10/11/20 10/21/21 History Albuterol Nebulized [Ventolin 2.5 mg INHALATION RT-Q6H PRN 09/28/21 10/21/21 History Nebulized] Betaxolol HCl [Betaxolol HCl 0.5% 1 drop BOTH EYES BID 09/28/21 10/21/21 History Ophth Soln] Brimonidine Tartrate [Alphagan P 1 drop BOTH EYES TID 09/28/21 10/21/21 History 0.15% Ophth Soln] Brinzolamide [Brinzolamide 1% 1 drop BOTH EYES TID 09/28/21 10/21/21 History Ophth Susp] Cholecalciferol [Vitamin D3 (125 125 mcg PO DAILY 09/28/21 10/21/21 History Mcg = 5000 Iu)] Dapagliflozin Propanediol [Farxiga] 10 mg PO DAILY 09/28/21 10/21/21 History Dorzolamide 2% [Trusopt 2%] 1 drop BOTH EYES TID 09/28/21 10/21/21 History Furosemide [Lasix] 40 mg PO DAILY PRN 09/28/21 10/21/21 History Insulin Aspart [NovoLOG Flexpen] See Protocol SQ AC-TID 09/28/21 10/21/21 History Insulin Glargine,Hum.rec.anlog 20 unit SQ BID 09/28/21 10/21/21 History [Lantus Solostar Pen] Latanoprost [Xalatan 0.005%] 1 drop BOTH EYES HS 09/28/21 10/21/21 History Linaclotide [Linzess] 290 mcg PO DAILY #30 capsule 09/28/21 10/21/21 Rx Metoprolol Succinate [Toprol XL] 25 mg PO HS 09/28/21 10/21/21 History Psyllium Husk (with Sugar) 6 gm PO BID PRN 09/28/21 10/21/21 History [Metamucil Powder] Rivaroxaban [Xarelto] 20 mg PO HS #0 09/28/21 10/21/21 Rx traZODone HCL [Desyrel] 50 mg PO HS PRN tab 09/28/21 10/21/21 Rx Levothyroxine Sodium [Synthroid] 125 mcg PO DAILY 10/21/21 10/21/21 History Methenamine Hippurate 1 gm PO BID 10/21/21 10/21/21 History Nitrofurantoin Monohyd/M-Cryst 100 mg PO Q12HR 10/21/21 10/21/21 History [Macrobid] Nystatin 100,000Unit/gm Cream 1 applic TOPICAL BID 10/21/21 10/21/21 History [Mycostatin Cream] Omeprazole 20 mg PO DAILY 10/21/21 10/21/21 History Sennosides/Docusate Sodium [Senna 2 tab PO HS 10/21/21 10/21/21 History Plus 8.6-50 mg Tablet] Zinc 50 mg PO DAILY 10/21/21 10/21/21 History lisinopriL [Zestril] 5 mg PO DAILY 10/21/21 10/21/21 History methazolAMIDE [Neptazane] 50 mg PO BID 10/21/21 10/21/21 History Allergies Allergy/AdvReac Type Severity Reaction Status Date / Time adhesive Allergy Rash/Hives Verified 10/21/21 11:39 diltiazem HCl [From Cardizem] Allergy Rash/Hives Verified 10/21/21 11:39 hydromorphone [From Dilaudid] Allergy Unknown Verified 10/21/21 11:39 codeine AdvReac Nausea & Verified 10/21/21 11:39 Vomiting diphenhydramine HCl AdvReac dizzy,light Verified 10/21/21 11:39 [From Benadryl] headed,vomi ting Echinacea AdvReac Rapid Verified 10/21/21 11:39 Heart Rate guaifenesin AdvReac Nausea & Verified 10/21/21 11:39 Vomiting lorazepam [From Ativan] AdvReac "out of Verified 10/21/21 11:39 it", drowsy meperidine AdvReac Nausea & Verified 10/21/21 11:39 Vomiting morphine AdvReac Nausea & Verified 10/21/21 11:39 Vomiting opiates AdvReac Nausea & Uncoded 09/04/21 17:43 Vomiting stadol AdvReac Hallucinati Uncoded 09/28/21 13:05 ons Physical Exam Vitals: Vital Signs Temp Pulse Pulse Resp BP Pulse Ox 10/26/21 08:07 104 H 10/26/21 07:50 110 H 10/26/21 05:00 97.6 F 106 H 20 116/77 98 10/25/21 21:00 99.3 F 114 H 16 106/52 96 10/25/21 19:57 93 24 10/25/21 19:44 92 24 10/25/21 16:03 88 24 10/25/21 15:54 85 24 10/25/21 13:36 98.6 F 88 24 166/69 94 L Intake and Output 10/25/21 10/26/21 10/26/21 22:59 06:59 14:59 Intake Total 120 580 240 Output Total 2150 Balance -2029 580 240 Intake: Intake, IV Titration 340 Amount Piperacillin-Tazobactam 3 100 .375 gm In Sodium Chloride 0.9% 100 ml @ 25 mls/hr IVPB Q8H [facility] Rx#: [id number] Sodium Chloride 0.9% 1, 240 000 ml @ 20 mls/hr IV . Q24H [facility] Rx#:[id number] Oral 120 240 240 Output: Urine 2150 Other: Voiding Method Indwelling Catheter # Bowel Movements 0 1 GENERAL EXAM: Patient is alert but shouting and crying with pain and requesting pain medication HEENT: Normocephalic. NECK: No masses, no nuchal rigidity. CHEST: No chest wall deformity. LUNGS: Diminished air exchange HEART: Distant heart sounds ABDOMEN: Soft SKIN: No rashes CENTRAL NERVOUS SYSTEM: Grossly within normal limits EXTREMITIES: Mild edema Results 10/26/21 06:09 10/25/21 05:52 Cardiac Enzymes 10/25/21 10/25/21 Range/Units 05:52 15:43 AST 15 (13-35) U/L Troponin I 0.536 H* (0.000-0.034) ng/mL CBC 10/26/21 Range/Units 06:09 WBC 19.52 H (4.50-10.00) X 10*3/uL RBC 2.85 L (4.10-5.20) X 10*6/uL Hgb 7.4 L (12.0-15.0) g/dL Hct 26.0 L (37.2-46.3) % Plt Count 298 (140-440) X 10*3/uL Comprehensive Metabolic Panel 10/25/21 Range/Units 05:52 Sodium 127 L (135-145) mmol/L Potassium 4.6 (3.5-5.5) mmol/L Chloride 101 (96-109) mmol/L Carbon Dioxide 14.4 L (20.0-27.5) mmol/L BUN 15.6 (9.0-27.0) mg/dL Creatinine 0.9 (0.6-1.5) mg/dL Glucose 157 H (70-110) mg/dL Calcium 8.1 L (8.7-10.3) mg/dL AST 15 (13-35) U/L ALT 17 (8-44) U/L Alkaline Phosphatase 162 H (41-126) U/L Total Protein 4.4 L (6.2-8.2) g/dL Albumin 2.0 L (3.8-4.9) g/dL Current Medications Generic Name Dose Route Start Last Admin Trade Name Freq PRN Reason Stop Dose Admin Acetaminophen 650 mg 10/21/21 14:17 10/26/21 01:23 Acetaminophen Tab 325 Mg Tab PO 650 mg Q6HR PRN Administration Mild Pain or Fever > 100.5 Hydrocodone Bitart/Acetaminophen 1 each 10/25/21 22:27 10/26/21 08:48 Hydrocodone/Apap 5-325mg 1 Each Tab PO 1 each Q6HR PRN Administration MODERATE Pain Albuterol Sulfate 2.5 mg 10/25/21 16:00 10/26/21 07:48 Albuterol Nebulized 2.5 Mg/3 Ml INHALATION 2.5 mg RT-QID [facility] Administration Betamethasone/Clotrimazole 1 applic 10/22/21 21:00 10/26/21 07:58 Clotrimazole/Betameth 1-0.05% Cream 45 Gm Tube TOPICAL 1 applic BID [facility] Administration Protocol Brimonidine Tartrate 1 drops 10/22/21 02:30 10/26/21 07:49 Brimonidine Tartrate 0.2% Drops 5 Ml Btl BOTH EYES 1 drops TID [facility] Administration Budesonide 0.5 mg 10/25/21 20:00 10/26/21 07:48 Budesonide 0.5 Mg/2 Ml Nebu INHALATION 0.5 mg RT-BID [facility] Administration Cholecalciferol 125 mcg 10/22/21 00:00 10/26/21 08:45 Cholecalciferol 125 Mcg (5000 Iu) Tablet PO 125 mcg DAILY [facility] Administration Dorzolamide HCl 1 drops 10/22/21 02:31 10/26/21 07:49 Dorzolamide Hcl 2% Drops 10 Ml Btl BOTH EYES 1 drops TID [facility] Administration Enalaprilat 1.25 mg 10/24/21 20:18 10/24/21 20:29 Enalaprilat 1.25 Mg/Ml 1 Ml Vial IVP 1.25 mg Q6HR PRN Administration Blood Pressure - High Fluticasone Propionate 1 spray 10/22/21 09:00 10/26/21 07:49 Fluticasone 50mcg/[place] Nasal 16gm EA NOSTRIL 1 spray DAILY [facility] Administration Furosemide 40 mg 10/26/21 09:00 10/26/21 07:54 Furosemide 10 Mg/Ml 4 Ml Vial IV 40 mg DAILY [facility] Administration Sodium Chloride 1,000 mls @ 20 mls/hr 10/22/21 16:15 10/26/21 03:58 Saline 0.9% IV Not Given .Q24H [facility] Piperacillin Sod/Tazobactam 100 mls @ 25 mls/hr 10/24/21 12:00 10/26/21 03:56 Sod 3.375 gm/ Sodium Chloride IVPB 25 mls/hr Q8H [facility] Administration Protocol Anidulafungin 100 mg/ Sodium 130 mls @ 84 mls/hr 10/26/21 09:00 10/26/21 07:47 Chloride IVPB 84 mls/hr DAILY [facility] Administration Protocol Insulin Detemir 16 unit 10/23/21 09:00 10/26/21 08:44 Insulin Detemir (Levemir) 100 Unit/Ml Syr SQ 16 unit DAILY [facility] Administration Isosorbide Mononitrate 30 mg 10/22/21 09:00 10/26/21 08:45 Isosorbide Mononitrate Er 30 Mg Tab.Er.24h PO 30 mg DAILY [facility] Administration Latanoprost 1 drops 10/21/21 22:45 10/25/21 21:00 Latanoprost 0.005% Ophth Drops 2.5 Ml Btl BOTH EYES 1 drops HS [facility] Administration Levothyroxine Sodium 125 mcg 10/22/21 06:30 10/26/21 05:14 Levothyroxine 125 Mcg Tab PO 125 mcg DAILY@0630 [facility] Administration Lisinopril 10 mg 10/26/21 09:00 10/26/21 08:46 Lisinopril 10 Mg Tab PO 10 mg DAILY [facility] Administration Methazolamide 50 mg 10/21/21 23:00 10/26/21 08:45 Methazolamide 25 Mg Tab PO 50 mg BID [facility] Administration Metoclopramide HCl 5 mg 10/24/21 20:18 10/24/21 20:29 Metoclopramide 5 Mg/Ml 2 Ml Vial IVP 5 mg Q6HR PRN Administration Nausea And Vomiting Metoprolol Succinate 25 mg 10/21/21 23:00 10/25/21 20:05 Metoprolol Succinate (Er) 25 Mg Tab.Er.24h PO 25 mg HS [facility] Administration Montelukast Sodium 10 mg 10/21/21 23:00 10/25/21 20:05 Montelukast 10 Mg Tab PO 10 mg HS [facility] Administration Naloxone HCl 0.2 mg 10/21/21 14:17 Naloxone 0.4 Mg/Ml 1 Ml Vial IV Q2M PRN Opioid Reversal Linaclotide [Linzess 290 mcg 10/22/21 09:00 10/26/21 07:50 ] 290 Mcg Capsule PO 290 mcg DAILY [facility] Administration Non-Formulary Medication 1 gm 10/22/21 09:00 10/26/21 07:50 Methenamine Hippurate [Methenamine Hippurate] PO Not Given BID [facility] Nystatin 1 applic 10/22/21 09:00 10/26/21 07:50 Nystatin 100,000unit/Gm Cream 30 Gm Tube TOPICAL 1 applic BID [facility] Administration Protocol Nystatin 500,000 unit 10/25/21 18:00 10/26/21 08:44 Nystatin 100,000 Unit/Ml Susp 500,000 Unit/5 Ml Cup PO 500,000 unit QID [facility] Administration Protocol Ondansetron HCl 4 mg 10/21/21 23:00 10/24/21 18:43 Ondansetron 4 Mg Tab PO 4 mg Q8H PRN Administration Nausea Pantoprazole Sodium 40 mg 10/22/21 09:00 10/26/21 08:45 Pantoprazole 40 Mg Tablet PO 40 mg DAILY [facility] Administration Propafenone HCl 150 mg 10/21/21 23:00 10/26/21 08:45 Propafenone 150 Mg Tab PO 150 mg BID [facility] Administration Psyllium Hydrophilic Mucilloid 6 gm 10/22/21 09:00 10/23/21 21:36 Psyllium Husk 100% 6 Gm Packet PO 6 gm BID PRN Administration Constipation Rivaroxaban 20 mg 10/21/21 23:00 10/25/21 20:07 Rivaroxaban 20 Mg Tab PO 20 mg HS [facility] Administration Protocol Senna/Docusate Sodium 2 each 10/21/21 23:00 10/25/21 20:06 Sennosides-Docusate Sodium 1 Each Tab PO 2 each HS [facility] Administration Sucralfate 1 gm 10/21/21 23:00 10/26/21 07:53 Sucralfate 1 Gm Tab PO Not Given BID [facility] Timolol Maleate 1 drops 10/22/21 02:30 10/26/21 07:53 Timolol 0.5% Ophth Drops 5 Ml Btl BOTH EYES 1 drops BID [facility] Administration Trazodone HCl 50 mg 10/21/21 23:00 10/25/21 23:44 Trazodone Hcl 50 Mg Tab PO 50 mg HS PRN Administration Insomnia Zinc Sulfate 220 mg 10/21/21 23:00 10/26/21 08:45 Zinc Sulfate 220 Mg Cap PO 220 mg DAILY [facility] Administration Intake and Output 10/25/21 10/26/21 10/26/21 22:59 06:59 14:59 Intake Total 120 580 240 Output Total 2150 Balance -2029 580 240 Intake: Intake, IV Titration 340 Amount Piperacillin-Tazobactam 3 100 .375 gm In Sodium Chloride 0.9% 100 ml @ 25 mls/hr IVPB Q8H [facility] Rx#: [id number] Sodium Chloride 0.9% 1, 240 000 ml @ 20 mls/hr IV . Q24H [facility] Rx#:[id number] Oral 120 240 240 Output: Urine 2150 Other: Voiding Method Indwelling Catheter # Bowel Movements 0 1 10/26/21 06:09 10/25/21 05:52 EKG Interpretations (text) Not available Assessment and Plan (1) CAD (coronary artery disease) Current Visit: Yes Status: Acute Code(s): I25.10 - ATHSCL HEART DISEASE OF [place] CORONARY ARTERY W/O ANG PCTRS SNOMED Code(s): 30916166 (2) Vulvar mass Current Visit: Yes Status: Acute Code(s): N90.89 - OTH NONINFLAMMATORY DISORDERS OF VULVA AND PERINEUM SNOMED Code(s): 840715567 (3) Sepsis Current Visit: Yes Status: Acute Code(s): A41.9 - SEPSIS, UNSPECIFIED ORGANISM SNOMED Code(s): 78058467 (4) UTI (urinary tract infection) Current Visit: Yes Status: Acute Code(s): N39.0 - URINARY TRACT INFECTION, SITE NOT SPECIFIED SNOMED Code(s): 49046757 (5) Elevated troponin Current Visit: Yes Status: Acute Code(s): R77.8 - OTHER SPECIFIED ABNORMALITIES OF PLASMA PROTEINS SNOMED Code(s): 148247390 Plan: This patient's main complaint seems to be pain and pelvic area related to ulceration and possible cancerous reasons. Patient did have some chest pain. She is known to have coronary artery disease which is diffuse. Patient is being treated for UTI and sepsis with significant elevated white counts. Chest x-ray did not show any definite CHF. We will get an EKG and echocardiogram. Patient on nitrates, beta blockers and JEFF inhibitor and baby aspirin. Continue current medical therapy. Prognosis guarded. She is also on IV Lasix
[2021-10-26 11:46] LABS: African American GFR (CKD) 57.7 (60.0-200.0); Albumin 2.1 g/dL (3.8-4.9); Albumin/Globulin Ratio 0.8 (1.60-3.17); Anion Gap 10.7 mmol/L (10.00-18.00); BUN/Creat Ratio 21.76 Ratio (12.00-20.00); Blood Urea Nitrogen 23.5 mg/dL (9.0-27.0); Calcium 8.2 mg/dL (8.7-10.3); Carbon Dioxide 16.8 mmol/L (20.0-27.5); Globulin 2.6 g/dL (1.6-3.3); Non-African American GFR(CKD) 49.8 (60.0-200.0); Potassium 4.4 mmol/L (3.5-5.5); Total Bilirubin 0.5 mg/dL (0.30-1.20); Total Protein 4.6 g/dL (6.2-8.2)
[2021-10-26 12:26] LABS: Glucose,Whole Blood 136 mg/dL (70-110)
[2021-10-26] MEDS: ONDANSETRON 4 MG TAB PO PRN (12:35)
--- NOTE | 2021-10-26 16:10 | P.PN ---
Subjective Progress Note Date: 10/26/21 HISTORY OF PRESENT ILLNESS: This is a 76-year-old white female with a previous medical history significant for hypertension and hypertensive cardiovascular disease, hyperlipidemia, diabetes mellitus type 2 with diabetic polyneuropathy, history of paroxysmal atrial fibrillation, coronary artery disease status post PCI and stent placement, history of uterine cancer in the past status post hysterectomy as well as radiation therapy, patient also had suffered from significant constipation and recurrent urinary tract infection associated with macro-and microscopic hematuria, patient has been under the care of from urology, she was recently discharged form [facility] after she w as admitted for E.Coli UTI that was sensitive to Cefepime and had IV treatment that was switched to oral Macrobid 100 mg po bid for 1 week and she went home last Wednesday, then she developed to have fever and chills and was seen in my office yesterday for what appears to be a UTI with sepsis, she was sent to [facility] and had CT scan of the abdomen and pelvis that was negative and she was started ON IV Antibiotics in the form of Cefepime 2 gr IVPB Q 8 hours and sent urine and blood cultures and was admitted to the hospital with ID consult. 10/23: Patient is laying down in bed she continues to have significant pain in the lower abdomen and she is complaining of increased swelling and tenderness of bilateral labia, she was seen earlier by ID, computed tomography scan of the pelvis were done did not show evidence of any drainable abscess at this time, patient was started on vancomycin along with cefepime, we will continue to monitor the patient very closely she appears to be somewhat hypotensive I spoke with the nursing staff about giving her a bolus of normal saline 500 mL followed by increasing her IV fluid 250 mL an hour, monitor the patient very closely repeat her CBC tomorrow morning, if the patient is not improving or her blood pressure does not normalize she will need to be transferred to the ICU. 10/24: Patient is laying down in bed moaning and groaning, she continues to appears very sick, we will reduce her IV fluid to 75 mL an hour patient was given 1 dose of Lasix 40 mg IV push 1, reevaluate the patient next 24 hours, patient also was seen earlier by infectious disease as well as by urology and was recommended to continue with Zosyn at this point in time she was taken off cefepime and vancomycin and the since her urine culture is growing Yudelka glabrata she was started on Anidulafungin 200 mg IVPB daily 10/25: Patient is sitting up in bed she appears to be more short of breath today, we decreased her IV fluids all the way to KVO, give the patient another dose of Lasix 40 mg IV push, we'll arrange for chest x-ray stat, nebulized treatment albuterol 2.5 mg every every 6 hours [id number], monitor the patient in the monitor she was presented to she is well, laboratory evaluation reviewed, we'll continue to monitor the patient very closely 10/26: Patient was seen yesterday in consultation by SEWING ROOM SUPERVISOR service in regarding to the vulvar mass that appears to be cancerous at this point in time, patient has great difficulties placing Bell catheter until Dr. 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 REVIEW OF SYSTEMS: Constitutional: positive for fever, positive for chills, no night sweats. No weight change. positive for weakness, fatigue or lethargy. No daytime sleepiness. HEENT: positive for headache. No blurred vision or double vision, no loss of vision. No loss of Hearing, no ringing in the ears, no dizziness. No nasal drainage or congestion. No epistaxis. positive for sore throat Lungs: appears with some shortness of breath, occasional cough, no sputum production. positive for wheezing. Reports dyspnea with activity. Cardiovascular: No chest pain, mild lower extremity edema. No palpitations. No paroxysmal nocturnal dyspnea. positive for orthopnea. No lightheadedness or dizziness. No syncopal episodes. Abdominal: Reports abdominal pain. positive for nausea, no vomiting. No diarrhea. positive for constipation. No bloody or tarry stools reports loss of appetite. Genitourinary: positive for dysuria, increased frequency, urgency. positive for urinary retention. Musculoskeletal: No myalgias. positive for muscle weakness, no gait dysfunction, no frequent falls. positive for back pain and neck pain. Integumentary: No wounds, no lesions. No rash or pruritus. No unusual bruising. No change in hair or nails. Neurologic: No aphasia. No facial droop. No change in mentation. No head injury. No headache. No paralysis. No paresthesia. Psychiatric: No depression. No anxiety. No mood swings. Endocrine: No abnormal blood sugars. No weight change. PHYSICAL EXAMINATION: General: 76-year-old female laying on the bed in mild respiratory distress. HEENT: Head is atraumatic, normocephalic, pupils were equal round reactive to light and recommendation, extraocular muscle movement were intact, sclera nonicteric, conjunctivae were pale, mucous membranes of the mouth are somewhat dry, with thrush Neck: Supple, no JVP, decreased carotid upstroke bilaterally, no lymphadenopathy. Chest: Decreased breath sounds at the bases, few rhonchi, positive for expiratory wheezes, no chest wall tenderness, no intercostal retractions. Heart: First heart sound is normal, second heart sound is normal there is systolic ejection murmur 2/6 located in the left sternal border. Abdomen: Soft, nondistended, positive bowel sounds, multiple surgical scars, mild diffuse non specific tenderness Extremities: There is +1 edema no calf tenderness DP +2 bilaterally. Neurologic examination: Patient is awake alert and oriented X3 , cranial nerves II-12 appear grossly intact, muscle power were 4 out of 5 in upper extremities and 3 out of 5 in bilateral lower extremities, deep tendon reflexes normal bilaterally. SEWING ROOM SUPERVISOR: with [place] in the room , there is siginificant swelling to both labia with tenserness. ASSESSMENT AND PLAN: 1. Recurrent UTI with sepsis. Decrease IV fluid to KVO, continue patient on Zosyn 3.375 g IV piggyback every 6 hours, continue Anidulafungin 200 mg IV piggyback every day, infectious disease and neurology are following. 2. Acute hypoxemic respiratory insufficiency due to fluid overload. Decrease IV fluids to KVO, start the patient on Lasix 40 mg IV push daily. 3. Hypertension and hypertensive cardiovascular disease. Continue lisinopril 10 mg orally once every day, continue metoprolol 12.5 mg orally twice every day, continue amlodipine 5 mg orally twice every day, Just added Vasotec 1.25 mg IV push every 6 hours as needed for systolic greater than 150. 3. Hyperlipidemia. Stable 4 . Diabetes mellitus type 2 insulin requiring. Continue patient on Levemir 16 units subcutaneously twice every day, continue with a sliding scale insulin. Discontinue Farxiga 5. Paroxysmal atrial fibrillation currently in sinus rhythm. continue Rythmol 150 mg orally twice every day, continue metoprolol 12.5 mg orally twice every day and Xarelto 20 mg orally daily 6. GERD with esophagitis. Continue patient on pantoprazole 40 mg every day, continue Carafate 1 mg orally twice every day. 7. Mild persistent asthma. Continue albuterol 2.5 mg nebulization 4 times every day [id number]. 8. Severe constipation. Patient had tried MiraLAX, lactulose, Senokot, and Metamucil without any relief, we will start the patient on Linzess 290 MCG orally once every day. 9. CAD post-PCI. Continue patient on metoprolol 12.5 mg twice every day, continue patient on isosorbide mononitrate 30 mg orally once every day. 10. History of breast cancer status post lumpectomy. Continue Arimidex 1 mg orally once every day. 11. History of uterine cancer status post hysterectomy along with radiation therapy. Currently in remission. 12. History of pituitary adenoma status post resection. 13. Insomnia. Continue trazodone 50 mg at bedtime. 14. DVT Prophylaxis. we will continue with Xarelto 20 mg po daily. 15. GI Prophylaxis. we will continue with PPI. 16. Medical debility. Physical therapy evaluation. 14. Vulvar mass was evaluated by SEWING ROOM SUPERVISOR service recommended for the patient be transferred to tertiary care center for evaluation and treatment accordingly will initiate transfer tomorrow morning. 15. Very poor prognosis Objective - Vital Signs Vital signs: Vital Signs Temp 98.8 F 10/26/21 12:23 Pulse 109 H 10/26/21 12:23 Resp 22 10/26/21 12:23 BP 135/79 10/26/21 12:23 Pulse Ox 93 L 10/26/21 12:23 FiO2 Intake & Output 10/25/21 10/26/21 10/26/21 18:59 06:59 18:59 Intake Total 240 700 240 Output Total 2150 Balance -1910 700 240 Intake: Intake, IV Titration 340 Amount Piperacillin-Tazobactam 3 100 .375 gm In Sodium Chloride 0.9% 100 ml @ 25 mls/hr IVPB Q8H [facility] Rx#: [id number] Sodium Chloride 0.9% 1, 240 000 ml @ 20 mls/hr IV . Q24H [facility] Rx#:[id number] Oral 240 360 240 Output: Urine 2150 Other: Voiding Method Indwelling Catheter Indwelling Catheter # Bowel Movements 1 - Labs CBC & Chem 7: 10/26/21 06:09 10/26/21 06:09 Labs: Abnormal Lab Results - Last 24 Hours (Table) 10/25/21 10/25/21 10/25/21 Range/Units 15:43 17:35 21:23 WBC (4.50-10.00) X 10*3/uL RBC (4.10-5.20) X 10*6/uL Hgb (12.0-15.0) g/dL Hct (37.2-46.3) % MCH (27.0-32.0) pg MCHC (32.0-37.0) g/dL RDW (11.5-14.5) % Immature Gran # (0.00-0.04) X 10*3/uL Neutrophils # (1.80-7.70) X 10*3/uL Monocytes # (0.20-1.00) X 10*3/uL Sodium (135-145) mmol/L Carbon Dioxide (20.0-27.5) mmol/L Est GFR (CKD-EPI)AfAm (60.0-200.0) Est GFR (CKD-EPI)NonAf (60.0-200.0) BUN/Creatinine Ratio (12.00-20.00) Ratio POC Glucose (mg/dL) 178 H 136 H (70-110) mg/dL Calcium (8.7-10.3) mg/dL Alkaline Phosphatase (41-126) U/L Troponin I 0.536 H* (0.000-0.034) ng/mL C-Reactive Protein (0.00-0.80) mg/dL Total Protein (6.2-8.2) g/dL Albumin (3.8-4.9) g/dL Albumin/Globulin Ratio (1.60-3.17) g/dL Urine Appearance (Clear) Urine Protein (Negative) Urine Blood (Negative) Ur Leukocyte Esterase (Negative) Urine RBC (0-5) /hpf Urine WBC (0-5) /hpf Urine WBC Clumps (None) /hpf Urine Bacteria (None) /hpf Urine Mucus (None) /hpf 10/25/21 10/26/21 10/26/21 Range/Units 21:39 06:09 06:09 WBC 19.52 H (4.50-10.00) X 10*3/uL RBC 2.85 L (4.10-5.20) X 10*6/uL Hgb 7.4 L (12.0-15.0) g/dL Hct 26.0 L (37.2-46.3) % MCH 26.0 L (27.0-32.0) pg MCHC 28.5 L (32.0-37.0) g/dL RDW 16.7 H (11.5-14.5) % Immature Gran # 0.76 H (0.00-0.04) X 10*3/uL Neutrophils # 14.97 H (1.80-7.70) X 10*3/uL Monocytes # 1.93 H (0.20-1.00) X 10*3/uL Sodium 130 L (135-145) mmol/L Carbon Dioxide 16.8 L (20.0-27.5) mmol/L Est GFR (CKD-EPI)AfAm 57.7 L (60.0-200.0) Est GFR (CKD-EPI)NonAf 49.8 L (60.0-200.0) BUN/Creatinine Ratio 21.76 H (12.00-20.00) Ratio POC Glucose (mg/dL) (70-110) mg/dL Calcium 8.2 L (8.7-10.3) mg/dL Alkaline Phosphatase 162 H (41-126) U/L Troponin I (0.000-0.034) ng/mL C-Reactive Protein 15.00 H (0.00-0.80) mg/dL Total Protein 4.6 L (6.2-8.2) g/dL Albumin 2.1 L (3.8-4.9) g/dL Albumin/Globulin Ratio 0.80 L (1.60-3.17) g/dL Urine Appearance Cloudy H (Clear) Urine Protein 1+ H (Negative) Urine Blood Large H (Negative) Ur Leukocyte Esterase Large H (Negative) Urine RBC >182 H (0-5) /hpf Urine WBC 136 H (0-5) /hpf Urine WBC Clumps Occasional H (None) /hpf Urine Bacteria Occasional H (None) /hpf Urine Mucus Few H (None) /hpf 10/26/21 Range/Units 12:25 WBC (4.50-10.00) X 10*3/uL RBC (4.10-5.20) X 10*6/uL Hgb (12.0-15.0) g/dL Hct (37.2-46.3) % MCH (27.0-32.0) pg MCHC (32.0-37.0) g/dL RDW (11.5-14.5) % Immature Gran # (0.00-0.04) X 10*3/uL Neutrophils # (1.80-7.70) X 10*3/uL Monocytes # (0.20-1.00) X 10*3/uL Sodium (135-145) mmol/L Carbon Dioxide (20.0-27.5) mmol/L Est GFR (CKD-EPI)AfAm (60.0-200.0) Est GFR (CKD-EPI)NonAf (60.0-200.0) BUN/Creatinine Ratio (12.00-20.00) Ratio POC Glucose (mg/dL) 136 H (70-110) mg/dL Calcium (8.7-10.3) mg/dL Alkaline Phosphatase (41-126) U/L Troponin I (0.000-0.034) ng/mL C-Reactive Protein (0.00-0.80) mg/dL Total Protein (6.2-8.2) g/dL Albumin (3.8-4.9) g/dL Albumin/Globulin Ratio (1.60-3.17) g/dL Urine Appearance (Clear) Urine Protein (Negative) Urine Blood (Negative) Ur Leukocyte Esterase (Negative) Urine RBC (0-5) /hpf Urine WBC (0-5) /hpf Urine WBC Clumps (None) /hpf Urine Bacteria (None) /hpf Urine Mucus (None) /hpf Microbiology - Last 24 Hours (Table) 10/21/21 11:30 Blood Culture - Preliminary Blood No Growth after 120 hours 10/21/21 11:45 Blood Culture - Preliminary Blood No Growth after 120 hours 10/25/21 21:39 Urine Culture - Preliminary Urine,Voided
[2021-10-26 17:47] LABS: Glucose,Whole Blood 83 mg/dL (70-110)
[2021-10-26 20:40] LABS: Glucose,Whole Blood 70 mg/dL (70-110)
[2021-10-26] MEDS: LATANOPROST 0.005% OPHTH DROPS 2.5 ML BTL BOTH EYES SCH (21:14)
[2021-10-26] MEDS: METOPROLOL SUCCINATE (ER) 25 MG TAB.ER.24H PO SCH (21:17)
[2021-10-26] MEDS: SENNOSIDES-DOCUSATE SODIUM 1 EACH TAB PO SCH (21:17)
[2021-10-26 22:07] LABS: Glucose,Whole Blood 111 mg/dL (70-110)
[2021-10-27] MEDS: HYDROcodone/APAP 5-325MG 1 EACH TAB PO PRN ×4 (02:40→20:54)
[2021-10-27] MEDS ORDERED: IBUPROFEN 400 MG TAB PO STA (04:07)
[2021-10-27] MEDS: PIPERACILLIN-TAZOBACTAM 3.375 GM in SODIUM CHLORIDE 0.9% 100 ML IVPB SCH ×3 (04:16→20:48)
[2021-10-27 05:57] LABS: Anisocytosis Slight; Basophils # (A) 0.1 k/uL (0-0.2); Basophils % (A) 0 %; Eosinophils # (A) 0.1 k/uL (0-0.7); Eosinophils % (A) 0 %; HCT 26.3 % (34.0-46.0); HGB 8.1 gm/dL (11.4-16.0); Hypochromasia Marked; Lymphocytes # (A) 1.1 k/uL (1.0-4.8); Lymphocytes % (A) 6 %; MCH 27.9 pg (25.0-35.0); MCHC 30.7 g/dL (31.0-37.0); MCV 91.1 fL (80.0-100.0); Mean Platelet Volume 7.9; Monocytes # (A) 1.4 k/uL (0-1.0); Monocytes % (A) 7 %; Neutrophils # (A) 16.7 k/uL (1.3-7.7); Neutrophils % (A) 85 %; Platelet Count 399 k/uL (150-450); RBC 2.88 m/uL (3.80-5.40); RDW 16.6 % (11.5-15.5); WBC 19.7 k/uL (3.8-10.6)
[2021-10-27 06:04] LABS: ALT 14 U/L (4-34); AST 27 U/L (14-36); African American GFR (CKD) 42 (>60 ml/min/1.73 sqM); Albumin 1.8 g/dL (3.5-5.0); Albumin/Globulin Ratio 0.7; Alkaline Phosphatase 146 U/L (38-126); Anion Gap 6 mmol/L; Blood Urea Nitrogen 29 mg/dL (7-17); Calcium 7.6 mg/dL (8.4-10.2); Carbon Dioxide 19 mmol/L (22-30); Chloride 104 mmol/L (98-107); Globulin 2.5 g/dL; Glucose 95 mg/dL (74-99); Non-African American GFR(CKD) 37 (>60 ml/min/1.73 sqM); Potassium 4.2 mmol/L (3.5-5.1); Sodium 129 mmol/L (137-145); Total Bilirubin 0.4 mg/dL (0.2-1.3); Total Protein 4.3 g/dL (6.3-8.2)
[2021-10-27] MEDS: LEVOTHYROXINE 125 MCG TAB PO SCH (06:28)
[2021-10-27] MEDS: SODIUM CHLORIDE 0.9% 1,000 ML IV SCH (06:28)
[2021-10-27 06:55] LABS: Glucose,Whole Blood 122 mg/dL (70-110)
[2021-10-27] MEDS: BUDESONIDE 0.5 MG/2 ML NEBU INHALATION SCH ×2 (07:27→20:39)
[2021-10-27] MEDS: ALBUTEROL NEBULIZED 2.5 MG/3 ML INHALATION SCH ×4 (07:27→20:40)
[2021-10-27] MEDS: NYSTATIN 100,000 UNIT/ML SUSP 500,000 UNIT/5 ML CUP PO SCH ×4 (08:26→20:46)
[2021-10-27] MEDS: lisinopriL 10 MG TAB PO SCH (08:27)
[2021-10-27] MEDS: ZINC SULFATE 220 MG CAP PO SCH (08:27)
[2021-10-27] MEDS: CHOLECALCIFEROL 125 MCG (5000 IU) TABLET PO SCH (08:27)
[2021-10-27] MEDS: FUROSEMIDE 10 MG/ML 4 ML VIAL IV SCH (08:27)
[2021-10-27] MEDS: SUCRALFATE 1 GM TAB PO SCH ×2 (08:27→20:48)
[2021-10-27] MEDS: PROPAFENONE 150 MG TAB PO SCH ×2 (08:27→20:44)
[2021-10-27] MEDS: ISOSORBIDE MONONITRATE ER 30 MG TAB.ER.24H PO SCH (08:27)
[2021-10-27] MEDS: PANTOPRAZOLE 40 MG TABLET PO SCH (08:27)
[2021-10-27] MEDS: FLUTICASONE 50MCG/SPRAY NASAL 16GM EA NOSTRIL SCH (08:35)
[2021-10-27] MEDS: BRIMONIDINE TARTRATE 0.2% DROPS 5 ML BTL BOTH EYES SCH ×3 (08:35→21:07)
[2021-10-27] MEDS: DORZOLAMIDE HCL 2% DROPS 10 ML BTL BOTH EYES SCH ×3 (08:36→21:07)
[2021-10-27] MEDS: TIMOLOL 0.5% OPHTH DROPS 5 ML BTL BOTH EYES SCH ×2 (08:36→21:06)
[2021-10-27] MEDS: INSULIN DETEMIR (LEVEMIR) 100 UNIT/ML SYR SQ SCH (08:36)
[2021-10-27] MEDS: ANIDULAFUNGIN 100 MG in SODIUM CHLORIDE 0.9% 100 ML IVPB SCH (08:37)
[2021-10-27] MEDS: CLOTRIMAZOLE/BETAMETH 1-0.05% CREAM 45 GM TUBE TOPICAL SCH ×2 (08:38→21:05)
[2021-10-27] MEDS: NYSTATIN 100,000UNIT/GM CREAM 30 GM TUBE TOPICAL SCH ×2 (08:38→21:08)
[2021-10-27] MEDS: NON FORMULARY DRUG (Methenamine Hippurate [Methenamine Hippurate] 1 GM Tablet) PO SCH ×2 (08:39→20:48)
[2021-10-27] MEDS ORDERED: METOPROLOL SUCCINATE (ER) 25 MG TAB.ER.24H PO STA (10:38)
--- NOTE | 2021-10-27 10:46 | P.PN ---
Subjective Progress Note Date: 10/27/21 HISTORY OF PRESENT ILLNESS: This is a 76-year-old female with history of hypertension, hyperlipidemia, diabetes, neuropathy, and paroxysmal atrial fibrillation and also known coronary artery disease is admitted to the hospital for treatment of urinary tract infection. Patient is being followed by urology. Apparently patient was having fever and chills. Yesterday patient became agitated and thrashing around and appeared to be in respiratory distress. Several blood tests were ordered including BNP and troponin values. BNP was 10,000. Troponin values were mildly elevated. Patient is shouting and crying that she is having significant pain in the pelvic area and abdominal area. There is some history of chest pain, but I cannot get good information. No EKGs available. At this point we will get an EKG. We'll get an echocardiogram. However, patient apparently has extensive ulcerations in the pubic area and needs evaluation for cancer treatment. May need to be transferred to intensive care unit. Not a good candidate for any acute cardiac intervention. Chest x-ray did not show any significant findings of CHF. Patient is getting IV Lasix. We'll continue current management. Further recommendation will depend on the clinical course and findings and about this. Prognosis is guarded 10/27/2021 Patient examined this morning at the bedside. Patient denies chest pain or pressure. She denies shortness of breath. She reports pain this morning and is receiving pain medications at the time of my examination. Patient is mildly tachycardic this morning with a heart rate around 110. Blood pressure is stable. PHYSICAL EXAM: VITAL SIGNS: Reviewed. GENERAL: Well-developed in no acute distress. NECK: Supple. No JVD or thyromegaly LUNGS: Respirations even and unlabored. Lungs diminished to auscultation bilaterally. HEART: Tachycardic. Regular rate and rhythm. S1 and S2 heard. EXTREMITIES: Normal range of motion. No clubbing or cyanosis. Peripheral pulses intact. Trace lower extremity edema ASSESSMENT: Urinary tract infection with sepsis Vulvar mass Paroxysmal atrial fibrillation Coronary artery disease with previous stenting Acute congestive heart failure secondary to fluid overload, BNP 10,000 Abnormal troponin, may be secondary to infectious process, no evidence of ACS PLAN: Continue current cardiac medications Continue IV lasix Increase metoprolol to BID dosing for optimal heart rate control 2D echo ordered. Await results. Possible discharge to for further evaluation of Vulvar mass Further recommendations pending patient course Patient to follow up post discharge with Dr. Perez Nurse practitioner note has been reviewed by physician. Signing provider agrees with the documented findings, assessment, and plan of care. Objective - Vital Signs Vital signs: Vital Signs Temp 97.5 F L 10/27/21 04:17 Pulse 113 H 10/27/21 08:39 Resp 16 10/27/21 04:17 BP 116/68 10/27/21 08:39 Pulse Ox 98 10/27/21 04:17 FiO2 Intake & Output 10/26/21 10/27/21 10/27/21 18:59 06:59 18:59 Intake Total 740 Output Total 600 600 950 Balance 140 -600 -950 Intake: Intake, IV Titration 500 Amount Anidulafungin 100 mg In 100 Sodium Chloride 0.9% 100 ml @ 84 mls/hr IVPB DAILY [facility] Rx#:[id number] Piperacillin-Tazobactam 3 200 .375 gm In Sodium Chloride 0.9% 100 ml @ 25 mls/hr IVPB Q8H [facility] Rx#: [id number] Sodium Chloride 0.9% 1, 200 000 ml @ 20 mls/hr IV . Q24H [facility] Rx#:[id number] Oral 240 Output: Urine 600 600 950 Other: Voiding Method Indwelling Catheter Indwelling Catheter # Bowel Movements 4 0 - Labs CBC & Chem 7: 10/27/21 05:21 10/27/21 05:21 Labs: Abnormal Lab Results - Last 24 Hours (Table) 10/26/21 10/26/21 10/26/21 Range/Units 06:09 06:09 12:25 WBC 19.52 H (4.50-10.00) X 10*3/uL RBC 2.85 L (4.10-5.20) X 10*6/uL Hgb 7.4 L (12.0-15.0) g/dL Hct 26.0 L (37.2-46.3) % MCH 26.0 L (27.0-32.0) pg MCHC 28.5 L (32.0-37.0) g/dL RDW 16.7 H (11.5-14.5) % Immature Gran # 0.76 H (0.00-0.04) X 10*3/uL Neutrophils # 14.97 H (1.80-7.70) X 10*3/uL Monocytes # 1.93 H (0.20-1.00) X 10*3/uL Sodium 130 L (135-145) mmol/L Carbon Dioxide 16.8 L (20.0-27.5) mmol/L BUN (7-17) mg/dL Creatinine (0.52-1.04) mg/dL Est GFR (CKD-EPI)AfAm 57.7 L (60.0-200.0) Est GFR (CKD-EPI)NonAf 49.8 L (60.0-200.0) BUN/Creatinine Ratio 21.76 H (12.00-20.00) Ratio POC Glucose (mg/dL) 136 H (70-110) mg/dL Calcium 8.2 L (8.7-10.3) mg/dL Alkaline Phosphatase 162 H (41-126) U/L C-Reactive Protein 15.00 H (0.00-0.80) mg/dL Total Protein 4.6 L (6.2-8.2) g/dL Albumin 2.1 L (3.8-4.9) g/dL Albumin/Globulin Ratio 0.80 L (1.60-3.17) g/dL 10/26/21 10/27/21 10/27/21 Range/Units 22:04 05:21 05:21 WBC 19.7 H (4.50-10.00) X 10*3/uL RBC 2.88 L (4.10-5.20) X 10*6/uL Hgb 8.1 L (12.0-15.0) g/dL Hct 26.3 L (37.2-46.3) % MCH (27.0-32.0) pg MCHC 30.7 L (32.0-37.0) g/dL RDW 16.6 H (11.5-14.5) % Immature Gran # (0.00-0.04) X 10*3/uL Neutrophils # 16.7 H (1.80-7.70) X 10*3/uL Monocytes # 1.4 H (0.20-1.00) X 10*3/uL Sodium 129 L (135-145) mmol/L Carbon Dioxide 19 L (20.0-27.5) mmol/L BUN 29 H (7-17) mg/dL Creatinine 1.40 H (0.52-1.04) mg/dL Est GFR (CKD-EPI)AfAm (60.0-200.0) Est GFR (CKD-EPI)NonAf (60.0-200.0) BUN/Creatinine Ratio (12.00-20.00) Ratio POC Glucose (mg/dL) 111 H (70-110) mg/dL Calcium 7.6 L (8.7-10.3) mg/dL Alkaline Phosphatase 146 H (41-126) U/L C-Reactive Protein (0.00-0.80) mg/dL Total Protein 4.3 L (6.2-8.2) g/dL Albumin 1.8 L (3.8-4.9) g/dL Albumin/Globulin Ratio (1.60-3.17) g/dL 10/27/21 Range/Units 06:53 WBC (4.50-10.00) X 10*3/uL RBC (4.10-5.20) X 10*6/uL Hgb (12.0-15.0) g/dL Hct (37.2-46.3) % MCH (27.0-32.0) pg MCHC (32.0-37.0) g/dL RDW (11.5-14.5) % Immature Gran # (0.00-0.04) X 10*3/uL Neutrophils # (1.80-7.70) X 10*3/uL Monocytes # (0.20-1.00) X 10*3/uL Sodium (135-145) mmol/L Carbon Dioxide (20.0-27.5) mmol/L BUN (7-17) mg/dL Creatinine (0.52-1.04) mg/dL Est GFR (CKD-EPI)AfAm (60.0-200.0) Est GFR (CKD-EPI)NonAf (60.0-200.0) BUN/Creatinine Ratio (12.00-20.00) Ratio POC Glucose (mg/dL) 122 H (70-110) mg/dL Calcium (8.7-10.3) mg/dL Alkaline Phosphatase (41-126) U/L C-Reactive Protein (0.00-0.80) mg/dL Total Protein (6.2-8.2) g/dL Albumin (3.8-4.9) g/dL Albumin/Globulin Ratio (1.60-3.17) g/dL Microbiology - Last 24 Hours (Table) 10/21/21 11:30 Blood Culture - Preliminary Blood No Growth after 120 hours 10/21/21 11:45 Blood Culture - Preliminary Blood No Growth after 120 hours 10/25/21 21:39 Urine Culture - Preliminary Urine,Voided
[2021-10-27 11:10] LABS: Glucose,Whole Blood 168 mg/dL (70-110)
--- NOTE | 2021-10-27 11:53 | CA ---
Transthoracic Echo Report Name: Genesis Rand Age: 76 Gender: F : 1945 Exam Date: 10/27/2021 07:43 Exam Location: [facility] Ht (in): 64 Wt (lb): 182 Ordering Physician: Alexandrea Harp MD ([id number]) Attending/Referring Phys: Recruiter Coordinator Lindsey Humphrey RDCS Procedure CPT: Indications: SHORTNESS OF BREATH Cardiac Hx: Technical Quality: Good Contrast 1: Total Dose (mL): Contrast 2: Total Dose (mL): MEASUREMENTS (Male / Female) Normal Values 2D ECHO LV Diastolic Diameter PLAX 3.8 cm 4.2 - 5.9 / 3.9 - 5.3 cm LV Systolic Diameter PLAX 2.7 cm IVS Diastolic Thickness 0.8 cm 0.6 - 1.0 / 0.6 - 0.9 cm LVPW Diastolic Thickness 1.0 cm 0.6 - 1.0 / 0.6 - 0.9 cm LV Relative Wall Thickness 0.5 LVOT Diameter 1.5 cm LA Volume 56.2 cm??? 18 - 58 / 22 - 52 cm??? M-MODE Aortic Root Diameter MM 3.0 cm LA Systolic Diameter MM 3.7 cm LA Ao Ratio MM 1.2 MV E Point Septal Separation 0.7 cm AV Cusp Separation MM 1.1 cm DOPPLER AV Peak Velocity 191.7 cm/s AV Peak Gradient 14.7 mmHg AV Mean Velocity 157.9 cm/s AV Mean Gradient 10.5 mmHg AV Velocity Time Integral 28.4 cm LVOT Peak Velocity 64.7 cm/s LVOT Peak Gradient 1.7 mmHg AV Area Cont Eq pk 0.6 cm??? MV Area PHT 5.5 cm??? MR Peak Velocity 313.0 cm/s MR Peak Gradient 39.2 mmHg Mitral E Point Velocity 101.7 cm/s Mitral A Point Velocity 31.9 cm/s Mitral E to A Ratio 3.2 MV Deceleration Time 137.8 ms MV E' Velocity 4.6 cm/s Mitral E to MV E' Ratio 22.1 TR Peak Velocity 300.0 cm/s TR Peak Gradient 36.0 mmHg Right Ventricular Systolic Press 51.0 mmHg FINDINGS Left Ventricle Mildly increased posterior wall thickness. Left ventricular ejection fraction is estimated at 40-45 %. Left Bundle branch block. Apical setum, Apical inferior ,Apical Anterior and Anteroseptal are hypokinetic.left ventricular cavity size normal. Grade 2 diastolic dysfunction. Right Ventricle Normal right ventricular size and function. Moderate pulmonary hypertension. Right Atrium Normal right atrial size. Left Atrium Mildly increased left atrial volume. Mildly increased left atrial area. Mitral Valve Mitral valve thickened. Mild mitral regurgitation. Aortic Valve Mild aortic stenosis with a peak gradient of 14 mmHg and a mean gradient of 10 mmHg. . Diffuse thickening of the aortic valve cusps with reduced excursion. Tricuspid Valve Mild tricuspid regurgitation. Pulmonic Valve Pulmonic valve not well visualized. Pericardium No pericardial effusion. Aorta Normal aortic root dimension. CONCLUSIONS Ischemic cardiomyopathy moderate LV systolic dysfunction Mild aortic stenosis Previewed by: Dr. Red Obrien MD (Electronically Signed) Final Date: 27 October 2021 11:52
--- NOTE | 2021-10-27 14:06 | P.TRANS ---
Providers Date of admission: 10/21/21 14:17 Expected date of discharge: 10/27/21 Attending physician: Rush Corrigan Consults: 10/21/21 14:17 Consult Physician Urgent Consulting Provider: Gisel Moore Consult Reason/Comments: Recurrent urinary tract infection Do you want consulting provider notified?: Yes 10/23/21 18:44 Consult Physician Routine Consulting Provider: Rudi Pino Consult Reason/Comments: recurrent UTI/ Retention Do you want consulting provider notified?: Yes 10/25/21 17:05 Consult Physician Urgent Consulting Provider: Beverly Lopez Consult Reason/Comments: vaginal growth and perineal swelling Do you want consulting provider notified?: Yes 10/25/21 17:16 Consult Physician Routine Consulting Provider: Alexandrea Harp Consult Reason/Comments: elevated troponin 0.536 Do you want consulting provider notified?: Yes Primary care physician: Rush Corrigan Hospital Course: HISTORY OF PRESENT ILLNESS: This is a 76-year-old white female with a previous medical history significant for hypertension and hypertensive cardiovascular disease, hyperlipidemia, diabetes mellitus type 2 with diabetic polyneuropathy, history of paroxysmal atrial fibrillation, coronary artery disease status post PCI and stent placement, history of uterine cancer in the past status post hysterectomy as well as radiation therapy, patient also had suffered from significant constipation and recurrent urinary tract infection associated with macro-and microscopic hematuria, patient has been under the care of from urology, she was recently discharged form [facility] after she was admitted for E.Coli UTI that was sensitive to Cefepime and had IV treatment that was switched to oral Macrobid 100 mg po bid for 1 week and she went home last Wednesday, then she developed to have fever and chills and was seen in my office yesterday for what appears to be a UTI with sepsis, she was sent to [facility] ER [facility] and had CT scan of the abdomen and pelvis that was negative and she was started ON IV Antibiotics in the form of Cefepime 2 gr IVPB Q 8 hours and sent urine and blood cultures and was admitted to the hospital with ID consult. 10/23: Patient is laying down in bed she continues to have significant pain in the lower abdomen and she is complaining of increased swelling and tenderness of bilateral labia, she was seen earlier by ID, computed tomography scan of the pe lvis were done did not show evidence of any drainable abscess at this time, patient was started on vancomycin along with cefepime, we will continue to monitor the patient very closely she appears to be somewhat hypotensive I spoke with the nursing staff about giving her a bolus of normal saline 500 mL followed by increasing her IV fluid 250 mL an hour, monitor the patient very closely repeat her CBC tomorrow morning, if the patient is not improving or her blood pressure does not normalize she will need to be transferred to the ICU. 10/24: Patient is laying down in bed moaning and groaning, she continues to appears very sick, we will reduce her IV fluid to 75 mL an hour patient was given 1 dose of Lasix 40 mg IV push 1, reevaluate the patient next 24 hours, patient also was seen earlier by infectious disease as well as by urology and was recommended to continue with Zosyn at this point in time she was taken off cefepime and vancomycin and the since her urine culture is growing Yudelka glabrata she was started on Anidulafungin 200 mg IVPB daily 10/25: Patient is sitting up in bed she appears to be more short of breath today, we decreased her IV fluids all the way to KVO, give the patient another dose of Lasix 40 mg IV push, we'll arrange for chest x-ray stat, nebulized treatment albuterol 2.5 mg every every 6 hours [id number], monitor the patient in the monitor she was presented to she is well, laboratory evaluation reviewed, we'll continue to monitor the patient very closely 10/26: Patient was seen yesterday in consultation by [facility] service in regarding to the vulvar mass that appears to be cancerous at this point in time, patient has great difficulties placing Bell catheter until Dr. 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 10/27: Arrangements for transfer to [facility] and patient has been accepted but unfortunately is waiting for a bed most likely will occur tomorrow. Patient is complaining of feeling very weak. She is complaining of pain and Dennard 5 increased frequency to every 4 hours. Patient also states that she is having trouble with feeling need to defecate and has been incontinent of stool. Patient is been afebrile, heart rate 160, blood pressure 116/70, pulse ox 99% on 2 L nasal cannula. She has had no fever since 10/23. Bell catheter is draining clear melissa urine and Xarelto will be resumed. Cardiology is increased metoprolol frequency to twice daily and plan for follow-up with Dr. Perez in the office. WBC 19.7, hemoglobin 8.1, platelet count 399. Sodium 129, potassium 4.2, chloride 104, CO2 19, BUN 29 creatinine 1.4. Calcium 7.6. Alkaline phosphatase 146. Currently blood glucose running between 70 and 168. Echocardiogram reveals ischemic cardiomyopathy, moderate LV systolic dysfunction with EF of 40-45%, mild aortic stenosis. REVIEW OF SYSTEMS: Constitutional: positive for fever, positive for chills, no night sweats. No weight change. positive for weakness, fatigue or lethargy. No daytime sleepiness. HEENT: positive for headache. No blurred vision or double vision, no loss of vision. No loss of Hearing, no ringing in the ears, no dizziness. No nasal drainage or congestion. No epistaxis. positive for sore throat Lungs: appears with some shortness of breath, occasional cough, no sputum production. positive for wheezing. Reports dyspnea with activity. Cardiovascular: No chest pain, mild lower extremity edema. No palpitations. No paroxysmal nocturnal dyspnea. positive for orthopnea. No lightheadedness or dizziness. No syncopal episodes. Abdominal: Reports abdominal pain. positive for nausea, no vomiting. No diarrhea. positive for constipation. No bloody or tarry stools reports loss of appetite. Genitourinary: positive for dysuria, increased frequency, urgency. positive for urinary retention. Musculoskeletal: No myalgias. positive for muscle weakness, no gait dysfunction, no frequent falls. positive for back pain and neck pain. Integumentary: No wounds, no lesions. No rash or pruritus. No unusual bruising. No change in hair or nails. Neurologic: No aphasia. No facial droop. No change in mentation. No head injury. No headache. No paralysis. No paresthesia. Psychiatric: No depression. No anxiety. No mood swings. Endocrine: No abnormal blood sugars. No weight change. PHYSICAL EXAMINATION: General: 76-year-old female laying on the bed in no respiratory distress. HEENT: Head is atraumatic, normocephalic, pupils were equal round reactive to light and recommendation, sclera nonicteric, conjunctivae were pale, mucous membranes of the mouth are somewhat dry, with thrush Neck: Supple, no JVP, decreased carotid upstroke bilaterally, no lymphadenopathy. Chest: Decreased breath sounds at the bases, few rhonchi, positive for expiratory wheezes, no chest wall tenderness, no intercostal retractions. Heart: First heart sound is normal, second heart sound is normal there is systolic ejection murmur 2/6 located in the left sternal border. Abdomen: Soft, nondistended, positive bowel sounds, multiple surgical scars, mild diffuse non specific tenderness Extremities: There is +1 edema no calf tenderness DP +2 bilaterally. Neurologic examination: Patient is awake alert and oriented X3 , cranial nerves II-12 appear grossly intact, muscle power were 4 out of 5 in upper extremities and 3 out of 5 in bilateral lower extremities, deep tendon reflexes normal bilaterally. SHAPER HAND: with [place] in the room , there is siginificant swelling to both labia with tenserness. ASSESSMENT AND PLAN: 1. Recurrent UTI with sepsis. Decrease IV fluid to KVO, continue patient on Zosyn 3.375 g IV piggyback every 6 hours, continue Anidulafungin 200 mg IV piggyback every day, infectious disease and neurology are following. 2. Acute hypoxemic respiratory insufficiency due to fluid overload. Decrease IV fluids to KVO, continue the patient on Lasix 40 mg IV push daily. 3. Hypertension and hypertensive cardiovascular disease. Continue lisinopril 10 mg orally once every day, continue metoprolol increased to 25 mg orally twice every day, added Vasotec 1.25 mg IV push every 6 hours as needed for systolic greater than 150. 3. Hyperlipidemia. Stable 4 . Diabetes mellitus type 2 insulin requiring. Continue patient on Levemir 16 units subcutaneously twice every day. Discontinue Farxiga 5. Paroxysmal atrial fibrillation currently in sinus rhythm. continue Rythmol 150 mg orally twice every day, continue metoprolol increased to 25 5 mg orally twice every day and Xarelto 20 mg orally daily will be resumed. 6. GERD with esophagitis. Continue patient on pantoprazole 40 mg every day, continue Carafate 1 mg orally twice every day. 7. Mild persistent asthma. Continue albuterol 2.5 mg nebulization 4 times every day [id number]. 8. Severe constipation. Patient had tried MiraLAX, lactulose, Senokot, and Metamucil without any relief, we will start the patient on Linzess 290 MCG orally once every day. 9. CAD post-PCI. Continue patient on metoprolol 12.5 mg twice every day, cont inue patient on isosorbide mononitrate 30 mg orally once every day. 10. History of breast cancer status post lumpectomy. Continue Arimidex 1 mg orally once every day. 11. History of uterine cancer status post hysterectomy along with radiation therapy. Currently in remission. 12. History of pituitary adenoma status post resection. 13. Insomnia. Continue trazodone 50 mg at bedtime. 14. DVT Prophylaxis. we will continue with Xarelto 20 mg po daily. 15. GI Prophylaxis. we will continue with PPI. 16. Medical debility. Physical therapy evaluation. 14. Vulvar mass was evaluated by [facility] service recommended for the patient be transferred to tertiary care center for evaluation and treatment accordingly will initiate transfer tomorrow morning. 15. Very poor prognosis Impression and plan of care have been directed as dictated by the signing physician. Cristina Bowers nurse practitioner acting as scribe for signing physician. Patient Condition at Discharge: Fair Plan - Transfer Summary Transfer Medications: Active Medications Generic Name Dose Route Start Last Admin Trade Name Freq PRN Reason Stop Dose Admin Acetaminophen 650 mg 10/21/21 14:17 10/26/21 01:23 Acetaminophen Tab 325 Mg Tab PO 650 mg Q6HR PRN Administration Mild Pain or Fever > 100.5 Hydrocodone Bitart/Acetaminophen 1 each 10/27/21 13:30 Hydrocodone/Apap 5-325mg 1 Each Tab PO Q4HR PRN MODERATE Pain Albuterol Sulfate 2.5 mg 10/25/21 16:00 10/27/21 10:51 Albuterol Nebulized 2.5 Mg/3 Ml INHALATION 2.5 mg RT-QID SHIMON Administration Betamethasone/Clotrimazole 1 applic 10/22/21 21:00 10/27/21 08:38 Clotrimazole/Betameth 1-0.05% Cream 45 Gm Tube TOPICAL 1 applic BID SHIMON Administration Protocol Brimonidine Tartrate 1 drops 10/22/21 02:30 10/27/21 08:35 Brimonidine Tartrate 0.2% Drops 5 Ml Btl BOTH EYES 1 drops TID SHIMON Administration Budesonide 0.5 mg 10/25/21 20:00 10/27/21 07:27 Budesonide 0.5 Mg/2 Ml Nebu INHALATION 0.5 mg RT-BID SHIMON Administration Cholecalciferol 125 mcg 10/22/21 00:00 10/27/21 08:27 Cholecalciferol 125 Mcg (5000 Iu) Tablet PO 125 mcg DAILY SHIMON Administration Dorzolamide HCl 1 drops 10/22/21 02:31 10/27/21 08:36 Dorzolamide Hcl 2% Drops 10 Ml Btl BOTH EYES 1 drops TID SHIMON Administration Enalaprilat 1.25 mg 10/24/21 20:18 10/24/21 20:29 Enalaprilat 1.25 Mg/Ml 1 Ml Vial IVP 1.25 mg Q6HR PRN Administration Blood Pressure - High Fluticasone Propionate 1 spray 10/22/21 09:00 10/27/21 08:35 Fluticasone 50mcg/[place] Nasal 16gm EA NOSTRIL 1 spray DAILY SHIMON Administration Furosemide 40 mg 10/26/21 09:00 10/27/21 08:27 Furosemide 10 Mg/Ml 4 Ml Vial IV 40 mg DAILY SHIMON Administration Sodium Chloride 1,000 mls @ 20 mls/hr 10/22/21 16:15 10/27/21 06:28 Saline 0.9% IV 20 mls/hr .Q24H SHIMON Administration Piperacillin Sod/Tazobactam 100 mls @ 25 mls/hr 10/24/21 12:00 10/27/21 12:37 Sod 3.375 gm/ Sodium Chloride IVPB 25 mls/hr Q8H SHIMON Administration Protocol Anidulafungin 100 mg/ Sodium 130 mls @ 84 mls/hr 10/26/21 09:00 10/27/21 08:37 Chloride IVPB 84 mls/hr DAILY SHIMON Administration Protocol Insulin Detemir 16 unit 10/23/21 09:00 10/27/21 08:36 Insulin Detemir (Levemir) 100 Unit/Ml Syr SQ Not Given DAILY [facility] Isosorbide Mononitrate 30 mg 10/22/21 09:00 10/27/21 08:27 Isosorbide Mononitrate Er 30 Mg Tab.Er.24h PO 30 mg DAILY SHIMON Administration Latanoprost 1 drops 10/21/21 22:45 10/26/21 21:14 Latanoprost 0.005% Ophth Drops 2.5 Ml Btl BOTH EYES 1 drops HS SHIMON Administration Levothyroxine Sodium 125 mcg 10/22/21 06:30 10/27/21 06:28 Levothyroxine 125 Mcg Tab PO 125 mcg DAILY@0630 SHIMON Administration Lisinopril 10 mg 10/26/21 09:00 10/27/21 08:27 Lisinopril 10 Mg Tab PO 10 mg DAILY SHIMON Administration Methazolamide 50 mg 10/21/21 23:00 10/27/21 08:26 Methazolamide 25 Mg Tab PO 50 mg BID SHIMON Administration Metoclopramide HCl 5 mg 10/24/21 20:18 10/24/21 20:29 Metoclopramide 5 Mg/Ml 2 Ml Vial IVP 5 mg Q6HR PRN Administration Nausea And Vomiting Metoprolol Succinate 25 mg 10/27/21 21:00 Metoprolol Succinate (Er) 25 Mg Tab.Er.24h PO BID [facility] Montelukast Sodium 10 mg 10/21/21 23:00 10/25/21 20:05 Montelukast 10 Mg Tab PO 10 mg HS SHIMON Administration Naloxone HCl 0.2 mg 10/21/21 14:17 Naloxone 0.4 Mg/Ml 1 Ml Vial IV Q2M PRN Opioid Reversal Linaclotide [Linzess 290 mcg 10/22/21 09:00 10/27/21 08:34 ] 290 Mcg Capsule PO 290 mcg DAILY [facility] Administration Non-Formulary Medication 1 gm 10/22/21 09:00 10/27/21 08:39 Methenamine Hippurate [Methenamine Hippurate] PO Not Given BID [facility] Nystatin 1 applic 10/22/21 09:00 10/27/21 08:38 Nystatin 100,000unit/Gm Cream 30 Gm Tube TOPICAL 1 applic BID SHIMON Administration Protocol Nystatin 500,000 unit 10/25/21 18:00 10/27/21 12:37 Nystatin 100,000 Unit/Ml Susp 500,000 Unit/5 Ml Cup PO 500,000 unit QID SHIMON Administration Protocol Ondansetron HCl 4 mg 10/21/21 23:00 10/26/21 12:35 Ondansetron 4 Mg Tab PO 4 mg Q8H PRN Administration Nausea Pantoprazole Sodium 40 mg 10/22/21 09:00 10/27/21 08:27 Pantoprazole 40 Mg Tablet PO 40 mg DAILY SHIMON Administration Propafenone HCl 150 mg 10/21/21 23:00 10/27/21 08:27 Propafenone 150 Mg Tab PO 150 mg BID SHIMON Administration Psyllium Hydrophilic Mucilloid 6 gm 10/22/21 09:00 10/23/21 21:36 Psyllium Husk 100% 6 Gm Packet PO 6 gm BID PRN Administration Constipation Rivaroxaban 20 mg 10/27/21 17:30 Rivaroxaban 20 Mg Tab PO W/SUPPER SHIMON Protocol Senna/Docusate Sodium 2 each 10/21/21 23:00 10/26/21 21:17 Sennosides-Docusate Sodium 1 Each Tab PO 2 each HS SHIMON Administration Sucralfate 1 gm 10/21/21 23:00 10/27/21 08:27 Sucralfate 1 Gm Tab PO 1 gm BID SHIMON Administration Timolol Maleate 1 drops 10/22/21 02:30 10/27/21 08:36 Timolol 0.5% Ophth Drops 5 Ml Btl BOTH EYES 1 drops BID SHIMON Administration Trazodone HCl 50 mg 10/21/21 23:00 10/25/21 23:44 Trazodone Hcl 50 Mg Tab PO 50 mg HS PRN Administration Insomnia Zinc Sulfate 220 mg 10/21/21 23:00 10/27/21 08:27 Zinc Sulfate 220 Mg Cap PO 220 mg DAILY SHIMON Administration Follow up Appointment(s)/Referral(s): [facility], [NON-STAFF] - As Needed Rush Corrigan MD [Primary Care Provider] - 1-2 days Hakeem Perez DO [STAFF PHYSICIAN] - 3 Weeks [facility] [NON-STAFF] - 1 Week ([facility] - [facility] (P: [phone]) - 80% in- office, home, teach & train until out of pocket of $7550.00 is met.) [facility], [REFERRING] - As Needed (Cristina Jackson - COVERAGE: *Supplies: covered at 80% until OOP of $5968.53, then 100%. *Medication: prior auth and cost depend on script)
[2021-10-27 16:51] LABS: Glucose,Whole Blood 186 mg/dL (70-110)
[2021-10-27] MEDS: RIVAROXABAN 20 MG TAB PO SCH (17:42)
[2021-10-27 20:09] LABS: Glucose,Whole Blood 258 mg/dL (70-110)
[2021-10-27] MEDS: MONTELUKAST 10 MG TAB PO SCH (20:47)
[2021-10-27] MEDS: SENNOSIDES-DOCUSATE SODIUM 1 EACH TAB PO SCH (20:47)
[2021-10-27] MEDS: METOPROLOL SUCCINATE (ER) 25 MG TAB.ER.24H PO SCH (21:05)
[2021-10-27] MEDS: LATANOPROST 0.005% OPHTH DROPS 2.5 ML BTL BOTH EYES SCH (21:06)
[2021-10-28] MEDS: traZODone HCL 50 MG TAB PO PRN (00:40)
[2021-10-28] MEDS: HYDROcodone/APAP 5-325MG 1 EACH TAB PO PRN ×2 (00:45→04:18)
[2021-10-28] MEDS: PIPERACILLIN-TAZOBACTAM 3.375 GM in SODIUM CHLORIDE 0.9% 100 ML IVPB SCH ×3 (04:17→20:16)
[2021-10-28] MEDS: LEVOTHYROXINE 125 MCG TAB PO SCH (05:46)
[2021-10-28] MEDS: SODIUM CHLORIDE 0.9% 1,000 ML IV SCH (05:46)
[2021-10-28 07:01] LABS: Glucose,Whole Blood 253 mg/dL (70-110)
--- NOTE | 2021-10-28 07:28 | P.PN ---
Subjective Progress Note Date: 10/26/21 Principal diagnosis: Sepsis and UTI Patient is a 76-year-old female presented to hospital with fever and not feeling well some lower abdominal pain. CT Abdominal pelvis didn't show acute abnormality did have a positive UA concerning for catheter associated urinary tract infection. On today's evaluation that is 10/26/2021, the patient is afebrile, the patient is breathing comfortably on room air, the patient denies any chest pain or shortness of breath or cough no abdominal discomfort and no diarrhea Objective - Vital Signs Vital signs: Vital Signs Temp 99.2 F 10/26/21 15:46 Pulse 108 H 10/26/21 16:09 Resp 16 10/26/21 15:46 BP 122/70 10/26/21 15:46 Pulse Ox 96 10/26/21 15:46 FiO2 Intake & Output 10/25/21 10/26/21 10/26/21 18:59 06:59 18:59 Intake Total 240 700 240 Output Total 2150 Balance -1910 700 240 Intake: Intake, IV Titration 340 Amount Piperacillin-Tazobactam 3 100 .375 gm In Sodium Chloride 0.9% 100 ml @ 25 mls/hr IVPB Q8H SHIMON Rx#: [id number] Sodium Chloride 0.9% 1, 240 000 ml @ 20 mls/hr IV . Q24H SHIMON Rx#:[id number] Oral 240 360 240 Output: Urine 2150 Other: Voiding Method Indwelling Catheter Indwelling Catheter # Bowel Movements 1 - Exam GENERAL DESCRIPTION: An elderly female lying in bed in no distress RESPIRATORY SYSTEM: Unlabored breathing , decreased breath sounds at bases HEART: S1 S2 regular rate and rhythm , ABDOMEN: Soft , no tenderness EXTREMITIES: No edema feet - Labs CBC & Chem 7: 10/27/21 05:21 10/27/21 05:21 Labs: Abnormal Lab Results - Last 24 Hours (Table) 10/25/21 10/25/21 10/25/21 Range/Units 15:43 17:35 21:23 WBC (4.50-10.00) X 10*3/uL RBC (4.10-5.20) X 10*6/uL Hgb (12.0-15.0) g/dL Hct (37.2-46.3) % MCH (27.0-32.0) pg MCHC (32.0-37.0) g/dL RDW (11.5-14.5) % Immature Gran # (0.00-0.04) X 10*3/uL Neutrophils # (1.80-7.70) X 10*3/uL Monocytes # (0.20-1.00) X 10*3/uL Sodium (135-145) mmol/L Carbon Dioxide (20.0-27.5) mmol/L Est GFR (CKD-EPI)AfAm (60.0-200.0) Est GFR (CKD-EPI)NonAf (60.0-200.0) BUN/Creatinine Ratio (12.00-20.00) Ratio POC Glucose (mg/dL) 178 H 136 H (70-110) mg/dL Calcium (8.7-10.3) mg/dL Alkaline Phosphatase (41-126) U/L Troponin I 0.536 H* (0.000-0.034) ng/mL C-Reactive Protein (0.00-0.80) mg/dL Total Protein (6.2-8.2) g/dL Albumin (3.8-4.9) g/dL Albumin/Globulin Ratio (1.60-3.17) g/dL Urine Appearance (Clear) Urine Protein (Negative) Urine Blood (Negative) Ur Leukocyte Esterase (Negative) Urine RBC (0-5) /hpf Urine WBC (0-5) /hpf Urine WBC Clumps (None) /hpf Urine Bacteria (None) /hpf Urine Mucus (None) /hpf 10/25/21 10/26/21 10/26/21 Range/Units 21:39 06:09 06:09 WBC 19.52 H (4.50-10.00) X 10*3/uL RBC 2.85 L (4.10-5.20) X 10*6/uL Hgb 7.4 L (12.0-15.0) g/dL Hct 26.0 L (37.2-46.3) % MCH 26.0 L (27.0-32.0) pg MCHC 28.5 L (32.0-37.0) g/dL RDW 16.7 H (11.5-14.5) % Immature Gran # 0.76 H (0.00-0.04) X 10*3/uL Neutrophils # 14.97 H (1.80-7.70) X 10*3/uL Monocytes # 1.93 H (0.20-1.00) X 10*3/uL Sodium 130 L (135-145) mmol/L Carbon Dioxide 16.8 L (20.0-27.5) mmol/L Est GFR (CKD-EPI)AfAm 57.7 L (60.0-200.0) Est GFR (CKD-EPI)NonAf 49.8 L (60.0-200.0) BUN/Creatinine Ratio 21.76 H (12.00-20.00) Ratio POC Glucose (mg/dL) (70-110) mg/dL Calcium 8.2 L (8.7-10.3) mg/dL Alkaline Phosphatase 162 H (41-126) U/L Troponin I (0.000-0.034) ng/mL C-Reactive Protein 15.00 H (0.00-0.80) mg/dL Total Protein 4.6 L (6.2-8.2) g/dL Albumin 2.1 L (3.8-4.9) g/dL Albumin/Globulin Ratio 0.80 L (1.60-3.17) g/dL Urine Appearance Cloudy H (Clear) Urine Protein 1+ H (Negative) Urine Blood Large H (Negative) Ur Leukocyte Esterase Large H (Negative) Urine RBC >182 H (0-5) /hpf Urine WBC 136 H (0-5) /hpf Urine WBC Clumps Occasional H (None) /hpf Urine Bacteria Occasional H (None) /hpf Urine Mucus Few H (None) /hpf 10/26/21 Range/Units 12:25 WBC (4.50-10.00) X 10*3/uL RBC (4.10-5.20) X 10*6/uL Hgb (12.0-15.0) g/dL Hct (37.2-46.3) % MCH (27.0-32.0) pg MCHC (32.0-37.0) g/dL RDW (11.5-14.5) % Immature Gran # (0.00-0.04) X 10*3/uL Neutrophils # (1.80-7.70) X 10*3/uL Monocytes # (0.20-1.00) X 10*3/uL Sodium (135-145) mmol/L Carbon Dioxide (20.0-27.5) mmol/L Est GFR (CKD-EPI)AfAm (60.0-200.0) Est GFR (CKD-EPI)NonAf (60.0-200.0) BUN/Creatinine Ratio (12.00-20.00) Ratio POC Glucose (mg/dL) 136 H (70-110) mg/dL Calcium (8.7-10.3) mg/dL Alkaline Phosphatase (41-126) U/L Troponin I (0.000-0.034) ng/mL C-Reactive Protein (0.00-0.80) mg/dL Total Protein (6.2-8.2) g/dL Albumin (3.8-4.9) g/dL Albumin/Globulin Ratio (1.60-3.17) g/dL Urine Appearance (Clear) Urine Protein (Negative) Urine Blood (Negative) Ur Leukocyte Esterase (Negative) Urine RBC (0-5) /hpf Urine WBC (0-5) /hpf Urine WBC Clumps (None) /hpf Urine Bacteria (None) /hpf Urine Mucus (None) /hpf Microbiology - Last 24 Hours (Table) 10/21/21 11:30 Blood Culture - Preliminary Blood No Growth after 120 hours 10/21/21 11:45 Blood Culture - Preliminary Blood No Growth after 120 hours 10/25/21 21:39 Urine Culture - Preliminary Urine,Voided Assessment and Plan (1) Sepsis Current Visit: Yes Status: Acute Code(s): A41.9 - SEPSIS, UNSPECIFIED ORGANISM SNOMED Code(s): 54882972 (2) UTI (urinary tract infection) Current Visit: Yes Status: Acute Code(s): N39.0 - URINARY TRACT INFECTION, SITE NOT SPECIFIED SNOMED Code(s): 43428016 Plan: 1patient presented to hospital with sepsis and this will have fever elevated white count has been complaining of some lower abdominal pain however CT abdominal pelvis did not show any colitis and there was component of constipation and stool burden patient did have a positive UA and likely concern for catheter associated UTI. 2patient CT of the pelvic area did not show any labial abscess. 3patient urine culture did grow katia glabrata, and has been instructed to change Bell catheter and obtain a urine culture from the new Bell catheter, patient is on multiple medication which is interacting with voriconazole hence cannot be used, will be high risk of nephrotoxicity with amphotericin B, even though Echinochandins do not achieve significant urinary concentration however has been used successfully in cases of urinary tract infection, patient to continue with Eraxis as a white count has significantly decreased down to 19,000 from 35,000 and monitor clinical course closely Time with Patient: Less than 30
--- NOTE | 2021-10-28 07:29 | P.PN ---
Subjective Progress Note Date: 10/27/21 Principal diagnosis: Sepsis and UTI Patient is a 76-year-old female presented to hospital with fever and not feeling well some lower abdominal pain. CT Abdominal pelvis didn't show acute abnormality did have a positive UA concerning for catheter associated urinary tract infection. On today's evaluation that is 10/27/2021, the patient remains to be afebrile, the patient is breathing comfortably on nasal cannula oxygen, the patient denies any chest pain or shortness of breath or cough no abdominal discomfort and no diarrhea Objective - Vital Signs Vital signs: Vital Signs Temp 98.7 F 10/27/21 11:07 Pulse 100 10/27/21 11:08 Resp 18 10/27/21 11:07 BP 116/70 10/27/21 11:07 Pulse Ox 99 10/27/21 11:07 FiO2 Intake & Output 10/26/21 10/27/21 10/27/21 18:59 06:59 18:59 Intake Total 740 Output Total 600 600 950 Balance 140 -600 -950 Intake: Intake, IV Titration 500 Amount Anidulafungin 100 mg In 100 Sodium Chloride 0.9% 100 ml @ 84 mls/hr IVPB DAILY [facility] Rx#:[id number] Piperacillin-Tazobactam 3 200 .375 gm In Sodium Chloride 0.9% 100 ml @ 25 mls/hr IVPB Q8H [facility] Rx#: [id number] Sodium Chloride 0.9% 1, 200 000 ml @ 20 mls/hr IV . Q24H [facility] Rx#:[id number] Oral 240 Output: Urine 600 600 950 Other: Voiding Method Indwelling Catheter Indwelling Catheter # Bowel Movements 4 0 - Exam GENERAL DESCRIPTION: An elderly female lying in bed in no distress RESPIRATORY SYSTEM: Unlabored breathing , decreased breath sounds at bases HEART: S1 S2 regular rate and rhythm , ABDOMEN: Soft , no tenderness EXTREMITIES: No edema feet - Labs CBC & Chem 7: 10/27/21 05:21 10/27/21 05:21 Labs: Abnormal Lab Results - Last 24 Hours (Table) 10/26/21 10/26/21 10/27/21 Range/Units 12:25 22:04 05:21 WBC (3.8-10.6) k/uL RBC (3.80-5.40) m/uL Hgb (11.4-16.0) gm/dL Hct (34.0-46.0) % MCHC (31.0-37.0) g/dL RDW (11.5-15.5) % Neutrophils # (1.3-7.7) k/uL Monocytes # (0-1.0) k/uL Sodium 129 L (137-145) mmol/L Carbon Dioxide 19 L (22-30) mmol/L BUN 29 H (7-17) mg/dL Creatinine 1.40 H (0.52-1.04) mg/dL POC Glucose (mg/dL) 136 H 111 H (70-110) mg/dL Calcium 7.6 L (8.4-10.2) mg/dL Alkaline Phosphatase 146 H (38-126) U/L Total Protein 4.3 L (6.3-8.2) g/dL Albumin 1.8 L (3.5-5.0) g/dL 10/27/21 10/27/21 10/27/21 Range/Units 05:21 06:53 11:09 WBC 19.7 H (3.8-10.6) k/uL RBC 2.88 L (3.80-5.40) m/uL Hgb 8.1 L (11.4-16.0) gm/dL Hct 26.3 L (34.0-46.0) % MCHC 30.7 L (31.0-37.0) g/dL RDW 16.6 H (11.5-15.5) % Neutrophils # 16.7 H (1.3-7.7) k/uL Monocytes # 1.4 H (0-1.0) k/uL Sodium (137-145) mmol/L Carbon Dioxide (22-30) mmol/L BUN (7-17) mg/dL Creatinine (0.52-1.04) mg/dL POC Glucose (mg/dL) 122 H 168 H (70-110) mg/dL Calcium (8.4-10.2) mg/dL Alkaline Phosphatase (38-126) U/L Total Protein (6.3-8.2) g/dL Albumin (3.5-5.0) g/dL Microbiology - Last 24 Hours (Table) 10/25/21 21:39 Urine Culture - Final Urine,Voided 10/21/21 11:30 Blood Culture - Preliminary Blood No Growth after 120 hours 10/21/21 11:45 Blood Culture - Preliminary Blood No Growth after 120 hours Assessment and Plan (1) Sepsis Current Visit: Yes Status: Acute Code(s): A41.9 - SEPSIS, UNSPECIFIED ORGANISM SNOMED Code(s): 39630699 (2) UTI (urinary tract infection) Current Visit: Yes Status: Acute Code(s): N39.0 - URINARY TRACT INFECTION, SITE NOT SPECIFIED SNOMED Code(s): 92700282 Plan: 1patient presented to hospital with sepsis and this will have fever elevated white count has been complaining of some lower abdominal pain however CT abdominal pelvis did not show any colitis and there was component of constipation and stool burden patient did have a positive UA and likely concern for catheter associated UTI. 2patient CT of the pelvic area did not show any labial abscess. 3patient urine culture did grow katia glabrata, and has been instructed to change Bell catheter and obtain a urine culture from the new Bell catheter, patient is on multiple medication which is interacting with voriconazole hence cannot be used, will be high risk of nephrotoxicity with amphotericin B, even though Echinochandins do not achieve significant urinary concentration however has been used successfully in cases of urinary tract infection, patient to continue with Eraxis as a white count has significantly decreased down to 19,000, patient is currently waiting for transfer to [facility] for further care and continue supportive care Time with Patient: Less than 30
[2021-10-28] MEDS: ALBUTEROL NEBULIZED 2.5 MG/3 ML INHALATION SCH ×4 (08:38→18:59)
[2021-10-28] MEDS: BUDESONIDE 0.5 MG/2 ML NEBU INHALATION SCH ×2 (08:40→18:59)
[2021-10-28] MEDS: DORZOLAMIDE HCL 2% DROPS 10 ML BTL BOTH EYES SCH ×3 (09:31→21:17)
[2021-10-28] MEDS: INSULIN DETEMIR (LEVEMIR) 100 UNIT/ML SYR SQ SCH (09:31)
[2021-10-28] MEDS: BRIMONIDINE TARTRATE 0.2% DROPS 5 ML BTL BOTH EYES SCH ×3 (09:31→21:17)
[2021-10-28] MEDS: PROPAFENONE 150 MG TAB PO SCH ×2 (09:32→21:14)
[2021-10-28] MEDS: NYSTATIN 100,000 UNIT/ML SUSP 500,000 UNIT/5 ML CUP PO SCH ×4 (09:32→21:13)
[2021-10-28] MEDS: PANTOPRAZOLE 40 MG TABLET PO SCH (09:32)
[2021-10-28] MEDS: FUROSEMIDE 10 MG/ML 4 ML VIAL IV SCH (09:32)
[2021-10-28] MEDS: ZINC SULFATE 220 MG CAP PO SCH (09:32)
[2021-10-28] MEDS: lisinopriL 10 MG TAB PO SCH (09:33)
[2021-10-28] MEDS: METOPROLOL SUCCINATE (ER) 25 MG TAB.ER.24H PO SCH ×2 (09:33→21:14)
[2021-10-28] MEDS: ISOSORBIDE MONONITRATE ER 30 MG TAB.ER.24H PO SCH (09:33)
[2021-10-28] MEDS: CLOTRIMAZOLE/BETAMETH 1-0.05% CREAM 45 GM TUBE TOPICAL SCH ×2 (09:34→21:17)
[2021-10-28] MEDS: CHOLECALCIFEROL 125 MCG (5000 IU) TABLET PO SCH (09:34)
[2021-10-28] MEDS: FLUTICASONE 50MCG/SPRAY NASAL 16GM EA NOSTRIL SCH (09:35)
[2021-10-28] MEDS: TIMOLOL 0.5% OPHTH DROPS 5 ML BTL BOTH EYES SCH ×2 (09:35→21:18)
[2021-10-28] MEDS: SUCRALFATE 1 GM TAB PO SCH ×2 (09:35→21:14)
[2021-10-28] MEDS: NYSTATIN 100,000UNIT/GM CREAM 30 GM TUBE TOPICAL SCH ×2 (09:36→21:19)
[2021-10-28] MEDS: NON FORMULARY DRUG (Methenamine Hippurate [Methenamine Hippurate] 1 GM Tablet) PO SCH ×2 (09:36→21:14)
[2021-10-28] MEDS: ANIDULAFUNGIN 100 MG in SODIUM CHLORIDE 0.9% 100 ML IVPB SCH (09:44)
[2021-10-28 11:08] LABS: Glucose,Whole Blood 296 mg/dL (70-110)
[2021-10-28] MEDS: ONDANSETRON 4 MG TAB PO PRN (12:47)
--- NOTE | 2021-10-28 13:21 | P.PN ---
Subjective Progress Note Date: 10/28/21 HISTORY OF PRESENT ILLNESS: This is a 76-year-old female with history of hypertension, hyperlipidemia, diabetes, neuropathy, and paroxysmal atrial fibrillation and also known coronary artery disease is admitted to the hospital for treatment of urinary tract infection. Patient is being followed by urology. Apparently patient was having fever and chills. Yesterday patient became agitated and thrashing around and appeared to be in respiratory distress. Several blood tests were ordered including BNP and troponin values. BNP was 10,000. Troponin values were mildly elevated. Patient is shouting and crying that she is having significant pain in the pelvic area and abdominal area. There is some history of chest pain, but I cannot get good information. No EKGs available. At this point we will get an EKG. We'll get an echocardiogram. However, patient apparently has extensive ulcerations in the pubic area and needs evaluation for cancer treatment. May need to be transferred to intensive care unit. Not a good candidate for any acute cardiac intervention. Chest x-ray did not show any significant findings of CHF. Patient is getting IV Lasix. We'll continue current management. Further recommendation will depend on the clinical course and findings and about this. Prognosis is guarded 10/27/2021 Patient examined this morning at the bedside. Patient denies chest pain or pressure. She denies shortness of breath. She reports pain this morning and is receiving pain medications at the time of my examination. Patient is mildly tachycardic this morning with a heart rate around 110. Blood pressure is stable. 10/28/2021 Patient examined this morning. She denies chest pain or pressure. Denies SOB. Vital signs are stable. Heart rate improved. She is awaiting bed at [facility]. Echo reveals EF 40-45% PHYSICAL EXAM: VITAL SIGNS: Reviewed. GENERAL: Well-developed in no acute distress. NECK: Supple. No JVD or thyromegaly LUNGS: Respirations even and unlabored. Lungs diminished to auscultation bilaterally. HEART: Tachycardic. Regular rate and rhythm. S1 and S2 heard. EXTREMITIES: Normal range of motion. No clubbing or cyanosis. Peripheral pulses intact. Trace lower extremity edema ASSESSMENT: Urinary tract infection with sepsis Vulvar mass Paroxysmal atrial fibrillation Coronary artery disease with previous stenting Acute congestive heart failure secondary to fluid overload, BNP 10,000 Abnormal troponin, may be secondary to infectious process, no evidence of ACS PLAN: Continue current cardiac medications Discontinue IV lasix. Resume oral lasix. Continue with medical management at this time. Patient may follow up after evaluation at [facility] with Dr. Perez for further cardiac management. Patient awaiting bed at [facility]. We will sign off. Please reconsult if needed. Nurse practitioner note has been reviewed by physician. Signing provider agrees with the documented findings, assessment, and plan of care. Objective - Vital Signs Vital signs: Vital Signs Temp 98.2 F 10/28/21 04:50 Pulse 115 H 10/28/21 09:30 Resp 16 10/28/21 08:54 BP 115/69 10/28/21 09:30 Pulse Ox 100 10/28/21 09:30 FiO2 Intake & Output 10/27/21 10/28/21 10/28/21 18:59 06:59 18:59 Intake Total 200 Output Total 1950 600 Balance -1750 -600 Intake: Intake, IV Titration 200 Amount Anidulafungin 100 mg In 100 Sodium Chloride 0.9% 100 ml @ 84 mls/hr IVPB DAILY [facility] Rx#:[id number] Piperacillin-Tazobactam 3 100 .375 gm In Sodium Chloride 0.9% 100 ml @ 25 mls/hr IVPB Q8H [facility] Rx#: [id number] Output: Urine 1950 600 Other: Voiding Method Indwelling Catheter Indwelling Catheter Indwelling Catheter # Bowel Movements 1 1 - Labs CBC & Chem 7: 10/27/21 05:21 10/27/21 05:21 Labs: Abnormal Lab Results - Last 24 Hours (Table) 10/27/21 10/27/21 10/28/21 Range/Units 16:43 20:08 06:58 POC Glucose (mg/dL) 186 H 258 H 253 H (70-110) mg/dL 10/28/21 Range/Units 11:07 POC Glucose (mg/dL) 296 H (70-110) mg/dL Microbiology - Last 24 Hours (Table) 10/21/21 11:30 Blood Culture - Final Blood No Growth after 144 hours 10/21/21 11:45 Blood Culture - Final Blood No Growth after 144 hours 10/25/21 21:39 Urine Culture - Final Urine,Voided
[2021-10-28 15:37] LABS: Glucose,Whole Blood 271 mg/dL (70-110)
[2021-10-28] MEDS: RIVAROXABAN 20 MG TAB PO SCH (17:02)
[2021-10-28 17:21] LABS: Glucose,Whole Blood 218 mg/dL (70-110)
[2021-10-28 20:14] LABS: Glucose,Whole Blood 201 mg/dL (70-110)
[2021-10-28] MEDS: SENNOSIDES-DOCUSATE SODIUM 1 EACH TAB PO SCH (21:13)
[2021-10-28] MEDS: MONTELUKAST 10 MG TAB PO SCH (21:14)
[2021-10-28] MEDS: LATANOPROST 0.005% OPHTH DROPS 2.5 ML BTL BOTH EYES SCH (21:18)
[2021-10-29] MEDS: HYDROcodone/APAP 5-325MG 1 EACH TAB PO PRN ×3 (01:56→21:39)
[2021-10-29] MEDS: PIPERACILLIN-TAZOBACTAM 3.375 GM in SODIUM CHLORIDE 0.9% 100 ML IVPB SCH ×3 (04:37→21:38)
[2021-10-29] MEDS: LEVOTHYROXINE 125 MCG TAB PO SCH (06:03)
[2021-10-29] MEDS: SODIUM CHLORIDE 0.9% 1,000 ML IV SCH (06:06)
[2021-10-29 07:17] LABS: Glucose,Whole Blood 77 mg/dL (70-110)
[2021-10-29] MEDS: BUDESONIDE 0.5 MG/2 ML NEBU INHALATION SCH ×2 (07:49→19:49)
[2021-10-29] MEDS: ALBUTEROL NEBULIZED 2.5 MG/3 ML INHALATION SCH ×4 (07:49→19:49)
[2021-10-29] MEDS: NON FORMULARY DRUG (Methenamine Hippurate [Methenamine Hippurate] 1 GM Tablet) PO SCH ×2 (08:43→21:40)
[2021-10-29] MEDS ORDERED: FUROSEMIDE 40 MG TAB PO SCH (09:00)
[2021-10-29] MEDS: ISOSORBIDE MONONITRATE ER 30 MG TAB.ER.24H PO SCH (10:05)
[2021-10-29] MEDS: ONDANSETRON 4 MG TAB PO PRN (10:06)
[2021-10-29] MEDS: lisinopriL 10 MG TAB PO SCH (10:07)
[2021-10-29] MEDS: PANTOPRAZOLE 40 MG TABLET PO SCH (10:07)
[2021-10-29] MEDS: METOPROLOL SUCCINATE (ER) 25 MG TAB.ER.24H PO SCH ×2 (10:07→21:40)
[2021-10-29] MEDS: SUCRALFATE 1 GM TAB PO SCH ×2 (10:07→21:39)
[2021-10-29] MEDS: ZINC SULFATE 220 MG CAP PO SCH (10:08)
[2021-10-29] MEDS: CHOLECALCIFEROL 125 MCG (5000 IU) TABLET PO SCH (10:08)
[2021-10-29] MEDS: NYSTATIN 100,000 UNIT/ML SUSP 500,000 UNIT/5 ML CUP PO SCH ×4 (10:09→22:16)
[2021-10-29] MEDS: NYSTATIN 100,000UNIT/GM CREAM 30 GM TUBE TOPICAL SCH ×2 (10:10→21:40)
[2021-10-29] MEDS: PROPAFENONE 150 MG TAB PO SCH ×2 (10:10→22:17)
[2021-10-29] MEDS: CLOTRIMAZOLE/BETAMETH 1-0.05% CREAM 45 GM TUBE TOPICAL SCH ×2 (10:10→21:41)
[2021-10-29] MEDS: DORZOLAMIDE HCL 2% DROPS 10 ML BTL BOTH EYES SCH ×3 (10:11→21:41)
[2021-10-29] MEDS: ANIDULAFUNGIN 100 MG in SODIUM CHLORIDE 0.9% 100 ML IVPB SCH (10:12)
[2021-10-29] MEDS: TIMOLOL 0.5% OPHTH DROPS 5 ML BTL BOTH EYES SCH ×2 (10:14→21:41)
[2021-10-29] MEDS: INSULIN DETEMIR (LEVEMIR) 100 UNIT/ML SYR SQ SCH (10:15)
[2021-10-29] MEDS: FLUTICASONE 50MCG/SPRAY NASAL 16GM EA NOSTRIL SCH (10:20)
[2021-10-29] MEDS: BRIMONIDINE TARTRATE 0.2% DROPS 5 ML BTL BOTH EYES SCH ×3 (10:20→21:41)
[2021-10-29 11:40] LABS: Glucose,Whole Blood 95 mg/dL (70-110)
[2021-10-29 11:47] VITALS: RESP 20
--- NOTE | 2021-10-29 12:00 | P.PN ---
Subjective Progress Note Date: 10/28/21 HISTORY OF PRESENT ILLNESS: This is a 76-year-old white female with a previous medical history significant for hypertension and hypertensive cardiovascular disease, hyperlipidemia, diabetes mellitus type 2 with diabetic polyneuropathy, history of paroxysmal atrial fibrillation, coronary artery disease status post PCI and stent placement, history of uterine cancer in the past status post hysterectomy as well as radiation therapy, patient also had suffered from significant constipation and recurrent urinary tract infection associated with macro-and microscopic hematuria, patient has been under the care of from urology, she was recently discharged form [facility] after she w as admitted for E.Coli UTI that was sensitive to Cefepime and had IV treatment that was switched to oral Macrobid 100 mg po bid for 1 week and she went home last Wednesday, then she developed to have fever and chills and was seen in my office yesterday for what appears to be a UTI with sepsis, she was sent to [facility] ER [facility] and had CT scan of the abdomen and pelvis that was negative and she was started ON IV Antibiotics in the form of Cefepime 2 gr IVPB Q 8 hours and sent urine and blood cultures and was admitted to the hospital with ID consult. 10/23: Patient is laying down in bed she continues to have significant pain in the lower abdomen and she is complaining of increased swelling and tenderness of bilateral labia, she was seen earlier by ID, computed tomography scan of the pelvis were done did not show evidence of any drainable abscess at this time, patient was started on vancomycin along with cefepime, we will continue to monitor the patient very closely she appears to be somewhat hypotensive I spoke with the nursing staff about giving her a bolus of normal saline 500 mL followed by increasing her IV fluid 250 mL an hour, monitor the patient very closely repeat her CBC tomorrow morning, if the patient is not improving or her blood pressure does not normalize she will need to be transferred to the ICU. 10/24: Patient is laying down in bed moaning and groaning, she continues to appears very sick, we will reduce her IV fluid to 75 mL an hour patient was given 1 dose of Lasix 40 mg IV push 1, reevaluate the patient next 24 hours, patient also was seen earlier by infectious disease as well as by urology and was recommended to continue with Zosyn at this point in time she was taken off cefepime and vancomycin and the since her urine culture is growing Yudelka glabrata she was started on Anidulafungin 200 mg IVPB daily 10/25: Patient is sitting up in bed she appears to be more short of breath today, we decreased her IV fluids all the way to KVO, give the patient another dose of Lasix 40 mg IV push, we'll arrange for chest x-ray stat, nebulized treatment albuterol 2.5 mg every every 6 hours [id number], monitor the patient in the monitor she was presented to she is well, laboratory evaluation reviewed, we'll continue to monitor the patient very closely 10/26: Patient was seen yesterday in consultation by [employer] service in regarding to the vulvar mass that appears to be cancerous at this point in time, patient has great difficulties placing Bell catheter until Dr. Jones came today and place Bell catheter for her with a 2 L of urine came out after that, at this point we'll continue to treat the urosepsis we'll plan to transfer the patient to a tertiary care center at [facility] tomorrow morning for evaluation of the vulvar mass that she has that appears to be related to vulvar cancer, and the patient was notified about that. 10/27: Arrangements for transfer to [facility] and patient has been accepted but unfortunately is waiting for a bed most likely will occur tomorrow. Patient is complaining of feeling very weak. She is complaining of pain and Tol[place] 5 increased frequency to every 4 hours. Patient also states that she is having trouble with feeling need to defecate and has been incontinent of stool. Patient is been afebrile, heart rate 160, blood pressure 116/70, pulse ox 99% on 2 L nasal cannula. She has had no fever since 10/23. Bell catheter is draining clear melissa urine and Xarelto will be resumed. Cardiology is increased metoprolol frequency to twice daily and plan for follow-up with Dr. Perez in the office. WBC 19.7, hemoglobin 8.1, platelet count 399. Sodium 129, potassium 4.2, chloride 104, CO2 19, BUN 29 creatinine 1.4. Calcium 7.6. Alkaline phosphatase 146. Currently blood glucose running between 70 and 168. Echocardiogram reveals ischemic cardiomyopathy, moderate LV systolic dysfunction with EF of 40-45%, mild aortic stenosis. 10/28: Patient continues to have weakness which is worsening in from yesterday. She is eating very little and only one soft foods. Diet will be changed to soft only. is stating her. She complains of groin type pain and is continued on Toledo 5/325 mg every 4 hours. Patient is continued on Zosyn IV piggyback. Patient has been afebrile, heart rate 76, blood pressure 115/69, pulse ox 100% on 2 L nasal cannula. Capillary blood glucose 201-218. C. difficile toxin negative. Waiting for bed at [facility]. REVIEW OF SYSTEMS: Constitutional: positive for fever, positive for chills, no night sweats. No weight change. positive for worsening weakness, fatigue or lethargy. No daytime sleepiness. HEENT: positive for headache. No blurred vision or double vision, no loss of vision. No loss of Hearing, no ringing in the ears, no dizziness. No nasal drainage or congestion. No epistaxis. positive for sore throat Lungs: appears with some shortness of breath, occasional cough, no sputum production. positive for wheezing. Reports dyspnea with activity. Cardiovascular: No chest pain, mild lower extremity edema. No palpitations. No paroxysmal nocturnal dyspnea. positive for orthopnea. No lightheadedness or dizziness. No syncopal episodes. Abdominal: Reports abdominal pain. positive for nausea, no vomiting. No diarrhea. positive for constipation. No bloody or tarry stools reports loss of appetite. Genitourinary: positive for dysuria, increased frequency, urgency. positive for urinary retention. Musculoskeletal: No myalgias. positive for muscle weakness, no gait dysfunction, no frequent falls. positive for back pain and neck pain. Integumentary: No wounds, no lesions. No rash or pruritus. No unusual bruising. No change in hair or nails. Neurologic: No aphasia. No facial droop. No change in mentation. No head injury. No headache. No paralysis. No paresthesia. Psychiatric: No depression. No anxiety. No mood swings. Endocrine: No abnormal blood sugars. No weight change. PHYSICAL EXAMINATION: General: 76-year-old female laying on the bed in no respiratory distress. HEENT: Head is atraumatic, normocephalic, pupils were equal round reactive to light and recommendation, sclera nonicteric, conjunctivae were pale, mucous membranes of the mouth are somewhat dry, with thrush Neck: Supple, no JVP, decreased carotid upstroke bilaterally, no lymphadenopathy. Chest: Decreased breath sounds at the bases, few rhonchi, positive for expiratory wheezes, no chest wall tenderness, no intercostal retractions. Heart: First heart sound is normal, second heart sound is normal there is systolic ejection murmur 2/6 located in the left sternal border. Abdomen: Soft, nondistended, positive bowel sounds, multiple surgical scars, mild diffuse non specific tenderness Extremities: There is +1 edema no calf tenderness DP +2 bilaterally. Neurologic examination: Patient is awake alert and oriented X3 , cranial nerves II-12 appear grossly intact, worsening weakness generalized. ASSESSMENT AND PLAN: 1. Recurrent UTI with sepsis. Decrease IV fluid to KVO, continue patient on Zosyn 3.375 g IV piggyback every 6 hours, continue Anidulafungin 200 mg IV piggyback every day, infectious disease and neurology are following. 2. Acute hypoxemic respiratory insufficiency due to fluid overload. Decrease IV fluids to KVO, continue the patient on Lasix 40 mg IV push daily. 3. Hypertension and hypertensive cardiovascular disease. Continue lisinopril 10 mg orally once every day, continue metoprolol increased to 25 mg orally twice every day, added Vasotec 1.25 mg IV push every 6 hours as needed for systolic greater than 150. 3. Hyperlipidemia. Stable 4 . Diabetes mellitus type 2 insulin requiring. Continue patient on Levemir 16 units subcutaneously twice every day. Discontinue Farxiga 5. Paroxysmal atrial fibrillation currently in sinus rhythm. continue Rythmol 150 mg orally twice every day, continue metoprolol increased to 25 5 mg orally twice every day and Xarelto 20 mg orally daily will be resumed. 6. GERD with esophagitis. Continue patient on pantoprazole 40 mg every day, continue Carafate 1 mg orally twice every day. 7. Mild persistent asthma. Continue albuterol 2.5 mg nebulization 4 times every day [id number]. 8. Severe constipation. Patient had tried MiraLAX, lactulose, Senokot, and Metamucil without any relief, we will start the patient on Linzess 290 MCG orally once every day. 9. CAD post-PCI. Continue patient on metoprolol 12.5 mg twice every day, continue patient on isosorbide mononitrate 30 mg orally once every day. 10. History of breast cancer status post lumpectomy. Continue Arimidex 1 mg orally once every day. 11. History of uterine cancer status post hysterectomy along with radiation therapy. Currently in remission. 12. History of pituitary adenoma status post resection. 13. Insomnia. Continue trazodone 50 mg at bedtime. 14. DVT Prophylaxis. we will continue with Xarelto 20 mg po daily. 15. GI Prophylaxis. we will continue with PPI. 16. Medical debility. Physical therapy evaluation. 14. Vulvar mass was evaluated by [employer] service recommended for the patient be transferred to tertiary [facility] for evaluation and treatment accordingly will initiate transfer tomorrow morning. 15. Very poor prognosis DISCHARGE PLAN Transferred to [facility] once bed is available Impression and plan of care have been directed as dictated by the signing physician. Cristina Bowers nurse practitioner acting as scribe for signing physician. Objective - Vital Signs Vital signs: Vital Signs Temp 98.2 F 10/28/21 04:50 Pulse 115 H 10/28/21 09:30 Resp 16 10/28/21 08:54 BP 115/69 10/28/21 09:30 Pulse Ox 100 10/28/21 09:30 FiO2 Intake & Output 10/27/21 10/28/21 10/28/21 18:59 06:59 18:59 Intake Total 200 Output Total 1950 600 Balance -1750 -600 Intake: Intake, IV Titration 200 Amount Anidulafungin 100 mg In 100 Sodium Chloride 0.9% 100 ml @ 84 mls/hr IVPB DAILY [facility] Rx#:[id number] Piperacillin-Tazobactam 3 100 .375 gm In Sodium Chloride 0.9% 100 ml @ 25 mls/hr IVPB Q8H [facility] Rx#: [id number] Output: Urine 1950 600 Other: Voiding Method Indwelling Catheter Indwelling Catheter Indwelling Catheter # Bowel Movements 1 1 - Labs CBC & Chem 7: 10/27/21 05:21 10/27/21 05:21 Labs: Abnormal Lab Results - Last 24 Hours (Table) 10/27/21 10/27/21 10/28/21 Range/Units 16:43 20:08 06:58 POC Glucose (mg/dL) 186 H 258 H 253 H (70-110) mg/dL 10/28/21 Range/Units 11:07 POC Glucose (mg/dL) 296 H (70-110) mg/dL Microbiology - Last 24 Hours (Table) 10/21/21 11:30 Blood Culture - Final Blood No Growth after 144 hours 10/21/21 11:45 Blood Culture - Final Blood No Growth after 144 hours 10/25/21 21:39 Urine Culture - Final Urine,Voided
[2021-10-29 12:37] LABS: Anisocytosis Slight; HCT 27.5 % (34.0-46.0); HGB 8.6 gm/dL (11.4-16.0); Hypochromasia Marked; MCH 28.3 pg (25.0-35.0); MCHC 31.2 g/dL (31.0-37.0); MCV 90.6 fL (80.0-100.0); Mean Platelet Volume 7.8; Platelet Count 355 k/uL (150-450); RBC 3.04 m/uL (3.80-5.40); WBC 22.6 k/uL (3.8-10.6)
[2021-10-29 12:50] LABS: ALT 11 U/L (4-34); AST 21 U/L (14-36); African American GFR (CKD) 74 (>60 ml/min/1.73 sqM); Albumin/Globulin Ratio 0.7; Alkaline Phosphatase 163 U/L (38-126); Anion Gap 7 mmol/L; Blood Urea Nitrogen 18 mg/dL (7-17); Calcium 7.8 mg/dL (8.4-10.2); Carbon Dioxide 18 mmol/L (22-30); Chloride 103 mmol/L (98-107); Globulin 2.7 g/dL; Glucose 87 mg/dL (74-99); Non-African American GFR(CKD) 64 (>60 ml/min/1.73 sqM); Potassium 3.6 mmol/L (3.5-5.1); Sodium 128 mmol/L (137-145); Total Bilirubin 0.4 mg/dL (0.2-1.3); Total Protein 4.7 g/dL (6.3-8.2)
[2021-10-29 17:03] LABS: Glucose,Whole Blood 45 mg/dL (70-110)
[2021-10-29] MEDS ORDERED: DEXTROSE 50% SYRINGE 50 ML IVP ONE (17:08)
[2021-10-29 17:17] LABS: Glucose,Whole Blood 47 mg/dL (70-110)
[2021-10-29] MEDS: RIVAROXABAN 20 MG TAB PO SCH (17:25)
[2021-10-29 17:26] LABS: Glucose,Whole Blood 44 mg/dL (70-110)
[2021-10-29 17:32] LABS: Glucose,Whole Blood 107 mg/dL (70-110)
[2021-10-29 20:21] LABS: Glucose,Whole Blood 133 mg/dL (70-110)
[2021-10-29] MEDS: SENNOSIDES-DOCUSATE SODIUM 1 EACH TAB PO SCH (21:39)
[2021-10-29] MEDS: MONTELUKAST 10 MG TAB PO SCH (21:39)
[2021-10-29] MEDS: LATANOPROST 0.005% OPHTH DROPS 2.5 ML BTL BOTH EYES SCH (21:40)
[2021-10-29 21:47] VITALS: BP 152/76; PULSE 116; TEMP 99.6
--- NOTE | 2021-10-30 12:13 | P.PN ---
Subjective Progress Note Date: 10/29/21 HISTORY OF PRESENT ILLNESS: This is a 76-year-old white female with a previous medical history significant for hypertension and hypertensive cardiovascular disease, hyperlipidemia, diabetes mellitus type 2 with diabetic polyneuropathy, history of paroxysmal atrial fibrillation, coronary artery disease status post PCI and stent placement, history of uterine cancer in the past status post hysterectomy as well as radiation therapy, patient also had suffered from significant constipation and recurrent urinary tract infection associated with macro-and microscopic hematuria, patient has been under the care of from urology, she was recently discharged form [facility] after she w as admitted for E.Coli UTI that was sensitive to Cefepime and had IV treatment that was switched to oral Macrobid 100 mg po bid for 1 week and she went home last Wednesday, then she developed to have fever and chills and was seen in my office yesterday for what appears to be a UTI with sepsis, she was sent to [facility] ER [facility] and had CT scan of the abdomen and pelvis that was negative and she was started ON IV Antibiotics in the form of Cefepime 2 gr IVPB Q 8 hours and sent urine and blood cultures and was admitted to the hospital with ID consult. 10/23: Patient is laying down in bed she continues to have significant pain in the lower abdomen and she is complaining of increased swelling and tenderness of bilateral labia, she was seen earlier by ID, computed tomography scan of the pelvis were done did not show evidence of any drainable abscess at this time, patient was started on vancomycin along with cefepime, we will continue to monitor the patient very closely she appears to be somewhat hypotensive I spoke with the nursing staff about giving her a bolus of normal saline 500 mL followed by increasing her IV fluid 250 mL an hour, monitor the patient very closely repeat her CBC tomorrow morning, if the patient is not improving or her blood pressure does not normalize she will need to be transferred to the ICU. 10/24: Patient is laying down in bed moaning and groaning, she continues to appears very sick, we will reduce her IV fluid to 75 mL an hour patient was given 1 dose of Lasix 40 mg IV push 1, reevaluate the patient next 24 hours, patient also was seen earlier by infectious disease as well as by urology and was recommended to continue with Zosyn at this point in time she was taken off cefepime and vancomycin and the since her urine culture is growing Yudelka glabrata she was started on Anidulafungin 200 mg IVPB daily 10/25: Patient is sitting up in bed she appears to be more short of breath today, we decreased her IV fluids all the way to KVO, give the patient another dose of Lasix 40 mg IV push, we'll arrange for chest x-ray stat, nebulized treatment albuterol 2.5 mg every every 6 hours [id number], monitor the patient in the monitor she was presented to she is well, laboratory evaluation reviewed, we'll continue to monitor the patient very closely 10/26: Patient was seen yesterday in consultation by [employer] service in regarding to the vulvar mass that appears to be cancerous at this point in time, patient has great difficulties placing Bell catheter until Dr. 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 10/27: Arrangements for transfer to [facility] and patient has been accepted but unfortunately is waiting for a bed most likely will occur tomorrow. Patient is complaining of feeling very weak. She is complaining of pain and [place] 5 increased frequency to every 4 hours. Patient also states that she is having trouble with feeling need to defecate and has been incontinent of stool. Patient is been afebrile, heart rate 160, blood pressure 116/70, pulse ox 99% on 2 L nasal cannula. She has had no fever since 10/23. Bell catheter is draining clear melissa urine and Xarelto will be resumed. Cardiology is increased metoprolol frequency to twice daily and plan for follow-up with Dr. Perez in the office. WBC 19.7, hemoglobin 8.1, platelet count 399. Sodium 129, potassium 4.2, chloride 104, CO2 19, BUN 29 creatinine 1.4. Calcium 7.6. Alkaline phosphatase 146. Currently blood glucose running between 70 and 168. Echocardiogram reveals ischemic cardiomyopathy, moderate LV systolic dysfunction with EF of 40-45%, mild aortic stenosis. 10/28: Patient continues to have weakness which is worsening in from yesterday. She is eating very little and only one soft foods. Diet will be changed to soft only. is stating her. She complains of groin type pain and is continued on [place] 5/325 mg every 4 hours. Patient is continued on Zosyn IV piggyback. Patient has been afebrile, heart rate 76, blood pressure 115/69, pulse ox 100% on 2 L nasal cannula. Capillary blood glucose 201-218. C. difficile toxin negative. Waiting for bed at [facility]. 10/29: Patient is afebrile, heart rate 119, blood pressure 96/60, pulse ox 90% on room air. Patient continues to have weakness and poor oral intake. She is waiting for bed at [facility]. Chronic virus PCR not detected. REVIEW OF SYSTEMS: Constitutional: positive for fever, positive for chills, no night sweats. No weight change. positive for worsening weakness, fatigue or lethargy. No daytime sleepiness. HEENT: positive for headache. No blurred vision or double vision, no loss of vision. No loss of Hearing, no ringing in the ears, no dizziness. No nasal drainage or congestion. No epistaxis. positive for sore throat Lungs: appears with some shortness of breath, occasional cough, no sputum pr oduction. positive for wheezing. Reports dyspnea with activity. Cardiovascular: No chest pain, mild lower extremity edema. No palpitations. No paroxysmal nocturnal dyspnea. positive for orthopnea. No lightheadedness or dizziness. No syncopal episodes. Abdominal: Reports abdominal pain. positive for nausea, no vomiting. No diarrhea. positive for constipation. No bloody or tarry stools reports loss of appetite. Genitourinary: positive for dysuria, increased frequency, urgency. positive for urinary retention. Musculoskeletal: No myalgias. positive for muscle weakness, no gait dysf unction, no frequent falls. positive for back pain and neck pain. Integumentary: No wounds, no lesions. No rash or pruritus. No unusual bruising. No change in hair or nails. Neurologic: No aphasia. No facial droop. No change in mentation. No head injury. No headache. No paralysis. No paresthesia. Psychiatric: No depression. No anxiety. No mood swings. Endocrine: No abnormal blood sugars. No weight change. PHYSICAL EXAMINATION: General: 76-year-old female laying on the bed in no respiratory distress. HEENT: Head is atraumatic, normocephalic, pupils were equal round reactive to light and recommendation, sclera nonicteric, conjunctivae were pale, mucous membranes of the mouth are somewhat dry, with thrush Neck: Supple, no JVP, decreased carotid upstroke bilaterally, no lymphadenopathy. Chest: Decreased breath sounds at the bases, few rhonchi, positive for expiratory wheezes, no chest wall tenderness, no intercostal retractions. Heart: First heart sound is normal, second heart sound is normal there is systolic ejection murmur 2/6 located in the left sternal border. Abdomen: Soft, nondistended, positive bowel sounds, multiple surgical scars, mild diffuse non specific tenderness Extremities: There is +1 edema no calf tenderness DP +2 bilaterally. Neurologic examination: Patient is awake alert and oriented X3 , cranial nerves II-12 appear grossly intact, worsening weakness generalized. ASSESSMENT AND PLAN: 1. Recurrent UTI with sepsis. Decrease IV fluid to KVO, continue patient on Zosyn 3.375 g IV piggyback every 6 hours, continue Anidulafungin 200 mg IV piggyback every day, infectious disease and neurology are following. 2. Acute hypoxemic respiratory insufficiency due to fluid overload. Decrease IV fluids to KVO, continue the patient on Lasix 40 mg IV push daily. 3. Hypertension and hypertensive cardiovascular disease. Continue lisinopril 10 mg orally once every day, continue metoprolol increased to 25 mg orally twice every day, added Vasotec 1.25 mg IV push every 6 hours as needed for systolic greater than 150. 3. Hyperlipidemia. Stable 4 . Diabetes mellitus type 2 insulin requiring. Continue patient on Levemir 16 units subcutaneously twice every day. Discontinue Farxiga 5. Paroxysmal atrial fibrillation currently in sinus rhythm. continue Rythmol 150 mg orally twice every day, continue metoprolol increased to 25 5 mg orally twice every day and Xarelto 20 mg orally daily will be resumed. 6. GERD with esophagitis. Continue patient on pantoprazole 40 mg every day, continue Carafate 1 mg orally twice every day. 7. Mild persistent asthma. Continue albuterol 2.5 mg nebulization 4 times every day [id number]. 8. Severe constipation. Patient had tried MiraLAX, lactulose, Senokot, and Metamucil without any relief, we will start the patient on Linzess 290 MCG orally once every day. 9. CAD post-PCI. Continue patient on metoprolol 12.5 mg twice every day, continue patient on isosorbide mononitrate 30 mg orally once every day. 10. History of breast cancer status post lumpectomy. Continue Arimidex 1 mg orally once every day. 11. History of uterine cancer status post hysterectomy along with radiation therapy. Currently in remission. 12. History of pituitary adenoma status post resection. 13. Insomnia. Continue trazodone 50 mg at bedtime. 14. DVT Prophylaxis. we will continue with Xarelto 20 mg po daily. 15. GI Prophylaxis. we will continue with PPI. 16. Medical debility. Physical therapy evaluation. 14. Vulvar mass was evaluated by [employer]ER service recommended for the patient be transferred to tertiary care center for evaluation and treatment accordingly will initiate transfer tomorrow morning. 15. Very poor prognosis DISCHARGE PLAN Transferred to [facility] once bed is available Impression and plan of care have been directed as dictated by the signing physician. Cristina Bowers nurse practitioner acting as scribe for signing physician. Objective - Vital Signs Vital signs: Vital Signs Temp 99.4 F 10/29/21 11:46 Pulse 119 H 10/29/21 11:46 Resp 20 10/29/21 11:46 BP 96/60 10/29/21 11:46 Pulse Ox 98 10/29/21 11:46 FiO2 Intake & Output 10/28/21 10/29/21 10/29/21 18:59 06:59 18:59 Intake Total 240 Output Total 1800 1101 Balance -1800 -861 Intake: Oral 240 Output: Urine 1800 1100 Stool 1 Other: Voiding Method Indwelling Catheter Indwelling Catheter # Bowel Movements 1 1 - Labs CBC & Chem 7: 10/29/21 12:21 10/29/21 12:21 Labs: Abnormal Lab Results - Last 24 Hours (Table) 10/28/21 10/28/21 10/28/21 Range/Units 15:35 17:18 20:12 POC Glucose (mg/dL) 271 H 218 H 201 H (70-110) mg/dL
== END 2021-10-30 00:10 | disposition short-term general hospital (02) | DRG 698 ==
LOC: EC 11:17 → 4SSUR 14:17 → 5NMEDONC 10-22 05:44
PROVIDERS: ADMIT Internal Medicine; ATTEND Internal Medicine
DX: T83.518A Infection and inflammatory reaction due to other urinary catheter, initial encounter (principal); A41.9 Sepsis, unspecified organism; I50.23 Acute on chronic systolic (congestive) heart failure; N39.0 Urinary tract infection, site not specified; I13.0 Hypertensive heart and chronic kidney disease with heart failure and stage 1 through stage 4 chronic kidney disease, or unspecified chronic kidney disease; Z20.822 Contact with and (suspected) exposure to COVID-19; E03.9 Hypothyroidism, unspecified; E11.22 Type 2 diabetes mellitus with diabetic chronic kidney disease; N18.2 Chronic kidney disease, stage 2 (mild); E11.319 Type 2 diabetes mellitus with unspecified diabetic retinopathy without macular edema; E11.42 Type 2 diabetes mellitus with diabetic polyneuropathy; E78.5 Hyperlipidemia, unspecified; I48.0 Paroxysmal atrial fibrillation; I25.5 Ischemic cardiomyopathy; N90.9 Noninflammatory disorder of vulva and perineum, unspecified; I25.10 Atherosclerotic heart disease of native coronary artery without angina pectoris; G47.00 Insomnia, unspecified; R09.02 Hypoxemia; K21.00 Gastro-esophageal reflux disease with esophagitis, without bleeding; J45.30 Mild persistent asthma, uncomplicated; K59.00 Constipation, unspecified; M79.7 Fibromyalgia; R53.81 Other malaise; M47.892 Other spondylosis, cervical region; F32.A Depression, unspecified; M47.896 Other spondylosis, lumbar region; M19.90 Unspecified osteoarthritis, unspecified site; Z96.642 Presence of left artificial hip joint; Z86.14 Personal history of Methicillin resistant Staphylococcus aureus infection; Z95.5 Presence of coronary angioplasty implant and graft; Z92.3 Personal history of irradiation; Z87.440 Personal history of urinary (tract) infections; Z85.42 Personal history of malignant neoplasm of other parts of uterus; Z85.41 Personal history of malignant neoplasm of cervix uteri; Z79.899 Other long term (current) drug therapy; Z79.890 Hormone replacement therapy; Z79.4 Long term (current) use of insulin; Z79.811 Long term (current) use of aromatase inhibitors; Z79.01 Long term (current) use of anticoagulants; Z85.3 Personal history of malignant neoplasm of breast
CPT/HCPCS: 36415; 71045; 71046; 72193; 74176; 80053; 81001; 82947; 83605; 83880; 84484; 85025; 85027; 86140; 87040; 87086; 87324; 87502; 87635; 93005; 93306; 94640; 94760; 96365; 96366; 99285